=== PATIENT | female | born 1955 | race Caucasian/White ===

== ENCOUNTER 2016-09-01 14:13 | Emergency (ER) | payer MEDICARE, MEDICAID ==
[~2016-09-01] VITALS: Ht 160 cm; Wt 50.4 kg
[~2016-09-01 14:13] MED LIST: CEPH500C3 PO; HYDR10TA16 PO; TRAZ50TA4 PO; TRIBENZOR PO
[2016-09-01 14:22] VITALS: BP 158/79; PULSE 83; RESP 24; TEMP 99; O2SAT 95
[2016-09-01] MEDS ORDERED: methylPREDNISolone SOD SUCC 125 MG/2 ML VIAL IVP ONE (14:30)
[2016-09-01] MEDS ORDERED: SYMB80AE INH (14:34)
[2016-09-01] MEDS ORDERED: HYDR-3366 PO (14:34)
[2016-09-01] MEDS ORDERED: ALPR0.5T3 PO (14:34)
[2016-09-01] MEDS ORDERED: LISI40TA PO (14:34)
[2016-09-01] MEDS ORDERED: CLON0.1T PO (14:34)
[2016-09-01] MEDS ORDERED: SYMB160A INH (14:34)
[2016-09-01] MEDS ORDERED: METH750T PO (14:34)
[2016-09-01] MEDS ORDERED: VENTAER INH (14:34)
--- NOTE | 2016-09-01 14:36 | PD ---
HPI Chief Complaint: Cold / Flu Symptoms Time Seen by Provider: 14:30 Travel History International Travel<30 days: No Contact w/Intl Traveler<30days: No Traveled to known affect area: No History of Present Illness HPI 60-year-old female with history of smoking, COPD, presents to the ER today with several days' history of coughing, wheezing, shortness of breath which she has been trying to use her her nebulizer for without significant relief. She denies any fevers or any other issues. She notes that she did have a sick contact, a friend with upper respiratory symptoms and came over. Modifying Factors: None Associated Signs & Symptoms: Coughing, shortness of breath, wheezing Risk Factors: Smoking and COPD PFSH Past Medical History Anxiety: Yes COPD: Yes Diminished Hearing: Yes ("tinnitus left ear") Herniated Disk: Yes Hypertension: Yes Musculoskeletal: Yes ("L1,L2,L3,fractures and L5 herniated disc") Respiratory: Yes (CHRONIC BRONCHITIS) ?: Not : 0 Para: 0 Miscarriage: 0 : 0 Past Surgical History Hysterectomy: Yes Social History Alcohol Use: Yes ("every day one to two beers") Tobacco Use: Yes (08/21 PPD) Substance Use: No (denied) Allergies-Medications (Allergen,Severity, Reaction): Coded Allergies: Aspirin (Verified Adverse Reaction, Severe, "don't take aspirin i have tinnitus, 09/01/16) Reported Meds & Prescriptions Reported Meds & Active Scripts Active Proventil Hfa 6.7 GM Inh (Albuterol Sulfate) 90 Mcg/Act Aer 2 Puff INH Q4-6H PRN Prednisone 50 Mg Tab 50 Mg PO DAILY Reported Symbicort Inh (Budesonide/Formoterol Fumarate) 160-4.5 Mcg/Act Aero 1 Puff INH Q12HR Symbicort Inh (Budesonide/Formoterol Fumarate) 80-4.5 Mcg/Act Aero 1 Puff INH Q12HR [place] (Hydrocodone-Acetaminophen) 10-325 Mg Tab 1 Tab PO BID PRN Methocarbamol 750 Mg Tab 750 Mg PO BID Alprazolam 0.5 Mg Tab 0.5 Mg PO BID PRN Clonidine (Clonidine HCl) 0.1 Mg Tab 0.1 Mg PO BID Ventolin Hfa 18 GM Inh (Albuterol Sulfate) 90 Mcg/Act Aer 2 Puff INH Q4-6H PRN Lisinopril 40 Mg Tab 40 Mg PO DAILY Review of Systems Except as stated in HPI: all other systems reviewed are Neg Physical Exam Narrative GENERAL: Well-nourished, well-developed middle age white female patient in mild respiratory distress. SKIN: Warm and dry. HEAD: Normocephalic. EYES: No scleral icterus. No injection or drainage. NECK: Supple, trachea midline. CARDIOVASCULAR: Regular rate and rhythm without murmurs, gallops, or rubs. RESPIRATORY: Breath sounds equal with wheezing throughout bilaterally. Mild accessory muscle use. GASTROINTESTINAL: Abdomen soft, non-tender, nondistended. MUSCULOSKELETAL: No cyanosis, or edema. BACK: Nontender without obvious deformity. No CVA tenderness. Data Data Last Documented VS Vital Signs Date Time Temp Pulse Resp B/P Pulse Ox O2 Delivery O2 Flow Rate FiO2 09/01/16 15:23 76 18 147/58 95 Room Air 09/01/16 14:22 99.0 Orders Influenzae A/B Antigen (09/01/16 14:27) Chest, Single Ap (09/01/16 14:27) Complete Blood Count With Diff (09/01/16 14:30) Basic Metabolic Panel (Bmp) (09/01/16 14:30) Iv Access Insert/Monitor (09/01/16 14:30) Ecg Monitoring (09/01/16 14:30) Oximetry (09/01/16 14:30) Oxygen Administration (09/01/16 14:30) Sodium Chloride 0.9% Flush (Ns Flush) (09/01/16 14:30) Methylprednisolone So Succ Inj (Solumedr (09/01/16 14:30) Albuterol-Ipratropium Neb (Duoneb Neb) (09/01/16 14:30) Sodium Chlorid 0.9% 500 Ml Inj (Ns 500 M (09/01/16 15:15) Albuterol Neb (Albuterol Neb) (09/01/16 15:30) Albuterol Neb (Albuterol Neb) (09/01/16 16:15) Labs Laboratory Tests Test 09/01/16 14:45 White Blood Count 4.7 TH/MM3 Red Blood Count 3.80 MIL/MM3 Hemoglobin 13.1 GM/DL Hematocrit 38.6 % Mean Corpuscular Volume 101.5 FL Mean Corpuscular Hemoglobin 34.5 PG Mean Corpuscular Hemoglobin 34.0 % Concent Red Cell Distribution Width 11.8 % Platelet Count 163 TH/MM3 Mean Platelet Volume 7.3 FL Neutrophils (%) (Auto) 60.1 % Lymphocytes (%) (Auto) 24.6 % Monocytes (%) (Auto) 14.4 % Eosinophils (%) (Auto) 0.2 % Basophils (%) (Auto) 0.7 % Neutrophils # (Auto) 2.8 TH/MM3 Lymphocytes # (Auto) 1.2 TH/MM3 Monocytes # (Auto) 0.7 TH/MM3 Eosinophils # (Auto) 0.0 TH/MM3 Basophils # (Auto) 0.0 TH/MM3 CBC Comment DIFF FINAL Differential Comment Sodium Level 127 MEQ/L Potassium Level 4.0 MEQ/L Chloride Level 91 MEQ/L Carbon Dioxide Level 27.8 MEQ/L Anion Gap 8 MEQ/L Blood Urea Nitrogen 4 MG/DL Creatinine 0.80 MG/DL Estimat Glomerular Filtration 74 ML/MIN Rate Random Glucose 98 MG/DL Calcium Level 8.8 MG/DL [facility] Medical Decision Making Medical Screen Exam Complete: Yes Emergency Medical Condition: Yes Medical Record Reviewed: Yes Interpretation(s) Laboratory Tests Test 09/01/16 14:45 Red Blood Count 3.80 MIL/MM3 (4.00-5.30) Mean Corpuscular Volume 101.5 FL (80.0-100.0) Mean Corpuscular Hemoglobin 34.5 PG (27.0-34.0) Monocytes (%) (Auto) 14.4 % (0.0-8.0) Sodium Level 127 MEQ/L (136-145) Chloride Level 91 MEQ/L (98-107) Blood Urea Nitrogen 4 MG/DL (7-18) Estimat Glomerular Filtration 74 ML/MIN (>89) Rate Last 24 hours Impressions Chest X-Ray 09/01/16 1427 Signed Impressions: Service Date/Time: Thursday, September 01, 2016 14:38 - CONCLUSION: Normal examination. Tequila Salinas MD Differential Diagnosis Coughing, shortness of breath, wheezingpneumonia versus COPD versus bronchitis Narrative Course Chest x-ray did not indicate any significant signs of acute pulmonary processes. She is influenza-negative. She was given Solu-Medrol and DuoNeb's in the ER. On reevaluation at 4:40 PM, she is feeling much improved after multiple nebulizers. At this point, she is able to walk around the ER and is feeling improved, however, her saturation does drop with ambulation and I have offered to admit her if she feels that she is not safe to go home. However, She states that she would like to go home, is feeling improved did not that she thinks she will do okay. My plan would be to release her with follow-up to primary care physician. Return for any worsening in symptoms as necessary. The plan has discussed with her and she states understanding. Diagnosis Primary Impression: COPD exacerbation Med/Other Pt SpecificInfo: Prescription(s) given Scripts Albuterol 6.7 GM Inh (Proventil Hfa 6.7 GM Inh)90 Mcg/Act Aer2 Puff INH Q4-6H PRN (SHORTNESS OF BREATH) #1 INHALER Ref 0 Prov:Deepti Cramer MD 09/01/16 Prednisone 50 Mg Tab50 Mg PO DAILY #5 TAB Ref 0 Prov:Deepti Cramer MD 09/01/16 Disposition: 01 DISCHARGE HOME Condition: Stable Deepti Cramer MD Sep 01, 2016 14:35
[2016-09-01] MEDS: RESP: ALBUTEROL 2.5 MG/IPRATROPIUM 0.5 MG NEB (SCH) INH (14:42)
--- NOTE | 2016-09-01 14:48 | RADHPO ---
EXAM DATE/TIME: 09/01/2016 14:38 [facility] COMPARISON: None. INDICATIONS : Short of breath MEDICAL HISTORY : Chronic obstructive pulmonary disease. SURGICAL HISTORY : None. ENCOUNTER: Initial ACUITY: 2 days PAIN SCORE: 7/10 LOCATION: Bilateral chest FINDINGS: A single view of the chest demonstrates the lungs to be symmetrically aerated without evidence of mas s, infiltrate or effusion. The cardiomediastinal contours are unremarkable. Osseous structures are intact. CONCLUSION: Normal examination. Tequila Salinas MD on September 01, 2016 at 14:46 Board Certified Radiologist. This report was verified electronically.
[2016-09-01 14:50] VITALS: RESP 25; O2SAT 95
[2016-09-01] MEDS: SODIUM CHLORIDE 0.9% FLUSH 5 ML FLUSH IVF PRN ×2 (14:54→15:21)
[2016-09-01 14:55] LABS: AUTOMATED NEUTROPHIL # 2.8 TH/MM3 (1.8-7.7); BASOPHIL % 0.7 % (0.0-2.0); EOSINOPHIL % 0.2 % (0.0-4.0); HEMATOCRIT 38.6 % (35.0-46.0); HEMO FLAGS DIFF FINAL; LYMPH % 24.6 % (9.0-44.0); LYMPHOCYTE # 1.2 TH/MM3 (1.0-4.8); MEAN CELL VOLUME 101.5 FL (80.0-100.0); MEAN CORPUSCULAR HEMOGLOBIN 34.5 PG (27.0-34.0); MONO % 14.4 % (0.0-8.0); NEUT % 60.1 % (16.0-70.0); PLATELET COUNT 163 TH/MM3 (150-450); RED CELL DISTRIBUTION WIDTH 11.8 % (11.6-17.2); WHITE BLOOD COUNT 4.7 TH/MM3 (4.0-11.0)
[2016-09-01 15:08] LABS: BICARBONATE 27.8 MEQ/L (21.0-32.0)
[2016-09-01] MEDS ORDERED: SODIUM CHLORID 0.9% 500 ML INJ 500 ML IV ONE (15:15)
[2016-09-01 15:23] VITALS: BP 147/58; PULSE 76; RESP 18; O2SAT 95
[2016-09-01] MEDS: RESP: ALBUTEROL 2.5 MG/3 ML NEB (SCH) INH ×2 (15:34→16:16)
[2016-09-01] MEDS ORDERED: PRED50 PO (16:49)
[2016-09-01] MEDS ORDERED: ALBU6.7H INH (16:49)
[2016-09-01 17:27] VITALS: BP 163/65
== END 2016-09-01 17:31 | disposition home or self-care (01) ==
LOC: PHED 14:13
DX: J44.1 Chronic obstructive pulmonary disease with (acute) exacerbation (principal); I10 Essential (primary) hypertension; F17.210 Nicotine dependence, cigarettes, uncomplicated
CPT/HCPCS: 71010; 80048; 85025; 87804; 94640; 94664; 96361; 96374; 99285; J2930; J7040; J7613

== ENCOUNTER 2016-09-02 15:35 | Inpatient (IN) | payer MEDICARE, MEDICAID ==
[~2016-09-02] VITALS: Ht 160 cm; Wt 55.2 kg
[2016-09-02] VITALS (16 sets, daily range): BP systolic 139–217; BP diastolic 73–126; PULSE 86–114; RESP 24–34; TEMP 98–98.2; O2SAT 95–100
[~2016-09-02 15:35] MED LIST changes: +ALBU6.7H INH; +ALPR0.5T3 PO; -CEPH500C3 PO; +CLON0.1T PO; +HYDR-3366 PO; -HYDR10TA16 PO; +LISI40TA PO; +METH750T PO; +PRED50 PO; +SYMB160A INH; +SYMB80AE INH; -TRAZ50TA4 PO; -TRIBENZOR PO; +VENTAER INH
--- NOTE | 2016-09-02 15:42 | PD ---
HPI Chief Complaint: Respiratory Distress Time Seen by Provider: 15:38 Travel History International Travel<30 days: No Contact w/Intl Traveler<30days: No Traveled to known affect area: No History of Present Illness HPI 60-year-old female with history of COPD brought in by ambulance from home for evaluation of shortness of breath. The patient was seen in the emergency department yesterday with complaints of shortness of breath and cough for several days. She improved after 2 nebs and Solu-Medrol. Her O2 saturations did drop with exertion and she was offered admission yesterday, however the patient preferred to be discharged home as she was feeling a lot better. She states that she took prednisone about 5 hours ago, and shortly afterward she became short of breath. Her dyspnea seemed to be worsening over the last few hours. EMS administered albuterol and the patient reports some improvement in symptoms, however she still feels short of breath. She denies chest pain. She has been having a cough productive of whitish sputum. No hemoptysis. No chest pain. No history of DVT or PE. No fevers. She has never been intubated or hospitalized for her COPD. PFSH Past Medical History Anxiety: Yes COPD: Yes Diminished Hearing: Yes ("tinnitus left ear") Herniated Disk: Yes Hypertension: Yes Musculoskeletal: Yes ("L1,L2,L3,fractures and L5 herniated disc") Respiratory: Yes (CHRONIC BRONCHITIS) : 0 Para: 0 Miscarriage: 0 : 0 Past Surgical History Hysterectomy: Yes Social History Alcohol Use: Yes (DAILY) Tobacco Use: Yes (1 PPD) Substance Use: No (denied) Allergies-Medications (Allergen,Severity, Reaction): Coded Allergies: Aspirin (Verified Adverse Reaction, Severe, "don't take aspirin i have tinnitus, 09/02/16) Reported Meds & Prescriptions Reported Meds & Active Scripts Active Proventil Hfa 6.7 GM Inh (Albuterol Sulfate) 90 Mcg/Act Aer 2 Puff INH Q4-6H PRN Prednisone 50 Mg Tab 50 Mg PO DAILY Reported Symbicort Inh (Budesonide/Formoterol Fumarate) 160-4.5 Mcg/Act Aero 1 Puff INH Q12HR [place] (Hydrocodone-Acetaminophen) 10-325 Mg Tab 1 Tab PO BID PRN Methocarbamol 750 Mg Tab 750 Mg PO BID Alprazolam 0.5 Mg Tab 0.5 Mg PO BID PRN Clonidine (Clonidine HCl) 0.1 Mg Tab 0.1 Mg PO BID Ventolin Hfa 18 GM Inh (Albuterol Sulfate) 90 Mcg/Act Aer 2 Puff INH Q4-6H PRN Lisinopril 40 Mg Tab 40 Mg PO DAILY Review of Systems Except as stated in HPI: all other systems reviewed are Neg Physical Exam Narrative GENERAL: Well-developed, thin, moderate respiratory distress, speaking a few words at a time, accessory muscle use. SKIN: Warm and dry. No rash. HEAD: Atraumatic. Normocephalic. EYES: Pupils equal and round. No scleral icterus. No injection or drainage. ENT: Mucous membranes pink and moist. NECK: Trachea midline. No JVD. CARDIOVASCULAR: Tachycardic, rate 110, regular. RESPIRATORY: Accessory muscle use. Bilateral inspiratory and expiratory wheezes with poor air movement bilaterally. No rales or rhonchi. Moderate respiratory distress. Speaking a few words at a time. GASTROINTESTINAL: Abdomen soft, non-tender, nondistended. MUSCULOSKELETAL: No obvious deformities. No clubbing. No cyanosis. No edema. NEUROLOGICAL: Awake and alert. No obvious cranial nerve deficits. Motor grossly within normal limits. Normal speech. PSYCHIATRIC: Appropriate mood and affect; insight and judgment normal. Data Data Last Documented VS Vital Signs Date Time Temp Pulse Resp B/P Pulse Ox O2 Delivery O2 Flow Rate FiO2 09/02/16 16:34 100 30 09/02/16 16:31 BiPAP 09/02/16 16:18 98.2 111 28 212/126 09/02/16 16:00 2.00 Orders Complete Blood Count With Diff (09/02/16 15:38) Comprehensive Metabolic Panel (09/02/16 15:38) B-Type Natriuretic Peptide (09/02/16 15:38) Act Partial Throm Time (Ptt) (09/02/16 15:38) Prothrombin Time / Inr (Pt) (09/02/16 15:38) Ckmb (Isoenzyme) Profile (09/02/16 15:38) Troponin I (09/02/16 15:38) Influenzae A/B Antigen (09/02/16 15:38) Iv Access Insert/Monitor (09/02/16 15:38) Electrocardiogram (09/02/16 15:38) Ecg Monitoring (09/02/16 15:38) Oximetry (09/02/16 15:38) Oxygen Administration (09/02/16 15:38) Chest, Single Ap (09/02/16 15:38) Sodium Chloride 0.9% Flush (Ns Flush) (09/02/16 15:45) Albuterol-Ipratropium Neb (Duoneb Neb) (09/02/16 15:45) Clonidine (Catapres) (09/02/16 16:00) Lisinopril (Prinivil) (09/02/16 16:00) Arterial Blood Gas (Abg) (09/02/16 15:40) CKMB (09/02/16 15:40) CKMB% (09/02/16 15:40) Methylprednisolone So Succ Inj (Solumedr (09/02/16 16:30) Resp Bipap / Cpap Non Invas Vt (09/02/16 ) Levofloxacin 750 Mg Premix Inj (Levaquin (09/02/16 16:30) Labs Laboratory Tests Test 09/02/16 15:40 White Blood Count 8.2 TH/MM3 Red Blood Count 3.71 MIL/MM3 Hemoglobin 12.8 GM/DL Hematocrit 37.8 % Mean Corpuscular Volume 101.9 FL Mean Corpuscular Hemoglobin 34.6 PG Mean Corpuscular Hemoglobin 33.9 % Concent Red Cell Distribution Width 12.1 % Platelet Count 189 TH/MM3 Mean Platelet Volume 7.6 FL Neutrophils (%) (Auto) 87.6 % Lymphocytes (%) (Auto) 7.2 % Monocytes (%) (Auto) 4.6 % Eosinophils (%) (Auto) 0.1 % Basophils (%) (Auto) 0.5 % Neutrophils # (Auto) 7.2 TH/MM3 Lymphocytes # (Auto) 0.6 TH/MM3 Monocytes # (Auto) 0.4 TH/MM3 Eosinophils # (Auto) 0.0 TH/MM3 Basophils # (Auto) 0.0 TH/MM3 CBC Comment DIFF FINAL Differential Comment Prothrombin Time 10.7 SEC Prothromb Time International 1.0 RATIO Ratio Activated Partial 27.1 SEC Thromboplast Time Blood Gas Puncture Site LT RADIAL Blood Gas Patient Temperature 98.6 Blood Gas HCO3 26 mmol/L Blood Gas Base Excess -0.6 mmol/L Blood Gas Oxygen Saturation 95 % Arterial Blood pH 7.26 Arterial Blood Partial 60 mmHG Pressure CO2 Arterial Blood Partial 119 mmHG Pressure O2 Arterial Blood Oxygen Content 17.9 Vol % Arterial Blood 1.8 % Carboxyhemoglobin Arterial Blood Methemoglobin 1.2 % Blood Gas Hemoglobin 13.3 G/DL Oxygen Delivery Device NASAL CANNULA Blood Gas Liter Flow 2 L/M Sodium Level 129 MEQ/L Potassium Level 4.5 MEQ/L Chloride Level 94 MEQ/L Carbon Dioxide Level 26.1 MEQ/L Anion Gap 9 MEQ/L Blood Urea Nitrogen 9 MG/DL Creatinine 0.76 MG/DL Estimat Glomerular Filtration 78 ML/MIN Rate Random Glucose 129 MG/DL Calcium Level 8.7 MG/DL Total Bilirubin 0.4 MG/DL Aspartate Amino Transf 92 U/L (AST/SGOT) Alanine Aminotransferase 85 U/L (ALT/SGPT) Alkaline Phosphatase 93 U/L Total Creatine Kinase 256 U/L Creatine Kinase MB 8.2 NG/ML Creatine Kinase MB % 3.2 % Troponin I 0.05 NG/ML B-Type Natriuretic Peptide 95 PG/ML Total Protein 8.8 GM/DL Albumin 3.7 GM/DL [facility] Medical Decision Making Medical Screen Exam Complete: Yes Emergency Medical Condition: Yes Medical Record Reviewed: Yes Differential Diagnosis COPD exacerbation, pneumonia, pneumothorax, PE, ACS, influenza Narrative Course Initial vital signs show heart rate 114, respiratory rate 30, blood pressure 206 /110, pulse ox 96% on 100% nonrebreather. CBC shows WBC 8.2, hemoglobin 12.8, hematocrit 37.8, platelets 189, neutrophils 87%. CMP is remarkable for sodium 129, chloride 94, AST 92, ALT 85, otherwise are remarkable. Troponin is 0.05. Total CK is 256, CK-MB is 8.2, CK-MB percent is 3.2%. BNP is 95. Influenza is negative. Chest x-ray shows no acute disease. The patient did have some improvement in her breathing subjectively after 3 DuoNeb treatments. She is still having accessory muscle use and is still wheezing, however wheezes sound improved. ABG on 2 L nasal cannula shows a pH of 7.25 PO2 of 120 with a PCO2 of 60. Because of continued increased work of breathing, the patient was started on BiPAP. She will be admitted for further treatment and evaluation of COPD exacerbation. She was given a dose of Levaquin and Solu-Medrol as well and the emergency department. Case discussed with [facility] hospitalist Dr. Guaman who would like me to discuss the case with the drying machine tender and feels more comfortable admitting to their service. Case discussed with drying machine tender Dr. Cottrell. The patient will be admitted to the main intensive care unit to his service. The patient was made aware of all findings and plan for admission. She is still requiring BiPAP. Critical Care Narrative Aggregate critical care time was 35 minutes. Time to perform other separately billable procedures was not included in the critical care time. My time did not include minutes spent treating any other patients simultaneously or on activities that did not directly contribute to the patient's treatment. The services I provided to this patient were to treat and/or prevent clinically significant deterioration that could result in: , permanent disability, worsening clinical condition, acute respiratory failure I provided critical care services requiring my management, as noted below: Chart data review, documentation time, medication orders and management, vital sign assessments/reviewing monitor data, ordering and reviewing lab tests, ordering and interpreting/reviewing x-rays and diagnostic studies, care of the patient and discussion of the patient with the admitting physicians. Diagnosis Primary Impression: COPD exacerbation Admitting Information Admitting Physician Requests: Admit Christopher John MD Sep 02, 2016 15:42
[2016-09-02 15:56] LABS: AUTOMATED NEUTROPHIL # 7.2 TH/MM3 (1.8-7.7); BASOPHIL % 0.5 % (0.0-2.0); EOSINOPHIL % 0.1 % (0.0-4.0); HEMATOCRIT 37.8 % (35.0-46.0); HEMO FLAGS DIFF FINAL; LYMPH % 7.2 % (9.0-44.0); LYMPHOCYTE # 0.6 TH/MM3 (1.0-4.8); MEAN CELL VOLUME 101.9 FL (80.0-100.0); MEAN CORPUSCULAR HEMOGLOBIN 34.6 PG (27.0-34.0); MEAN CORPUSCULAR HGB CONC 33.9 % (32.0-36.0); MONO % 4.6 % (0.0-8.0); NEUT % 87.6 % (16.0-70.0); PLATELET COUNT 189 TH/MM3 (150-450); RED BLOOD COUNT 3.71 MIL/MM3 (4.00-5.30); RED CELL DISTRIBUTION WIDTH 12.1 % (11.6-17.2); WHITE BLOOD COUNT 8.2 TH/MM3 (4.0-11.0)
[2016-09-02] MEDS ORDERED: LISINOPRIL 20 MG TAB PO ONE (16:00)
[2016-09-02] MEDS ORDERED: cloNIDine HCL 0.1 MG TAB PO ONE (16:00)
[2016-09-02] MEDS: RESP: ALBUTEROL 2.5 MG/IPRATROPIUM 0.5 MG NEB (SCH) INH ×3 (16:02→23:31)
[2016-09-02 16:03] LABS: CHLORIDE 94 MEQ/L (98-107); POTASSIUM 4.5 MEQ/L (3.5-5.1); SODIUM (NA) 129 MEQ/L (136-145)
[2016-09-02] MEDS: SODIUM CHLORIDE 0.9% FLUSH 5 ML FLUSH IVF PRN ×2 (16:06→16:31)
[2016-09-02 16:07] LABS: ANION GAP 9 MEQ/L (5-15); BICARBONATE 26.1 MEQ/L (21.0-32.0); BLOOD GAS BASE EXCESS -0.6 mmol/L (-2-2); BLOOD GAS CARBOXYHEMOGLOBIN 1.8 % (0-4); BLOOD GAS HCO3 26 mmol/L (22-26); BLOOD GAS METHEMOGLOBIN 1.2 % (0-2); BLOOD GAS O2 HGB SATURATION 95 % (90-100); BLOOD GAS OXYGEN CONTENT 17.9 Vol % (12.0-20.0); BLOOD GAS PCO2 60 mmHG (38-42); BLOOD GAS PO2 119 mmHG (61-120); BLOOD GAS TOTAL HGB 13.3 G/DL (12.0-16.0); BLOOD UREA NITROGEN 9 MG/DL (7-18); CRITICAL VALUE YES; OXYGEN DEVICE NASAL CANNULA; TEMP CORR TO 98.6
[2016-09-02 16:08] LABS: APTT (PATIENT) 27.1 SEC (24.3-30.1); DRAW SITE LT RADIAL; LITER FLOW 2 L/M; NUMBER OF ARTERIAL PUNCTURES 1; PROTHROMBIN TIME - PATIENT 10.7 SEC (9.8-11.6); STAT YES; ULNAR PULSE Y
[2016-09-02 16:10] LABS: ALT (GPT) 85 U/L (10-53); AST (GOT) 92 U/L (15-37); GLOMERULAR FILTRATION RATE 78 ML/MIN (>89)
[2016-09-02 16:11] LABS: TOTAL BILIRUBIN ADULT 0.4 MG/DL (0.2-1.0)
[2016-09-02 16:13] LABS: ALKALINE PHOSPHATASE 93 U/L (45-117); CREATINE KINASE 256 U/L (26-192)
--- NOTE | 2016-09-02 16:13 | RADHPO ---
EXAM DATE/TIME: 09/02/2016 15:41 [facility] COMPARISON: CHEST SINGLE AP, September 01, 2016, 14:38. INDICATIONS : Shortness of breath. MEDICAL HISTORY : Chronic obstructive pulmonary disease. SURGICAL HISTORY : None. ENCOUNTER: Initial ACUITY: 3 days PAIN SCORE: 0/10 LOCATION: Bilateral chest FINDINGS: A single view of the chest demonstrates the lungs to be symmetrically aerated without evidence of mas s, infiltrate or effusion. The cardiomediastinal contours are unremarkable. Osseous structures are intact. CONCLUSION: No acute disease. Mundo López MD FACR on September 02, 2016 at 16:10 Board Certified Radiologist. This report was verified electronically.
[2016-09-02 16:25] LABS: CKMB 8.2 NG/ML (0.5-3.6)
[2016-09-02] MEDS ORDERED: LEVOFLOXACIN 750 MG PREMIX INJ 150 ML IV ONE (16:30)
[2016-09-02] MEDS ORDERED: methylPREDNISolone SOD SUCC 125 MG/2 ML VIAL IV PUSH ONE (16:30)
[2016-09-02 17:38] LABS: BLOOD GAS BASE EXCESS 0.2 mmol/L (-2-2); BLOOD GAS CARBOXYHEMOGLOBIN 1.6 % (0-4); BLOOD GAS HCO3 25 mmol/L (22-26); BLOOD GAS METHEMOGLOBIN 1.2 % (0-2); BLOOD GAS O2 HGB SATURATION 95 % (90-100); BLOOD GAS OXYGEN CONTENT 17.2 Vol % (12.0-20.0); BLOOD GAS PCO2 47 mmHG (38-42); BLOOD GAS PO2 111 mmHG (61-120); BLOOD GAS TOTAL HGB 12.7 G/DL (12.0-16.0); CRITICAL VALUE NO; DRAW SITE RT RADIAL; FIO2 30 %; OXYGEN DEVICE BIPAP; TEMP CORR TO 98.6
[2016-09-02 17:39] LABS: NUMBER OF ARTERIAL PUNCTURES 1; STAT YES; ULNAR PULSE PRESENT; VENT SETTINGS 10 IP/5 EPAP
[2016-09-02] MEDS ORDERED: CHLORHEXIDINE GLUCONATE 2 % 1 PACK (2 CLOTHS)(extra cloths) TOP PRN (20:45)
[2016-09-02] MEDS ORDERED: ONDANSETRON HCL 4 MG/2 ML VIAL IV PRN (21:00)
[2016-09-02] MEDS ORDERED: CHLORHEXIDINE GLUCONATE 2 % 1 PACK (2 CLOTHS) TOP PRN (21:00)
[2016-09-02] MEDS ORDERED: PILL SPLITTER OTHER PRN (21:00)
[2016-09-02] MEDS ORDERED: MISCELLANEOUS NURSING INFORMATION XX SCH (21:00)
[2016-09-02] MEDS ORDERED: ALPRAZolam 0.5 MG TAB PO PRN (21:00)
--- NOTE | 2016-09-02 21:03 | HHI.HP ---
[facility] Critical Care Medicine Primary Care Physician Liang Perdue, DO Admission Diagnosis COPD Exacerbation Diagnosis: Chief Complaint: Can't breathe. Travel History International Travel<30 Days: No Contact w/Intl Traveler <30 Da: No Traveled to Known Affected Are: No History of Present Illness 60 y/o woman with 3 days crescendo COPD exacerbation. Oxygenates OK but work of breathing is excessive. No indication of precipitating infectious irritant but bronchitis is expected and will treat. Review of Systems ROS Severe SOB. Past Family Social History Allergies: Coded Allergies: Aspirin (Verified Adverse Reaction, Severe, "don't take aspirin i have tinnitus, 09/02/16) Past Medical History Past Medical History Anxiety: Yes COPD: Yes Diminished Hearing: Yes ("tinnitus left ear") Herniated Disk: Yes Hypertension: Yes Musculoskeletal: Yes ("L1,L2,L3,fractures and L5 herniated disc") Respiratory: Yes (CHRONIC BRONCHITIS) : 0 Para: 0 Miscarriage: 0 : 0 Past Surgical History Hysterectomy: Yes Social History Alcohol Use: Yes (DAILY) Tobacco Use: Yes (1 PPD) Substance Use: No (denied) Allergies-Medications Allergies-Medications (Allergen,Severity, Reaction): Coded Allergies: Aspirin (Verified Adverse Reaction, Severe, "don't take aspirin i have tinnitus, 09/02/16) Reported Meds & Prescriptions Reported Meds & Active Scripts Active Proventil Hfa 6.7 GM Inh (Albuterol Sulfate) 90 Mcg/Act Aer 2 Puff INH Q4-6H PRN Prednisone 50 Mg Tab 50 Mg PO DAILY Reported Symbicort Inh (Budesonide/Formoterol Fumarate) 160-4.5 Mcg/Act Aero 1 Puff INH Q12HR [place] (Hydrocodone-Acetaminophen) 10-325 Mg Tab 1 Tab PO BID PRN Methocarbamol 750 Mg Tab 750 Mg PO BID Alprazolam 0.5 Mg Tab 0.5 Mg PO BID PRN Clonidine (Clonidine HCl) 0.1 Mg Tab 0.1 Mg PO BID Ventolin Hfa 18 GM Inh (Albuterol Sulfate) 90 Mcg/Act Aer 2 Puff INH Q4-6H PRN Lisinopril 40 Mg Tab 40 Mg PO DAILY Physical Exam Vital Signs Vital Signs Date Time Temp Pulse Resp B/P Pulse Ox O2 Delivery O2 Flow Rate FiO2 09/02/16 18:53 98.0 106 32 139/84 100 1/14/17 18:43 99 30 09/02/16 17:53 99 24 152/78 BiPAP 09/02/16 17:45 98 24 BiPAP 09/02/16 17:14 103 28 170/103 98 BiPAP 30 09/02/16 17:08 100 30 09/02/16 17:07 98 BiPAP 30 09/02/16 16:34 100 30 09/02/16 16:32 30 09/02/16 16:31 98 BiPAP 30 09/02/16 16:18 98.2 111 28 212/126 100 Aerosol Mask 09/02/16 16:00 100 Nasal Cannula 2.00 09/02/16 15:56 113 28 217/101 98 Nasal Cannula 2 09/02/16 15:45 114 30 99 Nasal Cannula 3 09/02/16 15:43 99 Nasal Cannula 3 09/02/16 15:41 98.2 114 30 206/110 96 Physical Exam GEN: Hypertensive, anxious. Head: Normal. Neck: Supple, airway patent. Lungs: Poor cyrus air entry, prolonged expiratory phase with restrictive wheezes, tight. Labored. Heart: Tachycardia, RRR. No JVD. Abdomen: Soft, noindistended. Extremities: Tepid, well perfused. Neuro: Anxious, O X 3. M/S grossly intact. Laboratory Laboratory Tests Test 09/02/16 09/02/16 15:40 17:30 White Blood Count 8.2 Red Blood Count 3.71 Hemoglobin 12.8 Hematocrit 37.8 Mean Corpuscular Volume 101.9 Mean Corpuscular Hemoglobin 34.6 Mean Corpuscular Hemoglobin 33.9 Concent Red Cell Distribution Width 12.1 Platelet Count 189 Mean Platelet Volume 7.6 Neutrophils (%) (Auto) 87.6 Lymphocytes (%) (Auto) 7.2 Monocytes (%) (Auto) 4.6 Eosinophils (%) (Auto) 0.1 Basophils (%) (Auto) 0.5 Neutrophils # (Auto) 7.2 Lymphocytes # (Auto) 0.6 Monocytes # (Auto) 0.4 Eosinophils # (Auto) 0.0 Basophils # (Auto) 0.0 CBC Comment DIFF FINAL Differential Comment Prothrombin Time 10.7 Prothromb Time International 1.0 Ratio Activated Partial 27.1 Thromboplast Time Blood Gas Puncture Site LT RADIAL RT RADIAL Blood Gas Patient Temperature 98.6 98.6 Blood Gas HCO3 26 25 Blood Gas Base Excess -0.6 0.2 Blood Gas Oxygen Saturation 95 95 Arterial Blood pH 7.26 7.35 Arterial Blood Partial 60 47 Pressure CO2 Arterial Blood Partial 119 111 Pressure O2 Arterial Blood Oxygen Content 17.9 17.2 Arterial Blood 1.8 1.6 Carboxyhemoglobin Arterial Blood Methemoglobin 1.2 1.2 Blood Gas Hemoglobin 13.3 12.7 Oxygen Delivery Device NASAL CANNULA BIPAP Blood Gas Liter Flow 2 Sodium Level 129 Potassium Level 4.5 Chloride Level 94 Carbon Dioxide Level 26.1 Anion Gap 9 Blood Urea Nitrogen 9 Creatinine 0.76 Estimat Glomerular Filtration 78 Rate Random Glucose 129 Calcium Level 8.7 Total Bilirubin 0.4 Aspartate Amino Transf 92 (AST/SGOT) Alanine Aminotransferase 85 (ALT/SGPT) Alkaline Phosphatase 93 Total Creatine Kinase 256 Creatine Kinase MB 8.2 Creatine Kinase MB % 3.2 Troponin I 0.05 B-Type Natriuretic Peptide 95 Total Protein 8.8 Albumin 3.7 Blood Gas Ventilator Setting 10 IP/5 EPAP Blood Gas Inspired Oxygen 30 Date/Time Procedure Status Source Growth 09/02/16 15:45 Influenza Types A,B Antigen ([facility]) - Final Complete Nasal Washing NEGATIVE FOR FLU A AND B ANTIGEN.... Result Diagram: 09/02/16 1540 09/02/16 1540 Assessment and Plan Assessment and Plan Assessment: 1. COPD exacerbation. 2. Hypercapneic Respiratory Failure. 3. Hypertensive urgency. Plan: 1. BiPAP NIV. 2. Sats 87 - 93%. 3. Steroids q6h. 4. Levaquin. 5. Xanax prn. 6. Lovenox DVT px. 7. Protonix. 8. Lisinopril. 9. Hydralazine prn. Overall impression: Critically ill with COPD exacerbation and poor air movement. May require intubation. Hopefully can break bronchospasm with steroids , dilators. Critical care 37 mins Rodri Jim MD Sep 02, 2016 21:03
[2016-09-02] MEDS: ALPRAZolam 0.5 MG TAB PO PRN (21:45)
[2016-09-02] MEDS: cloNIDine HCL 0.1 MG TAB PO SCH (21:45)
[2016-09-02] MEDS: SODIUM CHLORIDE 0.9% FLUSH 5 ML FLUSH IV FLUSH SCH (21:46)
[2016-09-02] MEDS: LEVOFLOXACIN 750 MG PREMIX INJ 150 ML IV SCH (21:46)
[2016-09-02] MEDS: ENOXAPARIN SODIUM 40 MG/0.4 ML SYRINGE SQ SCH (21:47)
[2016-09-02] MEDS: methylPREDNISolone SOD SUCC 125 MG/2 ML VIAL IV SCH (22:07)
[2016-09-02] MEDS: hydrALAZINE HCL 20 MG/ML VIAL IV PUSH PRN (22:13)
[2016-09-02] MEDS: BUDESONIDE-FORMOTEROL 160/4.5 MCG INHALER INH SCH (22:46)
[2016-09-02] MEDS: METHOCARBAMOL 500 MG TAB PO SCH (22:46)
[2016-09-02] MEDS: ALBUTEROL SULFATE 90 MCG/ACT HFA 8 GM INHALER INH PRN (22:48)
[2016-09-03] VITALS (17 sets, daily range): BP systolic 111–210; BP diastolic 55–96; PULSE 80–109; RESP 21–29; TEMP 97.4–98.4; O2SAT 94–100
[2016-09-03] MEDS: methylPREDNISolone SOD SUCC 125 MG/2 ML VIAL IV SCH ×5 (00:09→23:43)
[2016-09-03 01:23] LABS: BLOOD, URINE NEG (NEG); COMMENT (UR) CATH-CULT NOT IND; CULTURE IF INDICATED CATH CULTURE NOT IND; GLUCOSE,URINE NEG (NEG); KETONE, URINE NEG (NEG); MUCUS URINE FEW /lpf (OCC); NITRITE,URINE NEG (NEG); SQUAMOUS EPITHELIAL CELL URINE 1 /hpf (0-5); URINE COLOR YELLOW (YELLW/STRAW)
[2016-09-03] MEDS: RESP: ALBUTEROL 2.5 MG/IPRATROPIUM 0.5 MG NEB (SCH) INH ×6 (04:00→23:46)
[2016-09-03] MEDS ORDERED: CHLORHEXIDINE GLUCONATE 2 % 1 PACK (2 CLOTHS)(taper/protocol) TOP SCH (04:00)
[2016-09-03] MEDS: hydrALAZINE HCL 20 MG/ML VIAL IV PUSH PRN (04:14)
[2016-09-03] MEDS: CHLORHEXIDINE GLUCONATE 2 % 1 PACK (2 CLOTHS) TOP SCH (04:16)
[2016-09-03 05:16] LABS: AUTOMATED NEUTROPHIL # 4.8 TH/MM3 (1.8-7.7); BASOPHIL % 0.1 % (0.0-2.0); HEMATOCRIT 39.7 % (35.0-46.0); HEMO FLAGS DIFF FINAL; LYMPH % 8.6 % (9.0-44.0); LYMPHOCYTE # 0.5 TH/MM3 (1.0-4.8); MEAN CORPUSCULAR HEMOGLOBIN 34.9 PG (27.0-34.0); MEAN CORPUSCULAR HGB CONC 34.2 % (32.0-36.0); NEUT % 85.3 % (16.0-70.0); PLATELET COUNT 189 TH/MM3 (150-450); RED BLOOD COUNT 3.89 MIL/MM3 (4.00-5.30); RED CELL DISTRIBUTION WIDTH 12.3 % (11.6-17.2); WHITE BLOOD COUNT 5.6 TH/MM3 (4.0-11.0)
[2016-09-03 05:39] LABS: BICARBONATE 25.8 MEQ/L (21.0-32.0); POTASSIUM 4.5 MEQ/L (3.5-5.1)
[2016-09-03] MEDS: ALPRAZolam 0.5 MG TAB PO PRN ×2 (06:01→14:44)
[2016-09-03] MEDS: cloNIDine HCL 0.1 MG TAB PO SCH ×2 (07:59→20:05)
[2016-09-03] MEDS: METHOCARBAMOL 500 MG TAB PO SCH ×2 (07:59→20:06)
[2016-09-03] MEDS: ACETAMINOPHEN/HYDROcodone 325 MG/10 MG TAB PO PRN ×2 (07:59→18:22)
[2016-09-03] MEDS: PANTOPRAZOLE SOD 40 MG DELAYED RELEASE TAB PO SCH (07:59)
[2016-09-03] MEDS: LISINOPRIL 20 MG TAB PO SCH (08:00)
[2016-09-03] MEDS: SODIUM CHLORIDE 0.9% FLUSH 5 ML FLUSH IV FLUSH SCH ×2 (08:00→20:05)
[2016-09-03] MEDS: BUDESONIDE-FORMOTEROL 160/4.5 MCG INHALER INH SCH ×2 (08:00→20:07)
[2016-09-03] MEDS ORDERED: BUDESONIDE-FORMOTEROL 80/4.5 MCG INHALER INH SCH (09:30)
[2016-09-03] MEDS: SODIUM CHLOR 0.9% 1000 ML INJ 1,000 ML IV SCH ×2 (09:30→23:43)
[2016-09-03] MEDS ORDERED: DEXTROSE 50% IN WATER 50 ML VIAL(D50) IV PUSH PRN (09:30)
[2016-09-03] MEDS: INSULIN NovoLIN REGULAR SUPPLEMENTAL SCALE SQ SCH ×3 (09:30→21:30)
[2016-09-03] MEDS ORDERED: GLUCAGON 1 MG/ML VIAL OTHER PRN (09:30)
--- NOTE | 2016-09-03 09:41 | HHI.CCPN ---
Subjective Remarks/Hospital Course 60 y/o woman with 3 days crescendo COPD exacerbation. Oxygenates OK but work of breathing is excessive. No indication of precipitating infectious irritant but bronchitis is expected and will treat. 09/03 Patient is on BIPAP 05/24 with 25% FIO2. Afebrile. Objective Vital Signs Date Time Temp Pulse Resp B/P Pulse Ox O2 Delivery O2 Flow Rate FiO2 09/03/16 08:45 22 09/03/16 07:56 99 BiPAP 25 09/03/16 06:00 89 09/03/16 04:00 97.4 193/93 09/02/16 16:00 2.00 Intake and Output 09/02/16 09/02/16 09/03/16 08:00 16:00 00:00 Intake Total 180 ml Output Total 300 ml Balance -120 ml Result Diagram: 09/03/16 0445 09/03/16 0445 Other Results Laboratory Tests Test 09/02/16 09/02/16 09/02/16 09/03/16 15:40 17:30 22:35 04:45 White Blood Count 8.2 TH/MM3 5.6 TH/MM3 Red Blood Count 3.71 MIL/MM3 3.89 MIL/MM3 Hemoglobin 12.8 GM/DL 13.6 GM/DL Hematocrit 37.8 % 39.7 % Mean Corpuscular Volume 101.9 FL 102.0 FL Mean Corpuscular Hemoglobin 34.6 PG 34.9 PG Mean Corpuscular Hemoglobin 33.9 % 34.2 % Concent Red Cell Distribution Width 12.1 % 12.3 % Platelet Count 189 TH/MM3 189 TH/MM3 Mean Platelet Volume 7.6 FL 7.5 FL Neutrophils (%) (Auto) 87.6 % 85.3 % Lymphocytes (%) (Auto) 7.2 % 8.6 % Monocytes (%) (Auto) 4.6 % 6.0 % Eosinophils (%) (Auto) 0.1 % 0.0 % Basophils (%) (Auto) 0.5 % 0.1 % Neutrophils # (Auto) 7.2 TH/MM3 4.8 TH/MM3 Lymphocytes # (Auto) 0.6 TH/MM3 0.5 TH/MM3 Monocytes # (Auto) 0.4 TH/MM3 0.3 TH/MM3 Eosinophils # (Auto) 0.0 TH/MM3 0.0 TH/MM3 Basophils # (Auto) 0.0 TH/MM3 0.0 TH/MM3 CBC Comment DIFF FINAL DIFF FINAL Differential Comment Prothrombin Time 10.7 SEC Prothromb Time International 1.0 RATIO Ratio Activated Partial 27.1 SEC Thromboplast Time Blood Gas Puncture Site LT RADIAL RT RADIAL Blood Gas Patient Temperature 98.6 98.6 Blood Gas HCO3 26 mmol/L 25 mmol/L Blood Gas Base Excess -0.6 mmol/L 0.2 mmol/L Blood Gas Oxygen Saturation 95 % 95 % Arterial Blood pH 7.26 7.35 Arterial Blood Partial 60 mmHG 47 mmHG Pressure CO2 Arterial Blood Partial 119 mmHG 111 mmHG Pressure O2 Arterial Blood Oxygen Content 17.9 Vol % 17.2 Vol % Arterial Blood 1.8 % 1.6 % Carboxyhemoglobin Arterial Blood Methemoglobin 1.2 % 1.2 % Blood Gas Hemoglobin 13.3 G/DL 12.7 G/DL Oxygen Delivery Device NASAL CANNULA BIPAP Blood Gas Liter Flow 2 L/M Sodium Level 129 MEQ/L 128 MEQ/L Potassium Level 4.5 MEQ/L 4.5 MEQ/L Chloride Level 94 MEQ/L 92 MEQ/L Carbon Dioxide Level 26.1 MEQ/L 25.8 MEQ/L Anion Gap 9 MEQ/L 10 MEQ/L Blood Urea Nitrogen 9 MG/DL 14 MG/DL Creatinine 0.76 MG/DL 0.70 MG/DL Estimat Glomerular Filtration 78 ML/MIN 86 ML/MIN Rate Random Glucose 129 MG/DL 126 MG/DL Calcium Level 8.7 MG/DL 8.9 MG/DL Total Bilirubin 0.4 MG/DL Aspartate Amino Transf 92 U/L (AST/SGOT) Alanine Aminotransferase 85 U/L (ALT/SGPT) Alkaline Phosphatase 93 U/L Total Creatine Kinase 256 U/L Creatine Kinase MB 8.2 NG/ML Creatine Kinase MB % 3.2 % Troponin I 0.05 NG/ML B-Type Natriuretic Peptide 95 PG/ML Total Protein 8.8 GM/DL Albumin 3.7 GM/DL Blood Gas Ventilator Setting 10 IP/5 EPAP Blood Gas Inspired Oxygen 30 % Urine Color YELLOW Urine Turbidity CLEAR Urine pH 6.0 Urine Specific [place] 1.016 Urine Protein 30 mg/dL Urine Glucose (UA) NEG mg/dL Urine Ketones NEG mg/dL Urine Occult Blood NEG Urine Nitrite NEG Urine Bilirubin NEG Urine Urobilinogen LESS THAN 2.0 MG/DL Urine Leukocyte Esterase NEG Urine RBC 2 /hpf Urine WBC 1 /hpf Urine Squamous Epithelial 1 /hpf Cells Urine Mucus FEW /lpf Microscopic Urinalysis Comment CATH-CULT NOT IND Test 09/03/16 05:25 Nasal Screen MRSA (PCR) NEGATIVE Objective Remarks GENERAL: Patient is 60yo on BIPAP 10/5 with 25% FIO2. SKIN: Warm and dry. HEAD: Normocephalic. EYES: No scleral icterus. No injection or drainage. NECK: Supple, trachea midline. No JVD or lymphadenopathy. CARDIOVASCULAR: Regular rate and rhythm without murmurs, gallops, or rubs. RESPIRATORY: Breath sounds equal bilaterally. Scattered wheezing noted. GASTROINTESTINAL: Abdomen soft, non-tender, nondistended. MUSCULOSKELETAL: No cyanosis, or edema. Neuro: Awake and alert A/P Assessment and Plan 1)Resp Insuff 2) COPD exacerbation. 3)Hypertension 4)Hyponatremia 5)Elevated LFT Plan: Neuro: Awake and alert Pulm: Continue with oxygen keep sat >92% Bronchodilators, solumederol 80mg Q6 NIPPV PRN for resp distress CV:Monitor HR and BP keep MAP>65mmHg On Lisinopril 40mg daily, Clonidine 0.1mg BID :Monitor renal function, I/O's, electrolytes replacement per protocol Place on NS@75ml/hr GI: Monitor LFT's, check US liver ID: Continue with empiric abx ( Levaquin) for COPD exac. Monitor for signs of infections ( Fever, WBC) Heme: Monitor CBC Endo: SSI for glycemic control GI prophylaxis- on Protonix DVT prophylaxis - on Lovenox 40mg daily Will sign off and transfer care to [facility] Level 3 Brandon Brown MD Sep 03, 2016 09:41
[2016-09-03] MEDS ORDERED: INFLUENZA VIRUS VACCINE (QUADRIVALENT) 0.5 ML SYR IM ONE (10:00)
[2016-09-03 10:06] LABS: INDIRECT BILIRUBIN 0.2 MG/DL (0.0-0.8); TOTAL BILIRUBIN ADULT 0.4 MG/DL (0.2-1.0)
[2016-09-03] MEDS: MORPHINE SULFATE 4 MG/ML INJ IV PRN ×4 (12:33→22:33)
--- NOTE | 2016-09-03 15:52 | EKG ---
Date Performed: 09/02/2016 Time Performed: 16:43:34 PTAGE: 60 years EKG: Sinus tachycardia Short VA interval Possible right atrial abnormality Possible anteroseptal infarct - age undetermined Inferior T wave changes are nonspecific Clinical correlation is recommend ed Abnormal ECG NO PREVIOUS TRACING DOCTOR: Marcelo Alexandre Interpretating Date/Time 09/03/2016 15:50:33
--- NOTE | 2016-09-03 19:12 | RADRPT ---
EXAM DATE/TIME: 09/03/2016 16:11 [facility] COMPARISON: No previous studies available for comparison. INDICATIONS : Increased lab values. MEDICAL HISTORY : Hypertension. Chronic obstructive pulmonary disease. Herniated disc. SURGICAL HISTORY : Hysterectomy. Back surgery. ENCOUNTER: Initial ACUITY: 1 day PAIN SCORE: 0/10 LOCATION: Abdomen. MEASUREMENTS: LIVER: 15.6 cm length COMMON DUCT: 5 mm RIGHT KIDNEY: 10.7 x 6.0 x 5.1 cm SPLEEN: 7.9 cm length FINDINGS: LIVER: Normal echotexture without focal lesion or ductal dilatation. COMMON DUCT: No intraluminal mass or stone visualized. GALLBLADDER: Gallbladder probably containing sludge or small stones. PANCREAS: Poorly visualized. RIGHT KIDNEY: No hydronephrosis, stone or mass. SPLEEN: No focal lesion. CONCLUSION: There is no hepatic biliary duct dilatation. Probable small gallstones or sludge. Normal common rosemarie t. Mundo López MD FACR on September 03, 2016 at 19:10 Board Certified Radiologist. This report was verified electronically.
[2016-09-03] MEDS: LEVOFLOXACIN 750 MG PREMIX INJ 150 ML IV SCH (20:04)
[2016-09-03] MEDS: ENOXAPARIN SODIUM 40 MG/0.4 ML SYRINGE SQ SCH (20:06)
[2016-09-04] VITALS (15 sets, daily range): BP systolic 110–181; BP diastolic 57–79; PULSE 72–108; RESP 17–38; TEMP 97.4–99.5; O2SAT 91–100
[2016-09-04] MEDS: hydrALAZINE HCL 20 MG/ML VIAL IV PUSH PRN (00:20)
[2016-09-04] MEDS: ALPRAZolam 0.5 MG TAB PO PRN ×2 (00:20→08:11)
[2016-09-04] MEDS ORDERED: ALPRAZolam 1 MG TAB PO ONE (01:30)
[2016-09-04] MEDS: INSULIN NovoLIN REGULAR SUPPLEMENTAL SCALE SQ SCH ×4 (03:30→21:30)
[2016-09-04] MEDS: RESP: ALBUTEROL 2.5 MG/IPRATROPIUM 0.5 MG NEB (SCH) INH ×6 (03:47→23:11)
[2016-09-04] MEDS: CHLORHEXIDINE GLUCONATE 2 % 1 PACK (2 CLOTHS) TOP SCH (03:58)
[2016-09-04] MEDS: methylPREDNISolone SOD SUCC 125 MG/2 ML VIAL IV SCH (05:54)
[2016-09-04 07:39] LABS: AUTOMATED NEUTROPHIL # 6.8 TH/MM3 (1.8-7.7); HEMATOCRIT 34.4 % (35.0-46.0); HEMO FLAGS DIFF FINAL; LYMPH % 4.7 % (9.0-44.0); LYMPHOCYTE # 0.4 TH/MM3 (1.0-4.8); MEAN CELL VOLUME 103.8 FL (80.0-100.0); MEAN CORPUSCULAR HEMOGLOBIN 34.8 PG (27.0-34.0); MEAN CORPUSCULAR HGB CONC 33.6 % (32.0-36.0); MONO % 8.3 % (0.0-8.0); PLATELET COUNT 176 TH/MM3 (150-450); RED BLOOD COUNT 3.31 MIL/MM3 (4.00-5.30); RED CELL DISTRIBUTION WIDTH 12.5 % (11.6-17.2); WHITE BLOOD COUNT 7.8 TH/MM3 (4.0-11.0)
[2016-09-04 07:59] LABS: ALKALINE PHOSPHATASE 63 U/L (45-117); ALT (GPT) 65 U/L (10-53); ANION GAP 7 MEQ/L (5-15); AST (GOT) 79 U/L (15-37); BICARBONATE 27.9 MEQ/L (21.0-32.0); BLOOD UREA NITROGEN 23 MG/DL (7-18); CHLORIDE 98 MEQ/L (98-107); GLOMERULAR FILTRATION RATE 85 ML/MIN (>89); POTASSIUM 4.3 MEQ/L (3.5-5.1); SODIUM (NA) 133 MEQ/L (136-145); TOTAL BILIRUBIN ADULT 0.3 MG/DL (0.2-1.0)
[2016-09-04] MEDS: BUDESONIDE-FORMOTEROL 160/4.5 MCG INHALER INH SCH ×2 (08:10→20:44)
[2016-09-04] MEDS: PANTOPRAZOLE SOD 40 MG DELAYED RELEASE TAB PO SCH (08:10)
[2016-09-04] MEDS: SODIUM CHLORIDE 0.9% FLUSH 5 ML FLUSH IV FLUSH SCH ×2 (08:10→20:44)
[2016-09-04] MEDS: cloNIDine HCL 0.1 MG TAB PO SCH ×2 (08:10→20:38)
[2016-09-04] MEDS: METHOCARBAMOL 500 MG TAB PO SCH ×2 (08:11→20:44)
[2016-09-04] MEDS: LISINOPRIL 20 MG TAB PO SCH (08:11)
--- NOTE | 2016-09-04 10:30 | HHI.PR ---
Subjective Remarks Patient seen in follow-up for acute respiratory failure secondary to COPD exacerbation. She is currently stable on 3 L nasal cannula. She reports that her shortness of breath is improved. No other complaints. Objective Vitals Vital Signs Date Time Temp Pulse Resp B/P Pulse Ox O2 Delivery O2 Flow Rate FiO2 09/04/16 08:00 98 Nasal Cannula 3.00 09/04/16 08:00 78 09/04/16 08:00 98.3 78 17 116/57 98 09/04/16 06:00 84 09/04/16 04:00 99 Nasal Cannula 3.00 09/04/16 04:00 97.4 84 21 110/59 99 09/04/16 04:00 84 09/04/16 02:00 91 09/04/16 00:00 91 Nasal Cannula 3.00 09/04/16 00:00 108 09/04/16 00:00 98.0 108 26 181/79 100 09/03/16 22:00 80 09/03/16 20:17 94 Nasal Cannula 4.00 09/03/16 20:12 22 09/03/16 20:00 100 Nasal Cannula 3.00 09/03/16 20:00 98.4 86 26 175/83 100 09/03/16 20:00 86 09/03/16 19:22 22 09/03/16 18:00 89 09/03/16 16:00 97.8 90 21 127/60 98 09/03/16 16:00 94 09/03/16 14:00 89 09/03/16 12:00 98.0 95 22 111/68 99 09/03/16 12:00 94 09/03/16 11:25 100 Nasal Cannula 4.00 I/O 09/03/16 09/03/16 09/03/16 09/04/16 09/04/16 09/04/16 07:00 15:00 23:00 07:00 15:00 23:00 Intake Total 5 ml 452 ml 587 ml 620 ml Output Total 150 ml 500 ml 500 ml 350 ml Balance -145 ml -48 ml 87 ml 270 ml Intake Oral 0 ml 50 ml 50 ml 50 ml IV Total 5 ml 402 ml 537 ml 570 ml Output Urine Total 150 ml 500 ml 500 ml 350 ml # Bowel Movements 0 0 0 0 Result Diagram: 09/04/1662809/04/16624 Imaging Last Impressions Liver Ultrasound 09/03/16 0000 Signed Impressions: Service Date/Time: Saturday, September 03, 2016 16:11 - CONCLUSION: There is no hepatic biliary duct dilatation. Probable small gallstones or sludge. Normal common duct. Mundo López MD FACR Chest X-Ray 09/02/16 1538 Signed Impressions: Service Date/Time: Friday, September 02, 2016 15:41 - CONCLUSION: No acute disease. Mundo López MD FACR Objective Remarks GENERAL: Patient appears older than stated age CARDIOVASCULAR: Normal rate and regular rhythm without murmurs, gallops, or rubs. RESPIRATORY: Poor air movement. There is diffuse expiratory wheezing bilaterally. GASTROINTESTINAL: Abdomen soft, non-tender, non-distended. Normal active bowel sounds MUSCULOSKELETAL: Extremities without cyanosis, or edema. NEURO: Alert & Oriented x4 to person, place, time, situation. Moves all ext x4 PSYCH: Appropriate mood and affect. A/P Assessment and Plan 60-year-old female with: Acute respiratory failure secondary to COPD exacerbation: Status post BiPAP. Improving. - Continue Solu-Medrol. Decrease dose to 40 mg every 6 hours. Continue scheduled breathing treatments. Use BiPAP as needed. - Continue empiric Levaquin for COPD exacerbation. Hypertension: Continue lisinopril and clonidine. Hyponatremia: Likely secondary to dehydration and alcohol use. Improved with IV fluid. Continue IV hydration until she is taking enough by mouth. Elevated LFT: Improving. Likely secondary to alcohol abuse. Alcohol abuse: Patient was counseled to quit. - [facility] protocol GI prophylaxis: PPI. Stool softener PRN constipation. DVT PPx: Lovenox Discharge Planning Okay to transfer to floor. Preston Lees MD Sep 04, 2016 10:30
[2016-09-04] MEDS: methylPREDNISolone SOD SUCC 40 MG/1 ML VIAL IV SCH ×3 (11:48→23:34)
[2016-09-04] MEDS: SODIUM CHLOR 0.9% 1000 ML INJ 1,000 ML IV SCH (11:48)
[2016-09-04] MEDS ORDERED: FLUMAZENIL 0.5 MG/5 ML VIAL IV PUSH PRN (15:15)
[2016-09-04] MEDS ORDERED: LORazepam 1 MG TAB PO PRN (15:15)
[2016-09-04] MEDS ORDERED: LORazepam 2 MG/ML VIAL IV PUSH PRN (15:15)
[2016-09-04] MEDS ORDERED: LORazepam 2 MG TAB PO PRN (15:15)
[2016-09-04] MEDS: LORazepam 2 MG/ML VIAL IV PUSH PRN (15:25)
[2016-09-04] MEDS ORDERED: PROPOFOL 1000 MG/100 ML INJ 100 ML ONE (17:25)
[2016-09-04] MEDS ORDERED: ETOMIDATE 40 MG/20 ML VIAL ONE (17:25)
--- NOTE | 2016-09-04 17:28 | RADRPT ---
EXAM DATE/TIME: 09/04/2016 16:56 [facility] COMPARISON: CHEST SINGLE AP, September 02, 2016, 15:41. INDICATIONS : Short of breath, decreased saturation MEDICAL HISTORY : Chronic obstructive pulmonary disease. SURGICAL HISTORY : None. ENCOUNTER: Subsequent ACUITY: 4 - 6 days PAIN SCORE: Non-responsive. LOCATION: Bilateral chest FINDINGS: A single view of the chest demonstrates the lungs to be hyperinflated but clear of acute infiltrate.. The cardiomediastinal contours are unremarkable. Osseous structures are intact with a mild dextros coliosis of the dorsal spine. CONCLUSION: Stable hyperinflation characteristic of COPD. No confluent infiltrate. Anival Cheema MD on September 04, 2016 at 17:23 Board Certified Radiologist. This report was verified electronically.
--- NOTE | 2016-09-04 17:50 | HHI.CCPN ---
Subjective Remarks/Hospital Course 60 y/o woman with 3 days crescendo COPD exacerbation. Oxygenates OK but work of breathing is excessive. No indication of precipitating infectious irritant but bronchitis is expected and will treat. 09/03 Patient is on BIPAP 05/24 with 25% FIO2. Afebrile. 09/04 called by nurse as patient had ABG which showed acute hypercapenic resp acidosis and unresponsive she was subsequently intubated by me and placed on mechanical ventilation. Her ABG prior to intubation PH 7.19, CO2 69, PAO2 54. She was given Ativan 2mg IV @1525 Objective Vital Signs Date Time Temp Pulse Resp B/P Pulse Ox O2 Delivery O2 Flow Rate FiO2 09/04/16 14:00 89 09/04/16 12:00 98.1 24 166/74 100 09/04/16 12:00 Nasal Cannula 3.00 09/03/16 07:56 25 Intake and Output 09/03/16 09/03/16 09/04/16 08:00 16:00 00:00 Intake Total 5 ml 452 ml 587 ml Output Total 150 ml 500 ml 500 ml Balance -145 ml -48 ml 87 ml Result Diagram: 09/04/16 0629 09/04/16 0625 Other Results Laboratory Tests Test 09/04/16 09/04/16 09/04/16 06:25 06:29 13:15 Sodium Level 133 MEQ/L Potassium Level 4.3 MEQ/L Chloride Level 98 MEQ/L Carbon Dioxide Level 27.9 MEQ/L Anion Gap 7 MEQ/L Blood Urea Nitrogen 23 MG/DL Creatinine 0.71 MG/DL Estimat Glomerular Filtration 85 ML/MIN Rate Random Glucose 108 MG/DL Calcium Level 8.2 MG/DL Total Bilirubin 0.3 MG/DL Aspartate Amino Transf 79 U/L (AST/SGOT) Alanine Aminotransferase 65 U/L (ALT/SGPT) Alkaline Phosphatase 63 U/L Total Protein 6.6 GM/DL Albumin 3.0 GM/DL White Blood Count 7.8 TH/MM3 Red Blood Count 3.31 MIL/MM3 Hemoglobin 11.5 GM/DL Hematocrit 34.4 % Mean Corpuscular Volume 103.8 FL Mean Corpuscular Hemoglobin 34.8 PG Mean Corpuscular Hemoglobin 33.6 % Concent Red Cell Distribution Width 12.5 % Platelet Count 176 TH/MM3 Mean Platelet Volume 7.7 FL Neutrophils (%) (Auto) 87.0 % Lymphocytes (%) (Auto) 4.7 % Monocytes (%) (Auto) 8.3 % Eosinophils (%) (Auto) 0.0 % Basophils (%) (Auto) 0.0 % Neutrophils # (Auto) 6.8 TH/MM3 Lymphocytes # (Auto) 0.4 TH/MM3 Monocytes # (Auto) 0.6 TH/MM3 Eosinophils # (Auto) 0.0 TH/MM3 Basophils # (Auto) 0.0 TH/MM3 CBC Comment DIFF FINAL Differential Comment D-Dimer Quantitative (PE/DVT) 0.38 MG/L FEU Imaging Last Impressions Liver Ultrasound 09/03/16 0000 Signed Impressions: Service Date/Time: Saturday, September 03, 2016 16:11 - CONCLUSION: There is no hepatic biliary duct dilatation. Probable small gallstones or sludge. Normal common duct. Mundo López MD FACR Chest X-Ray 09/02/16 1538 Signed Impressions: Service Date/Time: Friday, September 02, 2016 15:41 - CONCLUSION: No acute disease. Mundo López MD FACR Objective Remarks GENERAL: Patient is 60yo intubated for acute resp acidosis SKIN: Warm and dry. HEAD: Normocephalic. EYES: No scleral icterus. No injection or drainage. NECK: Supple, trachea midline. No JVD or lymphadenopathy. Orally intubated CARDIOVASCULAR: Tachycardic , no murmurs, gallops, or rubs. RESPIRATORY: Breath sounds equal bilaterally. Coarse BS GASTROINTESTINAL: Abdomen soft, non-tender, nondistended. MUSCULOSKELETAL: No cyanosis, or edema. Neuro:intubated, sedated A/P Assessment and Plan 1)Acute hypoxemic and hypercapneic resp failure requiring intubation 2) COPD exacerbation. 3)Hypertension 4)Hyponatremia 5)Elevated LFT 6)ETOH abuse Plan: Neuro: Place on Diprivan infusion for sedation and monitor neuro status Place on Thiamine/folic acid/MVI Pulm: Continue with vent support keep sat >92% Bronchodilators, solumederol 40mg Q6 Check CXR/ABG post intubation CV:Monitor HR and BP keep MAP>65mmHg On Lisinopril 40mg daily, Clonidine 0.1mg BID :Monitor renal function, I/O's, electrolytes replacement per protocol Change IVF D5NS@75ml/hr GI: Monitor LFT's, US liver:There is no hepatic biliary duct dilatation. Probable small gallstones or sludge. Normal common duct. Start TF tomorrow if remains intubated. Continue with IVF ID: Continue with empiric abx ( Levaquin) for COPD exac. Monitor for signs of infections ( Fever, WBC) Heme: Monitor CBC Endo: SSI for glycemic control GI prophylaxis- on Protonix DVT prophylaxis - on Lovenox 40mg daily CCT 30 mins excluding procedures Brandon Brown MD Sep 04, 2016 17:50
[2016-09-04 18:17] LABS: BLOOD GAS BASE EXCESS -1.6 mmol/L (-2-2); BLOOD GAS CARBOXYHEMOGLOBIN 0.9 % (0-4); BLOOD GAS HCO3 26 mmol/L (22-26); BLOOD GAS METHEMOGLOBIN 1.2 % (0-2); BLOOD GAS O2 HGB SATURATION 78 % (90-100); BLOOD GAS OXYGEN CONTENT 13.7 Vol % (12.0-20.0); BLOOD GAS PCO2 70 mmHg (38-42); BLOOD GAS PO2 55 mmHg (61-120); BLOOD GAS TOTAL HGB 12.4 G/DL (12.0-16.0); CRITICAL VALUE YES; DRAW SITE RT RADIAL; LITER FLOW 4 L/M; NUMBER OF ARTERIAL PUNCTURES 1; OXYGEN DEVICE NASAL CANNULA; STAT YES; TEMP CORR TO 98.6; ULNAR PULSE PRESENT
--- NOTE | 2016-09-04 18:17 | RADRPT ---
EXAM DATE/TIME: 09/04/2016 17:53 [facility] COMPARISON: CHEST SINGLE AP, September 04, 2016, 16:56. INDICATIONS : Post intubation. MEDICAL HISTORY : None. SURGICAL HISTORY : None. ENCOUNTER: Initial ACUITY: 1 day PAIN SCORE: Non-responsive. LOCATION: Bilateral chest FINDINGS: Patient is now intubated. The endotracheal tube tip is about 3 cm above the janneth. There is a nasoga stric tube courses into the stomach. No seen. No pleural effusion or pneumothorax. Heart size stable and normal. CONCLUSION: Lungs remain clear. Endotracheal tube tip about 3 cm above the janneth. Jesus Steiner MD on September 04, 2016 at 18:14 Board Certified Radiologist. This report was verified electronically.
[2016-09-04] MEDS: DEXT 5%-NACL 0.9% 1000 ML INJ 1,000 ML IV SCH (18:25)
[2016-09-04] MEDS: FOLIC ACID 1 MG TAB PO SCH (18:34)
[2016-09-04] MEDS: MULTIVITAMIN TAB PO SCH (18:34)
[2016-09-04] MEDS: THIAMINE HCL 100 MG TAB PO SCH (18:34)
[2016-09-04 18:45] LABS: BLOOD GAS BASE EXCESS -2.6 mmol/L (-2-2); BLOOD GAS HCO3 24 mmol/L (22-26); BLOOD GAS METHEMOGLOBIN 1.2 % (0-2); BLOOD GAS O2 HGB SATURATION 97 % (90-100); BLOOD GAS OXYGEN CONTENT 15.7 Vol % (12.0-20.0); BLOOD GAS PCO2 56 mmHg (38-42); BLOOD GAS PO2 165 mmHg (61-120); BLOOD GAS TOTAL HGB 11.3 G/DL (12.0-16.0); CRITICAL VALUE YES; OXYGEN DEVICE VENTILATOR; TEMP CORR TO 98.6
[2016-09-04 18:46] LABS: DRAW SITE RT BRACHIAL; FIO2 40 %; NUMBER OF ARTERIAL PUNCTURES 1; STAT NO; ULNAR PULSE PRESENT
[2016-09-04 18:47] LABS: VENT SETTINGS A/C 400/14/5PEEP
[2016-09-04] MEDS: LEVOFLOXACIN 750 MG PREMIX INJ 150 ML IV SCH (20:42)
[2016-09-04] MEDS: ENOXAPARIN SODIUM 40 MG/0.4 ML SYRINGE SQ SCH (20:43)
[2016-09-04] MEDS: CHLORHEXIDINE 0.12% (ORAL KIT) 15 ML CUP MT SCH (20:44)
[2016-09-04 21:42] LABS: BLOOD GAS BASE EXCESS -3.3 mmol/L (-2-2); BLOOD GAS CARBOXYHEMOGLOBIN 1.3 % (0-4); BLOOD GAS HCO3 22 mmol/L (22-26); BLOOD GAS METHEMOGLOBIN 1.2 % (0-2); BLOOD GAS O2 HGB SATURATION 96 % (90-100); BLOOD GAS OXYGEN CONTENT 14.4 Vol % (12.0-20.0); BLOOD GAS PCO2 48 mmHg (38-42); BLOOD GAS PO2 110 mmHg (61-120); BLOOD GAS TOTAL HGB 10.6 G/DL (12.0-16.0); TEMP CORR TO 98.6
[2016-09-04 21:43] LABS: CRITICAL VALUE YES; DRAW SITE LT RADIAL; FIO2 35 %; NUMBER OF ARTERIAL PUNCTURES 1; OXYGEN DEVICE VENTILATOR; STAT NO; ULNAR PULSE PRESENT; VENT SETTINGS VAC16/500/PEEP5
[2016-09-04] MEDS: PROPOFOL 1000 MG/100 ML INJ 100 ML IV SCH (21:43)
[2016-09-04] MEDS: fentaNYL 2,500 MCG/NS 250 ML IV SCH (22:23)
[2016-09-04] MEDS: SODIUM CHLORIDE 0.9% FLUSH 5 ML FLUSH IV FLUSH PRN (23:34)
[2016-09-05] VITALS (17 sets, daily range): BP systolic 92–100; BP diastolic 46–55; PULSE 66–74; RESP 16–22; TEMP 97–99; O2SAT 97–100
[2016-09-05] MEDS: RESP: ALBUTEROL 2.5 MG/IPRATROPIUM 0.5 MG NEB (SCH) INH ×6 (03:19→23:29)
[2016-09-05] MEDS: INSULIN NovoLIN REGULAR SUPPLEMENTAL SCALE SQ SCH ×4 (03:30→20:44)
[2016-09-05] MEDS: CHLORHEXIDINE GLUCONATE 2 % 1 PACK (2 CLOTHS) TOP SCH (04:00)
[2016-09-05] MEDS: SODIUM CHLORIDE 0.9% FLUSH 5 ML FLUSH IV FLUSH PRN ×2 (05:47→23:31)
[2016-09-05] MEDS: methylPREDNISolone SOD SUCC 40 MG/1 ML VIAL IV SCH ×4 (05:47→23:31)
[2016-09-05] MEDS: DEXT 5%-NACL 0.9% 1000 ML INJ 1,000 ML IV SCH ×2 (05:49→20:44)
[2016-09-05 06:11] LABS: AUTOMATED NEUTROPHIL # 6.5 TH/MM3 (1.8-7.7); HEMO FLAGS DIFF FINAL; LYMPH % 6.9 % (9.0-44.0); LYMPHOCYTE # 0.6 TH/MM3 (1.0-4.8); MEAN CELL VOLUME 104.5 FL (80.0-100.0); MEAN CORPUSCULAR HEMOGLOBIN 35.1 PG (27.0-34.0); MEAN CORPUSCULAR HGB CONC 33.6 % (32.0-36.0); MONO % 14.5 % (0.0-8.0); NEUT % 78.6 % (16.0-70.0); PLATELET COUNT 178 TH/MM3 (150-450); RED BLOOD COUNT 3.16 MIL/MM3 (4.00-5.30); RED CELL DISTRIBUTION WIDTH 12.7 % (11.6-17.2); WHITE BLOOD COUNT 8.2 TH/MM3 (4.0-11.0)
[2016-09-05 06:35] LABS: ALT (GPT) 68 U/L (10-53); ANION GAP 7 MEQ/L (5-15); AST (GOT) 76 U/L (15-37); BICARBONATE 26.1 MEQ/L (21.0-32.0); BLOOD UREA NITROGEN 29 MG/DL (7-18); CHLORIDE 100 MEQ/L (98-107); GLOMERULAR FILTRATION RATE 61 ML/MIN (>89); MAGNESIUM 2.3 MG/DL (1.5-2.5); POTASSIUM 4.2 MEQ/L (3.5-5.1); SODIUM (NA) 133 MEQ/L (136-145)
[2016-09-05 06:42] LABS: ALKALINE PHOSPHATASE 54 U/L (45-117); TOTAL BILIRUBIN ADULT 0.2 MG/DL (0.2-1.0)
[2016-09-05] MEDS: CHLORHEXIDINE 0.12% (ORAL KIT) 15 ML CUP MT SCH ×2 (08:12→20:28)
[2016-09-05] MEDS: LORazepam 2 MG/ML VIAL IV PUSH PRN ×2 (08:13→16:20)
[2016-09-05] MEDS: PANTOPRAZOLE SOD 40 MG DELAYED RELEASE TAB PO SCH (08:13)
[2016-09-05] MEDS: THIAMINE HCL 100 MG TAB PO SCH (08:13)
[2016-09-05] MEDS: METHOCARBAMOL 500 MG TAB PO SCH ×2 (08:13→20:29)
[2016-09-05] MEDS: SODIUM CHLORIDE 0.9% FLUSH 5 ML FLUSH IV FLUSH SCH ×2 (08:14→20:28)
[2016-09-05] MEDS: FOLIC ACID 1 MG TAB PO SCH (08:14)
[2016-09-05] MEDS: BUDESONIDE-FORMOTEROL 160/4.5 MCG INHALER INH SCH ×2 (08:14→20:28)
[2016-09-05] MEDS: MULTIVITAMIN TAB PO SCH (08:14)
[2016-09-05] MEDS: LISINOPRIL 20 MG TAB PO SCH (08:16)
[2016-09-05] MEDS: cloNIDine HCL 0.1 MG TAB PO SCH ×2 (08:17→20:28)
[2016-09-05] MEDS: fentaNYL 2,500 MCG/NS 250 ML IV SCH ×2 (08:35→21:33)
[2016-09-05] MEDS: PROPOFOL 1000 MG/100 ML INJ 100 ML IV SCH (08:35)
[2016-09-05] MEDS: LEVOFLOXACIN 750 MG PREMIX INJ 150 ML IV SCH (20:28)
[2016-09-05] MEDS: ENOXAPARIN SODIUM 40 MG/0.4 ML SYRINGE SQ SCH (20:29)
[2016-09-06] VITALS (19 sets, daily range): BP systolic 93–109; BP diastolic 50–55; PULSE 71–78; RESP 16–22; TEMP 98–98.9; O2SAT 95–99
[2016-09-06] MEDS: INSULIN NovoLIN REGULAR SUPPLEMENTAL SCALE SQ SCH ×4 (03:02→21:30)
[2016-09-06] MEDS: RESP: ALBUTEROL 2.5 MG/IPRATROPIUM 0.5 MG NEB (SCH) INH ×6 (03:15→23:51)
[2016-09-06] MEDS: CHLORHEXIDINE GLUCONATE 2 % 1 PACK (2 CLOTHS) TOP SCH (04:00)
[2016-09-06] MEDS: methylPREDNISolone SOD SUCC 40 MG/1 ML VIAL IV SCH ×4 (05:23→23:19)
[2016-09-06] MEDS: SODIUM CHLORIDE 0.9% FLUSH 5 ML FLUSH IV FLUSH PRN ×2 (05:23→06:53)
[2016-09-06] MEDS: LORazepam 2 MG/ML VIAL IV PUSH PRN ×2 (06:53→12:58)
[2016-09-06 07:44] LABS: BASOPHIL % 0.1 % (0.0-2.0); HEMATOCRIT 32.8 % (35.0-46.0); HEMO FLAGS DIFF FINAL; LYMPH % 6.7 % (9.0-44.0); LYMPHOCYTE # 0.5 TH/MM3 (1.0-4.8); MEAN CELL VOLUME 105.8 FL (80.0-100.0); MEAN CORPUSCULAR HEMOGLOBIN 35.4 PG (27.0-34.0); MEAN CORPUSCULAR HGB CONC 33.4 % (32.0-36.0); MONO % 12.1 % (0.0-8.0); NEUT % 81.1 % (16.0-70.0); PLATELET COUNT 177 TH/MM3 (150-450); RED CELL DISTRIBUTION WIDTH 12.4 % (11.6-17.2); WHITE BLOOD COUNT 7.4 TH/MM3 (4.0-11.0)
[2016-09-06] MEDS: CHLORHEXIDINE 0.12% (ORAL KIT) 15 ML CUP MT SCH ×2 (08:00→19:27)
[2016-09-06] MEDS: cloNIDine HCL 0.1 MG TAB PO SCH ×2 (08:05→20:37)
[2016-09-06] MEDS: METHOCARBAMOL 500 MG TAB PO SCH ×2 (08:06→20:38)
[2016-09-06] MEDS: FOLIC ACID 1 MG TAB PO SCH (08:06)
[2016-09-06] MEDS: LISINOPRIL 20 MG TAB PO SCH (08:07)
[2016-09-06] MEDS: THIAMINE HCL 100 MG TAB PO SCH (08:07)
[2016-09-06] MEDS: fentaNYL 2,500 MCG/NS 250 ML IV SCH ×2 (08:07→19:27)
[2016-09-06 08:08] LABS: BICARBONATE 24.1 MEQ/L (21.0-32.0); POTASSIUM 4.3 MEQ/L (3.5-5.1)
[2016-09-06] MEDS: MULTIVITAMIN TAB PO SCH (09:00)
[2016-09-06] MEDS: PANTOPRAZOLE SOD 40 MG DELAYED RELEASE TAB PO SCH (09:00)
[2016-09-06] MEDS: SODIUM CHLORIDE 0.9% FLUSH 5 ML FLUSH IV FLUSH SCH ×2 (09:00→19:28)
[2016-09-06] MEDS: BUDESONIDE-FORMOTEROL 160/4.5 MCG INHALER INH SCH ×2 (09:00→19:28)
[2016-09-06] MEDS: DEXT 5%-NACL 0.9% 1000 ML INJ 1,000 ML IV SCH ×2 (09:17→23:20)
[2016-09-06] MEDS: PROPOFOL 1000 MG/100 ML INJ 100 ML IV SCH ×2 (09:18→10:47)
--- NOTE | 2016-09-06 11:32 | HHI.CCPN ---
Subjective Remarks/Hospital Course 60 y/o woman with 3 days crescendo COPD exacerbation. Oxygenates OK but work of breathing is excessive. No indication of precipitating infectious irritant but bronchitis is expected and will treat. 09/03 Patient is on BIPAP 05/24 with 25% FIO2. Afebrile. 09/04 called by nurse as patient had ABG which showed acute hypercapenic resp acidosis and unresponsive she was subsequently intubated by me and placed on mechanical ventilation. Her ABG prior to intubation PH 7.19, CO2 69, PAO2 54. She was given Ativan 2mg IV @1525 09/05: Late entry for encounter on 09/05. Patient remained sedated orally intubated on mechanical ventilation, failed C Pap trial. Objective HR 100s, BP 120s/70s O2sat 95% on mech vent FiO2 40% Result Diagram: 09/06/16 0655 09/06/16 0655 Imaging Last Impressions Liver Ultrasound 09/03/16 0000 Signed Impressions: Service Date/Time: Saturday, September 03, 2016 16:11 - CONCLUSION: There is no hepatic biliary duct dilatation. Probable small gallstones or sludge. Normal common duct. Mundo López MD FACR Chest X-Ray 09/02/16 1538 Signed Impressions: Service Date/Time: Friday, September 02, 2016 15:41 - CONCLUSION: No acute disease. Mundo López MD FACR Objective Remarks GENERAL: Patient is 60yo intubated for acute resp acidosis SKIN: Warm and dry. HEAD: Normocephalic. EYES: No scleral icterus. No injection or drainage. NECK: Supple, trachea midline. No JVD or lymphadenopathy. Orally intubated CARDIOVASCULAR: Tachycardic , no murmurs, gallops, or rubs. RESPIRATORY: Breath sounds equal bilaterally. Coarse BS GASTROINTESTINAL: Abdomen soft, non-tender, nondistended. MUSCULOSKELETAL: No cyanosis, or edema. Neuro:intubated, sedated A/P Assessment and Plan 1)Acute hypoxemic and hypercapneic resp failure requiring intubation 2) COPD exacerbation. 3)Hypertension 4)Hyponatremia 5)Elevated LFT 6)ETOH abuse Plan: Neuro: Place on Diprivan infusion for sedation and monitor neuro status Place on Thiamine/folic acid/MVI Pulm: Continue with vent support keep sat >92% Bronchodilators, solumederol 40mg Q6 CV:Monitor HR and BP keep MAP>65mmHg On Lisinopril 40mg daily, Clonidine 0.1mg BID :Monitor renal function, I/O's, electrolytes replacement per protocol IVF D5NS@75ml/hr GI: Monitor LFT's, US liver:There is no hepatic biliary duct dilatation. Probable small gallstones or sludge. Normal common duct. Start TF . Continue with IVF ID: Continue with empiric abx ( Levaquin) for COPD exac. Monitor for signs of infections ( Fever, WBC) Heme: Monitor CBC Endo: SSI for glycemic control GI prophylaxis- on Protonix DVT prophylaxis - on Lovenox 40mg daily CCT 30 mins excluding procedures Cheo Tijerina MD Sep 06, 2016 11:31
--- NOTE | 2016-09-06 11:34 | HHI.CCPN ---
Subjective Remarks/Hospital Course 60 y/o woman with 3 days crescendo COPD exacerbation. Oxygenates OK but work of breathing is excessive. No indication of precipitating infectious irritant but bronchitis is expected and will treat. 09/03 Patient is on BIPAP 05/24 with 25% FIO2. Afebrile. 09/04 called by nurse as patient had ABG which showed acute hypercapenic resp acidosis and unresponsive she was subsequently intubated by me and placed on mechanical ventilation. Her ABG prior to intubation PH 7.19, CO2 69, PAO2 54. She was given Ativan 2mg IV @1525 09/05: Patient remained sedated orally intubated on mechanical ventilation, failed C Pap trial. 09/06: Remains sedated, arousable, orally intubated on mechanical ventilation. Gets agitated on lightening sedation. Objective Vital Signs Date Time Temp Pulse Resp B/P Pulse Ox O2 Delivery O2 Flow Rate FiO2 09/06/16 08:35 97 32 09/06/16 08:00 77 09/06/16 08:00 Mechanical Ventilator 09/06/16 08:00 98.7 16 104/51 09/04/16 16:00 3.00 Intake and Output 09/05/16 09/05/16 09/06/16 08:00 16:00 00:00 Intake Total 655 ml 934 ml 1026 ml Output Total 250 ml 300 ml 150 ml Balance 405 ml 634 ml 876 ml Result Diagram: 09/06/16 0655 09/06/16 0655 Imaging Last Impressions Liver Ultrasound 09/03/16 0000 Signed Impressions: Service Date/Time: Saturday, September 03, 2016 16:11 - CONCLUSION: There is no hepatic biliary duct dilatation. Probable small gallstones or sludge. Normal common duct. Mundo López MD FACR Chest X-Ray 09/02/16 1538 Signed Impressions: Service Date/Time: Friday, September 02, 2016 15:41 - CONCLUSION: No acute disease. Mundo López MD FACR Objective Remarks GENERAL: Patient is 60yo intubated for acute resp acidosis SKIN: Warm and dry. HEAD: Normocephalic. EYES: No scleral icterus. No injection or drainage. NECK: Supple, trachea midline. No JVD or lymphadenopathy. Orally intubated CARDIOVASCULAR: Tachycardic , no murmurs, gallops, or rubs. RESPIRATORY: Orally intubated on mechanical ventilation, Breath sounds equal bilaterally. Coarse BS GASTROINTESTINAL: Abdomen soft, non-tender, nondistended. Bowel sounds sluggish MUSCULOSKELETAL: No cyanosis, or edema. Neuro: intubated, sedated, arousable on lightening sedation gets very agitated. Moves all 4 extremities A/P Assessment and Plan 1)Acute hypoxemic and hypercapneic resp failure requiring intubation 2) COPD exacerbation. 3)Hypertension 4)Hyponatremia 5)Elevated LFT 6)ETOH abuse Plan: Neuro: Place on Diprivan infusion for sedation and monitor neuro status. Daily sedation vacation Place on Thiamine/folic acid/MVI. Add Librium 20 mg by mouth every 8 hourly. Continue Ativan per alcohol withdrawal protocol. Pulm: Continue with vent support keep sat >92%. Daily C Pap trials to decide extubation Bronchodilators, solumedrol 40mg Q6 CV:Monitor HR and BP keep MAP>65mmHg On Lisinopril 40mg daily, Clonidine 0.1mg BID :Monitor renal function, I/O's, electrolytes replacement per protocol IVF D5NS@75ml/hr GI: Monitor LFT's, US liver:There is no hepatic biliary duct dilatation. Probable small gallstones or sludge. Normal common duct. Start TF . Continue with IVF ID: Continue with empiric abx ( Levaquin) for COPD exac. Monitor for signs of infections ( Fever, WBC) Heme: Monitor CBC Endo: SSI for glycemic control GI prophylaxis- on Protonix DVT prophylaxis - on Lovenox 40mg daily CCT 30 mins excluding procedures Cheo Tijerina MD Sep 06, 2016 11:33
[2016-09-06] MEDS: LEVOFLOXACIN 750 MG PREMIX INJ 150 ML IV SCH (20:34)
[2016-09-06] MEDS: ENOXAPARIN SODIUM 40 MG/0.4 ML SYRINGE SQ SCH (20:37)
[2016-09-07] VITALS (20 sets, daily range): BP systolic 92–209; BP diastolic 50–60; PULSE 72–92; RESP 16–25; TEMP 98.4–99.8; O2SAT 95–100
[2016-09-07] MEDS: INSULIN NovoLIN REGULAR SUPPLEMENTAL SCALE SQ SCH ×3 (03:23→18:25)
[2016-09-07] MEDS: CHLORHEXIDINE GLUCONATE 2 % 1 PACK (2 CLOTHS) TOP SCH (03:23)
[2016-09-07] MEDS: methylPREDNISolone SOD SUCC 40 MG/1 ML VIAL IV SCH ×3 (05:08→17:47)
[2016-09-07 05:33] LABS: AUTOMATED NEUTROPHIL # 6.2 TH/MM3 (1.8-7.7); HEMO FLAGS DIFF FINAL; LYMPH % 5.8 % (9.0-44.0); LYMPHOCYTE # 0.4 TH/MM3 (1.0-4.8); MEAN CELL VOLUME 106.1 FL (80.0-100.0); MEAN CORPUSCULAR HEMOGLOBIN 35.2 PG (27.0-34.0); MEAN CORPUSCULAR HGB CONC 33.2 % (32.0-36.0); MONO % 13.8 % (0.0-8.0); NEUT % 80.4 % (16.0-70.0); PLATELET COUNT 188 TH/MM3 (150-450); RED BLOOD COUNT 2.92 MIL/MM3 (4.00-5.30); RED CELL DISTRIBUTION WIDTH 12.6 % (11.6-17.2); WHITE BLOOD COUNT 7.7 TH/MM3 (4.0-11.0)
[2016-09-07 05:59] LABS: ALKALINE PHOSPHATASE 49 U/L (45-117); ALT (GPT) 62 U/L (10-53); ANION GAP 7 MEQ/L (5-15); AST (GOT) 71 U/L (15-37); BICARBONATE 22.5 MEQ/L (21.0-32.0); BLOOD UREA NITROGEN 59 MG/DL (7-18); CHLORIDE 108 MEQ/L (98-107); GLOMERULAR FILTRATION RATE 37 ML/MIN (>89); POTASSIUM 4.7 MEQ/L (3.5-5.1); SODIUM (NA) 137 MEQ/L (136-145); TOTAL BILIRUBIN ADULT 0.2 MG/DL (0.2-1.0)
[2016-09-07] MEDS: MULTIVITAMIN TAB PO SCH (08:17)
[2016-09-07] MEDS: cloNIDine HCL 0.1 MG TAB PO SCH ×2 (08:17→20:44)
[2016-09-07] MEDS: LORazepam 2 MG/ML VIAL IV PUSH PRN ×2 (08:17→09:37)
[2016-09-07] MEDS: FOLIC ACID 1 MG TAB PO SCH (08:17)
[2016-09-07] MEDS: THIAMINE HCL 100 MG TAB PO SCH (08:17)
[2016-09-07] MEDS: LISINOPRIL 20 MG TAB PO SCH (08:18)
[2016-09-07] MEDS: BUDESONIDE-FORMOTEROL 160/4.5 MCG INHALER INH SCH ×2 (08:18→20:48)
[2016-09-07] MEDS: PANTOPRAZOLE SOD 40 MG DELAYED RELEASE TAB PO SCH (08:18)
[2016-09-07] MEDS: METHOCARBAMOL 500 MG TAB PO SCH ×2 (08:18→20:45)
[2016-09-07] MEDS: SODIUM CHLORIDE 0.9% FLUSH 5 ML FLUSH IV FLUSH SCH ×2 (08:18→20:44)
[2016-09-07] MEDS: RESP: ALBUTEROL 2.5 MG/IPRATROPIUM 0.5 MG NEB (SCH) INH (08:54)
[2016-09-07] MEDS: SODIUM CHLORIDE 0.9% FLUSH 5 ML FLUSH IV FLUSH PRN (09:38)
[2016-09-07] MEDS: DEXT 5%-NACL 0.9% 1000 ML INJ 1,000 ML IV SCH (11:21)
[2016-09-07] MEDS: CHLORHEXIDINE 0.12% (ORAL KIT) 15 ML CUP MT SCH ×2 (11:28→20:43)
[2016-09-07] MEDS: PROPOFOL 1000 MG/100 ML INJ 100 ML IV SCH (14:25)
--- NOTE | 2016-09-07 16:54 | HHI.CCPN ---
Subjective Remarks/Hospital Course 60 y/o woman with 3 days crescendo COPD exacerbation. Oxygenates OK but work of breathing is excessive. No indication of precipitating infectious irritant but bronchitis is expected and will treat. 09/03 Patient is on BIPAP 05/24 with 25% FIO2. Afebrile. 09/04 called by nurse as patient had ABG which showed acute hypercapenic resp acidosis and unresponsive she was subsequently intubated by me and placed on mechanical ventilation. Her ABG prior to intubation PH 7.19, CO2 69, PAO2 54. She was given Ativan 2mg IV @1525 09/05: Patient remained sedated orally intubated on mechanical ventilation, failed C Pap trial. 09/06: Remains sedated, arousable, orally intubated on mechanical ventilation. Gets agitated on lightening sedation. 09/07: Sedated, arouses easily on lightening sedation and gets agitated. Orally intubated on mechanical ventilation. Tolerated C Pap trials however extremely agitated on lightening sedation due to alcohol withdrawal. We'll increase Librium dose and start Ativan per ETOH withdrawal protocol and attempt extubation tomorrow. Objective Vital Signs Date Time Temp Pulse Resp B/P Pulse Ox O2 Delivery O2 Flow Rate FiO2 09/07/16 16:00 Mechanical Ventilator 09/07/16 16:00 35 09/07/16 16:00 78 09/07/16 12:00 99.2 25 126/60 96 09/04/16 16:00 3.00 Intake and Output 09/06/16 09/06/16 09/07/16 08:00 16:00 00:00 Intake Total 893 ml 1234 ml 1528 ml Output Total 100 ml 250 ml 300 ml Balance 793 ml 984 ml 1228 ml Result Diagram: 09/07/16 0500 09/07/16 0500 Imaging Last Impressions Liver Ultrasound 09/03/16 0000 Signed Impressions: Service Date/Time: Saturday, September 03, 2016 16:11 - CONCLUSION: There is no hepatic biliary duct dilatation. Probable small gallstones or sludge. Normal common duct. Mundo López MD FACR Chest X-Ray 09/02/16 1538 Signed Impressions: Service Date/Time: Friday, September 02, 2016 15:41 - CONCLUSION: No acute disease. Mundo López MD FACR Objective Remarks GENERAL: Patient is 60yo intubated for acute resp acidosis SKIN: Warm and dry. HEAD: Normocephalic. EYES: No scleral icterus. No injection or drainage. NECK: Supple, trachea midline. No JVD or lymphadenopathy. Orally intubated CARDIOVASCULAR: Tachycardic , no murmurs, gallops, or rubs. RESPIRATORY: Orally intubated on mechanical ventilation, Breath sounds equal bilaterally. Coarse BS GASTROINTESTINAL: Abdomen soft, non-tender, nondistended. Bowel sounds sluggish MUSCULOSKELETAL: No cyanosis, or edema. Neuro: intubated, sedated, arousable on lightening sedation gets very agitated. Moves all 4 extremities A/P Assessment and Plan 1)Acute hypoxemic and hypercapneic resp failure requiring intubation 2) COPD exacerbation. 3)Hypertension 4)Hyponatremia 5)Elevated LFT 6)ETOH abuse Plan: Neuro: Place on Diprivan infusion for sedation and monitor neuro status. Daily sedation vacation Place on Thiamine/folic acid/MVI. Increase Librium to 40 mg by mouth every 8 hourly. Continue Ativan per alcohol withdrawal protocol. Pulm: Continue with vent support keep sat >92%. Daily C Pap trials to decide extubation Bronchodilators, solumedrol 40mg Q6 CV:Monitor HR and BP keep MAP>65mmHg On Lisinopril 40mg daily, Clonidine 0.1mg BID :Monitor renal function, I/O's, electrolytes replacement per protocol IVF D5NS@75ml/hr GI: Monitor LFT's, US liver:There is no hepatic biliary duct dilatation. Probable small gallstones or sludge. Normal common duct. Start TF . Continue with IVF ID: Continue with empiric abx ( Levaquin) for COPD exac. Monitor for signs of infections ( Fever, WBC) Heme: Monitor CBC Endo: SSI for glycemic control GI prophylaxis- on Protonix DVT prophylaxis - on Lovenox 40mg daily CCT 30 mins excluding procedures Cheo Tijerina MD Sep 07, 2016 16:54
[2016-09-07] MEDS: fentaNYL 2,500 MCG/NS 250 ML IV SCH (17:47)
[2016-09-07] MEDS: ENOXAPARIN SODIUM 40 MG/0.4 ML SYRINGE SQ SCH (20:46)
[2016-09-08] VITALS (19 sets, daily range): BP systolic 96–203; BP diastolic 55–97; PULSE 78–106; RESP 18–25; TEMP 98.5–100.9; O2SAT 94–100
[2016-09-08] MEDS: INSULIN NovoLIN REGULAR SUPPLEMENTAL SCALE SQ SCH ×4 (01:10→17:58)
[2016-09-08] MEDS: methylPREDNISolone SOD SUCC 40 MG/1 ML VIAL IV SCH ×4 (01:10→17:56)
[2016-09-08] MEDS: ACETAMINOPHEN 325 MG TAB PO PRN ×2 (01:13→12:30)
[2016-09-08] MEDS: DEXT 5%-NACL 0.9% 1000 ML INJ 1,000 ML IV SCH (02:21)
[2016-09-08] MEDS: CHLORHEXIDINE GLUCONATE 2 % 1 PACK (2 CLOTHS) TOP SCH (04:00)
[2016-09-08 05:59] LABS: AUTOMATED NEUTROPHIL # 5.8 TH/MM3 (1.8-7.7); BASOPHIL % 0.1 % (0.0-2.0); HEMATOCRIT 30.1 % (35.0-46.0); HEMO FLAGS DIFF FINAL; LYMPH % 5.6 % (9.0-44.0); LYMPHOCYTE # 0.4 TH/MM3 (1.0-4.8); MEAN CELL VOLUME 105.9 FL (80.0-100.0); MEAN CORPUSCULAR HEMOGLOBIN 35.1 PG (27.0-34.0); MEAN CORPUSCULAR HGB CONC 33.2 % (32.0-36.0); MONO % 13.8 % (0.0-8.0); NEUT % 80.5 % (16.0-70.0); PLATELET COUNT 189 TH/MM3 (150-450); RED BLOOD COUNT 2.84 MIL/MM3 (4.00-5.30); RED CELL DISTRIBUTION WIDTH 12.8 % (11.6-17.2); WHITE BLOOD COUNT 7.2 TH/MM3 (4.0-11.0)
[2016-09-08 06:29] LABS: ALKALINE PHOSPHATASE 59 U/L (45-117); ALT (GPT) 86 U/L (10-53); ANION GAP 4 MEQ/L (5-15); AST (GOT) 83 U/L (15-37); BICARBONATE 26.5 MEQ/L (21.0-32.0); BLOOD UREA NITROGEN 36 MG/DL (7-18); CHLORIDE 114 MEQ/L (98-107); GLOMERULAR FILTRATION RATE 68 ML/MIN (>89); MAGNESIUM 2.1 MG/DL (1.5-2.5); POTASSIUM 4.6 MEQ/L (3.5-5.1); SODIUM (NA) 144 MEQ/L (136-145); TOTAL BILIRUBIN ADULT 0.2 MG/DL (0.2-1.0)
[2016-09-08] MEDS: PROPOFOL 1000 MG/100 ML INJ 100 ML IV SCH (06:51)
--- NOTE | 2016-09-08 06:59 | RADRPT ---
EXAM DATE/TIME: 09/08/2016 06:02 [facility] COMPARISON: CHEST SINGLE AP, September 04, 2016, 17:53. INDICATIONS : Follow up respiratory failure. MEDICAL HISTORY : None. SURGICAL HISTORY : None. ENCOUNTER: Subsequent ACUITY: 1 week PAIN SCORE: Non-responsive. LOCATION: chest FINDINGS: ET tube, and NG tube have not changed. The lungs are clear without infiltrate, nodule, or mass. Ther e is no appreciable pleural effusion for technique. Heart and mediastinum are unremarkable. CONCLUSION: No acute cardiopulmonary disease. Hemal Beyer MD on September 08, 2016 at 6:58 Board Certified Radiologist. This report was verified electronically.
--- NOTE | 2016-09-08 08:40 | HHI.CCPN ---
Subjective Remarks/Hospital Course 60 y/o woman with 3 days crescendo COPD exacerbation. Oxygenates OK but work of breathing is excessive. No indication of precipitating infectious irritant but bronchitis is expected and will treat. 09/03 Patient is on BIPAP 05/24 with 25% FIO2. Afebrile. 09/04 called by nurse as patient had ABG which showed acute hypercapenic resp acidosis and unresponsive she was subsequently intubated by me and placed on mechanical ventilation. Her ABG prior to intubation PH 7.19, CO2 69, PAO2 54. She was given Ativan 2mg IV @1525 09/05: Patient remained sedated orally intubated on mechanical ventilation, failed C Pap trial. 09/06: Remains sedated, arousable, orally intubated on mechanical ventilation. Gets agitated on lightening sedation. 09/07: Sedated, arouses easily on lightening sedation and gets agitated. Orally intubated on mechanical ventilation. Tolerated C Pap trials however extremely agitated on lightening sedation due to alcohol withdrawal. We'll increase Librium dose and start Ativan per ETOH withdrawal protocol and attempt extubation tomorrow. Subjective 09/08: Afebrile. No bowel movement since admission. Extremely agitated with sedation vacation due to EtOH. Tolerating tube feeding today. Withdrawals to pain. Objective Vital Signs Date Time Temp Pulse Resp B/P Pulse Ox O2 Delivery O2 Flow Rate FiO2 09/08/16 08:10 100 35 09/08/16 06:00 83 09/08/16 04:00 98.5 18 99/58 09/08/16 04:00 Mechanical Ventilator 09/04/16 16:00 3.00 Intake and Output 09/07/16 09/07/16 09/08/16 08:00 16:00 00:00 Intake Total 900 ml 1224 ml 730 ml Output Total 250 ml 750 ml 900 ml Balance 650 ml 474 ml -170 ml Result Diagram: 09/08/16 0515 09/08/16 0515 Imaging Last Impressions Chest X-Ray 09/08/16 0600 Signed Impressions: Service Date/Time: Thursday, September 08, 2016 06:02 - CONCLUSION: No acute cardiopulmonary disease. Hemal Beyer MD Liver Ultrasound 09/03/16 0000 Signed Impressions: Service Date/Time: Saturday, September 03, 2016 16:11 - CONCLUSION: There is no hepatic biliary duct dilatation. Probable small gallstones or sludge. Normal common duct. Mundo López MD FACR Objective Remarks GENERAL: 60yo female, looks older than stated age currently orotracheally intubated SKIN: Warm and dry. No rash HEAD: Normocephalic. EYES: No scleral icterus. No injection or drainage. NECK: Supple, trachea midline. No JVD or lymphadenopathy. Orally intubated CARDIOVASCULAR: RRR. S1, S2. No S4. Without murmur RESPIRATORY: Coarse breath sounds bilaterally. Symmetrical excursion. GASTROINTESTINAL: Abdomen soft, non-tender, nondistended. Hypoactive bowel sounds MUSCULOSKELETAL: No disc and peripheral edema. Neuro: intubated, sedated, arousable on lightening sedation gets very agitated. Moves all 4 extremities spontaneously and to noxious stimuli. Not following commands. Urinary Catheter: Yes Assessment to: Continue Lopez insert reason: Prolonged Immobilization Vascular Central Line Catheter: No Assessment to: Continue A/P Assessment and Plan Plan: Neuro/Psych: Acute toxic metabolic encephalopathy EtOH Chronic benzodiazepine use history of anxiety History of claustrophobia Left ear tinnitus Edentulous Place on Diprivan/fentanyl drips for sedation/analgesia while intubated Goal of RA SS -2 Daily sedation vacation utilizing Precedex drip in attempt to wean Continue Thiamine/folic acid/MV for EtOH use Yesterday Increase Librium to 40 mg by mouth every 8 hourly. Continue Ativan per alcohol withdrawal protocol. Holding muscle relaxer scheduled. On Shepherd/Xanax at home as needed for pain/anxiety. These have been held. Resume when clinically indicated Phenobarbital 60 every 8 hours for 3 dosages in attempt to wean off sedation for EtOH Pulm: Acute hypoxemic hypercapnic respiratory failure History of COPD Ongoing tobaccoism ACV 12/550/5/40 Ventilator bundle Symbicort 160/4.5 2 puffs twice a day Duo nebs every 4 hours and as needed Solu-Medrol 40 mg IV every 6 hours Continue with vent support keep sat >92%. Spontaneous breathing trials daily CV: Hypertension Monitor HR and BP keep MAP>65mmHg On Lisinopril 40mg daily, Clonidine 0.1mg BID FEN/: Monitor renal function, I/O's, electrolytes replacement per protocol IVF D5NS@75ml/hr will be discontinued today GI: Elevated liver function tests Constipation Monitor LFT's, US liver:There is no hepatic biliary duct dilatation. Probable small gallstones or sludge. Normal common duct. Continue Jevity 1.5 goal 45 cc an hour Colace/senna/male with twice a day. Lactulose every 6 hours. Glycerin suppository 1 now. 1 dose of Relistor today. Hepatitis panel pending ID: Continue with empiric abx ( Levaquin) for COPD exac. Monitor for signs of infections ( Fever, WBC) Check sputum sample today Heme: Macrocytic anemia Monitor CBC daily. Endo: Hyperglycemia of critical illness steroid-induced SSI for glycemic control. 5 units sliding scale past 24 hours MSK: Lumbar 1 through 3 history of fracture Lumbar 5 disc bulge Osteoporosis/osteoarthritis PT evaluate and treat GI prophylaxis- on Prevacid DVT prophylaxis - on Lovenox 40mg daily Critical Care: The total critical care time was 35 minutes. Time to perform other separately billable procedures was not included in the critical care time. López Guzman MD Sep 08, 2016 08:40
[2016-09-08] MEDS ORDERED: GLYCERIN ADULT 2 GM SUPP RECTAL ONE (09:00)
[2016-09-08] MEDS: LISINOPRIL 20 MG TAB PO SCH (09:00)
[2016-09-08] MEDS ORDERED: METHYLNALTREXONE BROMIDE 12 MG/0.6 ML VIAL SQ ONE (09:00)
[2016-09-08] MEDS ORDERED: GLYCERIN ADULT 2 GM SUPP RECTAL PRN (09:00)
[2016-09-08] MEDS: BUDESONIDE-FORMOTEROL 160/4.5 MCG INHALER INH SCH ×2 (09:00→20:45)
[2016-09-08] MEDS: RESP: ALBUTEROL 2.5 MG/IPRATROPIUM 0.5 MG NEB (SCH) NEB ×3 (10:05→20:10)
[2016-09-08] MEDS: CHLORHEXIDINE 0.12% (ORAL KIT) 15 ML CUP MT SCH ×2 (10:12→20:45)
[2016-09-08] MEDS: DEXMEDETOMIDINE INJ 50 ML IV SCH ×2 (10:12→21:03)
[2016-09-08] MEDS: DOCUSATE SODIUM 100 MG/10 ML UDC PO SCH ×2 (10:14→20:46)
[2016-09-08] MEDS: THIAMINE HCL 100 MG TAB PO SCH (10:14)
[2016-09-08] MEDS: LACTULOSE SYRUP 20 GM/30 ML CUP PO SCH ×4 (10:14→20:46)
[2016-09-08] MEDS: cloNIDine HCL 0.1 MG TAB PO SCH ×2 (10:15→20:46)
[2016-09-08] MEDS: SODIUM CHLORIDE 0.9% FLUSH 5 ML FLUSH IV FLUSH SCH ×2 (10:15→20:45)
[2016-09-08] MEDS: MULTIVITAMIN TAB PO SCH (10:15)
[2016-09-08] MEDS: LANSOPRAZOLE SOLUTAB 30 MG TAB NG SCH (10:15)
[2016-09-08] MEDS: FOLIC ACID 1 MG TAB PO SCH (10:15)
[2016-09-08] MEDS: POLYETHYLENE GLYCOL 17 GM PKG PO/NG SCH ×2 (10:16→20:46)
[2016-09-08] MEDS: SENNOSIDES SYRUP 8.8 MG/5 ML CUP PO/TUBE SCH ×2 (10:16→20:46)
[2016-09-08] MEDS: LORazepam 2 MG/ML VIAL IV PUSH PRN ×2 (12:52→21:16)
[2016-09-08 18:39] LABS: BACTERIA, URINE OCC /hpf; BLOOD, URINE MOD (NEG); GLUCOSE,URINE NEG (NEG); KETONE, URINE NEG (NEG); MUCUS URINE FEW /lpf (OCC); NITRITE,URINE NEG (NEG); PH, URINE 5.5 (5.0-8.5); SQUAMOUS EPITHELIAL CELL URINE <1 /hpf (0-5); URINE COLOR YELLOW (YELLW/STRAW)
[2016-09-08 18:43] LABS: COMMENT (UR) CATH-CULTURE IND; CULTURE IF INDICATED CATH CULTURE IND
[2016-09-08] MEDS: LEVOFLOXACIN 750 MG PREMIX INJ 150 ML IV SCH (20:45)
[2016-09-08] MEDS: ENOXAPARIN SODIUM 40 MG/0.4 ML SYRINGE SQ SCH (20:48)
--- NOTE | 2016-09-08 23:06 | RADRPT ---
EXAM DATE/TIME: 09/08/2016 22:26 [facility] COMPARISON: No previous studies available for comparison. INDICATIONS : Altered mental status. RADIATION DOSE: 42.59 CTDIvol (mGy) MEDICAL HISTORY : Non-responsive. SURGICAL HISTORY : Non-responsive. ENCOUNTER: Subsequent ACUITY: 1 week PAIN SCALE: Non-responsive LOCATION: cranial TECHNIQUE: Multiple contiguous axial images were obtained of the head. Using automated exposure control and adj ustment of the mA and/or kV according to patient size, radiation dose was kept as low as reasonably a chievable to obtain optimal diagnostic quality images. FINDINGS: CEREBRUM: The ventricles are normal for age. No evidence of midline shift, mass lesion, hemorrhage or acute in farction. No extra-axial fluid collections are seen. POSTERIOR FOSSA: The cerebellum and brainstem are intact. The 4th ventricle is midline. The cerebellopontine angle i s unremarkable. EXTRACRANIAL: The visualized portion of the orbits is intact. Fluid in the left maxillary and ethmoid air cells. SKULL: The calvaria is intact. No evidence of skull fracture. CONCLUSION: 1. No acute intracranial abnormalities. Air-fluid levels in the left maxillary sinus and ethmoid air cells characteristic of sinusitis. Berlin Carrillo MD on September 08, 2016 at 23:03 Board Certified Radiologist. This report was verified electronically.
[2016-09-09] VITALS (20 sets, daily range): BP systolic 113–153; BP diastolic 57–73; PULSE 63–89; RESP 14–26; TEMP 98.2–99.6; O2SAT 97–100
[2016-09-09] MEDS: methylPREDNISolone SOD SUCC 40 MG/1 ML VIAL IV SCH ×5 (00:33→23:23)
[2016-09-09] MEDS: INSULIN NovoLIN REGULAR SUPPLEMENTAL SCALE SQ SCH ×5 (00:33→23:23)
[2016-09-09] MEDS: DEXMEDETOMIDINE INJ 50 ML IV SCH ×4 (02:05→23:25)
[2016-09-09] MEDS: LORazepam 2 MG/ML VIAL IV PUSH PRN (02:05)
[2016-09-09] MEDS: RESP: ALBUTEROL 2.5 MG/IPRATROPIUM 0.5 MG NEB (SCH) NEB ×4 (02:59→20:05)
--- NOTE | 2016-09-09 03:54 | RADRPT ---
EXAM DATE/TIME: 09/09/2016 02:41 [facility] COMPARISON: CHEST SINGLE AP, September 08, 2016, 6:02. INDICATIONS : Shortness of breath, possible pulmonary disease. MEDICAL HISTORY : None. SURGICAL HISTORY : None. ENCOUNTER: Subsequent ACUITY: 1 week PAIN SCORE: Non-responsive. LOCATION: Bilateral chest FINDINGS: Endotracheal tube is now 1.3 cm above the janneth. Gastric tube traverses the [id number]. The dawit gs are symmetrically aerated and clear. The heart is normal in size. CONCLUSION: 1. Lungs are clear. 2. ET tube tip 1.3 cm above the janneth and needs to be withdrawn 1 cm. Lazarus Mo MD on September 09, 2016 at 3:52 Board Certified Radiologist. This report was verified electronically.
[2016-09-09] MEDS: CHLORHEXIDINE GLUCONATE 2 % 1 PACK (2 CLOTHS) TOP SCH (04:00)
[2016-09-09 06:23] LABS: APTT (PATIENT) 24.9 SEC (24.3-30.1); INTERNATIONAL NORMALIZED RATIO 1.1 RATIO; PROTHROMBIN TIME - PATIENT 11.9 SEC (9.8-11.6)
[2016-09-09 06:44] LABS: ANION GAP 6 MEQ/L (5-15); AST (GOT) 101 U/L (15-37); BICARBONATE 27.3 MEQ/L (21.0-32.0); BLOOD UREA NITROGEN 29 MG/DL (7-18); CHLORIDE 114 MEQ/L (98-107); GLOMERULAR FILTRATION RATE 72 ML/MIN (>89); POTASSIUM 4.3 MEQ/L (3.5-5.1); SODIUM (NA) 147 MEQ/L (136-145)
[2016-09-09 06:48] LABS: ALKALINE PHOSPHATASE 66 U/L (45-117); ALT (GPT) 126 U/L (10-53); CREATINE KINASE 501 U/L (26-192); TOTAL BILIRUBIN ADULT 0.3 MG/DL (0.2-1.0)
[2016-09-09 07:08] LABS: AUTOMATED NEUTROPHIL # 7.4 TH/MM3 (1.8-7.7); BASOPHIL % 0.1 % (0.0-2.0); HEMATOCRIT 30.5 % (35.0-46.0); HEMO FLAGS DIFF FINAL; LYMPHOCYTE # 0.5 TH/MM3 (1.0-4.8); MEAN CORPUSCULAR HEMOGLOBIN 35.7 PG (27.0-34.0); MONO % 14.5 % (0.0-8.0); NEUT % 80.4 % (16.0-70.0); PLATELET COUNT 216 TH/MM3 (150-450); RED CELL DISTRIBUTION WIDTH 12.9 % (11.6-17.2); WHITE BLOOD COUNT 9.2 TH/MM3 (4.0-11.0)
[2016-09-09 07:19] LABS: CKMB 2.7 NG/ML (0.5-3.6)
[2016-09-09] MEDS: THIAMINE HCL 100 MG TAB PO SCH (08:30)
[2016-09-09] MEDS: SENNOSIDES SYRUP 8.8 MG/5 ML CUP PO/TUBE SCH (08:31)
[2016-09-09] MEDS: LISINOPRIL 20 MG TAB PO SCH (08:31)
[2016-09-09] MEDS: MULTIVITAMIN TAB PO SCH (08:31)
[2016-09-09] MEDS: cloNIDine HCL 0.1 MG TAB PO SCH ×2 (08:31→20:55)
[2016-09-09] MEDS: LANSOPRAZOLE SOLUTAB 30 MG TAB NG SCH (08:31)
[2016-09-09] MEDS: POLYETHYLENE GLYCOL 17 GM PKG PO/NG SCH (08:31)
[2016-09-09] MEDS: FOLIC ACID 1 MG TAB PO SCH (08:31)
[2016-09-09] MEDS: LACTULOSE SYRUP 20 GM/30 ML CUP PO SCH (08:32)
[2016-09-09] MEDS: CHLORHEXIDINE 0.12% (ORAL KIT) 15 ML CUP MT SCH ×2 (08:33→20:57)
[2016-09-09] MEDS: DOCUSATE SODIUM 100 MG/10 ML UDC PO SCH (08:37)
[2016-09-09] MEDS: POTASSIUM PHOSPHATE/SODIUM PHOSPHATE 250 MG TAB PO/TUBE SCH ×3 (08:37→20:55)
[2016-09-09] MEDS: SODIUM CHLORIDE 0.9% FLUSH 5 ML FLUSH IV FLUSH SCH ×2 (08:37→20:55)
[2016-09-09 09:49] LABS: C. DIFF EPI 027 PRESUMPTIVE NEGATIVE (NEGATIVE); C. DIFF TOXIN PCR NEGATIVE (NEGATIVE)
--- NOTE | 2016-09-09 12:30 | HHI.CCPN ---
Subjective Remarks/Hospital Course 60 y/o woman with 3 days crescendo COPD exacerbation. Oxygenates OK but work of breathing is excessive. No indication of precipitating infectious irritant but bronchitis is expected and will treat. 09/03 Patient is on BIPAP 05/24 with 25% FIO2. Afebrile. 09/04 called by nurse as patient had ABG which showed acute hypercapenic resp acidosis and unresponsive she was subsequently intubated by me and placed on mechanical ventilation. Her ABG prior to intubation PH 7.19, CO2 69, PAO2 54. She was given Ativan 2mg IV @1525 09/05: Patient remained sedated orally intubated on mechanical ventilation, failed C Pap trial. 09/06: Remains sedated, arousable, orally intubated on mechanical ventilation. Gets agitated on lightening sedation. 09/07: Sedated, arouses easily on lightening sedation and gets agitated. Orally intubated on mechanical ventilation. Tolerated C Pap trials however extremely agitated on lightening sedation due to alcohol withdrawal. We'll increase Librium dose and start Ativan per ETOH withdrawal protocol and attempt extubation tomorrow. 09/08: Afebrile. No bowel movement since admission. Extremely agitated with sedation vacation due to EtOH. Tolerating tube feeding today. Withdrawals to pain. Subjective 09/09: Tmax 100.7. Currently 98.2. 7 bowel movements yesterday. Currently on PSV trials. Tolerating tube feeding. Objective Vital Signs Date Time Temp Pulse Resp B/P Pulse Ox O2 Delivery O2 Flow Rate FiO2 09/09/16 10:00 63 09/09/16 08:10 100 35 09/09/16 08:00 98.2 14 113/57 09/09/16 08:00 Mechanical Ventilator Intake and Output 09/08/16 09/08/16 09/09/16 08:00 16:00 00:00 Intake Total 1042 ml 1390 ml 832 ml Output Total 1050 ml 1300 ml 1000 ml Balance -8 ml 90 ml -168 ml Result Diagram: 09/09/16 0547 09/09/16 0547 Other Results Microbiology Date/Time Procedure Status Source Growth 09/09/16 05:57 Gram Stain Received Sputum Endotracheal Pending 09/09/16 05:57 Sputum Culture Received Sputum Endotracheal Pending 09/08/16 21:10 Aerobic Blood Culture - Preliminary Resulted Blood Peripheral NO GROWTH IN 1 DAY 09/08/16 21:10 Anaerobic Blood Culture - Preliminary Resulted Blood Peripheral NO GROWTH IN 1 DAY 09/08/16 17:30 Urine Culture Received Urine Clean Catch Pending Imaging Last Impressions Chest X-Ray 09/09/16 0600 Signed Impressions: Service Date/Time: Friday, September 09, 2016 02:41 - CONCLUSION: 1. Lungs are clear. 2. ET tube tip 1.3 cm above the janneth and needs to be withdrawn 1 cm. Lazarus Mo MD Head CT 09/08/16 0000 Signed Impressions: Service Date/Time: Thursday, September 08, 2016 22:26 - CONCLUSION: 1. No acute intracranial abnormalities. Air-fluid levels in the left maxillary sinus and ethmoid air cells characteristic of sinusitis. Berlin Carrillo MD Liver Ultrasound 09/03/16 0000 Signed Impressions: Service Date/Time: Saturday, September 03, 2016 16:11 - CONCLUSION: There is no hepatic biliary duct dilatation. Probable small gallstones or sludge. Normal common duct. Mundo López MD FACR Objective Remarks GENERAL: 60yo female, looks older than stated age currently orotracheally intubated SKIN: Warm and dry. No rash HEAD: Normocephalic. EYES: No scleral icterus. No injection or drainage. NECK: Supple, trachea midline. No JVD or lymphadenopathy. Orally intubated CARDIOVASCULAR: RRR. S1, S2. No S4. Without murmur RESPIRATORY: Coarse breath sounds bilaterally. Symmetrical excursion. GASTROINTESTINAL: Abdomen soft, non-tender, nondistended. Hypoactive bowel sounds MUSCULOSKELETAL: No disc and peripheral edema. Neuro: intubated, sedated, arousable on lightening sedation gets very agitated. Moves all 4 extremities spontaneously and to noxious stimuli. Not following commands. A/P Assessment and Plan Plan: Neuro/Psych: Acute toxic metabolic encephalopathy EtOH Chronic benzodiazepine use history of anxiety History of claustrophobia Left ear tinnitus Edentulous Place on Diprivan/fentanyl drips for sedation/analgesia while intubated Goal of RASS -2 Daily sedation vacation utilizing Precedex drip in attempt to wean Continue Thiamine/folic acid/MV for EtOH use Yesterday Increase Librium to 40 mg by mouth every 8 hourly. Continue Ativan per alcohol withdrawal protocol. Holding muscle relaxer scheduled. On Picacho/Xanax at home as needed for pain/anxiety. These have been held. Resume when clinically indicated Phenobarbital 60 every 8 hours for 3 dosages in attempt to wean off sedation for EtOH has been completed Pulm: Acute hypoxemic hypercapnic respiratory failure History of COPD Ongoing tobaccoism ACV /540 Ventilator bundle Symbicort 160/4.5 2 puffs twice a day Duo nebs every 4 hours and as needed Solu-Medrol 40 mg IV every 8 hours Continue with vent support keep sat >92%. Spontaneous breathing trials daily CV: Hypertension Monitor HR and BP keep MAP>65mmHg On Lisinopril 40mg daily, Clonidine 0.1mg BID FEN/: Hypophosphatemia Hyponatremia Monitor renal function, I/O's, electrolytes replacement per protocol 3 doses of Neutra-Phos. Recheck in a.m. GI: Elevated liver function tests Constipation Elevated ammonia Monitor LFT's, US liver:There is no hepatic biliary duct dilatation. Probable small gallstones or sludge. Normal common duct. Continue Jevity 1.5 goal 45 cc an hour Switch bowel regimen to lactulose 30 cc daily Added Xifaxan 550 twice a day for elevated ammonia. Hepatitis panel pending ID: Continue with empiric abx ( Levaquin) for COPD exac. Monitor for signs of infections ( Fever, WBC) Significant findings 09/08 - blood cultures 2 - pending 09/08 - urine - pending 09/09 - sputum - pending Heme: Macrocytic anemia Monitor CBC daily. Endo: Hyperglycemia of critical illness steroid-induced SSI for glycemic control. 5 units sliding scale past 24 hours MSK: Lumbar 1 through 3 history of fracture Lumbar 5 disc bulge Osteoporosis/osteoarthritis PT evaluate and treat GI prophylaxis- on Prevacid DVT prophylaxis - on Lovenox 40mg daily Critical Care: The total critical care time was 35 minutes. Time to perform other separately billable procedures was not included in the critical care time. López Guzman MD Sep 09, 2016 12:30
[2016-09-09] MEDS: LEVOFLOXACIN 750 MG PREMIX INJ 150 ML IV SCH (20:54)
[2016-09-09] MEDS: RIFAXIMIN 550 MG TAB PO SCH (20:55)
[2016-09-09] MEDS: BUDESONIDE-FORMOTEROL 160/4.5 MCG INHALER INH SCH (20:56)
[2016-09-09] MEDS: ENOXAPARIN SODIUM 40 MG/0.4 ML SYRINGE SQ SCH (20:56)
--- NOTE | 2016-09-09 23:22 | MG ---
cc: JACQUELYN PLASENCIA MD Lab No: [id number] Date: 09/09/16 Age: 60 Sex: F Race: DATE OF 1955 HISTORY A 60-year-old with history of agitation, alcohol withdrawal. Generalized delta activity 1-3 Hz, 20 to 50 microvolts, mild spindle type of activity. Mild driving with photic stimulation. Posterior rhythm did increment up to 5-6 Hz. No dysrhythmia noted. INTERPRETATION Mild to moderate encephalopathy and probable sleep state, good EEG reactivity. Clinical correlation. Jacquelyn Plasencia MD MG/EO /9:20 PM /11:11 PM
[2016-09-10] VITALS (18 sets, daily range): BP systolic 98–153; BP diastolic 58–76; PULSE 67–93; RESP 16–26; TEMP 98.1–101.6; O2SAT 96–100
[2016-09-10] MEDS: ACETAMINOPHEN 325 MG TAB PO PRN ×2 (00:24→15:08)
[2016-09-10] MEDS: LORazepam 2 MG/ML VIAL IV PUSH PRN (02:44)
[2016-09-10] MEDS: RESP: ALBUTEROL 2.5 MG/IPRATROPIUM 0.5 MG NEB (SCH) NEB ×4 (03:31→19:56)
[2016-09-10 03:58] LABS: AUTOMATED NEUTROPHIL # 7.7 TH/MM3 (1.8-7.7); BASOPHIL % 0.1 % (0.0-2.0); HEMATOCRIT 28.9 % (35.0-46.0); HEMO FLAGS DIFF FINAL; LYMPH % 7.4 % (9.0-44.0); LYMPHOCYTE # 0.7 TH/MM3 (1.0-4.8); MEAN CELL VOLUME 104.1 FL (80.0-100.0); MEAN CORPUSCULAR HEMOGLOBIN 35.3 PG (27.0-34.0); MEAN CORPUSCULAR HGB CONC 33.9 % (32.0-36.0); MONO % 12.4 % (0.0-8.0); NEUT % 80.1 % (16.0-70.0); PLATELET COUNT 191 TH/MM3 (150-450); RED BLOOD COUNT 2.78 MIL/MM3 (4.00-5.30); RED CELL DISTRIBUTION WIDTH 12.5 % (11.6-17.2); WHITE BLOOD COUNT 9.6 TH/MM3 (4.0-11.0)
[2016-09-10 04:23] LABS: ANION GAP 4 MEQ/L (5-15); AST (GOT) 85 U/L (15-37); BICARBONATE 32.3 MEQ/L (21.0-32.0); BLOOD UREA NITROGEN 26 MG/DL (7-18); CHLORIDE 112 MEQ/L (98-107); GLOMERULAR FILTRATION RATE 82 ML/MIN (>89); MAGNESIUM 1.9 MG/DL (1.5-2.5); POTASSIUM 4.4 MEQ/L (3.5-5.1); SODIUM (NA) 148 MEQ/L (136-145)
[2016-09-10 04:29] LABS: ALKALINE PHOSPHATASE 58 U/L (45-117); ALT (GPT) 121 U/L (10-53); TOTAL BILIRUBIN ADULT 0.3 MG/DL (0.2-1.0)
--- NOTE | 2016-09-10 04:46 | RADRPT ---
EXAM DATE/TIME: 09/10/2016 03:59 [facility] COMPARISON: CHEST SINGLE AP, September 09, 2016, 2:41. INDICATIONS : Shortness of breath, possible pulmonary disease. MEDICAL HISTORY : None. SURGICAL HISTORY : None. ENCOUNTER: Subsequent ACUITY: 1 week PAIN SCORE: Non-responsive. LOCATION: Bilateral chest FINDINGS: Endotracheal tube tip well above the janneth. Gastric tube traverses the [id number]. The lungs ar e symmetrically aerated and clear. No infiltrate seen. No evidence pneumothorax. The heart is norm al size. CONCLUSION: The lungs are clear. Lazarus Mo MD on September 10, 2016 at 4:44 Board Certified Radiologist. This report was verified electronically.
[2016-09-10] MEDS: POTASSIUM PHOSPHATE/SODIUM PHOSPHATE 250 MG TAB PO/TUBE SCH (05:41)
[2016-09-10] MEDS: methylPREDNISolone SOD SUCC 40 MG/1 ML VIAL IV SCH ×3 (05:41→17:11)
[2016-09-10] MEDS: CHLORHEXIDINE GLUCONATE 2 % 1 PACK (2 CLOTHS) TOP SCH (05:41)
[2016-09-10] MEDS: INSULIN NovoLIN REGULAR SUPPLEMENTAL SCALE SQ SCH ×3 (05:42→17:11)
[2016-09-10] MEDS: THIAMINE HCL 100 MG TAB PO SCH (08:10)
[2016-09-10] MEDS: RIFAXIMIN 550 MG TAB PO SCH ×2 (08:10→21:00)
[2016-09-10] MEDS: SODIUM CHLORIDE 0.9% FLUSH 5 ML FLUSH IV FLUSH SCH ×2 (08:10→21:00)
[2016-09-10] MEDS: LANSOPRAZOLE SOLUTAB 30 MG TAB NG SCH (08:10)
[2016-09-10] MEDS: CHLORHEXIDINE 0.12% (ORAL KIT) 15 ML CUP MT SCH ×2 (08:10→20:59)
[2016-09-10] MEDS: FOLIC ACID 1 MG TAB PO SCH (08:10)
[2016-09-10] MEDS: cloNIDine HCL 0.1 MG TAB PO SCH (08:11)
[2016-09-10] MEDS: MULTIVITAMIN TAB PO SCH (08:11)
[2016-09-10] MEDS: LACTULOSE SYRUP 20 GM/30 ML CUP PO SCH (08:11)
[2016-09-10] MEDS: LISINOPRIL 20 MG TAB PO SCH (08:11)
[2016-09-10] MEDS: DEXMEDETOMIDINE INJ 50 ML IV SCH (10:56)
[2016-09-10] MEDS ORDERED: Vancomycin Consult Pharmacy 1 EA OTHER SCH (17:30)
--- NOTE | 2016-09-10 17:36 | HHI.CCPN ---
Subjective Remarks/Hospital Course 60 y/o woman with 3 days crescendo COPD exacerbation. Oxygenates OK but work of breathing is excessive. No indication of precipitating infectious irritant but bronchitis is expected and will treat. 09/03 Patient is on BIPAP 05/24 with 25% FIO2. Afebrile. 09/04 called by nurse as patient had ABG which showed acute hypercapenic resp acidosis and unresponsive she was subsequently intubated by me and placed on mechanical ventilation. Her ABG prior to intubation PH 7.19, CO2 69, PAO2 54. She was given Ativan 2mg IV @1525 09/05: Patient remained sedated orally intubated on mechanical ventilation, failed C Pap trial. 09/06: Remains sedated, arousable, orally intubated on mechanical ventilation. Gets agitated on lightening sedation. 09/07: Sedated, arouses easily on lightening sedation and gets agitated. Orally intubated on mechanical ventilation. Tolerated C Pap trials however extremely agitated on lightening sedation due to alcohol withdrawal. We'll increase Librium dose and start Ativan per ETOH withdrawal protocol and attempt extubation tomorrow. 09/08: Afebrile. No bowel movement since admission. Extremely agitated with sedation vacation due to EtOH. Tolerating tube feeding today. Withdrawals to pain. Subjective 09/09: Tmax 100.7. Currently 98.2. 7 bowel movements yesterday. Currently on PSV trials. Tolerating tube feeding. 09/10: febrile to 101 today. bowel movements slowing down. delirium still a significant problem. Objective Vital Signs Date Time Temp Pulse Resp B/P Pulse Ox O2 Delivery O2 Flow Rate FiO2 09/10/16 16:00 96 Mechanical Ventilator 35 09/10/16 16:00 99.8 83 16 135/67 Intake and Output 09/09/16 09/09/16 09/10/16 08:00 16:00 00:00 Intake Total 552 ml 550 ml 969 ml Output Total 750 ml 750 ml 700 ml Balance -198 ml -200 ml 269 ml Result Diagram: 09/10/16 0344 09/10/16 0344 Other Results Microbiology Date/Time Procedure Status Source Growth 09/08/16 17:30 Urine Culture - Final Complete Urine Clean Catch Escherichia Coli Imaging Last Impressions Chest X-Ray 09/09/16 0600 Signed Impressions: Service Date/Time: Friday, September 09, 2016 02:41 - CONCLUSION: 1. Lungs are clear. 2. ET tube tip 1.3 cm above the janneth and needs to be withdrawn 1 cm. Lazarus Mo MD Head CT 09/08/16 0000 Signed Impressions: Service Date/Time: Thursday, September 08, 2016 22:26 - CONCLUSION: 1. No acute intracranial abnormalities. Air-fluid levels in the left maxillary sinus and ethmoid air cells characteristic of sinusitis. Berlin Carrillo MD Liver Ultrasound 09/03/16 0000 Signed Impressions: Service Date/Time: Saturday, September 03, 2016 16:11 - CONCLUSION: There is no hepatic biliary duct dilatation. Probable small gallstones or sludge. Normal common duct. Mundo López MD FACR Objective Remarks GENERAL: 60yo female, looks older than stated age currently orotracheally intubated SKIN: Warm and dry. No rash HEAD: Normocephalic. EYES: No scleral icterus. No injection or drainage. NECK: Supple, trachea midline. No JVD or lymphadenopathy. Orally intubated CARDIOVASCULAR: RRR. S1, S2. No S4. Without murmur RESPIRATORY: Coarse breath sounds bilaterally. Symmetrical excursion. GASTROINTESTINAL: Abdomen soft, non-tender, nondistended. Hypoactive bowel sounds MUSCULOSKELETAL: No disc and peripheral edema. Neuro: intubated, sedated, arousable on lightening sedation gets very agitated. Moves all 4 extremities spontaneously and to noxious stimuli. Not following commands. A/P Assessment and Plan Plan: Neuro/Psych: Acute toxic metabolic encephalopathy EtOH Chronic benzodiazepine use history of anxiety History of claustrophobia Left ear tinnitus Edentulous precedex for goal RASS 0. Daily sedation vacation utilizing Precedex drip in attempt to wean Continue Thiamine/folic acid/MV for EtOH use Wean librium to 20 q8h today. Start seroquel 100mg po q8h. haldol 5mg iv q4h prn for agitation Holding muscle relaxer scheduled. On [place]/Xanax at home as needed for pain/anxiety. These have been held. Resume when clinically indicated Phenobarbital 60 every 8 hours for 3 dosages in attempt to wean off sedation for EtOH has been completed Pulm: Acute hypoxemic hypercapnic respiratory failure History of COPD Ongoing tobaccoism ACV /40 Ventilator bundle Symbicort 160/4.5 2 puffs twice a day Duo nebs every 4 hours and as needed Solu-Medrol 40 mg IV every 8 hours Continue with vent support keep sat >92%. Spontaneous breathing trials daily CV: Hypertension Monitor HR and BP keep MAP>65mmHg On Lisinopril 40mg daily, Clonidine 0.1mg BID FEN/: Hypophosphatemia Hyponatremia Monitor renal function, I/O's, electrolytes replacement per protocol 3 doses of Neutra-Phos. Recheck in a.m. GI: Elevated liver function tests Constipation Elevated ammonia Monitor LFT's, US liver:There is no hepatic biliary duct dilatation. Probable small gallstones or sludge. Normal common duct. Continue Jevity 1.5 goal 45 cc an hour hold bowel regimen d/c rectal tube. Added Xifaxan 550 twice a day for elevated ammonia. Hepatitis panel pending ID: Continue with empiric abx ( Levaquin) for COPD exac. Monitor for signs of infections --repeat blood cultures -- broaden to Zosyn and Vancomycin. Significant findings 09/08 - blood cultures 2 - pending 09/08 - urine - e. coli fluoroquinolone resistant. 09/09 - sputum - pending Heme: Macrocytic anemia Monitor CBC daily. Endo: Hyperglycemia of critical illness steroid-induced SSI for glycemic control. MSK: Lumbar 1 through 3 history of fracture Lumbar 5 disc bulge Osteoporosis/osteoarthritis PT evaluate and treat GI prophylaxis- on Prevacid DVT prophylaxis - on Lovenox 40mg daily Critical Care: The total critical care time was 37 minutes. Time to perform other separately billable procedures was not included in the critical care time. Ramirez Cottrell MD Sep 10, 2016 17:36
[2016-09-10] MEDS: PIPERACIL-TAZO 3.375 GM PREMIX 50 ML IV SCH (18:17)
[2016-09-10] MEDS: QUEtiapine FUMARATE 100 MG TAB PO SCH ×2 (18:17→21:00)
[2016-09-10] MEDS ORDERED: VANCOMYCIN INJ 1,250 MG in SODIUM CHLOR 0.9% 250 ML INJ 250 ML IV ONE (18:30)
[2016-09-10] MEDS: BUDESONIDE-FORMOTEROL 160/4.5 MCG INHALER INH SCH (19:57)
[2016-09-10] MEDS: cloNIDine HCL 0.2 MG TAB PO SCH (21:00)
[2016-09-10] MEDS: ENOXAPARIN SODIUM 40 MG/0.4 ML SYRINGE SQ SCH (21:01)
[2016-09-11] VITALS (16 sets, daily range): BP systolic 118–181; BP diastolic 63–86; PULSE 78–109; RESP 20–30; TEMP 98.2–98.8; O2SAT 97–100
[2016-09-11] MEDS: INSULIN NovoLIN REGULAR SUPPLEMENTAL SCALE SQ SCH ×4 (00:37→23:37)
[2016-09-11] MEDS: methylPREDNISolone SOD SUCC 40 MG/1 ML VIAL IV SCH ×5 (00:37→23:36)
[2016-09-11] MEDS: PIPERACIL-TAZO 3.375 GM PREMIX 50 ML IV SCH ×5 (00:37→23:37)
[2016-09-11] MEDS: CHLORHEXIDINE GLUCONATE 2 % 1 PACK (2 CLOTHS) TOP SCH (02:40)
[2016-09-11] MEDS: DEXMEDETOMIDINE INJ 50 ML IV SCH (02:51)
[2016-09-11] MEDS: RESP: ALBUTEROL 2.5 MG/IPRATROPIUM 0.5 MG NEB (SCH) NEB ×4 (03:11→21:39)
[2016-09-11] MEDS: QUEtiapine FUMARATE 100 MG TAB PO SCH ×3 (05:10→21:52)
[2016-09-11] MEDS: cloNIDine HCL 0.2 MG TAB PO SCH ×3 (05:10→21:51)
[2016-09-11] MEDS: CHLORHEXIDINE 0.12% (ORAL KIT) 15 ML CUP MT SCH ×2 (08:00→20:00)
[2016-09-11] MEDS: THIAMINE HCL 100 MG TAB PO SCH (09:00)
[2016-09-11] MEDS: LANSOPRAZOLE SOLUTAB 30 MG TAB NG SCH (09:00)
[2016-09-11] MEDS: RIFAXIMIN 550 MG TAB PO SCH ×2 (09:00→20:07)
[2016-09-11] MEDS: SODIUM CHLORIDE 0.9% FLUSH 5 ML FLUSH IV FLUSH SCH ×2 (09:00→20:07)
[2016-09-11 09:49] LABS: HEMATOCRIT 28.1 % (35.0-46.0); MEAN CELL VOLUME 103.4 FL (80.0-100.0); MEAN CORPUSCULAR HEMOGLOBIN 35.2 PG (27.0-34.0); PLATELET COUNT 183 TH/MM3 (150-450); RED BLOOD COUNT 2.72 MIL/MM3 (4.00-5.30); RED CELL DISTRIBUTION WIDTH 12.8 % (11.6-17.2); REVIEW FLAG FINAL; WHITE BLOOD COUNT 11.2 TH/MM3 (4.0-11.0)
[2016-09-11 10:17] LABS: BICARBONATE 35.2 MEQ/L (21.0-32.0); POTASSIUM 4.6 MEQ/L (3.5-5.1)
[2016-09-11] MEDS: LISINOPRIL 20 MG TAB PO SCH (12:14)
[2016-09-11] MEDS: LACTULOSE SYRUP 20 GM/30 ML CUP PO SCH (12:14)
[2016-09-11] MEDS: MULTIVITAMIN TAB PO SCH (12:14)
[2016-09-11] MEDS: FOLIC ACID 1 MG TAB PO SCH (12:15)
[2016-09-11] MEDS ORDERED: FUROSEMIDE 40 MG/4 ML VIAL IV PUSH ONE (14:15)
[2016-09-11 14:30] LABS: BLOOD GAS CARBOXYHEMOGLOBIN 1.5 % (0-4); BLOOD GAS HCO3 34 mmol/L (22-26); BLOOD GAS METHEMOGLOBIN 0.9 % (0-2); BLOOD GAS O2 HGB SATURATION 95 % (90-100); BLOOD GAS PCO2 49 mmHg (38-42); BLOOD GAS PO2 90 mmHg (61-120); BLOOD GAS TOTAL HGB 10.4 G/DL (12.0-16.0); CRITICAL VALUE NO; FIO2 35 %; OXYGEN DEVICE VENTILATOR; TEMP CORR TO 98.6; VENT SETTINGS PEEP5/PS8
[2016-09-11 14:31] LABS: DRAW SITE RT RADIAL; NUMBER OF ARTERIAL PUNCTURES 1; STAT NO; ULNAR PULSE PRESENT
[2016-09-11] MEDS: VANCOMYCIN 1,000 MG/NS 250 ML IV SCH ×2 (18:00)
[2016-09-11] MEDS: hydrALAZINE HCL 20 MG/ML VIAL IV PUSH PRN (20:05)
[2016-09-11] MEDS: BUDESONIDE-FORMOTEROL 160/4.5 MCG INHALER INH SCH (20:07)
[2016-09-11] MEDS: ENOXAPARIN SODIUM 40 MG/0.4 ML SYRINGE SQ SCH (21:51)
--- NOTE | 2016-09-11 22:20 | HHI.CCPN ---
Subjective Remarks/Hospital Course 60 y/o woman with 3 days crescendo COPD exacerbation. Oxygenates OK but work of breathing is excessive. No indication of precipitating infectious irritant but bronchitis is expected and will treat. 09/03 Patient is on BIPAP 05/24 with 25% FIO2. Afebrile. 09/04 called by nurse as patient had ABG which showed acute hypercapenic resp acidosis and unresponsive she was subsequently intubated by me and placed on mechanical ventilation. Her ABG prior to intubation PH 7.19, CO2 69, PAO2 54. She was given Ativan 2mg IV @1525 09/05: Patient remained sedated orally intubated on mechanical ventilation, failed C Pap trial. 09/06: Remains sedated, arousable, orally intubated on mechanical ventilation. Gets agitated on lightening sedation. 09/07: Sedated, arouses easily on lightening sedation and gets agitated. Orally intubated on mechanical ventilation. Tolerated C Pap trials however extremely agitated on lightening sedation due to alcohol withdrawal. We'll increase Librium dose and start Ativan per ETOH withdrawal protocol and attempt extubation tomorrow. 09/08: Afebrile. No bowel movement since admission. Extremely agitated with sedation vacation due to EtOH. Tolerating tube feeding today. Withdrawals to pain. Subjective 09/09: Tmax 100.7. Currently 98.2. 7 bowel movements yesterday. Currently on PSV trials. Tolerating tube feeding. 09/10: febrile to 101 today. bowel movements slowing down. delirium still a significant problem. 09/11: delirium persists, although slightly more awake today and less agitated. Objective Vital Signs Date Time Temp Pulse Resp B/P Pulse Ox O2 Delivery O2 Flow Rate FiO2 09/11/16 21:41 99 Nasal Cannula 3.00 09/11/16 20:00 100 09/11/16 20:00 98.8 30 181/86 09/11/16 12:00 35 Intake and Output 09/10/16 09/10/16 09/11/16 08:00 16:00 00:00 Intake Total 752 ml 565 ml 632 ml Output Total 450 ml 650 ml 600 ml Balance 302 ml -85 ml 32 ml Result Diagram: 09/11/1692709/11/16927 Other Results Microbiology Date/Time Procedure Status Source Growth 09/09/16 05:57 Gram Stain - Final Complete Sputum Endotracheal 09/09/16 05:57 Sputum Culture - Final Complete Sputum Endotracheal HEAVY GROWTH NORMAL RESPIRATORY EDDIE Laboratory Tests Test 09/11/16 14:15 Blood Gas Puncture Site RT RADIAL Blood Gas Patient Temperature 98.6 Blood Gas HCO3 34 mmol/L (22-26) Blood Gas Base Excess 10.0 mmol/L (-2-2) Blood Gas Oxygen Saturation 95 % (90-100) Arterial Blood pH 7.46 (7.380-7.420) Arterial Blood Partial 49 mmHg (38-42) Pressure CO2 Arterial Blood Partial 90 mmHg Pressure O2 (61-120) Arterial Blood Oxygen Content 14.0 Vol % (12.0-20.0) Arterial Blood 1.5 % (0-4) Carboxyhemoglobin Arterial Blood Methemoglobin 0.9 % (0-2) Blood Gas Hemoglobin 10.4 G/DL (12.0-16.0) Oxygen Delivery Device VENTILATOR Blood Gas Ventilator Setting PEEP5/PS8 Blood Gas Inspired Oxygen 35 % Imaging Last Impressions Chest X-Ray 09/09/16 0600 Signed Impressions: Service Date/Time: Friday, September 09, 2016 02:41 - CONCLUSION: 1. Lungs are clear. 2. ET tube tip 1.3 cm above the janneth and needs to be withdrawn 1 cm. Lazarus Mo MD Head CT 09/08/16 0000 Signed Impressions: Service Date/Time: Thursday, September 08, 2016 22:26 - CONCLUSION: 1. No acute intracranial abnormalities. Air-fluid levels in the left maxillary sinus and ethmoid air cells characteristic of sinusitis. Berlin Carrillo MD Liver Ultrasound 09/03/16 0000 Signed Impressions: Service Date/Time: Saturday, September 03, 2016 16:11 - CONCLUSION: There is no hepatic biliary duct dilatation. Probable small gallstones or sludge. Normal common duct. Mundo López MD FACR Objective Remarks GENERAL: 60yo female, looks older than stated age currently orotracheally intubated SKIN: Warm and dry. No rash HEAD: Normocephalic. EYES: No scleral icterus. No injection or drainage. NECK: Supple, trachea midline. No JVD or lymphadenopathy. Orally intubated CARDIOVASCULAR: RRR. S1, S2. No S4. Without murmur RESPIRATORY: Coarse breath sounds bilaterally. Symmetrical excursion. GASTROINTESTINAL: Abdomen soft, non-tender, nondistended. Hypoactive bowel sounds MUSCULOSKELETAL: No disc and peripheral edema. Neuro: intubated, sedated, arousable on lightening sedation gets very agitated. Moves all 4 extremities spontaneously and to noxious stimuli. Not following commands. A/P Assessment and Plan Plan: Neuro/Psych: Acute toxic metabolic encephalopathy EtOH Chronic benzodiazepine use history of anxiety History of claustrophobia Left ear tinnitus Edentulous precedex for goal RASS 0. Daily sedation vacation utilizing Precedex drip in attempt to wean Continue Thiamine/folic acid/MV for EtOH use d/c librium today. will d/c seroquel as I am not sure if it is helping. haldol 5mg iv q4h prn for agitation On [place]/Xanax at home as needed for pain/anxiety. These have been held. Resume when clinically indicated Phenobarbital 60 every 8 hours for 3 dosages in attempt to wean off sedation for EtOH has been completed Pulm: Acute hypoxemic hypercapnic respiratory failure History of COPD Ongoing tobaccoism ACV / Ventilator bundle Symbicort 160/4.5 2 puffs twice a day Duo nebs every 4 hours and as needed Solu-Medrol 40 mg IV every 8 hours Continue with vent support keep sat >92%. Spontaneous breathing trials daily . she may be close to extubation today if her mental status improves. CV: Hypertension Monitor HR and BP keep MAP>65mmHg On Lisinopril 40mg daily, Clonidine 0.1mg BID FEN/: Hypophosphatemia Hyponatremia Monitor renal function, I/O's, electrolytes replacement per protocol 3 doses of Neutra-Phos. Recheck in a.m. GI: Elevated liver function tests Constipation Elevated ammonia Monitor LFT's, US liver:There is no hepatic biliary duct dilatation. Probable small gallstones or sludge. Normal common duct. Continue Jevity 1.5 goal 45 cc an hour hold bowel regimen d/c rectal tube. Added Xifaxan 550 twice a day for elevated ammonia. ID: Continue with empiric abx ( Levaquin) for COPD exac. Monitor for signs of infections --repeat blood cultures NGTD. -- continue Zosyn and Vancomycin. Significant findings 09/08 - blood cultures 2 - NGTD 09/08 - urine - e. coli fluoroquinolone resistant. 09/09 - sputum - NGTD Heme: Macrocytic anemia Monitor CBC daily. Endo: Hyperglycemia of critical illness steroid-induced SSI for glycemic control. MSK: Lumbar 1 through 3 history of fracture Lumbar 5 disc bulge Osteoporosis/osteoarthritis PT evaluate and treat GI prophylaxis- on Prevacid DVT prophylaxis - on Lovenox 40mg daily Critical Care: The total critical care time was 32 minutes. Time to perform other separately billable procedures was not included in the critical care time. Ramirez Cottrell MD Sep 11, 2016 22:20
[2016-09-11 23:25] LABS: BLOOD GAS BASE EXCESS 11.6 mmol/L (-2-2); BLOOD GAS CARBOXYHEMOGLOBIN 1.6 % (0-4); BLOOD GAS HCO3 36 mmol/L (22-26); BLOOD GAS O2 HGB SATURATION 88 % (90-100); BLOOD GAS OXYGEN CONTENT 17.7 Vol % (12.0-20.0); BLOOD GAS PCO2 54 mmHg (38-42); BLOOD GAS PO2 63 mmHg (61-120); BLOOD GAS TOTAL HGB 14.3 G/DL (12.0-16.0); CRITICAL VALUE YES; LITER FLOW 3 L/M; OXYGEN DEVICE NASAL CANNULA; TEMP CORR TO 98.6
[2016-09-11 23:26] LABS: DRAW SITE RT BRACHIAL; NUMBER OF ARTERIAL PUNCTURES 2; STAT YES
[2016-09-12] VITALS (16 sets, daily range): BP systolic 137–195; BP diastolic 67–92; PULSE 85–107; RESP 32–33; TEMP 98.1–99; O2SAT 94–100
[2016-09-12] MEDS: RESP: ALBUTEROL 2.5 MG/IPRATROPIUM 0.5 MG NEB (SCH) NEB ×4 (03:46→22:47)
[2016-09-12] MEDS: CHLORHEXIDINE GLUCONATE 2 % 1 PACK (2 CLOTHS) TOP SCH (04:00)
[2016-09-12] MEDS: methylPREDNISolone SOD SUCC 40 MG/1 ML VIAL IV SCH ×3 (05:18→17:44)
[2016-09-12] MEDS: cloNIDine HCL 0.2 MG TAB PO SCH ×3 (05:19→21:56)
[2016-09-12] MEDS: PIPERACIL-TAZO 3.375 GM PREMIX 50 ML IV SCH ×3 (05:19→18:00)
[2016-09-12] MEDS: INSULIN NovoLIN REGULAR SUPPLEMENTAL SCALE SQ SCH ×3 (05:19→18:00)
[2016-09-12 06:02] LABS: HEMATOCRIT 33.7 % (35.0-46.0); MEAN CELL VOLUME 104.3 FL (80.0-100.0); MEAN CORPUSCULAR HEMOGLOBIN 34.4 PG (27.0-34.0); PLATELET COUNT 226 TH/MM3 (150-450); RED BLOOD COUNT 3.23 MIL/MM3 (4.00-5.30); RED CELL DISTRIBUTION WIDTH 12.6 % (11.6-17.2); REVIEW FLAG FINAL; WHITE BLOOD COUNT 16.1 TH/MM3 (4.0-11.0)
[2016-09-12 06:20] LABS: BICARBONATE 36.6 MEQ/L (21.0-32.0); POTASSIUM 4.2 MEQ/L (3.5-5.1)
[2016-09-12] MEDS: hydrALAZINE HCL 20 MG/ML VIAL IV PUSH PRN ×3 (06:35→17:44)
[2016-09-12] MEDS: FOLIC ACID 1 MG TAB PO SCH (09:00)
[2016-09-12] MEDS: SODIUM CHLORIDE 0.9% FLUSH 5 ML FLUSH IV FLUSH SCH ×2 (09:00→21:56)
[2016-09-12] MEDS: LANSOPRAZOLE SOLUTAB 30 MG TAB NG SCH (09:00)
[2016-09-12] MEDS: LISINOPRIL 20 MG TAB PO SCH (09:00)
[2016-09-12] MEDS: MULTIVITAMIN TAB PO SCH (09:00)
[2016-09-12] MEDS: LACTULOSE SYRUP 20 GM/30 ML CUP PO SCH (09:00)
[2016-09-12] MEDS: THIAMINE HCL 100 MG TAB PO SCH (09:00)
[2016-09-12] MEDS: RIFAXIMIN 550 MG TAB PO SCH ×2 (09:00→21:56)
[2016-09-12 09:28] LABS: BLOOD GAS BASE EXCESS 12.1 mmol/L (-2-2); BLOOD GAS CARBOXYHEMOGLOBIN 1.6 % (0-4); BLOOD GAS HCO3 37 mmol/L (22-26); BLOOD GAS METHEMOGLOBIN 1.2 % (0-2); BLOOD GAS O2 HGB SATURATION 93 % (90-100); BLOOD GAS OXYGEN CONTENT 14.5 Vol % (12.0-20.0); BLOOD GAS PCO2 55 mmHg (38-42); BLOOD GAS PO2 84 mmHg (61-120); TEMP CORR TO 98.6
[2016-09-12 09:29] LABS: CRITICAL VALUE YES; DRAW SITE RT RADIAL; LITER FLOW 3 L/M; NUMBER OF ARTERIAL PUNCTURES 1; OXYGEN DEVICE NASAL CANNULA; STAT NO; ULNAR PULSE PRESENT
[2016-09-12] MEDS ORDERED: PHARMACY ORDERED LAB XX ONE (11:45)
[2016-09-12] MEDS: VANCOMYCIN 1,000 MG/NS 250 ML IV SCH ×2 (12:03)
--- NOTE | 2016-09-12 12:57 | RADRPT ---
EXAM DATE/TIME: 09/12/2016 11:05 [facility] COMPARISON: No previous studies available for comparison. INDICATIONS : Dobhoff placement. MEDICAL HISTORY : Unobtainable. SURGICAL HISTORY : Unobtainable. ENCOUNTER: Subsequent ACUITY: 1 day PAIN SCORE: Non-responsive. LOCATION: Abdomen, upper quadrant. FINDINGS: Supine frontal view of the abdomen demonstrates a feeding tube present with distal tip likely at the pyloric region of the stomach versus the first portion of the duodenum. No other acute finding is vis ualized. CONCLUSION: Feeding tube distal tip likely in either the pyloric region the stomach or first portion of the duode num. Jesus Perez MD on September 12, 2016 at 12:54 Board Certified Radiologist. This report was verified electronically.
--- NOTE | 2016-09-12 14:27 | HHI.CCPN ---
Subjective Remarks/Hospital Course 60 y/o woman with 3 days crescendo COPD exacerbation. Oxygenates OK but work of breathing is excessive. No indication of precipitating infectious irritant but bronchitis is expected and will treat. 09/03 Patient is on BIPAP 05/24 with 25% FIO2. Afebrile. 09/04 called by nurse as patient had ABG which showed acute hypercapenic resp acidosis and unresponsive she was subsequently intubated by me and placed on mechanical ventilation. Her ABG prior to intubation PH 7.19, CO2 69, PAO2 54. She was given Ativan 2mg IV @1525 09/05: Patient remained sedated orally intubated on mechanical ventilation, failed C Pap trial. 09/06: Remains sedated, arousable, orally intubated on mechanical ventilation. Gets agitated on lightening sedation. 09/07: Sedated, arouses easily on lightening sedation and gets agitated. Orally intubated on mechanical ventilation. Tolerated C Pap trials however extremely agitated on lightening sedation due to alcohol withdrawal. We'll increase Librium dose and start Ativan per ETOH withdrawal protocol and attempt extubation tomorrow. 09/08: Afebrile. No bowel movement since admission. Extremely agitated with sedation vacation due to EtOH. Tolerating tube feeding today. Withdrawals to pain. Subjective 09/09: Tmax 100.7. Currently 98.2. 7 bowel movements yesterday. Currently on PSV trials. Tolerating tube feeding. 09/10: febrile to 101 today. bowel movements slowing down. delirium still a significant problem. 09/11: delirium persists, although slightly more awake today and less agitated. 09/12: extubated yesterday. failed swallow eval. DHT placed. still altered and delirious. Objective Vital Signs Date Time Temp Pulse Resp B/P Pulse Ox O2 Delivery O2 Flow Rate FiO2 09/12/16 12:19 98.6 104 33 195/92 100 09/12/16 12:00 Nasal Cannula 3.00 09/11/16 12:00 35 Intake and Output 09/11/16 09/11/16 09/12/16 08:00 16:00 00:00 Intake Total 993 ml 350 ml 128 ml Output Total 550 ml 1300 ml 1450 ml Balance 443 ml -950 ml -1322 ml Result Diagram: 09/12/16 0511 09/12/16 0511 Other Results Laboratory Tests Test 09/11/16 09/12/16 23:09 09:15 Blood Gas Puncture Site RT BRACHIAL RT RADIAL Blood Gas Patient Temperature 98.6 98.6 Blood Gas HCO3 36 mmol/L 37 mmol/L (22-26) (22-26) Blood Gas Base Excess 11.6 mmol/L 12.1 mmol/L (-2-2) (-2-2) Blood Gas Oxygen Saturation 88 % (90-100) 93 % (90-100) Arterial Blood pH 7.45 7.45 (7.380-7.420) (7.380-7.420) Arterial Blood Partial 54 mmHg (38-42) 55 mmHg (38-42) Pressure CO2 Arterial Blood Partial 63 mmHg 84 mmHg Pressure O2 (61-120) (61-120) Arterial Blood Oxygen Content 17.7 Vol % 14.5 Vol % (12.0-20.0) (12.0-20.0) Arterial Blood 1.6 % (0-4) 1.6 % (0-4) Carboxyhemoglobin Arterial Blood Methemoglobin 1.0 % (0-2) 1.2 % (0-2) Blood Gas Hemoglobin 14.3 G/DL 11.0 G/DL (12.0-16.0) (12.0-16.0) Oxygen Delivery Device NASAL CANNULA NASAL CANNULA Blood Gas Liter Flow 3 L/M 3 L/M Imaging Last Impressions Chest X-Ray 09/09/16 0600 Signed Impressions: Service Date/Time: Friday, September 09, 2016 02:41 - CONCLUSION: 1. Lungs are clear. 2. ET tube tip 1.3 cm above the janneth and needs to be withdrawn 1 cm. Lazarus Mo MD Head CT 09/08/16 0000 Signed Impressions: Service Date/Time: Thursday, September 08, 2016 22:26 - CONCLUSION: 1. No acute intracranial abnormalities. Air-fluid levels in the left maxillary sinus and ethmoid air cells characteristic of sinusitis. Berlin Carrillo MD Liver Ultrasound 09/03/16 0000 Signed Impressions: Service Date/Time: Saturday, September 03, 2016 16:11 - CONCLUSION: There is no hepatic biliary duct dilatation. Probable small gallstones or sludge. Normal common duct. Mundo López MD FACR Objective Remarks GENERAL: 60yo female, looks older than stated age, somnolent. arousable to deep sternal rub. protecting airway with weak gag/cough. SKIN: Warm and dry. No rash HEAD: Normocephalic. EYES: No scleral icterus. No injection or drainage. NECK: Supple, trachea midline. No JVD CARDIOVASCULAR: RRR. S1, S2. No S4. Without murmur RESPIRATORY: Coarse breath sounds bilaterally. Symmetrical excursion. GASTROINTESTINAL: Abdomen soft, non-tender, nondistended. Hypoactive bowel sounds MUSCULOSKELETAL: No disc and peripheral edema. Neuro: RASS -2. weakly follows commands. moves all extremities. A/P Assessment and Plan Plan: Neuro/Psych: Acute toxic metabolic encephalopathy EtOH Chronic benzodiazepine use history of anxiety History of claustrophobia Left ear tinnitus Edentulous Continue Thiamine/folic acid/MV for EtOH use haldol 5mg iv q4h prn for agitation On [place]/Xanax at home as needed for pain/anxiety. These have been held. Resume when clinically indicated Phenobarbital 60 every 8 hours for 3 dosages in attempt to wean off sedation for EtOH has been completed -- continue to hold sedating meds. Pulm: Acute hypoxemic hypercapnic respiratory failure History of COPD Ongoing tobaccoism Symbicort 160/4.5 2 puffs twice a day Duo nebs every 4 hours and as needed Solu-Medrol 40 mg IV every 8 hours -- OOB to chair with PT. -- wean o2 by NC for spo2 > 90% -- aggressive pulm toilet with EZ-PAP, acapella, I.S. CV: Hypertension Monitor HR and BP keep MAP>65mmHg On Lisinopril 40mg daily, Clonidine 0.1mg BID FEN/: Hypophosphatemia Hypernatremia Monitor renal function, I/O's, electrolytes replacement per protocol 3 doses of Neutra-Phos. Recheck in a.m. Start free water 300 q6h. GI: Elevated liver function tests Constipation Elevated ammonia Monitor LFT's, US liver:There is no hepatic biliary duct dilatation. Probable small gallstones or sludge. Normal common duct. Continue Jevity 1.5 goal 45 cc an hour hold bowel regimen Xifaxan 550 twice a day for elevated ammonia. ID: Continue with empiric abx ( Levaquin) for COPD exac. Monitor for signs of infections --repeat blood cultures NGTD. -- continue Zosyn and Vancomycin. Significant findings 09/08 - blood cultures 2 - NGTD 09/08 - urine - e. coli fluoroquinolone resistant. 09/09 - sputum - NGTD Heme: Macrocytic anemia Monitor CBC daily. Endo: Hyperglycemia of critical illness steroid-induced SSI for glycemic control. MSK: Lumbar 1 through 3 history of fracture Lumbar 5 disc bulge Osteoporosis/osteoarthritis PT evaluate and treat GI prophylaxis- on Prevacid DVT prophylaxis - on Lovenox 40mg daily Ramirez Cottrell MD Sep 12, 2016 14:27
[2016-09-12] MEDS: FREE WATER G-TUBE SCH (15:59)
[2016-09-12] MEDS: BUDESONIDE-FORMOTEROL 160/4.5 MCG INHALER INH SCH (21:00)
[2016-09-12] MEDS: ENOXAPARIN SODIUM 40 MG/0.4 ML SYRINGE SQ SCH (21:56)
[2016-09-13] VITALS (14 sets, daily range): BP systolic 82–175; BP diastolic 51–79; PULSE 65–96; RESP 24–34; TEMP 98–98.7; O2SAT 97–100
[2016-09-13] MEDS: methylPREDNISolone SOD SUCC 40 MG/1 ML VIAL IV SCH ×3 (01:23→23:32)
[2016-09-13] MEDS: PIPERACIL-TAZO 3.375 GM PREMIX 50 ML IV SCH ×5 (01:23→23:33)
[2016-09-13] MEDS: CHLORHEXIDINE GLUCONATE 2 % 1 PACK (2 CLOTHS) TOP SCH (01:24)
[2016-09-13] MEDS: hydrALAZINE HCL 20 MG/ML VIAL IV PUSH PRN (04:00)
[2016-09-13] MEDS: RESP: ALBUTEROL 2.5 MG/IPRATROPIUM 0.5 MG NEB (SCH) NEB ×4 (04:17→19:48)
[2016-09-13] MEDS ORDERED: PHARMACY ORDERED LAB XX ONE (05:45)
[2016-09-13] MEDS: FREE WATER G-TUBE SCH ×5 (06:00→20:00)
[2016-09-13] MEDS: VANCOMYCIN 1,000 MG/NS 250 ML IV SCH ×2 (06:16)
[2016-09-13] MEDS: cloNIDine HCL 0.2 MG TAB PO SCH (06:16)
[2016-09-13 06:33] LABS: HEMATOCRIT 32.8 % (35.0-46.0); MEAN CELL VOLUME 104.7 FL (80.0-100.0); MEAN CORPUSCULAR HEMOGLOBIN 36.4 PG (27.0-34.0); MEAN CORPUSCULAR HGB CONC 34.8 % (32.0-36.0); PLATELET COUNT 203 TH/MM3 (150-450); RED BLOOD COUNT 3.13 MIL/MM3 (4.00-5.30); RED CELL DISTRIBUTION WIDTH 12.6 % (11.6-17.2); REVIEW FLAG FINAL; WHITE BLOOD COUNT 9.5 TH/MM3 (4.0-11.0)
[2016-09-13] MEDS: INSULIN NovoLIN REGULAR SUPPLEMENTAL SCALE SQ SCH ×5 (06:36→23:34)
[2016-09-13 06:56] LABS: BICARBONATE 38.3 MEQ/L (21.0-32.0); VANCOMYCIN TROUGH 7.2 MCG/ML (5.0-10.0)
[2016-09-13] MEDS ORDERED: FUROSEMIDE 40 MG/4 ML VIAL IV PUSH ONE (08:30)
--- NOTE | 2016-09-13 08:33 | HHI.CCPN ---
Subjective Remarks/Hospital Course 60 y/o woman with 3 days crescendo COPD exacerbation. Oxygenates OK but work of breathing is excessive. No indication of precipitating infectious irritant but bronchitis is expected and will treat. 09/03 Patient is on BIPAP 05/24 with 25% FIO2. Afebrile. 09/04 called by nurse as patient had ABG which showed acute hypercapenic resp acidosis and unresponsive she was subsequently intubated by me and placed on mechanical ventilation. Her ABG prior to intubation PH 7.19, CO2 69, PAO2 54. She was given Ativan 2mg IV @1525 09/05: Patient remained sedated orally intubated on mechanical ventilation, failed C Pap trial. 09/06: Remains sedated, arousable, orally intubated on mechanical ventilation. Gets agitated on lightening sedation. 09/07: Sedated, arouses easily on lightening sedation and gets agitated. Orally intubated on mechanical ventilation. Tolerated C Pap trials however extremely agitated on lightening sedation due to alcohol withdrawal. We'll increase Librium dose and start Ativan per ETOH withdrawal protocol and attempt extubation tomorrow. 09/08: Afebrile. No bowel movement since admission. Extremely agitated with sedation vacation due to EtOH. Tolerating tube feeding today. Withdrawals to pain. Subjective 09/09: Tmax 100.7. Currently 98.2. 7 bowel movements yesterday. Currently on PSV trials. Tolerating tube feeding. 09/10: febrile to 101 today. bowel movements slowing down. delirium still a significant problem. 09/11: delirium persists, although slightly more awake today and less agitated. 09/12: extubated yesterday. failed swallow eval. DHT placed. still altered and delirious. 09/13: remains extubated. still altered and moderately encephalopathic, but protecting airway. follows commands. very somnolent. Objective Vital Signs Date Time Temp Pulse Resp B/P Pulse Ox O2 Delivery O2 Flow Rate FiO2 09/13/16 07:48 98 Nasal Cannula 3.00 09/13/16 06:00 87 09/13/16 04:00 98.7 31 161/78 09/11/16 12:00 35 Intake and Output 09/12/16 09/12/16 09/13/16 08:00 16:00 00:00 Intake Total 83 ml 350 ml 57 ml Output Total 650 ml 625 ml Balance -567 ml -275 ml 57 ml Result Diagram: 09/13/16 0607 09/13/16 0607 Other Results Laboratory Tests Test 09/12/16 09:15 Blood Gas Puncture Site RT RADIAL Blood Gas Patient Temperature 98.6 Blood Gas HCO3 37 mmol/L (22-26) Blood Gas Base Excess 12.1 mmol/L (-2-2) Blood Gas Oxygen Saturation 93 % (90-100) Arterial Blood pH 7.45 (7.380-7.420) Arterial Blood Partial 55 mmHg (38-42) Pressure CO2 Arterial Blood Partial 84 mmHg Pressure O2 (61-120) Arterial Blood Oxygen Content 14.5 Vol % (12.0-20.0) Arterial Blood 1.6 % (0-4) Carboxyhemoglobin Arterial Blood Methemoglobin 1.2 % (0-2) Blood Gas Hemoglobin 11.0 G/DL (12.0-16.0) Oxygen Delivery Device NASAL CANNULA Blood Gas Liter Flow 3 L/M Imaging Last Impressions Chest X-Ray 09/09/16 0600 Signed Impressions: Service Date/Time: Friday, September 09, 2016 02:41 - CONCLUSION: 1. Lungs are clear. 2. ET tube tip 1.3 cm above the janneth and needs to be withdrawn 1 cm. Lazarus Mo MD Head CT 09/08/16 0000 Signed Impressions: Service Date/Time: Thursday, September 08, 2016 22:26 - CONCLUSION: 1. No acute intracranial abnormalities. Air-fluid levels in the left maxillary sinus and ethmoid air cells characteristic of sinusitis. Berlin Carrillo MD Liver Ultrasound 09/03/16 0000 Signed Impressions: Service Date/Time: Saturday, September 03, 2016 16:11 - CONCLUSION: There is no hepatic biliary duct dilatation. Probable small gallstones or sludge. Normal common duct. Mundo López MD FACR Objective Remarks GENERAL: 60yo female, looks older than stated age, somnolent. arousable. protecting airway with weak gag/cough. SKIN: Warm and dry. No rash HEAD: Normocephalic. EYES: No scleral icterus. No injection or drainage. NECK: Supple, trachea midline. No JVD CARDIOVASCULAR: RRR. S1, S2. No S4. Without murmur RESPIRATORY: Coarse breath sounds bilaterally. Symmetrical excursion. GASTROINTESTINAL: Abdomen soft, non-tender, nondistended. Hypoactive bowel sounds MUSCULOSKELETAL: No disc and peripheral edema. Neuro: RASS -2. weakly follows commands. moves all extremities. A/P Assessment and Plan Plan: Neuro/Psych: Acute toxic metabolic encephalopathy EtOH Chronic benzodiazepine use history of anxiety History of claustrophobia Left ear tinnitus Edentulous Hypoactive delirium Continue Thiamine/folic acid/MV for EtOH use haldol 5mg iv q4h prn for agitation On Perdido/Xanax at home as needed for pain/anxiety. These have been held. Resume when clinically indicated Phenobarbital 60 every 8 hours for 3 dosages in attempt to wean off sedation for EtOH has been completed -- continue to hold sedating meds. -- recheck Ammonia. -- start provigil. -- lights on, sitting up. good day/night re-orientation and sleep hygeine. Pulm: Acute hypoxemic hypercapnic respiratory failure History of COPD Ongoing tobaccoism Symbicort 160/4.5 2 puffs twice a day Duo nebs every 4 hours and as needed Solu-Medrol 40 mg IV every 8 hours- wean to 40 iv q12h today. -- OOB to chair with PT. -- wean o2 by NC for spo2 > 90% -- aggressive pulm toilet with EZ-PAP, acapella, I.S. CV: Hypertension Monitor HR and BP keep MAP>65mmHg On Lisinopril 40mg daily, increase to Clonidine 0.3mg q8h FEN/: Hypophosphatemia Hypernatremia Monitor renal function, I/O's, electrolytes replacement per protocol 3 doses of Neutra-Phos. Recheck in a.m. increase free water 300 q4h. start low dose 1/2NS at 75cc/hr. GI: Elevated liver function tests Constipation Elevated ammonia Monitor LFT's, US liver:There is no hepatic biliary duct dilatation. Probable small gallstones or sludge. Normal common duct. Continue Jevity 1.5 goal 45 cc an hour hold bowel regimen Xifaxan 550 twice a day for elevated ammonia. Lactulose daily. ID: COPD exacerbation Possible Community Acquired vs. Aspiration pneumonia E. Coli UTI --repeat blood cultures NGTD. -- continue Zosyn and Vancomycin. Significant findings 09/08 - blood cultures 2 - NGTD 09/08 - urine - e. coli fluoroquinolone resistant. 09/09 - sputum - NGTD Heme: Macrocytic anemia Monitor CBC daily. does not meet transfusion criteria at this time. Endo: Hyperglycemia of critical illness steroid-induced SSI for glycemic control. MSK: Lumbar 1 through 3 history of fracture Lumbar 5 disc bulge Osteoporosis/osteoarthritis PT evaluate and treat GI prophylaxis- on Prevacid DVT prophylaxis - on Lovenox 40mg daily Dispo: likely can transition out of ICU soon. will consult hospitalists. Ramirez Cottrell MD Sep 13, 2016 08:33
[2016-09-13] MEDS: MODAFINIL 200 MG TAB PO SCH (09:00)
[2016-09-13] MEDS: BUDESONIDE-FORMOTEROL 160/4.5 MCG INHALER INH SCH ×2 (09:50→21:00)
[2016-09-13] MEDS: SODIUM CHLORIDE 0.9% FLUSH 5 ML FLUSH IV FLUSH SCH ×2 (09:52→23:33)
[2016-09-13] MEDS: THIAMINE HCL 100 MG TAB PO SCH (09:52)
[2016-09-13] MEDS: SODIUM CHLOR 0.45% 1000 ML INJ 1,000 ML IV SCH (09:52)
[2016-09-13] MEDS: FOLIC ACID 1 MG TAB PO SCH (09:53)
[2016-09-13] MEDS: MULTIVITAMIN TAB PO SCH (09:53)
[2016-09-13] MEDS: LISINOPRIL 20 MG TAB PO SCH (09:53)
[2016-09-13] MEDS: LANSOPRAZOLE SOLUTAB 30 MG TAB NG SCH (09:53)
[2016-09-13] MEDS: RIFAXIMIN 550 MG TAB PO SCH ×2 (09:53→23:33)
[2016-09-13] MEDS: LACTULOSE SYRUP 20 GM/30 ML CUP PO SCH (09:53)
[2016-09-13] MEDS: cloNIDine HCL 0.3 MG TAB PO SCH ×2 (14:53→23:33)
[2016-09-13] MEDS: VANCOMYCIN INJ 750 MG in SODIUM CHLOR 0.9% 250 ML INJ 250 ML IV SCH (17:21)
[2016-09-13 17:35] LABS: BICARBONATE 38.9 MEQ/L (21.0-32.0); MAGNESIUM 2.5 MG/DL (1.5-2.5); POTASSIUM 3.4 MEQ/L (3.5-5.1)
[2016-09-13] MEDS ORDERED: VANCOMYCIN 1,000 MG/NS 250 ML IV SCH ×2 (18:00)
[2016-09-13] MEDS: ENOXAPARIN SODIUM 40 MG/0.4 ML SYRINGE SQ SCH (23:33)
[2016-09-14] VITALS (14 sets, daily range): BP systolic 84–138; BP diastolic 53–81; PULSE 60–87; RESP 16–25; TEMP 97.6–99; O2SAT 96–100
[2016-09-14] MEDS: RESP: ALBUTEROL 2.5 MG/IPRATROPIUM 0.5 MG NEB (SCH) NEB ×4 (01:06→20:20)
[2016-09-14] MEDS: CHLORHEXIDINE GLUCONATE 2 % 1 PACK (2 CLOTHS) TOP SCH (01:48)
[2016-09-14] MEDS: SODIUM CHLOR 0.45% 1000 ML INJ 1,000 ML IV SCH ×2 (01:48→12:03)
[2016-09-14] MEDS: FREE WATER G-TUBE SCH ×6 (04:00→19:38)
[2016-09-14] MEDS: PIPERACIL-TAZO 3.375 GM PREMIX 50 ML IV SCH ×2 (04:08→11:57)
[2016-09-14] MEDS: VANCOMYCIN INJ 750 MG in SODIUM CHLOR 0.9% 250 ML INJ 250 ML IV SCH (05:09)
[2016-09-14] MEDS: INSULIN NovoLIN REGULAR SUPPLEMENTAL SCALE SQ SCH ×3 (05:16→18:00)
[2016-09-14] MEDS: cloNIDine HCL 0.3 MG TAB PO SCH ×3 (06:00→22:00)
[2016-09-14 06:09] LABS: HEMATOCRIT 29.3 % (35.0-46.0); MEAN CELL VOLUME 107.3 FL (80.0-100.0); MEAN CORPUSCULAR HEMOGLOBIN 34.9 PG (27.0-34.0); MEAN CORPUSCULAR HGB CONC 32.6 % (32.0-36.0); PLATELET COUNT 176 TH/MM3 (150-450); RED BLOOD COUNT 2.73 MIL/MM3 (4.00-5.30); RED CELL DISTRIBUTION WIDTH 12.7 % (11.6-17.2); REVIEW FLAG FINAL; WHITE BLOOD COUNT 8.2 TH/MM3 (4.0-11.0)
[2016-09-14 06:29] LABS: BICARBONATE 31.3 MEQ/L (21.0-32.0); POTASSIUM 3.4 MEQ/L (3.5-5.1)
[2016-09-14] MEDS: SODIUM CHLORIDE 0.9% FLUSH 5 ML FLUSH IV FLUSH SCH ×2 (09:00→19:38)
[2016-09-14] MEDS: LACTULOSE SYRUP 20 GM/30 ML CUP PO SCH (09:00)
[2016-09-14] MEDS: THIAMINE HCL 100 MG TAB PO SCH (09:46)
[2016-09-14] MEDS: RIFAXIMIN 550 MG TAB PO SCH ×2 (09:46→19:55)
[2016-09-14] MEDS: MODAFINIL 200 MG TAB PO SCH (09:46)
[2016-09-14] MEDS: MULTIVITAMIN TAB PO SCH (09:46)
[2016-09-14] MEDS: LANSOPRAZOLE SOLUTAB 30 MG TAB NG SCH (09:46)
[2016-09-14] MEDS: FOLIC ACID 1 MG TAB PO SCH (09:48)
[2016-09-14] MEDS: LISINOPRIL 20 MG TAB PO SCH (09:48)
[2016-09-14] MEDS: BUDESONIDE-FORMOTEROL 160/4.5 MCG INHALER INH SCH ×2 (09:49→19:56)
[2016-09-14] MEDS: methylPREDNISolone SOD SUCC 40 MG/1 ML VIAL IV SCH ×2 (09:49→19:54)
[2016-09-14] MEDS: POTASSIUM CL 40 MEQ/30 ML LIQ UDC NG SCH (14:40)
--- NOTE | 2016-09-14 14:59 | HHI.PR ---
Objective Objective Results - Vital Signs Date Time Temp Pulse Resp B/P Pulse Ox O2 Delivery O2 Flow Rate FiO2 09/14/16 14:00 68 09/14/16 12:00 74 09/14/16 12:00 97.9 74 20 132/81 99 09/14/16 12:00 100 Nasal Cannula 4.00 09/14/16 10:00 80 09/14/16 09:16 100 Nasal Cannula 2.00 09/14/16 08:00 71 09/14/16 08:00 100 Nasal Cannula 4.00 09/14/16 08:00 98.2 71 20 127/69 100 09/14/16 06:00 70 09/14/16 04:00 97.6 60 20 84/53 100 09/14/16 04:00 100 Nasal Cannula 4.00 09/14/16 04:00 60 09/14/16 02:00 62 09/14/16 00:00 98.5 72 25 138/65 100 09/14/16 00:00 100 Nasal Cannula 4.00 09/14/16 00:00 72 09/13/16 22:00 76 09/13/16 20:00 100 Nasal Cannula 4.00 09/13/16 20:00 89 09/13/16 20:00 98.0 89 30 175/79 99 09/13/16 19:51 100 Nasal Cannula 2.00 09/13/16 18:00 92 09/13/16 16:00 100 Nasal Cannula 4.00 09/13/16 16:00 98.4 65 24 99/54 100 09/13/16 16:00 65 I/O 09/13/16 09/13/16 09/13/16 09/14/16 09/14/16 09/14/16 06:59 14:59 22:59 06:59 14:59 22:59 Intake Total 786 ml 1162 ml 1487 ml 710 ml 683 ml Output Total 100 ml 800 ml Balance 686 ml 362 ml 1487 ml 710 ml 683 ml Intake Oral 100 ml IV Total 186 ml 337 ml 888 ml 284 ml 583 ml Tube Feeding 525 ml 299 ml 126 ml Other 600 ml 300 ml 300 ml 300 ml Output Urine Total 800 ml Stool Total 100 ml # Voids 1 1 3 # Bowel Movements 4 2 2 3 Result Diagram: 09/14/1651309/14/16513 Other Results Laboratory Tests Test 09/13/16 09/14/16 16:31 05:14 Sodium Level 151 146 Potassium Level 3.4 3.4 Chloride Level 107 108 Carbon Dioxide Level 38.9 31.3 Anion Gap 5 7 Blood Urea Nitrogen 29 25 Creatinine 0.79 0.80 Estimat Glomerular Filtration 75 74 Rate Random Glucose 151 182 Calcium Level 9.2 8.6 Magnesium Level 2.5 Ammonia 22 White Blood Count 8.2 Red Blood Count 2.73 Hemoglobin 9.5 Hematocrit 29.3 Mean Corpuscular Volume 107.3 Mean Corpuscular Hemoglobin 34.9 Mean Corpuscular Hemoglobin 32.6 Concent Red Cell Distribution Width 12.7 Platelet Count 176 Mean Platelet Volume 8.7 Date/Time Procedure Status Source Growth 09/10/16 18:50 Aerobic Blood Culture - Preliminary Resulted Blood Peripheral NO GROWTH IN 4 DAYS 09/10/16 18:50 Anaerobic Blood Culture - Preliminary Resulted Blood Peripheral NO GROWTH IN 4 DAYS Physical Exam Physical Exam PT is seen & Examined d/w PT d/w Morena see Orders see consult will f/u Ortega Terry MD Sep 14, 2016 14:59
[2016-09-14] MEDS: cefTRIAXone INJ 1,000 MG in SODIUM CHLORIDE 0.9% INJ 100 ML IV SCH (15:33)
[2016-09-14] MEDS: ENOXAPARIN SODIUM 40 MG/0.4 ML SYRINGE SQ SCH (19:54)
[2016-09-15] VITALS (14 sets, daily range): BP systolic 99–152; BP diastolic 70–80; PULSE 64–97; RESP 18–30; TEMP 98.4–99.1; O2SAT 92–99
[2016-09-15] MEDS: SODIUM CHLOR 0.45% 1000 ML INJ 1,000 ML IV SCH ×2 (00:38→14:20)
[2016-09-15] MEDS: INSULIN NovoLIN REGULAR SUPPLEMENTAL SCALE SQ SCH ×4 (00:38→18:00)
[2016-09-15] MEDS: CHLORHEXIDINE GLUCONATE 2 % 1 PACK (2 CLOTHS) TOP SCH (00:39)
[2016-09-15] MEDS: RESP: ALBUTEROL 2.5 MG/IPRATROPIUM 0.5 MG NEB (SCH) NEB ×4 (03:52→20:25)
[2016-09-15] MEDS: FREE WATER G-TUBE SCH ×6 (04:00→20:00)
[2016-09-15] MEDS ORDERED: PHARMACY ORDERED LAB XX ONE (05:45)
[2016-09-15] MEDS: cloNIDine HCL 0.3 MG TAB PO SCH ×3 (06:08→21:00)
[2016-09-15 07:10] LABS: HEMATOCRIT 29.7 % (35.0-46.0); MEAN CORPUSCULAR HEMOGLOBIN 35.7 PG (27.0-34.0); MEAN CORPUSCULAR HGB CONC 34.1 % (32.0-36.0); PLATELET COUNT 187 TH/MM3 (150-450); RED BLOOD COUNT 2.83 MIL/MM3 (4.00-5.30); RED CELL DISTRIBUTION WIDTH 12.4 % (11.6-17.2); REVIEW FLAG FINAL; WHITE BLOOD COUNT 9.3 TH/MM3 (4.0-11.0)
[2016-09-15 07:33] LABS: BICARBONATE 29.7 MEQ/L (21.0-32.0); POTASSIUM 3.1 MEQ/L (3.5-5.1)
[2016-09-15] MEDS: THIAMINE HCL 100 MG TAB PO SCH (07:53)
[2016-09-15] MEDS: methylPREDNISolone SOD SUCC 40 MG/1 ML VIAL IV SCH ×2 (07:53→20:59)
[2016-09-15] MEDS: FOLIC ACID 1 MG TAB PO SCH (07:53)
[2016-09-15] MEDS: LACTULOSE SYRUP 20 GM/30 ML CUP PO SCH (07:53)
[2016-09-15] MEDS: POTASSIUM CL 40 MEQ/30 ML LIQ UDC NG SCH (07:53)
[2016-09-15] MEDS: RIFAXIMIN 550 MG TAB PO SCH ×2 (07:54→20:59)
[2016-09-15] MEDS: MODAFINIL 200 MG TAB PO SCH (07:54)
[2016-09-15] MEDS: MORPHINE SULFATE 4 MG/ML INJ IV PRN ×2 (07:54→21:01)
[2016-09-15] MEDS: LANSOPRAZOLE SOLUTAB 30 MG TAB NG SCH (07:55)
[2016-09-15] MEDS: MULTIVITAMIN TAB PO SCH (07:55)
[2016-09-15] MEDS: LISINOPRIL 20 MG TAB PO SCH (07:55)
[2016-09-15] MEDS: SODIUM CHLORIDE 0.9% FLUSH 5 ML FLUSH IV FLUSH SCH ×2 (09:00→20:59)
--- NOTE | 2016-09-15 09:03 | MB ---
cc: CHARLIE TERRY DATE OF CONSULTATION 09/14/16 CHIEF COMPLAINT Shortness of breath INTERNATIONAL TRAVEL None in the last 30 days. HISTORY OF PRESENT ILLNESS This is a 52 year old white female with a significant history of chronic obstructive pulmonary disease who was brought into the emergency room via ambulance from her home with shortness of breath. The patient had been seen in the emergency room the day before with the same symptoms of shortness of breath and cough for several days. She did improve with nebulizer treatments and Solu-Medrol. Her O2 sat was labile during this emergency room visit, but patient refused admission to the hospital and was discharged home. According to the record, the patient took by mouth prednisone but continued with symptoms of shortness of breath and dyspnea for several hours. Emergency Medical Service did administer albuterol but patient continues with shortness of breath. She does have productive cough with thick while sputum. On admission, she denied any chest pain, had a thick white sputum, no hemoptysis, no fevers. She had never been intubated for her respiratory distress. The patient did continue to decline, was intubated and placed in the Intensive Care Unit for monitoring. This admission date was 09/02/16. The patient was noted to have chronic obstructive pulmonary disease exacerbation, hypercapnic respiratory failure as well as hypertensive urgency. She was noted to be critically ill with poor air movement, steroids, BiPAP, antibiotics, medical management for her blood pressure, peptic ulcer disease and deep venous thrombosis prophylaxis, but patient continued to decline. The patient is now extubated. She was positive for a urinary tract infection several days ago. She has been on IV antibiotics, vancomycin and piperacillin. She still has a feeding tube in. She is working with speech therapy for swallow and weakness currently is being trialed on thickened liquids. She has been extubated on 09/11/16 and is now on O2 per nasal cannula. ST has been working with her swallow issues. She did fail a swallow evaluation. The patient has continued to be encephalopathic, altered mental status with some delirium. She has a significant history of ETOH abuse and chronic benzodiazepine use. Medical management consultation has been ordered. We will follow her multi-medical comorbidities. PAST MEDICAL HISTORY 1. Anxiety 2. Chronic obstructive pulmonary disease 3. Herniated disk 4. Degenerative disk disease 5. Hypertension 6. Lumbar fractures and L5 herniated disk 7. Chronic bronchitis 8. ETOH abuse 9. Tobacco abuse Most of this information is being obtained from the record due to patient's altered mental status and unable to speak clearly. PAST SURGICAL HISTORY Hysterectomy ALLERGIES ASPIRIN MEDICATIONS Reported, 1. Symbicort 2. [place] 3. Methocarbamol 4. Xanax 5. Clonidine 6. Ventolin 7. Lisinopril SOCIAL HISTORY Positive for alcohol, tobacco abuse - approximately one pack a day. Alcohol is daily. Denies any illicit drugs. Patient is . Currently lives with her mother. REVIEW OF SYSTEMS A 12 point review was done. Some of this review is limited due to the patient's encephalopathy. She is attempting to answer some simple questions with yes or no. Positive findings are: Weakness, generalized fatigue, shortness of breath even at rest, low air volumes, whispering voice, some confusion to situation. PHYSICAL EXAMINATION GENERAL: This is a thin well-developed white female who looks older than her stated age resting in the bed in the Intensive Care Unit setting. SKIN: Raj, warm and dry. No rash or petechiae. HEENT: Normocephalic, atraumatic. Pupils equal, round, reactive to light and accommodation at 2. No scleral icterus. No drainage. Mucous membranes were pale pink and moist. NECK: Supple. CARDIOVASCULAR: S1, S2, some tachycardia noted. No murmurs, rubs or gallops appreciated. RESPIRATORY: Expiratory wheezes heard anteriorly and posteriorly in her anterior lobes and mid lobes. No rales or rhonchi. She has decreased breath sounds throughout her lower and mid lobes. She does use her accessory muscles to breathe. GASTROINTESTINAL: Abdomen is flat, soft and nontender, nondistended. Feeding tube in place. MUSCULOSKELETAL: She can move her extremities. Nail beds, fingers and lower extremities are dusky. No edema. NEUROLOGIC: She awakes to verbal response. She is attempting to have some conversation, but she has a whisper to her voice and is hard to understand. PSYCHIATRIC: Inappropriate affect. Not following current situation to its fullest. LABORATORY DATA On 09/14/16 - white count 8.2, RBC 2.73, hemoglobin 9.5, hematocrit 29.3, platelet count 176. Chemistry on 09/14/16 - sodium 146, potassium 3.4, chloride 108, carbon dioxide 31.3, BUN 25, creatinine 0.80. GFR 74. Random glucose 182. Calcium 8.6. ASSESSMENT 1. Chronic obstructive pulmonary disease exacerbation with hypoxic respiratory failure. 2. Acute toxic metabolic encephalopathy 3. ETOH abuse. 4. Tobacco abuse 5. Hypoglycemia 6. Delirium 7. Hypernatremia 8. Acute kidney injury with dehydration 9. Unknown for diabetes at this time. No documentation to support. 10. Urinary tract infection 11. Dysphagia. PLAN Review medications which will include her IV antibiotics for reconciliation. Vital signs will be every 2-4 hours. Speech therapy will continue working with the patient in an eval swallow. Our goal is to get patient back on solid food when it is safe for her swallow and when she is alert enough. Continue blood pressure as well as heart monitoring and O2 sat. The patient is currently afebrile, but we will continue to monitor temperature. PT eval and treat. IV Rocephin q 24 ordered today. Dietary consultation for their expert opinion on patient's tube feedings. She also will be on a soft trial of diet with thickeners per ST. Soft wrist restraints as needed for her safety. Patient still has multiple tubes and has periods of lethargy and encephalopathy. We will monitor for all of her medical management include deep venous thrombosis and PUD prophylaxis. We will follow. Dictated by KATERYNA Live MD LIZETTE Gandhi/ /2:55 PM /9:00 AM PT is seen & Examined d/w PT d/w Morena see Orders see consult will f/u Ortega Terry MD Sep 14, 2016 14:59 MTDD
--- NOTE | 2016-09-15 13:53 | HHI.PR ---
Subjective Remarks Mild exertional dyspnea at rest Calm this p.m. Shakes head no to headache Shakes head no to chest pain More responsive this p.m. Objective Objective Results - Vital Signs Date Time Temp Pulse Resp B/P Pulse Ox O2 Delivery O2 Flow Rate FiO2 09/15/16 12:00 81 09/15/16 12:00 98.6 77 18 110/76 99 09/15/16 12:00 99 Nasal Cannula 4.00 09/15/16 10:00 81 09/15/16 08:38 97 Nasal Cannula 2.00 09/15/16 08:00 98.9 77 18 152/75 99 09/15/16 08:00 81 09/15/16 08:00 99 Nasal Cannula 4.00 09/15/16 06:00 81 09/15/16 04:00 99.1 82 18 99/80 99 09/15/16 04:00 90 09/15/16 04:00 99 Nasal Cannula 4.00 09/15/16 02:00 93 09/15/16 00:00 82 09/15/16 00:00 98.9 82 18 99/80 99 09/15/16 00:00 99 Nasal Cannula 4.00 09/14/16 22:00 87 09/14/16 20:20 96 Nasal Cannula 1.00 09/14/16 20:00 99.0 81 18 93/67 97 09/14/16 20:00 97 Nasal Cannula 4.00 09/14/16 20:00 81 09/14/16 18:00 79 09/14/16 16:00 79 09/14/16 16:00 100 Nasal Cannula 4.00 09/14/16 16:00 98.2 79 16 95/54 98 09/14/16 14:00 68 I/O 09/14/16 09/14/16 09/14/16 09/15/16 09/15/16 09/15/16 07:00 15:00 23:00 07:00 15:00 23:00 Intake Total 710 ml 683 ml 1452 ml 1332 ml Balance 710 ml 683 ml 1452 ml 1332 ml Intake Oral 100 ml IV Total 284 ml 583 ml 624 ml 290 ml Tube Feeding 126 ml 528 ml 442 ml Other 300 ml 300 ml 600 ml # Voids 1 3 2 1 # Bowel Movements 2 3 2 1 Result Diagram: 09/15/1662109/15/1622 Other Results Last Impressions Abdomen X-Ray 09/12/16 0000 Signed Impressions: Service Date/Time: Monday, September 12, 2016 11:05 - CONCLUSION: Feeding tube distal tip likely in either the pyloric region the stomach or first portion of the duodenum. Jesus Perez MD Chest X-Ray 09/10/16 0600 Signed Impressions: Service Date/Time: Saturday, September 10, 2016 03:59 - CONCLUSION: The lungs are clear. Lazarus Mo MD Head CT 09/08/16 0000 Signed Impressions: Service Date/Time: Thursday, September 08, 2016 22:26 - CONCLUSION: 1. No acute intracranial abnormalities. Air-fluid levels in the left maxillary sinus and ethmoid air cells characteristic of sinusitis. Berlin Carrillo MD Liver Ultrasound 09/03/16 0000 Signed Impressions: Service Date/Time: Saturday, September 03, 2016 16:11 - CONCLUSION: There is no hepatic biliary duct dilatation. Probable small gallstones or sludge. Normal common duct. Mundo López MD FACR Medications and IVs Active Medications Ceftriaxone Sodium/Sodium Chloride (Rocephin Inj/NS Inj) 100 ml @ 200 mls/hr Q24H IV Last administered on 09/14/16t 15:33; Admin Dose 200 MLS/HR; Start 09/14 at 15:00 Miscellaneous Information SPECIFIC LAB TO BE DRAWN:[facility] DATE TO BE DR... ONCE ONCE XX; Start 09/15/16 at 05:45; Stop 09/15/16 at 05:46; Status Cancel Physical Exam Physical Exam PHYSICAL EXAMINATION GENERAL: This is a well-developed, well-nourished female who appears to be in no acute distress. She is alert and awake, []. HEAD: Normocephalic without any lesion or mass noted. Facial features appear symmetric. PHYSICAL EXAMINATION GENERAL: This is a thin well-developed white female who looks older than her stated age resting in the bed in the Intensive Care Unit setting. Eyes open, responding to verbal stimuli SKIN: Raj, warm and dry. No rash or petechiae. HEENT: Normocephalic, atraumatic. Pupils equal, round, reactive to light and accommodation at 2. No scleral icterus. No drainage. Mucous membranes were pale pink and moist. NECK: Supple. CARDIOVASCULAR: S1, S2, some tachycardia noted. No murmurs, rubs or gallops appreciated. RESPIRATORY: Expiratory wheezes heard anteriorly and posteriorly in her anterior lobes and mid lobes. No rales or rhonchi. Decreased breath sounds in bases She does use her accessory muscles to breathe. GASTROINTESTINAL: Abdomen is flat, soft and nontender, nondistended. Feeding tube in place. MUSCULOSKELETAL: She can move her extremities. Nail beds, fingers and lower extremities are dusky. No edema. Soft wrist restraints on NEUROLOGIC: She responds to verbal response today. She is attempting to have some conversation, but she has a whisper to her voice and is hard to understand. She is attempting to speak and move more air today. PSYCHIATRIC: Appropriate affect this p.m. Objective Remarks Whispers I will try and eat. A/P Assessment and Plan ASSESSMENT 1. Chronic obstructive pulmonary disease exacerbation with hypoxic respiratory failure. 2. Acute toxic metabolic encephalopathy 3. ETOH abuse. 4. Tobacco abuse 5. Hypoglycemia 6. Delirium 7. Hypernatremia 8. Acute kidney injury with dehydration 9. Unknown for diabetes at this time. No documentation to support. 10. Urinary tract infection 11. Dysphagia. PLAN Review medications and vital signs every 4 and is warranted IV antibiotics Vital signs will be every 2-4 hours. Afebrile 24 hours Speech therapy will continue working with the patient in an eval swallow. Currently patient is being fed thickened liquids and food. Goal is to make sure patient is swallowing safely then DC NG tube and restraints. PT eval and treat. Dietary consultation for their expert opinion, patient receiving tube feeds. Soft wrist restraints as needed for her safety. Patient still has multiple tubes and has periods of lethargy and encephalopathy. Nurse states this a.m. patient was uncooperative, drowsy, refused to eat. This p.m. patient is alert and more receptive to verbal and tactile stimuli PUD and DVT prophylaxis. Once encephalopathy has improved, and restraints are off, transfer to regular room. Morena Mckeon Sep 15, 2016 13:53
[2016-09-15] MEDS: cefTRIAXone INJ 1,000 MG in SODIUM CHLORIDE 0.9% INJ 100 ML IV SCH (15:00)
[2016-09-15] MEDS: BUDESONIDE-FORMOTEROL 160/4.5 MCG INHALER INH SCH ×2 (20:59→21:00)
[2016-09-15] MEDS: ENOXAPARIN SODIUM 40 MG/0.4 ML SYRINGE SQ SCH (21:00)
[2016-09-16] VITALS (15 sets, daily range): BP systolic 80–173; BP diastolic 50–91; PULSE 58–96; RESP 15–31; TEMP 96.7–98.6; O2SAT 92–100
[2016-09-16] MEDS: FREE WATER G-TUBE SCH ×6 (04:00→20:00)
[2016-09-16] MEDS: CHLORHEXIDINE GLUCONATE 2 % 1 PACK (2 CLOTHS) TOP SCH (04:00)
--- NOTE | 2016-09-16 04:24 | RADRPT ---
EXAM DATE/TIME: 09/16/2016 03:16 [place] COMPARISON: ABDOMEN KUB ONLY, September 12, 2016, 11:05. INDICATIONS : Dobhoff tube placement. MEDICAL HISTORY : None. SURGICAL HISTORY : None. ENCOUNTER: Subsequent ACUITY: 1 week PAIN SCORE: Non-responsive. LOCATION: Bilateral Abdomen FINDINGS: Dobbhoff catheter is present in the distal tip overlies the gastric body. Nonobstructive bowel gas pa ttern. No free air beneath the diaphragm. CONCLUSION: Feeding tube as described above with distal tip in the proximal stomach. Td Jones MD on September 16, 2016 at 4:22 Board Certified Radiologist. This report was verified electronically.
[2016-09-16] MEDS: cloNIDine HCL 0.3 MG TAB PO SCH ×3 (05:46→23:29)
[2016-09-16] MEDS: SODIUM CHLOR 0.45% 1000 ML INJ 1,000 ML IV SCH ×2 (05:47→18:28)
[2016-09-16] MEDS: INSULIN NovoLIN REGULAR SUPPLEMENTAL SCALE SQ SCH ×4 (05:47→18:00)
[2016-09-16 06:58] LABS: HEMATOCRIT 24.4 % (35.0-46.0); MEAN CELL VOLUME 105.4 FL (80.0-100.0); MEAN CORPUSCULAR HEMOGLOBIN 35.4 PG (27.0-34.0); MEAN CORPUSCULAR HGB CONC 33.6 % (32.0-36.0); PLATELET COUNT 140 TH/MM3 (150-450); RED BLOOD COUNT 2.31 MIL/MM3 (4.00-5.30); RED CELL DISTRIBUTION WIDTH 12.2 % (11.6-17.2); REVIEW FLAG FINAL; WHITE BLOOD COUNT 7.7 TH/MM3 (4.0-11.0)
[2016-09-16 07:20] LABS: BICARBONATE 27.5 MEQ/L (21.0-32.0); POTASSIUM 3.7 MEQ/L (3.5-5.1)
[2016-09-16] MEDS: LACTULOSE SYRUP 20 GM/30 ML CUP PO SCH (09:00)
[2016-09-16] MEDS: MULTIVITAMIN TAB PO SCH (09:20)
[2016-09-16] MEDS: LANSOPRAZOLE SOLUTAB 30 MG TAB NG SCH (09:21)
[2016-09-16] MEDS: THIAMINE HCL 100 MG TAB PO SCH (09:21)
[2016-09-16] MEDS: LISINOPRIL 20 MG TAB PO SCH (09:21)
[2016-09-16] MEDS: FOLIC ACID 1 MG TAB PO SCH (09:21)
[2016-09-16] MEDS: MODAFINIL 200 MG TAB PO SCH (09:21)
[2016-09-16] MEDS: RIFAXIMIN 550 MG TAB PO SCH ×2 (09:21→21:07)
[2016-09-16] MEDS: POTASSIUM CL 40 MEQ/30 ML LIQ UDC NG SCH (09:22)
[2016-09-16] MEDS: methylPREDNISolone SOD SUCC 40 MG/1 ML VIAL IV SCH (09:22)
[2016-09-16] MEDS: SODIUM CHLORIDE 0.9% FLUSH 5 ML FLUSH IV FLUSH SCH ×2 (09:22→21:07)
[2016-09-16] MEDS: MORPHINE SULFATE 4 MG/ML INJ IV PRN ×2 (09:23→21:08)
[2016-09-16] MEDS: ALBUTEROL SULFATE 90 MCG/ACT HFA 8 GM INHALER INH PRN (09:25)
--- NOTE | 2016-09-16 11:31 | HHI.PR ---
Subjective Remarks disoriented overnight, pulled dobhoff out unable to place NGT taking PO meds crushed awake, difficult to understand, no focal deficits noted no fever unable to obtain ROS Objective Objective Results - Vital Signs Date Time Temp Pulse Resp B/P Pulse Ox O2 Delivery O2 Flow Rate FiO2 09/16/16 08:21 100 Nasal Cannula 3.00 09/16/16 06:00 63 09/16/16 04:00 Nasal Cannula 3.00 09/16/16 04:00 62 09/16/16 04:00 98.4 62 15 96/52 98 09/16/16 02:00 58 09/16/16 00:00 96.7 58 16 80/50 99 09/16/16 00:00 58 09/16/16 00:00 Nasal Cannula 3.00 09/15/16 22:00 64 09/15/16 20:27 93 Nasal Cannula 2.00 09/15/16 20:00 92 Nasal Cannula 2.00 09/15/16 20:00 98.4 94 30 146/73 92 09/15/16 20:00 94 09/15/16 18:00 97 09/15/16 16:00 98.8 84 18 105/70 99 09/15/16 16:00 92 09/15/16 16:00 99 Nasal Cannula 4.00 09/15/16 14:00 92 09/15/16 12:00 81 09/15/16 12:00 98.6 77 18 110/76 99 09/15/16 12:00 99 Nasal Cannula 4.00 I/O 09/15/16 09/15/16 09/15/16 09/16/16 09/16/16 09/16/16 07:00 15:00 23:00 07:00 15:00 23:00 Intake Total 1332 ml 1275 ml 772 ml 1032 ml Balance 1332 ml 1275 ml 772 ml 1032 ml Intake Oral 120 ml 0 ml IV Total 290 ml 550 ml 392 ml 1032 ml Tube Feeding 442 ml 425 ml 260 ml Tube Irrigant 300 ml Other 600 ml # Voids 1 3 1 1 # Bowel Movements 1 2 1 1 Result Diagram: 09/16/16 0620 09/16/16 0620 Other Results Laboratory Tests Test 09/16/16 06:20 White Blood Count 7.7 Red Blood Count 2.31 Hemoglobin 8.2 Hematocrit 24.4 Mean Corpuscular Volume 105.4 Mean Corpuscular Hemoglobin 35.4 Mean Corpuscular Hemoglobin 33.6 Concent Red Cell Distribution Width 12.2 Platelet Count 140 Mean Platelet Volume 8.8 Sodium Level 143 Potassium Level 3.7 Chloride Level 109 Carbon Dioxide Level 27.5 Anion Gap 7 Blood Urea Nitrogen 18 Creatinine 0.54 Estimat Glomerular Filtration 116 Rate Random Glucose 92 Calcium Level 8.2 ROS General: Other (unable to do ROS) Physical Exam Physical Exam GENERAL: This is a thin well-developed, encephalopathic, voice soft, difficult to understand. Malnourished. Appears older than her stated age SKIN: Warm and dry. No rash or petechiae. HEENT: Normocephalic, atraumatic. Pupils equal, round, reactive to light and accommodation at 2. No scleral icterus. No drainage. Mucous membranes were pale pink and moist. NECK: Supple. CARDIOVASCULAR: S1, S2, No murmurs, rubs or gallops appreciated. RESPIRATORY: Expiratory wheezes heard anteriorly and posteriorly in her anterior lobes and mid lobes. faint ronchi. GASTROINTESTINAL: Abdomen is flat, soft and nontender, nondistended. MUSCULOSKELETAL: No joint abnormalities, pedal pulses 2+, no pedal edema NEUROLOGIC: Awake, difficult to understand, voice soft, following simple commands. Moves all extremities. Urinary Catheter: Yes Assessment to: Continue Lopez insert reason: Obstruction/Retention Vascular Central Line Catheter: No A/P Diagnosis: (1) COPD exacerbation (2) Metabolic encephalopathy (3) Tobacco abuse (4) ETOH abuse (5) UTI (urinary tract infection) (6) Dysphagia (7) Respiratory failure Plan: resolved Assessment and Plan continue with oxygen, wean down IV steroids Duonebs continue abx follow cultures encephalopathic, will check ammonia Restraints to protect equipment. ST following, continued pureed diet, staff to feed aspiration precautions PT eval and treat. continue with Rifaximin and Lactulose, will check LFTs in am BP noted marginal, dec. Lisinopril to 20 mg PO daily HH stable, follow closely Dec. IVF to 50/hr Labs in am Keep in ICU for now, remains encephalopathic Labs in am D/W RN D/W Dr. Alvarado This patient was seen by myself and Dr. Alvarado, this note is written on his behalf. Problem Qualifiers (1) UTI (urinary tract infection): Qualified Code: N39.0 - Urinary tract infection without hematuria, site unspecified (2) Dysphagia: Qualified Code: R13.10 - Dysphagia, unspecified type (3) Respiratory failure: Licha Vyas Sep 16, 2016 11:30 room. Problem Qualifiers (1) UTI (urinary tract infection): Qualified Code: N39.0 - Urinary tract infection without hematuria, site unspecified (2) Dysphagia: Qualified Code: R13.10 - Dysphagia, unspecified type Licha Vyas Sep 16, 2016 11:30
[2016-09-16] MEDS: cefTRIAXone INJ 1,000 MG in SODIUM CHLORIDE 0.9% INJ 100 ML IV SCH (13:56)
[2016-09-16] MEDS: BUDESONIDE-FORMOTEROL 160/4.5 MCG INHALER INH SCH ×2 (14:19→21:07)
[2016-09-16] MEDS: HALOPERIDOL LACTATE 5 MG/ML AMP IV PUSH PRN ×2 (18:46→23:30)
[2016-09-16] MEDS: hydrALAZINE HCL 20 MG/ML VIAL IV PUSH PRN (18:46)
[2016-09-16] MEDS: ENOXAPARIN SODIUM 40 MG/0.4 ML SYRINGE SQ SCH (21:07)
[2016-09-17] VITALS (14 sets, daily range): BP systolic 125–167; BP diastolic 62–78; PULSE 62–96; RESP 17–24; TEMP 98.1–99; O2SAT 95–100
[2016-09-17] MEDS: FREE WATER G-TUBE SCH ×5 (04:00→20:00)
[2016-09-17] MEDS: CHLORHEXIDINE GLUCONATE 2 % 1 PACK (2 CLOTHS) TOP SCH (04:00)
[2016-09-17] MEDS: cloNIDine HCL 0.3 MG TAB PO SCH ×3 (05:12→21:47)
[2016-09-17] MEDS: INSULIN NovoLIN REGULAR SUPPLEMENTAL SCALE SQ SCH ×3 (05:12→18:00)
[2016-09-17] MEDS: MORPHINE SULFATE 4 MG/ML INJ IV PRN (05:13)
[2016-09-17 07:10] LABS: MEAN CELL VOLUME 103.6 FL (80.0-100.0); MEAN CORPUSCULAR HEMOGLOBIN 35.1 PG (27.0-34.0); MEAN CORPUSCULAR HGB CONC 33.9 % (32.0-36.0); PLATELET COUNT 150 TH/MM3 (150-450); RED BLOOD COUNT 2.22 MIL/MM3 (4.00-5.30); RED CELL DISTRIBUTION WIDTH 12.3 % (11.6-17.2); REVIEW FLAG FINAL; WHITE BLOOD COUNT 8.5 TH/MM3 (4.0-11.0)
[2016-09-17 07:28] LABS: BICARBONATE 27.5 MEQ/L (21.0-32.0); POTASSIUM 3.5 MEQ/L (3.5-5.1)
[2016-09-17 07:31] LABS: INDIRECT BILIRUBIN 0.3 MG/DL (0.0-0.8); TOTAL BILIRUBIN ADULT 0.4 MG/DL (0.2-1.0)
[2016-09-17] MEDS ORDERED: methylPREDNISolone SOD SUCC 40 MG/1 ML VIAL IV SCH (09:00)
[2016-09-17] MEDS: RIFAXIMIN 550 MG TAB PO SCH ×2 (09:25→21:47)
[2016-09-17] MEDS: FOLIC ACID 1 MG TAB PO SCH (09:25)
[2016-09-17] MEDS: ALBUTEROL SULFATE 90 MCG/ACT HFA 8 GM INHALER INH PRN (09:25)
[2016-09-17] MEDS: POTASSIUM CL 40 MEQ/30 ML LIQ UDC NG SCH (09:25)
[2016-09-17] MEDS: LANSOPRAZOLE SOLUTAB 30 MG TAB NG SCH (09:25)
[2016-09-17] MEDS: THIAMINE HCL 100 MG TAB PO SCH (09:25)
[2016-09-17] MEDS: MULTIVITAMIN TAB PO SCH (09:25)
[2016-09-17] MEDS: MODAFINIL 200 MG TAB PO SCH (09:25)
[2016-09-17] MEDS: LISINOPRIL 20 MG TAB PO SCH (09:25)
[2016-09-17] MEDS: LACTULOSE SYRUP 20 GM/30 ML CUP PO SCH (09:25)
[2016-09-17] MEDS: BUDESONIDE-FORMOTEROL 160/4.5 MCG INHALER INH SCH ×2 (09:26→21:47)
[2016-09-17] MEDS: SODIUM CHLORIDE 0.9% FLUSH 5 ML FLUSH IV FLUSH SCH ×2 (09:27→21:47)
--- NOTE | 2016-09-17 09:54 | HHI.PR ---
Subjective Remarks orientation improving, more awake voice very soft, oriented to place and self tolerating pureed diet well has to be fed no resp. distress having loose stools no fever. Objective Objective Results - Vital Signs Date Time Temp Pulse Resp B/P Pulse Ox O2 Delivery O2 Flow Rate FiO2 09/17/16 08:38 99 Nasal Cannula 09/17/16 06:00 62 09/17/16 04:00 87 09/17/16 04:00 Nasal Cannula 4.00 09/17/16 04:00 98.7 87 22 146/62 100 09/17/16 02:00 64 09/17/16 00:00 Nasal Cannula 4.00 09/17/16 00:00 96 09/17/16 00:00 98.2 96 23 125/71 98 09/16/16 22:00 96 09/16/16 21:12 95 Nasal Cannula 3.00 09/16/16 20:00 Nasal Cannula 4.00 09/16/16 20:00 92 09/16/16 20:00 97.9 92 29 161/73 92 09/16/16 18:00 93 09/16/16 18:00 98.2 93 31 173/91 100 09/16/16 18:00 Nasal Cannula 3.00 09/16/16 16:00 83 09/16/16 14:00 94 09/16/16 12:00 98.4 91 27 157/79 97 09/16/16 12:00 Nasal Cannula 3.00 09/16/16 12:00 91 09/16/16 10:00 78 I/O 09/16/16 09/16/16 09/16/16 09/17/16 09/17/16 09/17/16 07:00 15:00 23:00 07:00 15:00 23:00 Intake Total 1032 ml 1294 ml 516 ml 398 ml Output Total 350 ml Balance 1032 ml 944 ml 516 ml 398 ml Intake Oral 0 ml 200 ml 120 ml 120 ml IV Total 1032 ml 1094 ml 396 ml 278 ml Output Urine Total 350 ml # Voids 1 1 1 1 # Bowel Movements 1 1 2 1 Result Diagram: 09/17/16 0643 09/17/16 0643 Other Results Laboratory Tests Test 09/17/16 06:43 White Blood Count 8.5 Red Blood Count 2.22 Hemoglobin 7.8 Hematocrit 23.0 Mean Corpuscular Volume 103.6 Mean Corpuscular Hemoglobin 35.1 Mean Corpuscular Hemoglobin 33.9 Concent Red Cell Distribution Width 12.3 Platelet Count 150 Mean Platelet Volume 9.0 Sodium Level 144 Potassium Level 3.5 Chloride Level 110 Carbon Dioxide Level 27.5 Anion Gap 7 Blood Urea Nitrogen 17 Creatinine 0.54 Estimat Glomerular Filtration 116 Rate Random Glucose 92 Calcium Level 8.3 Total Bilirubin 0.4 Direct Bilirubin 0.1 Indirect Bilirubin 0.3 Aspartate Amino Transf 128 (AST/SGOT) Alanine Aminotransferase 273 (ALT/SGPT) Alkaline Phosphatase 70 Ammonia 41 Total Protein 5.5 Albumin 2.3 ROS General: Other (ROS difficult to obtain ) Physical Exam Physical Exam GENERAL: This is a thin well-developed, encephalopathic, voice soft, difficult to understand. Malnourished. Appears older than her stated age SKIN: Warm and dry. No rash or petechiae. HEENT: Normocephalic, atraumatic. Pupils equal, round, reactive to light and accommodation at 2. No scleral icterus. No drainage. Mucous membranes were pale pink and moist. NECK: Supple. CARDIOVASCULAR: S1, S2, No murmurs, rubs or gallops appreciated. RESPIRATORY: Expiratory wheezes heard anteriorly and posteriorly in her anterior lobes and mid lobes. faint ronchi. GASTROINTESTINAL: Abdomen is flat, soft and nontender, nondistended. MUSCULOSKELETAL: No joint abnormalities, pedal pulses 2+, no pedal edema NEUROLOGIC: Awake,voice soft, oriented to self and place, more awake, and cooperative. No focal deficits. Urinary Catheter: No Vascular Central Line Catheter: No A/P Diagnosis: (1) COPD exacerbation (2) Metabolic encephalopathy (3) Tobacco abuse (4) ETOH abuse (5) UTI (urinary tract infection) (6) Dysphagia (7) Respiratory failure Plan: resolved Assessment and Plan continue with oxygen, wean down to PO steroids Duonebs continue abx follow cultures encephalopathic, ammonia 44, d/w RN not to hold Lactulose LFTs elevated, continue to monitor Restraints to protect equipment. ST following, continue pureed diet, staff to feed aspiration precautions PT eval and treat. continue with Rifaximin and Lactulose, will check LFTs in am BP better, continue with Lisinopril to 20 mg PO daily HH trending down, 7.8/23 Iron studies, stool OB Continue IVF to 50/hr Encephalopathy improving Keep in ICU, still confused. Labs in am D/W RN D/W Dr. Alvarado This patient was seen by myself and Dr. Alvarado, this note is written on his behalf. Problem Qualifiers (1) UTI (urinary tract infection): Qualified Code: N39.0 - Urinary tract infection without hematuria, site unspecified (2) Dysphagia: Qualified Code: R13.10 - Dysphagia, unspecified type (3) Respiratory failure: Licha Vyas Sep 17, 2016 09:54
[2016-09-17] MEDS: SODIUM CHLOR 0.45% 1000 ML INJ 1,000 ML IV SCH (14:51)
[2016-09-17] MEDS: cefTRIAXone INJ 1,000 MG in SODIUM CHLORIDE 0.9% INJ 100 ML IV SCH (14:51)
[2016-09-17] MEDS: CHLORHEXIDINE 0.12% (ORAL KIT) 15 ML CUP OROPHARYNG SCH (20:00)
[2016-09-17] MEDS: ENOXAPARIN SODIUM 40 MG/0.4 ML SYRINGE SQ SCH (21:47)
[2016-09-18] VITALS (12 sets, daily range): BP systolic 110–176; BP diastolic 56–81; PULSE 65–94; RESP 19–27; TEMP 96.8–99.9; O2SAT 93–100
[2016-09-18] MEDS: CHLORHEXIDINE GLUCONATE 2 % 1 PACK (2 CLOTHS) TOP SCH (04:00)
[2016-09-18] MEDS: FREE WATER G-TUBE SCH ×6 (04:00→19:36)
[2016-09-18] MEDS: cloNIDine HCL 0.3 MG TAB PO SCH ×3 (05:15→21:30)
[2016-09-18] MEDS: INSULIN NovoLIN REGULAR SUPPLEMENTAL SCALE SQ SCH ×4 (05:19→17:19)
[2016-09-18 06:39] LABS: HEMATOCRIT 25.9 % (35.0-46.0); MEAN CELL VOLUME 104.1 FL (80.0-100.0); MEAN CORPUSCULAR HEMOGLOBIN 35.7 PG (27.0-34.0); MEAN CORPUSCULAR HGB CONC 34.3 % (32.0-36.0); PLATELET COUNT 179 TH/MM3 (150-450); RED BLOOD COUNT 2.49 MIL/MM3 (4.00-5.30); RED CELL DISTRIBUTION WIDTH 12.4 % (11.6-17.2); REVIEW FLAG FINAL; WHITE BLOOD COUNT 11.8 TH/MM3 (4.0-11.0)
[2016-09-18 06:45] LABS: RETIC % 0.9 % (0.4-3.0); REVIEW FLAG FINAL
[2016-09-18 07:36] LABS: ANION GAP 7 MEQ/L (5-15); BICARBONATE 28.5 MEQ/L (21.0-32.0); BLOOD UREA NITROGEN 18 MG/DL (7-18); CHLORIDE 107 MEQ/L (98-107); FERRITIN 1314 NG/ML (8-252); GLOMERULAR FILTRATION RATE 87 ML/MIN (>89); POTASSIUM 3.5 MEQ/L (3.5-5.1); SODIUM (NA) 142 MEQ/L (136-145); TRANSFERRIN IRON PROFILE 158 MG/DL (200-360)
[2016-09-18] MEDS: CHLORHEXIDINE 0.12% (ORAL KIT) 15 ML CUP OROPHARYNG SCH ×2 (08:00→20:00)
[2016-09-18] MEDS: THIAMINE HCL 100 MG TAB PO SCH (09:00)
[2016-09-18] MEDS: BUDESONIDE-FORMOTEROL 160/4.5 MCG INHALER INH SCH ×2 (09:00→21:00)
[2016-09-18] MEDS: SODIUM CHLORIDE 0.9% FLUSH 5 ML FLUSH IV FLUSH SCH ×2 (09:00→21:00)
[2016-09-18] MEDS: POTASSIUM CL 40 MEQ/30 ML LIQ UDC NG SCH (09:17)
[2016-09-18] MEDS: MULTIVITAMIN TAB PO SCH (09:17)
[2016-09-18] MEDS: predniSONE 20 MG TAB PO SCH (09:17)
[2016-09-18] MEDS: LANSOPRAZOLE SOLUTAB 30 MG TAB NG SCH (09:17)
[2016-09-18] MEDS: LISINOPRIL 20 MG TAB PO SCH (09:17)
[2016-09-18] MEDS: LACTULOSE SYRUP 20 GM/30 ML CUP PO SCH (09:17)
[2016-09-18] MEDS: MODAFINIL 200 MG TAB PO SCH (09:18)
[2016-09-18] MEDS: RIFAXIMIN 550 MG TAB PO SCH ×2 (09:18→21:19)
[2016-09-18] MEDS: FOLIC ACID 1 MG TAB PO SCH (09:18)
--- NOTE | 2016-09-18 09:32 | HHI.PR ---
Subjective Remarks more awake, oriented to place, self and year voice soft no restraints cooperative, not agitated, not removing lines continues with loose stools no feve c/o low back pain no cough Objective Objective Results - Vital Signs Date Time Temp Pulse Resp B/P Pulse Ox O2 Delivery O2 Flow Rate FiO2 09/18/16 09:07 96 Nasal Cannula 3.00 09/18/16 08:00 80 09/18/16 08:00 98.0 80 27 157/74 93 09/18/16 08:00 Nasal Cannula 2.00 09/18/16 06:00 75 09/18/16 04:00 98.0 80 27 157/74 93 09/18/16 04:00 80 09/18/16 04:00 Nasal Cannula 2.00 09/18/16 02:00 77 09/18/16 00:00 Nasal Cannula 2.00 09/18/16 00:00 99.9 65 19 110/56 100 09/18/16 00:00 65 09/17/16 22:00 86 09/17/16 20:33 95 Nasal Cannula 3.00 09/17/16 20:00 80 09/17/16 20:00 Nasal Cannula 2.00 09/17/16 20:00 99.0 80 24 164/78 96 09/17/16 18:00 83 09/17/16 16:00 100 Nasal Cannula 2.00 09/17/16 16:00 98.6 67 18 126/67 100 09/17/16 16:00 67 09/17/16 14:00 83 09/17/16 12:00 100 Nasal Cannula 2.00 09/17/16 12:00 98.7 68 18 167/76 100 09/17/16 12:00 68 09/17/16 10:00 74 I/O 09/17/16 09/17/16 09/17/16 09/18/16 09/18/16 09/18/16 07:00 15:00 23:00 07:00 15:00 23:00 Intake Total 398 ml 972 ml 480 ml 740 ml Balance 398 ml 972 ml 480 ml 740 ml Intake Oral 120 ml 480 ml 480 ml 240 ml IV Total 278 ml 492 ml 500 ml # Voids 1 3 2 1 # Bowel Movements 1 2 1 1 Result Diagram: 09/18/16 0610 09/18/16 0610 Other Results Laboratory Tests Test 09/18/16 09/18/16 06:10 06:16 White Blood Count 11.8 Red Blood Count 2.49 Hemoglobin 8.9 Hematocrit 25.9 Mean Corpuscular Volume 104.1 Mean Corpuscular Hemoglobin 35.7 Mean Corpuscular Hemoglobin 34.3 Concent Red Cell Distribution Width 12.4 Platelet Count 179 Mean Platelet Volume 9.2 Sodium Level 142 Potassium Level 3.5 Chloride Level 107 Carbon Dioxide Level 28.5 Anion Gap 7 Blood Urea Nitrogen 18 Creatinine 0.69 Estimat Glomerular Filtration 87 Rate Random Glucose 104 Calcium Level 8.3 Iron Level 19 Total Iron Binding Capacity 221 Percent Iron Saturation 8.6 Ferritin 1314 Vitamin B12 Level 752 Reticulocyte Count 0.9 Absolute Reticulocyte Count 22.7 Date/Time Procedure Status Source Growth 09/17/16 14:40 Stool Occult Blood ([facility]) - Final Complete Stool Stool HEMOCCULT POSITIVE ROS General: Other (12 point ROS difficult to obtain ) Physical Exam Physical Exam GENERAL: This is a thin well-developed, less encephalopathic, voice soft, difficult to understand. Malnourished. Appears older than her stated age SKIN: Warm and dry. No rash or petechiae. HEENT: Normocephalic, atraumatic. Pupils equal, round, reactive to light and accommodation at 2. No scleral icterus. No drainage. Mucous membranes were pale pink and moist. NECK: Supple. CARDIOVASCULAR: S1, S2, No murmurs, rubs or gallops appreciated. RESPIRATORY: Expiratory wheezes heard anteriorly and posteriorly in her anterior lobes and mid lobes. faint ronchi. GASTROINTESTINAL: Abdomen is flat, soft and nontender, nondistended. MUSCULOSKELETAL: No joint abnormalities, pedal pulses 2+, no pedal edema NEUROLOGIC: Awake,voice soft, oriented to self and place, more awake, and cooperative. No focal deficits. Urinary Catheter: No Vascular Central Line Catheter: No A/P Diagnosis: (1) COPD exacerbation (2) Metabolic encephalopathy (3) Tobacco abuse (4) ETOH abuse (5) UTI (urinary tract infection) (6) Dysphagia (7) Respiratory failure Plan: resolved Assessment and Plan continue with oxygen, wean down to PO steroids Duonebs continue abx follow cultures encephalopathic, ammonia 44, continue Lactulose -improving slowly LFTs elevated, continue to monitor Restraints to protect equipment. ST following, continue pureed diet, staff to feed aspiration precautions PT eval and treat. continue with Rifaximin and Lactulose, will check LFTs in am BP better, continue with Lisinopril to 20 mg PO daily HH trending down, 7.8 Low iron stores Hemoccult + Continue IVF to 50/hr Encephalopathy improving off restraints, cooperative tx out of ICU to tele close to nurse's station CM consult SNF placement D/W RN D/W Dr. Alvarado This patient was seen by myself and Dr. Alvarado, this note is written on his behalf. Problem Qualifiers (1) UTI (urinary tract infection): Qualified Code: N39.0 - Urinary tract infection without hematuria, site unspecified (2) Dysphagia: Qualified Code: R13.10 - Dysphagia, unspecified type (3) Respiratory failure: Licha Vyas Sep 18, 2016 09:32
--- NOTE | 2016-09-18 16:16 | PD.CONS ---
HPI History of Present Illness This is a 60 year old female patient with a hx of COPD, who came to the ER for evaluation of a 3 day hx of worsening difficulty breathing and was subsequently admitted for respiratory failure and encephalopathy and required intubation and mechanical intubation. She was extubated on 09/11. Speech therapy has been following her and has recommended a puree diet with honey consistency liquids. She remains in the ICU, being treated for COPD exacerbation, metabolic encephalopathy, UTI, dysphagia, and anemia. She has anemia and her H/H has been trending down. On admission this was 12.8/37.8 and it is currently 8.9/25.9. Stool was hemoccult positive on 09/17/16. GI was consulted for further evaluation. The patient is extremely lethargic and unable to provide any history and therefore the history has been obtained from the EMR and patient. The nurse and patient deny any obvious GI bleeding. The patient denies any nausea, vomiting, or abdominal pain, although she does seem to have mild distention and tenderness on exam. When asked if she has ever had PUD, GI bleeding, or endoscopic procedures, although she is a very poor historian. She is currently short of breath and her respirations are shallow, slightly tachypneic, with wheezing. She is able to state that she does not think she is up to any procedures at this time. (Leatha Gomez) PFSH Past Medical History Chronic bronchitis, COPD Anxiety L5 Herniated disk HTN L1, L2, L3 fractures Past Surgical History Hysterectomy (Leatha Gomez) Coded Allergies: Aspirin (Verified Adverse Reaction, Severe, "don't take aspirin i have tinnitus, 09/02/16) Medications Allergies Coded Allergies Type Severity Reaction Last Updated Verified Aspirin Adverse Reaction Severe "don't take aspirin i have tinnitus 09/02/16 Yes Active Scripts Medications Dose Route/Sig Days Date Category Proventil Hfa 6.7 GM Inh (Albuterol Sulfate) 90 Mcg/Act Aer 2 Puff INH Q4-6H PRN 09/01/16 Rx Prednisone 50 Mg Tab 50 Mg PO DAILY 09/01/16 Rx Symbicort Inh (Budesonide/Formoterol Fumarate) 160-4.5 Mcg/Act Aero 1 Puff INH Q12HR 09/01/16 Reported Miles (Hydrocodone-Acetaminophen) 10-325 Mg Tab 1 Tab PO BID PRN 09/01/16 Reported Methocarbamol 750 Mg Tab 750 Mg PO BID 09/01/16 Reported Alprazolam 0.5 Mg Tab 0.5 Mg PO BID PRN 09/01/16 Reported Clonidine (Clonidine HCl) 0.1 Mg Tab 0.1 Mg PO BID 09/01/16 Reported Ventolin Hfa 18 GM Inh (Albuterol Sulfate) 90 Mcg/Act Aer 2 Puff INH Q4-6H PRN 09/01/16 Reported Lisinopril 40 Mg Tab 40 Mg PO DAILY 09/01/16 Reported Family History Unable to obtain Social History According to EMR, smokes 1 PPD, daily etoh use. (Leatha Gomez) Review of Systems Constitutional: COMPLAINS OF: Fatigue Respiratory: COMPLAINS OF: Cough, Wheezing, Shortness of breath Gastrointestinal: DENIES: Abdominal pain, Black stools, Bloody stools, Constipation, Diarrhea, Nausea, Vomiting (Poor historian, lethargic, does not answer many questions) (Leatha Gomez) GI Exam Vitals I&O Vital Signs Date Time Temp Pulse Resp B/P Pulse Ox O2 Delivery O2 Flow Rate FiO2 09/18/16 12:00 83 09/18/16 10:00 80 09/18/16 09:07 96 Nasal Cannula 3.00 09/18/16 08:00 80 09/18/16 08:00 98.0 80 27 157/74 93 09/18/16 08:00 Nasal Cannula 2.00 09/18/16 06:00 75 09/18/16 04:00 98.0 80 27 157/74 93 09/18/16 04:00 80 09/18/16 04:00 Nasal Cannula 2.00 09/18/16 02:00 77 09/18/16 00:00 Nasal Cannula 2.00 09/18/16 00:00 99.9 65 19 110/56 100 09/18/16 00:00 65 09/17/16 22:00 86 09/17/16 20:33 95 Nasal Cannula 3.00 09/17/16 20:00 80 09/17/16 20:00 Nasal Cannula 2.00 09/17/16 20:00 99.0 80 24 164/78 96 09/17/16 18:00 83 1/29/17 16:00 100 Nasal Cannula 2.00 09/17/16 16:00 98.6 67 18 126/67 100 09/17/16 16:00 67 I/O 09/17/16 09/17/16 09/17/16 09/18/16 09/18/16 09/18/16 07:00 15:00 23:00 07:00 15:00 23:00 Intake Total 398 ml 972 ml 480 ml 740 ml Balance 398 ml 972 ml 480 ml 740 ml Intake Oral 120 ml 480 ml 480 ml 240 ml IV Total 278 ml 492 ml 500 ml # Voids 1 3 2 1 # Bowel Movements 1 2 1 1 Imaging Last Impressions Abdomen X-Ray 09/16/16 0000 Signed Impressions: Service Date/Time: Friday, September 16, 2016 03:16 - CONCLUSION: Feeding tube as described above with distal tip in the proximal stomach. Td Jones MD Chest X-Ray 09/10/16 0600 Signed Impressions: Service Date/Time: Saturday, September 10, 2016 03:59 - CONCLUSION: The lungs are clear. Lazarus Mo MD Head CT 09/08/16 0000 Signed Impressions: Service Date/Time: Thursday, September 08, 2016 22:26 - CONCLUSION: 1. No acute intracranial abnormalities. Air-fluid levels in the left maxillary sinus and ethmoid air cells characteristic of sinusitis. Berlin Carrillo MD Liver Ultrasound 09/03/16 0000 Signed Impressions: Service Date/Time: Saturday, September 03, 2016 16:11 - CONCLUSION: There is no hepatic biliary duct dilatation. Probable small gallstones or sludge. Normal common duct. Mundo López MD FACR Laboratory Test 09/18/16 09/18/16 06:10 06:16 White Blood Count 11.8 TH/MM3 Red Blood Count 2.49 MIL/MM3 Hemoglobin 8.9 GM/DL Hematocrit 25.9 % Mean Corpuscular Volume 104.1 FL Mean Corpuscular Hemoglobin 35.7 PG Mean Corpuscular Hemoglobin 34.3 % Concent Red Cell Distribution Width 12.4 % Platelet Count 179 TH/MM3 Mean Platelet Volume 9.2 FL Sodium Level 142 MEQ/L Potassium Level 3.5 MEQ/L Chloride Level 107 MEQ/L Carbon Dioxide Level 28.5 MEQ/L Anion Gap 7 MEQ/L Blood Urea Nitrogen 18 MG/DL Creatinine 0.69 MG/DL Estimat Glomerular Filtration 87 ML/MIN Rate Random Glucose 104 MG/DL Calcium Level 8.3 MG/DL Iron Level 19 MCG/DL Total Iron Binding Capacity 221 MCG/DL Percent Iron Saturation 8.6 % Ferritin 1314 NG/ML Vitamin B12 Level 752 PG/ML Reticulocyte Count 0.9 % Absolute Reticulocyte Count 22.7 MIL/L Date/Time Procedure Status Source Growth 09/17/16 14:40 Stool Occult Blood ([facility]) - Final Complete Stool Stool HEMOCCULT POSITIVE Physical Examination HEENT: Normocephalic; atraumatic; no jaundice. CHEST: Resp shallow, even, tachypneic, wheezing CARDIAC: RRR, hypertensive ABDOMEN: Soft, mildly distended, mild diffuse tenderness; no hepatosplenomegaly ; bowel sounds are present in all four quadrants. EXTREMITIES: No clubbing, cyanosis, or edema. WATER/WASTEWATER ENGINEER: Lethargic, oriented to self (Leatha Gomez) Assessment and Plan Plan ASSESSMENT: - Anemia, Hemoccult (+) Stool. No obvious GI bleeding. Difficult to obtain hx so unclear if she has ever had any GI issues. Denies ever having egd/colon. Pt currently with shallow breathing, mildly labored, tachypneic, wheezing- not stable for endoscopic evaluation at this time. HH stable with no active bleeding. Will wait a few days and reconsider once respiratory status improves. - Elevated LFTs. Liver Ultrasound (09/03/16)----> There is no hepatic biliary duct dilatation. Probable small gallstones or sludge. Normal common duct. HCV Ab (+). T. BIli 0.4, AST 128, ALT 273,Alk Phosph 70. Will also check autoimmune markers, hcv viral load/genotype, Needs complete ETOH cessation. - Dypshagia, ST recommends puree with honey thickened, nurse states taking this - Encephalopathy. Improved but still lethargic - Respiratory Failure/COPD exacerbation, s/p extubation. per primary PLAN: - TJ, puree, honey thickened - PPI - Monitor HH - Transfuse as necessary - HCV genotype and viral load - LEODAN, ASMA, AMA - EGD/Colonoscopy once respiratory status improves - Supportive care - Further recommendations to follow based on results of above (Leatha Gomez) Physician Comments Patient seen and examined Agree with above Continue with current supportive care Monitor labs (Varun Menezes MD) Leatha Gomez Sep 18, 2016 16:16 Varun Menezes MD Sep 18, 2016 23:01
[2016-09-18] MEDS: cefTRIAXone INJ 1,000 MG in SODIUM CHLORIDE 0.9% INJ 100 ML IV SCH (17:18)
[2016-09-18] MEDS: SODIUM CHLOR 0.45% 1000 ML INJ 1,000 ML IV SCH (21:19)
[2016-09-18] MEDS: ENOXAPARIN SODIUM 40 MG/0.4 ML SYRINGE SQ SCH (21:19)
[2016-09-19] VITALS (9 sets, daily range): BP systolic 98–145; BP diastolic 55–77; PULSE 59–81; RESP 16–20; TEMP 97.5–99.2; O2SAT 93–97
[2016-09-19] MEDS: CHLORHEXIDINE GLUCONATE 2 % 1 PACK (2 CLOTHS) TOP SCH ×2 (04:00→22:50)
[2016-09-19] MEDS: FREE WATER G-TUBE SCH ×7 (04:00→23:05)
[2016-09-19] MEDS: cloNIDine HCL 0.3 MG TAB PO SCH ×3 (05:28→22:00)
[2016-09-19] MEDS: INSULIN NovoLIN REGULAR SUPPLEMENTAL SCALE SQ SCH ×5 (05:30→23:04)
[2016-09-19 07:28] LABS: HEMATOCRIT 22.9 % (35.0-46.0); MEAN CELL VOLUME 104.1 FL (80.0-100.0); MEAN CORPUSCULAR HGB CONC 33.6 % (32.0-36.0); PLATELET COUNT 165 TH/MM3 (150-450); RED CELL DISTRIBUTION WIDTH 12.4 % (11.6-17.2); REVIEW FLAG FINAL; WHITE BLOOD COUNT 11.9 TH/MM3 (4.0-11.0)
[2016-09-19] MEDS: CHLORHEXIDINE 0.12% (ORAL KIT) 15 ML CUP OROPHARYNG SCH ×2 (08:00→20:00)
[2016-09-19 08:08] LABS: BICARBONATE 24.6 MEQ/L (21.0-32.0); POTASSIUM 3.9 MEQ/L (3.5-5.1)
[2016-09-19] MEDS: SODIUM CHLORIDE 0.9% FLUSH 5 ML FLUSH IV FLUSH SCH ×2 (09:00→22:47)
--- NOTE | 2016-09-19 09:42 | HHI.GIFU ---
Subjective Remarks Patient resting in bed. She is still short of breath on exertion with shallow respirations and mild tachypnea. No active GI bleeding. (Leatha Gomez) Objective Vitals I&O Vital Signs Date Time Temp Pulse Resp B/P Pulse Ox O2 Delivery O2 Flow Rate FiO2 09/19/16 08:31 98.4 68 16 103/58 97 09/19/16 05:30 99.2 80 18 118/66 94 09/19/16 00:30 98.0 80 17 133/69 94 09/18/16 20:00 Nasal Cannula 2.00 09/18/16 19:12 145/80 09/18/16 19:00 94 09/18/16 18:50 96.8 94 19 176/81 94 09/18/16 16:00 Nasal Cannula 2.00 09/18/16 16:00 83 09/18/16 16:00 98.0 81 27 161/71 93 09/18/16 12:00 83 09/18/16 10:00 80 I/O 09/18/16 09/18/16 09/18/16 09/19/16 09/19/16 09/19/16 07:00 15:00 23:00 07:00 15:00 23:00 Intake Total 740 ml 780 ml 0 ml 200 ml Balance 740 ml 780 ml 0 ml 200 ml Intake Oral 240 ml 380 ml 0 ml 200 ml IV Total 500 ml 400 ml # Voids 1 3 0 2 # Bowel Movements 1 1 1 1 Laboratory Laboratory Tests Test 09/19/16 07:00 White Blood Count 11.9 Red Blood Count 2.20 Hemoglobin 7.7 Hematocrit 22.9 Mean Corpuscular Volume 104.1 Mean Corpuscular Hemoglobin 35.0 Mean Corpuscular Hemoglobin 33.6 Concent Red Cell Distribution Width 12.4 Platelet Count 165 Mean Platelet Volume 8.9 Sodium Level 143 Potassium Level 3.9 Chloride Level 109 Carbon Dioxide Level 24.6 Anion Gap 9 Blood Urea Nitrogen 30 Creatinine 1.05 Estimat Glomerular Filtration 54 Rate Random Glucose 92 Calcium Level 8.2 Date/Time Procedure Status Source Growth 09/17/16 14:40 Stool Occult Blood ([facility]) - Final Complete Stool Stool HEMOCCULT POSITIVE Imaging Last Impressions Abdomen X-Ray 09/16/16 0000 Signed Impressions: Service Date/Time: Friday, September 16, 2016 03:16 - CONCLUSION: Feeding tube as described above with distal tip in the proximal stomach. Td Jones MD Chest X-Ray 09/10/16 0600 Signed Impressions: Service Date/Time: Saturday, September 10, 2016 03:59 - CONCLUSION: The lungs are clear. Lazarus Mo MD Head CT 09/08/16 0000 Signed Impressions: Service Date/Time: Thursday, September 08, 2016 22:26 - CONCLUSION: 1. No acute intracranial abnormalities. Air-fluid levels in the left maxillary sinus and ethmoid air cells characteristic of sinusitis. Berlin Carrillo MD Liver Ultrasound 09/03/16 0000 Signed Impressions: Service Date/Time: Saturday, September 03, 2016 16:11 - CONCLUSION: There is no hepatic biliary duct dilatation. Probable small gallstones or sludge. Normal common duct. Mundo López MD FACR Physical Exam HEENT: Normocephalic; atraumatic; no jaundice. CHEST: Respirations shallow/even, mild tachypnea, crackles, bases diminished CARDIAC: RRR. ABDOMEN: Soft, nondistended, nontender; no hepatosplenomegaly; bowel sounds are present in all four quadrants. SKIN w/d. 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 (Leatha Gomez) Assessment and Plan Plan ASSESSMENT: - Anemia, Hemoccult (+) Stool. No obvious GI bleeding. Difficult to obtain hx so unclear if she has ever had any GI issues. Denies ever having egd/colon. HH stable with no active bleeding. Still with compromised respiratory status- shortness of breath at rest, cracks, mild tachypnea. Will wait a few days and reconsider once respiratory status improves. - Elevated LFTs. Liver Ultrasound (09/03/16)----> There is no hepatic biliary duct dilatation. Probable small gallstones or sludge. Normal common duct. HCV Ab (+). T. BIli 0.4, AST 128, ALT 273,Alk Phosph 70. LEODAN/ ASMA/AMA pending, hcv viral load/genotype pending, Needs complete ETOH cessation. - Dypshagia, ST recommends puree with honey thickened, nurse states taking this - Encephalopathy. Ammonia 41. Increase lactulose to TID, Cont. Xifaxan - Respiratory Failure/COPD exacerbation, s/p extubation. per primary PLAN: - TJ, puree, honey thickened - PPI - Increase lactulose to TID dosing - Cont. XIfaxan - Monitor HH - Transfuse as necessary - HCV genotype and viral load - LEODAN, ASMA, AMA - EGD/Colonoscopy once respiratory status optimized - Supportive care - Further recommendations to follow based on results of above - Pt seen and examined by Dr. Menezes and myself and this note is written on his behalf (Leatha Gomez) Physician Comments Patient seen and examined Agree with above Continue with current supportive care Monitor labs (Varun Menezes MD) Leatha Gomez Sep 19, 2016 09:42 Varun Menezes MD Sep 19, 2016 23:09
[2016-09-19] MEDS: POTASSIUM CL 40 MEQ/30 ML LIQ UDC NG SCH (09:56)
[2016-09-19] MEDS: LISINOPRIL 20 MG TAB PO SCH (09:56)
[2016-09-19] MEDS: LANSOPRAZOLE SOLUTAB 30 MG TAB NG SCH (09:56)
[2016-09-19] MEDS: predniSONE 20 MG TAB PO SCH (09:57)
[2016-09-19] MEDS: FOLIC ACID 1 MG TAB PO SCH (09:57)
[2016-09-19] MEDS: MODAFINIL 200 MG TAB PO SCH (09:57)
[2016-09-19] MEDS: RIFAXIMIN 550 MG TAB PO SCH ×2 (09:57→22:46)
[2016-09-19] MEDS: THIAMINE HCL 100 MG TAB PO SCH (09:57)
[2016-09-19] MEDS: MULTIVITAMIN TAB PO SCH (09:57)
[2016-09-19] MEDS: BUDESONIDE-FORMOTEROL 160/4.5 MCG INHALER INH SCH ×2 (10:09→22:47)
[2016-09-19] MEDS: LACTULOSE SYRUP 20 GM/30 ML CUP PO SCH ×2 (13:00→18:00)
[2016-09-19] MEDS: cefTRIAXone INJ 1,000 MG in SODIUM CHLORIDE 0.9% INJ 100 ML IV SCH (15:10)
[2016-09-19] MEDS ORDERED: ACETAMINOPHEN 325 MG TAB PO PRN (17:30)
[2016-09-19] MEDS ORDERED: diphenhydrAMINE HCL 25 MG CAP PO PRN (17:30)
[2016-09-19] MEDS ORDERED: SODIUM CHLOR 0.9% 250 ML INJ 250 ML IV ONE (17:30)
--- NOTE | 2016-09-19 18:20 | HHI.PR ---
Subjective Remarks Mild exertional dyspnea at rest, waxes and wanes Calm this p.m. awakens with verbal stimuli Appetite fair, encouraged small portions Shakes her head to answer questions and seems to understand. No headache Afebrile Objective Objective Results - Vital Signs Date Time Temp Pulse Resp B/P Pulse Ox O2 Delivery O2 Flow Rate FiO2 09/19/16 17:11 98.0 65 18 98/55 95 09/19/16 16:08 Nasal Cannula 2.00 09/19/16 15:27 98.0 65 18 98/55 95 09/19/16 12:45 Nasal Cannula 2.00 09/19/16 12:10 97.5 59 16 145/60 94 09/19/16 08:31 98.4 68 16 103/58 97 09/19/16 08:30 93 Nasal Cannula 2.00 09/19/16 08:00 Nasal Cannula 2.00 09/19/16 05:30 99.2 80 18 118/66 94 09/19/16 00:30 98.0 80 17 133/69 94 09/18/16 20:00 Nasal Cannula 2.00 09/18/16 19:12 145/80 09/18/16 19:00 94 09/18/16 18:50 96.8 94 19 176/81 94 I/O 09/18/16 09/18/16 09/18/16 09/19/16 09/19/16 09/19/16 07:00 15:00 23:00 07:00 15:00 23:00 Intake Total 740 ml 780 ml 0 ml 200 ml 480 ml Balance 740 ml 780 ml 0 ml 200 ml 480 ml Intake Oral 240 ml 380 ml 0 ml 200 ml 480 ml IV Total 500 ml 400 ml # Voids 1 3 0 2 1 # Bowel Movements 1 1 1 1 1 1 Result Diagram: 09/19/16 0700 09/19/16 0700 Medications and IVs Active Medications Acetaminophen (Tylenol) 650 mg Q4H PRN PO; Start 09/19/16 at 17:30; Stop at 21:31 Diphenhydramine HCl (Benadryl) 25 mg Q4H PRN PO; Start 09/19/16 at 17:30; Stop 09/19/16 at 21:31 Lactulose 30 ml 30 ml TID PO; Start 09/19/16 at 13:00 Sodium Chloride (NS 250 ml Inj) 250 ml @ 15 mls/hr ONCE ONCE IV; Start at 17:30; Stop 09/20/16 at 10:09 ROS General: Fatigue, Weakness, Other (10 point ROS done. Positives noted all other systems negative) HEENT: Other (scratchy voice, it's starting to make more sound with her talking ) Pulmonary: SOB (mild at rest and exertional) Physical Exam Physical Exam Physical Exam GENERAL: This is a thin well-developed, voice soft, was becoming more audible. Malnourished. Appears older than her stated age SKIN: Warm and dry. No rash or petechiae. HEENT: Normocephalic, atraumatic. Pupils 2MM equal, round, reactive to light and accommodation at 2. No scleral icterus. No drainage. Mucous membranes were pale pink and moist. NECK: Supple. CARDIOVASCULAR: S1, S2, No murmurs, rubs or gallops appreciated. No edema RESPIRATORY: Expiratory wheezes heard anteriorly and posteriorly in her anterior lobes and mid lobes. faint ronchi. That clears with cough GASTROINTESTINAL: Abdomen is flat, soft and nontender, nondistended. MUSCULOSKELETAL: No joint abnormalities, pedal pulses 2+, no pedal edema NEUROLOGIC: Awake,voice soft, oriented to self and place, more awake, and cooperative. No focal deficits. Urinary Catheter: No Vascular Central Line Catheter: No Objective Remarks I understand and need to quit smoking A/P Assessment and Plan ASSESSMENT 1. Chronic obstructive pulmonary disease exacerbation with hypoxic respiratory failure. 2. Acute toxic metabolic encephalopathy, resolving 3. ETOH abuse., Educated 4. Tobacco abuse, educated 5. Hypoglycemia 6. Delirium 7. Hypernatremia 8. Acute kidney injury with dehydration 9. Unknown for diabetes at this time. No documentation to support. 10. Urinary tract infection 11. Dysphagia. PLAN Review medications and vital signs every 4 and is warranted IV antibiotics Vital signs will be every 2-4 hours. Afebrile 48 hours Speech therapy will continue working with the patient in an eval swallow. Currently patient is being fed thickened liquids and food. Goal is to make sure patient is swallowing safely then DC NG tube and restraints. PT eval and treat., Working on increase in mobility but still very weak Dietary consultation for their expert opinion, patient receiving tube feeds. Soft wrist restraints off for nail Patient is calm and not offering to pull add anything. PUD and DVT prophylaxis. Patient is now in a regular room, can on strengthening, monitoring labs. Appreciate GI consult. She is positive to Emiliano C reactive. Pending EGD and possible colonoscopy when stable. Hemoglobin 8.9 on 09-18, nail 7.7 on 09-19. Patient still has some mild dyspnea even at rest. Discussion with Dr. Alvarado we will give her 1 unit PRBC, and monitor. We will recheck CBC and BMP in the morning. Our plan is to strengthen patient more blood volume, or any other further GI testing. Discharge Planning Initiated. Also supple SNF, vs rehab Discussed With: Nurse, Family (patient), Other (Dr. Alvarado. Patient seen on his behalf) Morena Mckeon Sep 19, 2016 18:20
[2016-09-19] MEDS: SODIUM CHLOR 0.45% 1000 ML INJ 1,000 ML IV SCH (18:29)
[2016-09-19] MEDS: ENOXAPARIN SODIUM 40 MG/0.4 ML SYRINGE SQ SCH (22:46)
[2016-09-20] VITALS (9 sets, daily range): BP systolic 109–152; BP diastolic 57–68; PULSE 69–88; RESP 18–28; TEMP 97.4–100.7; O2SAT 93–98
[2016-09-20] MEDS: FREE WATER G-TUBE SCH ×5 (04:00→20:00)
[2016-09-20] MEDS: cloNIDine HCL 0.3 MG TAB PO SCH ×3 (04:04→23:33)
[2016-09-20] MEDS: MORPHINE SULFATE 4 MG/ML INJ IV PRN ×3 (04:26→23:01)
[2016-09-20] MEDS: INSULIN NovoLIN REGULAR SUPPLEMENTAL SCALE SQ SCH ×4 (04:28→23:33)
[2016-09-20] MEDS: CHLORHEXIDINE 0.12% (ORAL KIT) 15 ML CUP OROPHARYNG SCH ×2 (08:00→20:00)
[2016-09-20 08:43] LABS: AUTOMATED NEUTROPHIL # 10.1 TH/MM3 (1.8-7.7); BASOPHIL % 0.3 % (0.0-2.0); EOSINOPHIL # 0.1 TH/MM3 (0-0.4); EOSINOPHIL % 0.6 % (0.0-4.0); HEMATOCRIT 25.1 % (35.0-46.0); HEMO FLAGS DIFF FINAL; LYMPH % 9.8 % (9.0-44.0); LYMPHOCYTE # 1.2 TH/MM3 (1.0-4.8); MEAN CELL VOLUME 104.7 FL (80.0-100.0); MEAN CORPUSCULAR HEMOGLOBIN 35.3 PG (27.0-34.0); MEAN CORPUSCULAR HGB CONC 33.7 % (32.0-36.0); MONO % 6.5 % (0.0-8.0); NEUT % 82.8 % (16.0-70.0); PLATELET COUNT 212 TH/MM3 (150-450); RED CELL DISTRIBUTION WIDTH 12.6 % (11.6-17.2); WHITE BLOOD COUNT 12.1 TH/MM3 (4.0-11.0)
[2016-09-20 08:58] LABS: ALKALINE PHOSPHATASE 87 U/L (45-117); ALT (GPT) 223 U/L (10-53); ANION GAP 8 MEQ/L (5-15); AST (GOT) 87 U/L (15-37); BICARBONATE 24.9 MEQ/L (21.0-32.0); BLOOD UREA NITROGEN 33 MG/DL (7-18); CHLORIDE 108 MEQ/L (98-107); GLOMERULAR FILTRATION RATE 44 ML/MIN (>89); POTASSIUM 4.4 MEQ/L (3.5-5.1); SODIUM (NA) 141 MEQ/L (136-145); TOTAL BILIRUBIN ADULT 0.3 MG/DL (0.2-1.0)
[2016-09-20] MEDS: SODIUM CHLORIDE 0.9% FLUSH 5 ML FLUSH IV FLUSH SCH ×2 (09:00→21:00)
[2016-09-20] MEDS: RIFAXIMIN 550 MG TAB PO SCH ×2 (09:58→23:00)
[2016-09-20] MEDS: LISINOPRIL 20 MG TAB PO SCH (09:58)
[2016-09-20] MEDS: LANSOPRAZOLE SOLUTAB 30 MG TAB NG SCH (09:58)
[2016-09-20] MEDS: POTASSIUM CL 40 MEQ/30 ML LIQ UDC NG SCH (09:58)
[2016-09-20] MEDS: MODAFINIL 200 MG TAB PO SCH (09:58)
[2016-09-20] MEDS: THIAMINE HCL 100 MG TAB PO SCH (09:59)
[2016-09-20] MEDS: LACTULOSE SYRUP 20 GM/30 ML CUP PO SCH ×3 (09:59→18:00)
[2016-09-20] MEDS: MULTIVITAMIN TAB PO SCH (09:59)
[2016-09-20] MEDS: predniSONE 20 MG TAB PO SCH (09:59)
[2016-09-20] MEDS: BUDESONIDE-FORMOTEROL 160/4.5 MCG INHALER INH SCH ×2 (09:59→23:35)
[2016-09-20] MEDS: FOLIC ACID 1 MG TAB PO SCH (09:59)
[2016-09-20] MEDS: SODIUM CHLOR 0.45% 1000 ML INJ 1,000 ML IV SCH ×3 (10:00→23:34)
--- NOTE | 2016-09-20 12:45 | HHI.PR ---
Subjective Remarks No dyspnea at rest, up in chair Appropriate mood and affect Appetite fair, encouraged small portions Shakes her head to answer questions and seems to understand. No headache Afebrile Objective Objective Results - Vital Signs Date Time Temp Pulse Resp B/P Pulse Ox O2 Delivery O2 Flow Rate FiO2 09/20/16 08:00 99.4 76 18 152/68 97 09/20/16 07:31 Nasal Cannula 2.00 09/20/16 05:13 97.4 81 20 109/57 98 09/20/16 05:13 18 09/20/16 00:30 99.1 09/20/16 00:21 98.7 72 20 110/60 96 09/19/16 20:19 98.4 79 20 112/77 95 09/19/16 17:11 98.0 65 18 98/55 95 09/19/16 16:08 Nasal Cannula 2.00 09/19/16 15:27 98.0 65 18 98/55 95 09/19/16 12:45 Nasal Cannula 2.00 I/O 09/19/16 09/19/16 09/19/16 09/20/16 09/20/16 09/20/16 07:00 15:00 23:00 07:00 15:00 23:00 Intake Total 200 ml 480 ml Balance 200 ml 480 ml Intake Oral 200 ml 480 ml # Voids 2 1 0 1 # Bowel Movements 1 1 1 Result Diagram: 09/20/16 0730 09/20/16 0730 Other Results l Laboratory Tests Test 09/17/16 09/18/16 09/18/16 09/19/16 06:43 06:10 06:16 07:00 Direct Bilirubin 0.1 MG/DL Indirect Bilirubin 0.3 MG/DL Ammonia 41 MCMOL/L Iron Level 19 MCG/DL Total Iron Binding Capacity 221 MCG/DL Percent Iron Saturation 8.6 % Ferritin 1314 NG/ML Vitamin B12 Level 752 PG/ML Reticulocyte Count 0.9 % Absolute Reticulocyte Count 22.7 MIL/L Anti-Nuclear Antibody Screen NEG Test 09/19/16 09/19/16 09/20/16 19:23 21:14 07:30 Antibody Screen NEGATIVE Crossmatch Leukocyte-Reduced Red Blood Cells Blood Bank Comment Blood Type A POSITIVE White Blood Count 12.1 TH/MM3 Red Blood Count 2.40 MIL/MM3 Hemoglobin 8.5 GM/DL Hematocrit 25.1 % Mean Corpuscular Volume 104.7 FL Mean Corpuscular Hemoglobin 35.3 PG Mean Corpuscular Hemoglobin 33.7 % Concent Red Cell Distribution Width 12.6 % Platelet Count 212 TH/MM3 Mean Platelet Volume 9.3 FL Neutrophils (%) (Auto) 82.8 % Lymphocytes (%) (Auto) 9.8 % Monocytes (%) (Auto) 6.5 % Eosinophils (%) (Auto) 0.6 % Basophils (%) (Auto) 0.3 % Neutrophils # (Auto) 10.1 TH/MM3 Lymphocytes # (Auto) 1.2 TH/MM3 Monocytes # (Auto) 0.8 TH/MM3 Eosinophils # (Auto) 0.1 TH/MM3 Basophils # (Auto) 0.0 TH/MM3 CBC Comment DIFF FINAL Differential Comment Sodium Level 141 MEQ/L Potassium Level 4.4 MEQ/L Chloride Level 108 MEQ/L Carbon Dioxide Level 24.9 MEQ/L Anion Gap 8 MEQ/L Blood Urea Nitrogen 33 MG/DL Creatinine 1.25 MG/DL Estimat Glomerular Filtration 44 ML/MIN Rate Random Glucose 105 MG/DL Calcium Level 8.4 MG/DL Total Bilirubin 0.3 MG/DL Aspartate Amino Transf 87 U/L (AST/SGOT) Alanine Aminotransferase 223 U/L (ALT/SGPT) Alkaline Phosphatase 87 U/L Total Protein 6.2 GM/DL Albumin 2.4 GM/DL Medications and IVs Active Medications Acetaminophen (Tylenol) 650 mg Q4H PRN PO Last administered on 09/19/16 22:45 ; Admin Dose 650 MG; Start 09/19/16 at 17:30; Stop 09/19/16 at 21:31; Status DC Diphenhydramine HCl (Benadryl) 25 mg Q4H PRN PO Last administered on 09/19/16 22:46; Admin Dose 25 MG; Start 09/19/16 at 17:30; Stop 09/19/16 at 21:31; Status DC Lactulose 30 ml 30 ml TID PO Last administered on 09/20/16 09:59; Admin Dose 30 ML; Start 09/19/16 at 13:00 Sodium Chloride (NS 250 ml Inj) 250 ml @ 15 mls/hr ONCE ONCE IV; Start at 17:30; Stop 09/20/16 at 10:09; Status DC ROS General: Fatigue, Other (10 point ROS done. Positives include fatigue and some mild exertional dyspnea. All other systems negative or unremarkable) Pulmonary: SOB (exertional, tires easily) Skin: Other (dry) Physical Exam Physical Exam Physical Exam Physical Exam GENERAL: This is a thin well-developed, voice soft, was becoming more audible. Malnourished. Appears older than her stated age. Sitting up in chair today, alert SKIN: Warm and dry. No rash or petechiae., Slow recoil HEENT: Normocephalic, atraumatic. Pupils 2MM equal, round, reactive to light and accommodation at 2. No scleral icterus. No drainage. Mucous membranes were pale pink and moist. NECK: Supple. CARDIOVASCULAR: S1, S2, No murmurs, rubs or gallops appreciated. No edema RESPIRATORY: Expiratory wheezes heard anteriorly and posteriorly in her anterior lobes and mid lobes. faint ronchi. No cough GASTROINTESTINAL: Abdomen is flat, soft and nontender, nondistended. MUSCULOSKELETAL: No joint abnormalities, pedal pulses 2+, no pedal edema NEUROLOGIC: Awake,voice soft, oriented to self and place, more awake, and cooperative. No focal deficits. Urinary Catheter: No Vascular Central Line Catheter: Objective Remarks I want to get stronger A/P Assessment and Plan ASSESSMENT 1. Chronic obstructive pulmonary disease exacerbation with hypoxic respiratory failure. 2. Acute toxic metabolic encephalopathy, resolving 3. ETOH abuse., Educated 4. Tobacco abuse, educated 5. Hypoglycemia 6. Delirium 7. Hypernatremia 8. Acute kidney injury with dehydration 9. Unknown for diabetes at this time. No documentation to support. 10. Urinary tract infection 11. Dysphagia. PLAN Review medications and vital signs every 4 and is warranted IV antibiotics continue, leukocytosis trending the same. Will 0.1 today Vital signs will be every 4 hours. Afebrile 48 hours Speech therapy will continue working with the patient in an eval swallow. Currently patient is being fed thickened liquids and food. Goal is to make sure patient is swallowing safely then DC NG tube and restraints. PT eval and treat., Working on increase in mobility but still very weak PUD and DVT prophylaxis. Patient is now in a regular room, can on strengthening, monitoring labs. Appreciate GI consult. She is positive to Emiliano C reactive. Pending EGD and possible colonoscopy when stable. We will check with GI for their plan. Discussing with case management discharge planning. Bed available at [facility] when patient is stable. Would like for GI to complete workup if warranted. Renal insufficiency noted since 09/18/16. Patient refusing to take lactulose, she has no IV fluids, I concern is her by mouth intake and is it supporting her. We'll discuss with Dr. Alvarado. Increased her PO fluid intake to 400CC with meals, and 240 cc between meals. Hemoglobin 8.9 on 09-18, nail 7.7 on 09-19. Patient still has some mild dyspnea even at rest. 1 unit PRBC, on 09-19. Hemoglobin now 8.5. Less dyspnea noted today and workup effort for breathing Discussed with Dr. Alvarado, acute kidney injury reoccurring, added half normal saline at 100 cc an hour. No discharge today. Discharge Planning Initiated. Also supple SNF, vs rehab Discussed With: Nurse, Family (patient), Other (Dr. Alvarado. Patient seen on his behalf) Morena Mckeon Sep 20, 2016 12:45
[2016-09-20] MEDS: cefTRIAXone INJ 1,000 MG in SODIUM CHLORIDE 0.9% INJ 100 ML IV SCH (15:52)
[2016-09-20 21:02] LABS: BICARBONATE 24.4 MEQ/L (21.0-32.0); POTASSIUM 5.2 MEQ/L (3.5-5.1)
[2016-09-20] MEDS: ENOXAPARIN SODIUM 40 MG/0.4 ML SYRINGE SQ SCH (23:00)
[2016-09-20] MEDS: CHLORHEXIDINE GLUCONATE 2 % 1 PACK (2 CLOTHS) TOP SCH (23:02)
[2016-09-21] VITALS: BP 129/60; PULSE 73; RESP 16; TEMP 99; O2SAT 94
[2016-09-21] MEDS: FREE WATER G-TUBE SCH ×4 (03:39→23:05)
[2016-09-21 04:00] VITALS: BP 118/59; PULSE 68; RESP 18; TEMP 98.9; O2SAT 99
[2016-09-21] MEDS: INSULIN NovoLIN REGULAR SUPPLEMENTAL SCALE SQ SCH ×3 (06:00→18:00)
[2016-09-21] MEDS: cloNIDine HCL 0.3 MG TAB PO SCH ×3 (06:00→23:04)
[2016-09-21 08:00] VITALS: BP 104/61; PULSE 72; RESP 23; TEMP 98.7; O2SAT 97
--- NOTE | 2016-09-21 08:32 | HHI.GIFU ---
Subjective Remarks Lethargic, but is oriented to self and place. Has generalized weakness. Denies n/v/pain. D/W patient further evaluation with egd/colonoscopy- she is refusing at this time. (Leatha Gomez) Objective Vitals I&O Vital Signs Date Time Temp Pulse Resp B/P Pulse Ox O2 Delivery O2 Flow Rate FiO2 09/21/16 08:00 98.7 72 23 104/61 97 09/21/16 04:00 98.9 68 18 118/59 99 09/21/16 00:00 99.0 73 16 129/60 94 09/20/16 23:06 7 09/20/16 20:00 100.7 88 28 143/67 93 09/20/16 18:16 Nasal Cannula 2.00 09/20/16 16:01 Nasal Cannula 2.00 09/20/16 16:00 99.8 81 18 131/60 94 09/20/16 14:36 Nasal Cannula 2.00 09/20/16 14:24 69 09/20/16 14:11 96 Nasal Cannula 2.00 09/20/16 12:00 Nasal Cannula 2.00 09/20/16 12:00 99.5 79 18 149/68 95 I/O 09/20/16 09/20/16 09/20/16 09/21/16 09/21/16 09/21/16 07:00 15:00 23:00 07:00 15:00 23:00 Intake Total 360 ml Balance 360 ml Intake Oral 360 ml # Voids 1 3 1 # Bowel Movements 0 1 Laboratory Laboratory Tests Test 09/20/16 19:45 Sodium Level 139 Potassium Level 5.2 Chloride Level 109 Carbon Dioxide Level 24.4 Anion Gap 6 Blood Urea Nitrogen 40 Creatinine 1.59 Estimat Glomerular Filtration 33 Rate Random Glucose 95 Calcium Level 8.5 Date/Time Procedure Status Source Growth 09/17/16 14:40 Stool Occult Blood ([facility]) - Final Complete Stool Stool HEMOCCULT POSITIVE Imaging Last Impressions Abdomen X-Ray 09/16/16 0000 Signed Impressions: Service Date/Time: Friday, September 16, 2016 03:16 - CONCLUSION: Feeding tube as described above with distal tip in the proximal stomach. Td Jones MD Chest X-Ray 09/10/16 0600 Signed Impressions: Service Date/Time: Saturday, September 10, 2016 03:59 - CONCLUSION: The lungs are clear. Lazarus Mo MD Head CT 09/08/16 0000 Signed Impressions: Service Date/Time: Thursday, September 08, 2016 22:26 - CONCLUSION: 1. No acute intracranial abnormalities. Air-fluid levels in the left maxillary sinus and ethmoid air cells characteristic of sinusitis. Berlin Carrillo MD Liver Ultrasound 09/03/16 0000 Signed Impressions: Service Date/Time: Saturday, September 03, 2016 16:11 - CONCLUSION: There is no hepatic biliary duct dilatation. Probable small gallstones or sludge. Normal common duct. Mundo López MD FACR Physical Exam HEENT: Normocephalic; atraumatic; no jaundice. CHEST: Respirations shallow/even, bases diminished CARDIAC: RRR. ABDOMEN: Soft, nondistended, nontender; no hepatosplenomegaly; bowel sounds are present in all four quadrants. SKIN w/d. 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 No obvious GI bleeding. Difficult to obtain hx so unclear if she has ever had any GI issues. Denies ever having egd/colon. HH stable with no active bleeding. Her respiratory status is much improved, but she is now refusing GI workup with egd/colonoscopy. 8.5.1. - Elevated LFTs. Liver Ultrasound (09/03/16)----> There is no hepatic biliary duct dilatation. Probable small gallstones or sludge. Normal common duct. HCV Ab (+). LFTs improving. LEODAN negative, ASMA negative, AMA pending, hcv viral load/genotype pending, Needs complete ETOH cessation. - Dypshagia, ST recommends ,mechanical soft diet with nectar consistency thickened liquids - Encephalopathy. Ammonia 41. IMPROVING. Cont. Xifaxan, Lactulose - Respiratory Failure/COPD exacerbation, s/p extubation. Improving. Per primary PLAN: - TJ, Mechanical soft, nectar thickened - PPI - Cont. Lactulose - Cont. XIfaxan - Monitor HH - Transfuse as necessary - Await HCV genotype and viral load - Await AMA - Supportive care - Pt's respiratory status has improved, but she is now refusing egd/colonoscopy - Further recommendations to follow based on results of above - Pt seen and examined by Dr. Menezes and myself and this note is written on his behalf (Leatha Gomez) Physician Comments Patient seen and examined Agree with above Continue with current supportive care Monitor labs (Varun Menezes MD) Leatha Gomez Sep 21, 2016 08:32 Varun Menezes MD Sep 21, 2016 21:20
[2016-09-21] MEDS: BUDESONIDE-FORMOTEROL 160/4.5 MCG INHALER INH SCH ×2 (09:00→23:01)
[2016-09-21] MEDS: POTASSIUM CL 40 MEQ/30 ML LIQ UDC NG SCH (09:36)
[2016-09-21] MEDS: LACTULOSE SYRUP 20 GM/30 ML CUP PO SCH ×3 (09:39→16:58)
[2016-09-21] MEDS: MULTIVITAMIN TAB PO SCH (09:40)
[2016-09-21] MEDS: THIAMINE HCL 100 MG TAB PO SCH (09:40)
[2016-09-21] MEDS: LANSOPRAZOLE SOLUTAB 30 MG TAB NG SCH (09:41)
[2016-09-21] MEDS: ACETAMINOPHEN 325 MG TAB PO PRN ×2 (09:41→23:00)
[2016-09-21] MEDS: MODAFINIL 200 MG TAB PO SCH (09:41)
[2016-09-21] MEDS: FOLIC ACID 1 MG TAB PO SCH (09:41)
[2016-09-21] MEDS: predniSONE 20 MG TAB PO SCH (09:41)
[2016-09-21] MEDS: RIFAXIMIN 550 MG TAB PO SCH ×2 (09:41→23:01)
[2016-09-21 09:50] LABS: HCV RNA PCR IU/ML 437000 IU/mL (()); HCV RNA PCR LOGIU/ML 5.64 (())
[2016-09-21 12:00] VITALS: BP 108/62; PULSE 73; RESP 24; TEMP 99.5; O2SAT 97
--- NOTE | 2016-09-21 12:12 | HHI.PR ---
Subjective Remarks awake, oriented x 2 voice soft difficult to understand no active GI bleeding no fever difficult to obtain ROS Objective Objective Results - Vital Signs Date Time Temp Pulse Resp B/P Pulse Ox O2 Delivery O2 Flow Rate FiO2 09/21/16 08:00 98.7 72 23 104/61 97 09/21/16 04:00 98.9 68 18 118/59 99 09/21/16 00:00 99.0 73 16 129/60 94 09/20/16 23:06 7 09/20/16 20:00 100.7 88 28 143/67 93 09/20/16 18:16 Nasal Cannula 2.00 09/20/16 16:01 Nasal Cannula 2.00 09/20/16 16:00 99.8 81 18 131/60 94 09/20/16 14:36 Nasal Cannula 2.00 09/20/16 14:24 69 09/20/16 14:11 96 Nasal Cannula 2.00 I/O 09/20/16 09/20/16 09/20/16 09/21/16 09/21/16 09/21/16 07:00 15:00 23:00 07:00 15:00 23:00 Intake Total 360 ml Balance 360 ml Intake Oral 360 ml # Voids 1 3 1 # Bowel Movements 0 1 Result Diagram: 09/20/16 0730 09/20/161944 Other Results Laboratory Tests Test 09/20/16 19:45 Sodium Level 139 Potassium Level 5.2 Chloride Level 109 Carbon Dioxide Level 24.4 Anion Gap 6 Blood Urea Nitrogen 40 Creatinine 1.59 Estimat Glomerular Filtration 33 Rate Random Glucose 95 Calcium Level 8.5 Date/Time Procedure Status Source Growth 09/17/16 14:40 Stool Occult Blood ([facility]) - Final Complete Stool Stool HEMOCCULT POSITIVE ROS General: Other (unable to obtain ROS) Physical Exam Physical Exam GENERAL: This is a thin well-developed, less encephalopathic, voice soft, difficult to understand. Malnourished. Appears older than her stated age SKIN: Warm and dry. No rash or petechiae. HEENT: Normocephalic, atraumatic. Pupils equal, round, reactive to light and accommodation at 2. No scleral icterus. No drainage. Mucous membranes were pale pink and moist. NECK: Supple. CARDIOVASCULAR: S1, S2, No murmurs, rubs or gallops appreciated. RESPIRATORY: Diminished, exp. wheeze GASTROINTESTINAL: Abdomen is flat, soft and nontender, nondistended. MUSCULOSKELETAL: No joint abnormalities, pedal pulses 2+, no pedal edema NEUROLOGIC: Awake,voice soft, oriented to self and place, more awake, and cooperative. No focal deficits. Urinary Catheter: No Vascular Central Line Catheter: No A/P Diagnosis: (1) COPD exacerbation (2) Metabolic encephalopathy (3) Tobacco abuse (4) ETOH abuse (5) UTI (urinary tract infection) (6) Dysphagia (7) Respiratory failure Plan: resolved Assessment and Plan continue with oxygen, Dec. Prednisone to 10 mg po daily Duonebs Stop abx cultures negative, no fever wbc stable encephalopathy improved continue Lactulose and Rifaximin Acute renal injury, started on IVF yesterday, dc held stat BMP today will hold Lisinopril renal US today Anemia, heme + stools appreciate GI input, pt. declining EGD/colonoscopy continue with PPI low iron stores S/P 1 unit PRBC 09/19, HH stable continue with PT/ST/OT CM dc planning, going to SNF has a bed available DC on hold due to renal dysfunction Labs in am D/W RN D/W Dr. Alvarado D/W pt This patient was seen by myself and Dr. Alvarado, this note is written on his behalf. Discussed With: Nurse, Family (patient), Other (Dr. Alvarado. Patient seen on his behalf) Problem Qualifiers (1) UTI (urinary tract infection): Qualified Code: N39.0 - Urinary tract infection without hematuria, site unspecified (2) Dysphagia: Qualified Code: R13.10 - Dysphagia, unspecified type (3) Respiratory failure: Licha Vyas Sep 21, 2016 12:12
[2016-09-21 12:55] LABS: POTASSIUM 5.6 MEQ/L (3.5-5.1)
--- NOTE | 2016-09-21 15:34 | RADRPT ---
EXAM DATE/TIME: 09/21/2016 14:52 [facility] COMPARISON: No previous studies available for comparison. INDICATIONS : Increased Bun and Creatine. MEDICAL HISTORY : Herniated disc. Hypertension. COPD. SURGICAL HISTORY : Hysterectomy. Back surgery. ENCOUNTER: Subsequent ACUITY: 1 day PAIN SCORE: 8/10 LOCATION: Bilateral flank MEASUREMENTS: RIGHT KIDNEY: 11.3 x 6.1 x 6.7 cm LEFT KIDNEY: 9.5 x 5.7 x 5.7 cm FINDINGS: RIGHT KIDNEY: Mild right hydronephrosis. No evidence of mass.. LEFT KIDNEY: Mildly prominent left renal pelvis. Much of the left kidney is obscured due to overlying bowel gas. BLADDER: Markedly distended. Multiple shadowing gallstones in the gallbladder. Gallbladder is incompletely distended. CONCLUSION: 1. Markedly distended urinary bladder. 2. Mild right hydronephrosis. Mild nonspecific prominence of the left renal pelvis without cielo hydr onephrosis on the left. 3. Cholelithiasis and incompletely distended gallbladder. Calderon Marinelli MD on September 21, 2016 at 15:30 Board Certified Radiologist. This report was verified electronically.
[2016-09-21 16:00] VITALS: BP 128/68; PULSE 76; RESP 20; TEMP 99.1; O2SAT 98
[2016-09-21 17:51] LABS: HEPATITIS C RNA GENOTYPE 2b (())
[2016-09-21 18:08] LABS: BACTERIA, URINE RARE /hpf; BLOOD, URINE LARGE (NEG); COMMENT (UR) CATH-CULTURE IND; CULTURE IF INDICATED CATH CULTURE IND; GLUCOSE,URINE NEG (NEG); HYALINE CAST, URINE 11 /lpf (RARE); KETONE, URINE NEG (NEG); MUCUS URINE FEW /lpf (OCC); NITRITE,URINE NEG (NEG); PH, URINE 6.5 (5.0-8.5); URINE COLOR LIGHT-RED (YELLW/STRAW)
[2016-09-21 20:00] VITALS: BP 134/71; PULSE 88; RESP 22; TEMP 99.9; O2SAT 97
[2016-09-21] MEDS: CHLORHEXIDINE 0.12% (ORAL KIT) 15 ML CUP OROPHARYNG SCH (20:00)
[2016-09-21] MEDS: SODIUM CHLORIDE 0.9% FLUSH 5 ML FLUSH IV FLUSH SCH (21:00)
[2016-09-21] MEDS: ENOXAPARIN SODIUM 30 MG/0.3 ML SYRINGE SQ SCH (22:59)
[2016-09-21] MEDS: SODIUM CHLOR 0.45% 1000 ML INJ 1,000 ML IV SCH (23:02)
[2016-09-22] VITALS (10 sets, daily range): BP systolic 94–147; BP diastolic 54–75; PULSE 68–84; RESP 19–22; TEMP 96.5–99.6; O2SAT 95–99
[2016-09-22] MEDS: FREE WATER G-TUBE SCH ×2 (04:00→20:00)
[2016-09-22] MEDS: CHLORHEXIDINE GLUCONATE 2 % 1 PACK (2 CLOTHS) TOP SCH (04:00)
[2016-09-22] MEDS: SODIUM CHLOR 0.45% 1000 ML INJ 1,000 ML IV SCH ×2 (05:00→18:46)
[2016-09-22] MEDS: cloNIDine HCL 0.3 MG TAB PO SCH ×3 (06:00→22:24)
[2016-09-22] MEDS: INSULIN NovoLIN REGULAR SUPPLEMENTAL SCALE SQ SCH ×4 (06:00→18:00)
[2016-09-22 07:20] LABS: HEMATOCRIT 21.9 % (35.0-46.0); MEAN CELL VOLUME 104.5 FL (80.0-100.0); MEAN CORPUSCULAR HEMOGLOBIN 35.3 PG (27.0-34.0); MEAN CORPUSCULAR HGB CONC 33.8 % (32.0-36.0); PLATELET COUNT 185 TH/MM3 (150-450); RED CELL DISTRIBUTION WIDTH 12.6 % (11.6-17.2); REVIEW FLAG FINAL; WHITE BLOOD COUNT 11.3 TH/MM3 (4.0-11.0)
[2016-09-22 07:40] LABS: BICARBONATE 22.1 MEQ/L (21.0-32.0); POTASSIUM 4.5 MEQ/L (3.5-5.1)
[2016-09-22] MEDS: CHLORHEXIDINE 0.12% (ORAL KIT) 15 ML CUP OROPHARYNG SCH ×2 (08:00→22:25)
[2016-09-22] MEDS ORDERED: predniSONE 10 MG TAB PO SCH (09:00)
[2016-09-22] MEDS: BUDESONIDE-FORMOTEROL 160/4.5 MCG INHALER INH SCH ×2 (09:00→22:27)
[2016-09-22] MEDS: SODIUM CHLORIDE 0.9% FLUSH 5 ML FLUSH IV FLUSH SCH ×2 (09:00→21:00)
[2016-09-22] MEDS: LACTULOSE SYRUP 20 GM/30 ML CUP PO SCH ×3 (09:03→17:15)
[2016-09-22] MEDS: POTASSIUM CL 40 MEQ/30 ML LIQ UDC NG SCH (09:03)
[2016-09-22] MEDS: LANSOPRAZOLE SOLUTAB 30 MG TAB NG SCH (09:04)
[2016-09-22] MEDS: FOLIC ACID 1 MG TAB PO SCH (09:04)
[2016-09-22] MEDS: MULTIVITAMIN TAB PO SCH (09:04)
[2016-09-22] MEDS: RIFAXIMIN 550 MG TAB PO SCH ×2 (09:04→22:24)
[2016-09-22] MEDS: MODAFINIL 200 MG TAB PO SCH (09:05)
[2016-09-22] MEDS: THIAMINE HCL 100 MG TAB PO SCH (09:05)
--- NOTE | 2016-09-22 11:15 | HHI.PR ---
Subjective Remarks awake, oriented x 2 voice improving more awake no active GI bleeding required placement of lama, inc. urine in bladder d/w GI procedure, now agreeable Objective Objective Results - Vital Signs Date Time Temp Pulse Resp B/P Pulse Ox O2 Delivery O2 Flow Rate FiO2 09/22/16 08:00 98.6 72 20 142/73 98 09/22/16 06:47 99.0 76 22 112/68 96 09/22/16 02:00 84 09/22/16 00:00 99 Nasal Cannula 2.00 09/22/16 00:00 99.6 73 20 95/54 99 09/22/16 00:00 19 09/21/16 20:00 99.9 88 22 134/71 97 09/21/16 16:00 99.1 76 20 128/68 98 09/21/16 12:00 99.5 73 24 108/62 97 I/O 09/21/16 09/21/16 09/21/16 09/22/16 09/22/16 09/22/16 07:00 15:00 23:00 07:00 15:00 23:00 Intake Total 0 ml Output Total 1300 ml 650 ml Balance -1300 ml -650 ml Intake Oral 0 ml Output Urine Total 1300 ml 650 ml # Voids 1 # Bowel Movements 0 3 2 Result Diagram: 09/22/16 0635 09/22/16 0635 Other Results Laboratory Tests Test 09/21/16 09/21/16 09/22/16 12:29 17:25 06:35 Sodium Level 137 140 Potassium Level 5.6 4.5 Chloride Level 107 110 Carbon Dioxide Level 23.0 22.1 Anion Gap 7 8 Blood Urea Nitrogen 44 27 Creatinine 2.11 1.01 Estimat Glomerular Filtration 24 56 Rate Random Glucose 130 78 Calcium Level 8.0 8.1 Urine Color LIGHT-RED Urine Turbidity HAZY Urine pH 6.5 Urine Specific [place] 1.015 Urine Protein 30 Urine Glucose (UA) NEG Urine Ketones NEG Urine Occult Blood LARGE Urine Nitrite NEG Urine Bilirubin NEG Urine Urobilinogen LESS THAN 2.0 Urine Leukocyte Esterase MOD Urine RBC Urine WBC 98 Urine Bacteria RARE Urine Hyaline Casts 11 Urine Mucus FEW Microscopic Urinalysis Comment CATH-CULTURE IND White Blood Count 11.3 Red Blood Count 2.10 Hemoglobin 7.4 Hematocrit 21.9 Mean Corpuscular Volume 104.5 Mean Corpuscular Hemoglobin 35.3 Mean Corpuscular Hemoglobin 33.8 Concent Red Cell Distribution Width 12.6 Platelet Count 185 Mean Platelet Volume 9.3 Date/Time Procedure Status Source Growth 09/21/16 17:25 Urine Culture Received Urine Catheterized Urine Pending 09/17/16 14:40 Stool Occult Blood ([facility]) - Final Complete Stool Stool HEMOCCULT POSITIVE ROS General: Weakness, Other (poor historian ) GI: Abdominal Pain Physical Exam Physical Exam GENERAL: This is a thin well-developed, less encephalopathic, voice soft, difficult to understand. Malnourished. Appears older than her stated age SKIN: Warm and dry. No rash or petechiae. HEENT: Normocephalic, atraumatic. Pupils equal, round, reactive to light and accommodation at 2. No scleral icterus. No drainage. Mucous membranes were pale pink and moist. NECK: Supple. CARDIOVASCULAR: S1, S2, No murmurs, rubs or gallops appreciated. RESPIRATORY: Diminished, exp. wheeze GASTROINTESTINAL: Abdomen is flat, soft and nontender, nondistended. -lama with blood tinged urine. Labia with swelling MUSCULOSKELETAL: No joint abnormalities, pedal pulses 2+, no pedal edema NEUROLOGIC: Awake,voice soft, oriented to self and place, more awake, and cooperative. No focal deficits. Urinary Catheter: Yes Lama insert reason: Obstruction/Retention Vascular Central Line Catheter: No A/P Diagnosis: (1) COPD exacerbation (2) Metabolic encephalopathy (3) Tobacco abuse (4) ETOH abuse (5) UTI (urinary tract infection) (6) Dysphagia (7) Respiratory failure Plan: resolved Assessment and Plan continue with oxygen DC prednisone Duonebs encephalopathy improved continue Lactulose and Rifaximin Acute renal injury,secondary to urinary retention Renal US yesterday distended bladder lama inserted, almost 2 liters drained renal function markedly improved dec IVF continue to hold Lisinopril UA + UTI, follow cultures, start Rocephin noted with blood tinged urine, vulvar swelling, ? trauma. Will have RN flush lama, monitor hematuria follow HH Anemia, heme + stools appreciate GI input, pt. now agreeing for EGD/colonoscopy will scheduled for Sunday continue with PPI low iron stores S/P 1 unit PRBC 09/19 HH low 7.4/21.9 repeat in am, may need PRBC continue with PT/ST/OT CM dc planning, going to SNF has a bed available DC on hold due to renal dysfunction and anemia, needs GI work up Hopefully dc Sunday D/W RN D/W Dr. Alvarado D/W pt This patient was seen by myself and Dr. Alvarado, this note is written on his behalf. Discussed With: Nurse, Family (patient), Other (Dr. Alvarado. Patient seen on his behalf) Problem Qualifiers (1) UTI (urinary tract infection): Qualified Code: N39.0 - Urinary tract infection without hematuria, site unspecified (2) Dysphagia: Qualified Code: R13.10 - Dysphagia, unspecified type (3) Respiratory failure: Licha Vyas Sep 22, 2016 11:15
[2016-09-22] MEDS: cefTRIAXone INJ 1,000 MG in SODIUM CHLORIDE 0.9% INJ 100 ML IV SCH (11:33)
--- NOTE | 2016-09-22 13:36 | HHI.GIFU ---
Subjective Remarks Resting in bed. No active bleeding. Does have some mild epigastric discomfort. She is now agreeable for an EGD and colonoscopy. (Leatha Gomez) Objective Vitals I&O Vital Signs Date Time Temp Pulse Resp B/P Pulse Ox O2 Delivery O2 Flow Rate FiO2 09/22/16 12:00 99.3 76 20 147/75 95 09/22/16 10:07 95 Nasal Cannula 1.00 09/22/16 08:00 98.6 72 20 142/73 98 09/22/16 06:47 99.0 76 22 112/68 96 09/22/16 02:00 84 09/22/16 00:00 99 Nasal Cannula 2.00 09/22/16 00:00 99.6 73 20 95/54 99 09/22/16 00:00 19 09/21/16 20:00 99.9 88 22 134/71 97 09/21/16 16:00 99.1 76 20 128/68 98 I/O 09/21/16 09/21/16 09/21/16 09/22/16 09/22/16 09/22/16 07:00 15:00 23:00 07:00 15:00 23:00 Intake Total 0 ml Output Total 1300 ml 650 ml Balance -1300 ml -650 ml Intake Oral 0 ml Output Urine Total 1300 ml 650 ml # Voids 1 # Bowel Movements 0 3 2 Laboratory Laboratory Tests Test 09/21/16 09/22/16 17:25 06:35 Urine Color LIGHT-RED Urine Turbidity HAZY Urine pH 6.5 Urine Specific [place] 1.015 Urine Protein 30 Urine Glucose (UA) NEG Urine Ketones NEG Urine Occult Blood LARGE Urine Nitrite NEG Urine Bilirubin NEG Urine Urobilinogen LESS THAN 2.0 Urine Leukocyte Esterase MOD Urine RBC Urine WBC 98 Urine Bacteria RARE Urine Hyaline Casts 11 Urine Mucus FEW Microscopic Urinalysis Comment CATH-CULTURE IND White Blood Count 11.3 Red Blood Count 2.10 Hemoglobin 7.4 Hematocrit 21.9 Mean Corpuscular Volume 104.5 Mean Corpuscular Hemoglobin 35.3 Mean Corpuscular Hemoglobin 33.8 Concent Red Cell Distribution Width 12.6 Platelet Count 185 Mean Platelet Volume 9.3 Sodium Level 140 Potassium Level 4.5 Chloride Level 110 Carbon Dioxide Level 22.1 Anion Gap 8 Blood Urea Nitrogen 27 Creatinine 1.01 Estimat Glomerular Filtration 56 Rate Random Glucose 78 Calcium Level 8.1 Date/Time Procedure Status Source Growth 09/21/16 17:25 Urine Culture - Preliminary Resulted Urine Catheterized Urine IMMATURE GROWTH - REINCUBATE 09/17/16 14:40 Stool Occult Blood ([facility]) - Final Complete Stool Stool HEMOCCULT POSITIVE Imaging Last Impressions Renal Ultrasound 09/21/16 0000 Signed Impressions: Service Date/Time: September 14:52 - CONCLUSION: 1. Markedly distended urinary bladder. 2. Mild right hydronephrosis. Mild nonspecific prominence of the left renal pelvis without cielo hydronephrosis on the left. 3. Cholelithiasis and incompletely distended gallbladder. Calderon Marinelli MD Abdomen X-Ray 09/16/16 0000 Signed Impressions: Service Date/Time: Friday, September 16, 2016 03:16 - CONCLUSION: Feeding tube as described above with distal tip in the proximal stomach. Td Jones MD Chest X-Ray 09/10/16 0600 Signed Impressions: Service Date/Time: Saturday, September 10, 2016 03:59 - CONCLUSION: The lungs are clear. Lazarus Mo MD Head CT 09/08/16 0000 Signed Impressions: Service Date/Time: Thursday, September 08, 2016 22:26 - CONCLUSION: 1. No acute intracranial abnormalities. Air-fluid levels in the left maxillary sinus and ethmoid air cells characteristic of sinusitis. Berlin Carrillo MD Liver Ultrasound 09/03/16 0000 Signed Impressions: Service Date/Time: Saturday, September 03, 2016 16:11 - CONCLUSION: There is no hepatic biliary duct dilatation. Probable small gallstones or sludge. Normal common duct. Mundo López MD FACR Physical Exam HEENT: Normocephalic; atraumatic; no jaundice. CHEST: Respirations shallow/even, bases diminished CARDIAC: RRR. ABDOMEN: Soft, nondistended, nontender; no hepatosplenomegaly; bowel sounds are present in all four quadrants. Brown liquid stool SKIN w/d. 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 No obvious GI bleeding. Difficult to obtain hx so unclear if she has ever had any GI issues. Denies ever having egd/colon. HH 7.4/21.9 with no active bleeding/brown stool She is now agreeable for egd/colonoscopy, will schedule for Sunday. - Elevated LFTs. Liver Ultrasound (09/03/16)----> There is no hepatic biliary duct dilatation. Probable small gallstones or sludge. Normal common duct. HCV Ab (+). LFTs improving. LEODAN negative, ASMA negative, AMA pending, hcv viral load 2b, 437,000. Needs complete ETOH cessation. - Chronic hepatitis C, Genotype 2b, Viral load 437,000. Complete ETOH cessation , outpt fu - Dypshagia, ST recommends ,mechanical soft diet with nectar consistency thickened liquids - Encephalopathy. Ammonia 41. IMPROVING. Cont. Xifaxan, Lactulose - Respiratory Failure/COPD exacerbation, s/p extubation. Improving. Per primary PLAN: - Plan for egd/colonoscopy Sunday, now agreeable - Obtain consents - TJ, Mechanical soft, nectar thickened - Clear liquids on Sunday - NPO after Sunday night - Golytely - Hold lovenox after Sunday night - PPI - Cont. Lactulose - Cont. XIfaxan - Monitor HH - Transfuse as necessary - Await AMA - Outpt FU for HCV - Complete ETOH cessation - Pt seen and examined by Dr. Menezes and myself and this note is written on his behalf (Leatha Gomez) Physician Comments Patient seen and examined Agree with above Continue with current supportive care Monitor labs Endoscopy on Sunday (Varun Menezes MD) Leatha Gomez Sep 22, 2016 13:36 Varun Menezes MD Sep 22, 2016 17:27
[2016-09-22] MEDS: ENOXAPARIN SODIUM 30 MG/0.3 ML SYRINGE SQ SCH (22:23)
[2016-09-22] MEDS: ACETAMINOPHEN 325 MG TAB PO PRN (22:24)
[2016-09-23] VITALS (8 sets, daily range): BP systolic 99–167; BP diastolic 54–78; PULSE 64–80; RESP 18–22; TEMP 95–99.2; O2SAT 97–98
[2016-09-23] MEDS: FREE WATER G-TUBE SCH ×6 (04:00→20:00)
[2016-09-23] MEDS: CHLORHEXIDINE GLUCONATE 2 % 1 PACK (2 CLOTHS) TOP SCH (04:00)
[2016-09-23] MEDS: cloNIDine HCL 0.3 MG TAB PO SCH ×3 (05:46→21:07)
[2016-09-23] MEDS: INSULIN NovoLIN REGULAR SUPPLEMENTAL SCALE SQ SCH ×4 (05:54→17:44)
[2016-09-23 08:43] LABS: HEMATOCRIT 21.5 % (35.0-46.0); MEAN CELL VOLUME 105.2 FL (80.0-100.0); MEAN CORPUSCULAR HGB CONC 33.3 % (32.0-36.0); PLATELET COUNT 211 TH/MM3 (150-450); RED BLOOD COUNT 2.05 MIL/MM3 (4.00-5.30); RED CELL DISTRIBUTION WIDTH 12.4 % (11.6-17.2); REVIEW FLAG FINAL; WHITE BLOOD COUNT 8.7 TH/MM3 (4.0-11.0)
[2016-09-23 09:13] LABS: BICARBONATE 26.6 MEQ/L (21.0-32.0); POTASSIUM 4.7 MEQ/L (3.5-5.1)
[2016-09-23] MEDS: MULTIVITAMIN TAB PO SCH (09:14)
[2016-09-23] MEDS: THIAMINE HCL 100 MG TAB PO SCH (09:14)
[2016-09-23] MEDS: POTASSIUM CL 40 MEQ/30 ML LIQ UDC NG SCH (09:14)
[2016-09-23] MEDS: RIFAXIMIN 550 MG TAB PO SCH ×2 (09:14→21:07)
[2016-09-23] MEDS: LACTULOSE SYRUP 20 GM/30 ML CUP PO SCH ×3 (09:14→17:44)
[2016-09-23] MEDS: FOLIC ACID 1 MG TAB PO SCH (09:14)
[2016-09-23] MEDS: MODAFINIL 200 MG TAB PO SCH (09:15)
[2016-09-23] MEDS: LANSOPRAZOLE SOLUTAB 30 MG TAB NG SCH (09:15)
[2016-09-23] MEDS: ACETAMINOPHEN 325 MG TAB PO PRN (09:16)
[2016-09-23] MEDS: CHLORHEXIDINE 0.12% (ORAL KIT) 15 ML CUP OROPHARYNG SCH ×2 (09:16→20:00)
[2016-09-23] MEDS: BUDESONIDE-FORMOTEROL 160/4.5 MCG INHALER INH SCH ×2 (09:17→21:08)
[2016-09-23] MEDS: SODIUM CHLORIDE 0.9% FLUSH 5 ML FLUSH IV FLUSH SCH ×2 (09:17→21:00)
--- NOTE | 2016-09-23 11:42 | HHI.GIFU ---
Subjective Remarks Patient is resting in bed, no active bleeding, no nausea, no vomiting or abd pain. (Nilson Alvarez VENDING MACHINE OPERATOR) Objective Vitals I&O Vital Signs Date Time Temp Pulse Resp B/P Pulse Ox O2 Delivery O2 Flow Rate FiO2 09/23/16 09:03 97.1 71 22 150/75 98 09/23/16 04:00 97.0 74 18 99/54 97 09/23/16 00:00 95.0 80 18 129/75 98 09/22/16 23:50 19 09/22/16 22:37 Nasal Cannula 2.00 09/22/16 20:00 97.5 81 20 130/68 95 09/22/16 19:20 74 09/22/16 16:00 96.5 68 19 94/55 97 09/22/16 12:00 99.3 76 20 147/75 95 I/O 09/22/16 09/22/16 09/22/16 09/23/16 09/23/16 09/23/16 07:00 15:00 23:00 07:00 15:00 23:00 Output Total 650 ml 825 ml 1000 ml Balance -650 ml -825 ml -1000 ml Output Urine Total 650 ml 825 ml 1000 ml # Bowel Movements 2 2 2 Laboratory Laboratory Tests Test 09/23/16 08:15 White Blood Count 8.7 Red Blood Count 2.05 Hemoglobin 7.2 Hematocrit 21.5 Mean Corpuscular Volume 105.2 Mean Corpuscular Hemoglobin 35.0 Mean Corpuscular Hemoglobin 33.3 Concent Red Cell Distribution Width 12.4 Platelet Count 211 Mean Platelet Volume 8.8 Sodium Level 144 Potassium Level 4.7 Chloride Level 112 Carbon Dioxide Level 26.6 Anion Gap 5 Blood Urea Nitrogen 14 Creatinine 0.60 Estimat Glomerular Filtration 103 Rate Random Glucose 90 Calcium Level 7.9 Date/Time Procedure Status Source Growth 09/21/16 17:25 Urine Culture - Final Complete Urine Catheterized Urine Siria Albicans Imaging Last Impressions Renal Ultrasound 09/21/16 0000 Signed Impressions: Service Date/Time: September 14:52 - CONCLUSION: 1. Markedly distended urinary bladder. 2. Mild right hydronephrosis. Mild nonspecific prominence of the left renal pelvis without cielo hydronephrosis on the left. 3. Cholelithiasis and incompletely distended gallbladder. Calderon Marinelli MD Abdomen X-Ray 09/16/16 0000 Signed Impressions: Service Date/Time: Friday, September 16, 2016 03:16 - CONCLUSION: Feeding tube as described above with distal tip in the proximal stomach. Td Jones MD Chest X-Ray 09/10/16 0600 Signed Impressions: Service Date/Time: Saturday, September 10, 2016 03:59 - CONCLUSION: The lungs are clear. Lazarus Mo MD Head CT 09/08/16 0000 Signed Impressions: Service Date/Time: Thursday, September 08, 2016 22:26 - CONCLUSION: 1. No acute intracranial abnormalities. Air-fluid levels in the left maxillary sinus and ethmoid air cells characteristic of sinusitis. Berlin Carrillo MD Liver Ultrasound 09/03/16 0000 Signed Impressions: Service Date/Time: Saturday, September 03, 2016 16:11 - CONCLUSION: There is no hepatic biliary duct dilatation. Probable small gallstones or sludge. Normal common duct. Mundo López MD FACR Physical Exam HEENT: Normocephalic; atraumatic; no jaundice. CHEST: Respirations shallow/even, bases diminished CARDIAC: RRR. ABDOMEN: Soft, nondistended, nontender; no hepatosplenomegaly; bowel sounds are present in all four quadrants. Brown liquid stool SKIN w/d. 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 No obvious GI bleeding. Denies ever having egd/colon. HH stable with no active bleeding/brown stool egd/ colonoscopy scheduled for Sunday. - Elevated LFTs. Liver Ultrasound (09/03/16)----> There is no hepatic biliary duct dilatation. Probable small gallstones or sludge. Normal common duct. HCV Ab (+). LFTs improving. LEODAN negative, ASMA negative, AMA pending, hcv viral load 2b, 437,000. Needs complete ETOH cessation. - Chronic hepatitis C, Genotype 2b, Viral load 437,000. Complete ETOH cessation , outpt fu - Dypshagia, ST recommends ,mechanical soft diet with nectar consistency thickened liquids - Encephalopathy. IMPROVING. Cont. Xifaxan, Lactulose - Respiratory Failure/COPD exacerbation, s/p extubation. Improving. Per primary PLAN: - EGD/colonoscopy Sunday - Obtain consents - TJ, Mechanical soft, nectar thickened - Clear liquids on Sunday - NPO after MN Sunday night - Golytely - Hold lovenox after MN Sunday night - PPI - Cont. Lactulose - Cont. XIfaxan - Monitor HH - Transfuse as necessary - Await AMA - Outpt FU for HCV - Complete ETOH cessation - Pt seen and examined by Dr. Menezes and myself and this note is written on his behalf (Nilson Alvarez) Physician Comments Patient seen and examined Agree with above Continue with current supportive care Monitor labs Plan for endoscopy on Sunday (Varun Menezes MD) Nilson Alvarez Sep 23, 2016 11:42 Varun Menezes MD Sep 23, 2016 16:34
[2016-09-23] MEDS: cefTRIAXone INJ 1,000 MG in SODIUM CHLORIDE 0.9% INJ 100 ML IV SCH (12:21)
--- NOTE | 2016-09-23 12:51 | HHI.PR ---
Subjective Remarks No dyspnea at rest, resting in bed Appropriate mood and affect, voice hoarse but returning Appetite fair, encouraged small portions Alert oriented No headache Afebrile Objective Objective Results - Vital Signs Date Time Temp Pulse Resp B/P Pulse Ox O2 Delivery O2 Flow Rate FiO2 09/23/16 09:31 Nasal Cannula 1.50 09/23/16 09:31 70 09/23/16 09:03 97.1 71 22 150/75 98 09/23/16 04:00 97.0 74 18 99/54 97 09/23/16 00:00 95.0 80 18 129/75 98 09/22/16 23:50 19 09/22/16 22:37 Nasal Cannula 2.00 09/22/16 20:00 97.5 81 20 130/68 95 09/22/16 19:20 74 09/22/16 16:00 96.5 68 19 94/55 97 I/O 09/22/16 09/22/16 09/22/16 09/23/16 09/23/16 09/23/16 07:00 15:00 23:00 07:00 15:00 23:00 Output Total 650 ml 825 ml 1000 ml Balance -650 ml -825 ml -1000 ml Output Urine Total 650 ml 825 ml 1000 ml # Bowel Movements 2 2 2 Result Diagram: 09/23/1615 09/23/16 0815 ROS General: Fatigue, Weakness, Other (10 point ROS done positives noted other systems negative) HEENT: Other (hoarseness improving) Pulmonary: Other (decreased breath sounds mild dyspnea) /MATRIX BATH ATTENDANT: Other (incomplete emptying of bladder, cholelithiasis) Physical Exam Physical Exam PHYSICAL EXAMINATION GENERAL: This is a well-developed, well-nourished female who appears to be in no acute distress. She is alert and awake, []. HEAD: Normocephalic without any lesion or mass noted. Facial features appear symmetric. OROPHARYNGEAL: Oropharynx without erythema or edema. NECK: Supple. No nuchal rigidity or lymphadenopathy. Trachea midline without deviation. CARDIAC: Regular rhythm, regular rate, S1 and S2 are heard. Murmur []; no gallops or rubs. LUNGS: Clear to auscultation bilaterally. [] wheeze, [] rhonchi or [] rale. No use of accessory muscles on inspiration or expiration. ABDOMEN: Soft, nontender, no organomegaly or masses. Bowel sounds are heard in all four quadrants. No rebound. No guarding. EXTREMITIES: [] edema. Pulses equal bilateral. [] cyanosis. NEUROLOGICAL: Patient mood and affect appropriate. No focal deficit SKIN:Warm and moist A/P Assessment and Plan ASSESSMENT 1. Chronic obstructive pulmonary disease exacerbation with hypoxic respiratory failure. 2. Acute toxic metabolic encephalopathy, resolved 3. ETOH abuse., Educated 4. Tobacco abuse, educated 5. Hypoglycemia resolved 6. Delirium resolved 7. Hypernatremia 8. Acute kidney injury with dehydration resolved today 9. Unknown for diabetes at this time. No documentation to support. 10. Urinary tract infection 11. Dysphagia. PLAN Review medications and vital signs every 4 and is warranted Vital signs will be every 4 hours. Bed alarm on for patient safety Speech therapy will continue working with the patient in an eval swallow. Currently patient is being fed thickened liquids and food. Tolerating fairly well. Drinking water and states no more alcohol in the future. PT eval and treat., Working on increase in mobility but still very weak. No restraints bed alarm on PUD and DVT prophylaxis. strengthening, monitoring labs. Appreciate GI consult. She is positive to Gu[place]upe C reactive. Land for EGD and colonoscopy Sunday a.m.. Prep On Sunday Discussing with case management discharge planning. Bed available at [facility] when patient is stable. Hemoglobin 8.9 on 09-18, trending down with hemoglobin 7.2 today. Patient still has some mild dyspnea even at rest, but otherwise asymptomatic. 1 unit PRBC, on 09-19. Less dyspnea noted today and workup effort for breathing Acute kidney injury resolved with normal trends today. Continue with discharge planning hopefully mid/later this week D/W Dr. Alvarado. Patient seen on his behalf Discharge Planning Initiated. Also supple SNF, vs rehab Discussed With: Nurse, Family (patient), Other (Dr. Alvarado. Patient seen on his behalf) Morena Mckeon Sep 23, 2016 12:51
[2016-09-23] MEDS: SODIUM CHLOR 0.45% 1000 ML INJ 1,000 ML IV SCH (15:12)
[2016-09-23] MEDS: ENOXAPARIN SODIUM 30 MG/0.3 ML SYRINGE SQ SCH (21:12)
[2016-09-23 23:58] LABS: MITOCHONDRIAL ABS LESS THAN 20.0 U (())
[2016-09-24] VITALS (9 sets, daily range): BP systolic 118–178; BP diastolic 63–81; PULSE 63–88; RESP 18–20; TEMP 97.2–99.4; O2SAT 96–98
[2016-09-24] MEDS: FREE WATER G-TUBE SCH ×6 (04:00→21:44)
[2016-09-24] MEDS: CHLORHEXIDINE GLUCONATE 2 % 1 PACK (2 CLOTHS) TOP SCH (04:00)
[2016-09-24] MEDS: cloNIDine HCL 0.3 MG TAB PO SCH ×3 (06:00→21:44)
[2016-09-24] MEDS: INSULIN NovoLIN REGULAR SUPPLEMENTAL SCALE SQ SCH ×4 (06:00→18:00)
[2016-09-24] MEDS: CHLORHEXIDINE 0.12% (ORAL KIT) 15 ML CUP OROPHARYNG SCH ×2 (08:00→20:00)
[2016-09-24] MEDS: MULTIVITAMIN TAB PO SCH (08:52)
[2016-09-24] MEDS: RIFAXIMIN 550 MG TAB PO SCH ×2 (08:52→21:42)
[2016-09-24] MEDS: LANSOPRAZOLE SOLUTAB 30 MG TAB NG SCH (08:53)
[2016-09-24] MEDS: POTASSIUM CL 40 MEQ/30 ML LIQ UDC NG SCH (08:53)
[2016-09-24] MEDS: LACTULOSE SYRUP 20 GM/30 ML CUP PO SCH ×3 (08:53→18:00)
[2016-09-24] MEDS: FOLIC ACID 1 MG TAB PO SCH (08:53)
[2016-09-24] MEDS: THIAMINE HCL 100 MG TAB PO SCH (08:53)
[2016-09-24] MEDS: MODAFINIL 200 MG TAB PO SCH (08:53)
[2016-09-24] MEDS: SODIUM CHLORIDE 0.9% FLUSH 5 ML FLUSH IV FLUSH SCH ×2 (09:01→21:42)
[2016-09-24] MEDS: BUDESONIDE-FORMOTEROL 160/4.5 MCG INHALER INH SCH ×2 (09:02→21:42)
[2016-09-24] MEDS: SODIUM CHLOR 0.45% 1000 ML INJ 1,000 ML IV SCH (11:14)
[2016-09-24] MEDS: cefTRIAXone INJ 1,000 MG in SODIUM CHLORIDE 0.9% INJ 100 ML IV SCH (12:07)
[2016-09-24] MEDS: HALOPERIDOL LACTATE 5 MG/ML AMP IV PUSH PRN (12:13)
--- NOTE | 2016-09-24 14:10 | HHI.PR ---
Subjective Remarks No dyspnea at rest, resting in bed Appropriate mood and affect, voice hoarse but returning Appetite fair, encouraged small portions Alert oriented No headache Afebrile Objective Objective Results - Vital Signs Date Time Temp Pulse Resp B/P Pulse Ox O2 Delivery O2 Flow Rate FiO2 09/24/16 12:03 99.3 72 20 159/77 97 09/24/16 08:08 99.2 63 20 157/75 98 09/24/16 07:42 Nasal Cannula 1.50 09/24/16 07:42 69 09/24/16 05:51 Nasal Cannula 1.50 09/24/16 04:04 98.2 74 20 158/66 97 09/24/16 00:27 97.2 69 18 132/63 97 09/23/16 21:16 Nasal Cannula 1.00 09/23/16 20:13 98.3 74 18 160/76 97 09/23/16 20:00 74 09/23/16 17:20 98.9 64 20 161/78 I/O 09/23/16 09/23/16 09/23/16 09/24/16 09/24/16 09/24/16 07:00 15:00 23:00 07:00 15:00 23:00 Intake Total 1312 ml 1095 ml Output Total 1000 ml 475 ml 350 ml Balance -1000 ml -475 ml 1312 ml 745 ml Intake Oral 240 ml 360 ml IV Total 1072 ml 735 ml Output Urine Total 1000 ml 475 ml 350 ml # Bowel Movements 2 3 1 1 Result Diagram: 09/23/16 0815 09/23/16 0815 ROS General: Weakness (improving), Other (10 point ROS done. Positives noted, otherwise negative.) Pulmonary: SOB (exertional) /CORN PICKER: Other (lama, Removed.) Physical Exam Physical Exam Physical Exam Physical Exam GENERAL: This is a thin well-developed, white female. Appears older than her stated age SKIN: Warm and dry. No rash or petechiae. HEENT: Normocephalic, atraumatic. Pupils equal, round, reactive to light and accommodation at 2. No scleral icterus. No drainage. Mucous membranes were pale pink and moist. NECK: Supple. CARDIOVASCULAR: S1, S2, No murmurs, rubs or gallops appreciated. RESPIRATORY: Diminished breath sounds at bases. otherwise clear. GASTROINTESTINAL: Abdomen is flat, soft and nontender, nondistended. MUSCULOSKELETAL: No joint abnormalities, pedal pulses 2+, no pedal edema NEUROLOGIC: Awake,voice soft, oriented to self and place, more awake, and cooperative. No focal deficits. Urinary Catheter: Yes, D/C today. Objective Remarks Im feeling stronger today. A/P Assessment and Plan ASSESSMENT 1. Chronic obstructive pulmonary disease exacerbation with hypoxic respiratory failure. 2. Acute toxic metabolic encephalopathy, resolved 3. ETOH abuse., Educated 4. Tobacco abuse, educated 5. Hypoglycemia resolved 6. Delirium resolved 7. Hypernatremia, resolved 8. Acute kidney injury with dehydration resolved today 9. Unknown for diabetes at this time. No documentation to support. 10. Urinary tract infection,yeast 11. Dysphagia, resolved. PLAN Review medications and vital signs every 4 and is warranted Vital signs will be every 4 hours. Bed alarm on for patient safety No swallow issues. Eating food and drinking liquids without issues. PT eval and treat., Working on increase in mobility but still very weak. No restraints bed alarm on. Up in chair daily PUD and DVT prophylaxis. Monitor any fever > 100. monitoring labs. Appreciate GI consult. She is positive to Emiliano C reactive. Land for EGD and colonoscopy Sunday a.m.. Prep On Sunday Discussing with case management discharge planning. Bed available at [facility] when patient is stable. Hemoglobin 8.9 on 09-18, trending down with hemoglobin 7.2 today. Recheck today. dyspnea resolving, exertional only noted today. Acute kidney injury resolved with normal trends today. Continue juan j hydration. Continue with discharge planning hopefully mid/later this week Lama catheter clamped X 2 hrs, then D/Cd . May reinsert if no voiding in 8 hrs. D/W Dr. Alvarado. Patient seen on his behalf Discharge Planning Initiated. Also supple SNF, vs rehab, vs home. Discussed With: Nurse, Family (patient), Other (Dr. Alvarado. Patient seen on his behalf) Morena Mckeon Sep 24, 2016 14:10
[2016-09-24] MEDS ORDERED: FLUCONAZOLE 200 MG TAB PO ONE (14:30)
[2016-09-24] MEDS ORDERED: PEG (High)/E-LYTE SOLN 4000 ML BTL PO ONE (16:00)
[2016-09-24 16:01] LABS: AUTOMATED NEUTROPHIL # 4.3 TH/MM3 (1.8-7.7); BASOPHIL % 0.3 % (0.0-2.0); EOSINOPHIL % 0.6 % (0.0-4.0); HEMATOCRIT 21.3 % (35.0-46.0); HEMO FLAGS DIFF FINAL; LYMPH % 18.8 % (9.0-44.0); LYMPHOCYTE # 1.1 TH/MM3 (1.0-4.8); MEAN CELL VOLUME 106.7 FL (80.0-100.0); MEAN CORPUSCULAR HGB CONC 32.8 % (32.0-36.0); MONO % 7.4 % (0.0-8.0); NEUT % 72.9 % (16.0-70.0); PLATELET COUNT 211 TH/MM3 (150-450); RED BLOOD COUNT 1.99 MIL/MM3 (4.00-5.30); RED CELL DISTRIBUTION WIDTH 12.6 % (11.6-17.2); WHITE BLOOD COUNT 5.9 TH/MM3 (4.0-11.0)
[2016-09-24 16:10] LABS: BICARBONATE 24.5 MEQ/L (21.0-32.0); POTASSIUM 4.3 MEQ/L (3.5-5.1)
[2016-09-24 16:12] LABS: INDIRECT BILIRUBIN 0.1 MG/DL (0.0-0.8); TOTAL BILIRUBIN ADULT 0.2 MG/DL (0.2-1.0)
--- NOTE | 2016-09-24 16:56 | HHI.GIFU ---
Subjective Remarks Comfortable in bed no new complaints denies pain Objective Vitals I&O Vital Signs Date Time Temp Pulse Resp B/P Pulse Ox O2 Delivery O2 Flow Rate FiO2 09/24/16 16:50 16 09/24/16 16:02 99.4 75 20 178/81 96 09/24/16 12:03 99.3 72 20 159/77 97 09/24/16 08:08 99.2 63 20 157/75 98 09/24/16 07:42 Nasal Cannula 1.50 09/24/16 07:42 69 09/24/16 05:51 Nasal Cannula 1.50 09/24/16 04:04 98.2 74 20 158/66 97 09/24/16 00:27 97.2 69 18 132/63 97 09/23/16 21:16 Nasal Cannula 1.00 09/23/16 20:13 98.3 74 18 160/76 97 09/23/16 20:00 74 09/23/16 17:20 98.9 64 20 161/78 I/O 09/23/16 09/23/16 09/23/16 09/24/16 09/24/16 09/24/16 07:00 15:00 23:00 07:00 15:00 23:00 Intake Total 1312 ml 1095 ml Output Total 1000 ml 475 ml 350 ml Balance -1000 ml -475 ml 1312 ml 745 ml Intake Oral 240 ml 360 ml IV Total 1072 ml 735 ml Output Urine Total 1000 ml 475 ml 350 ml # Bowel Movements 2 3 1 1 Laboratory Laboratory Tests Test 09/24/16 14:58 White Blood Count 5.9 Red Blood Count 1.99 Hemoglobin 7.0 Hematocrit 21.3 Mean Corpuscular Volume 106.7 Mean Corpuscular Hemoglobin 35.0 Mean Corpuscular Hemoglobin 32.8 Concent Red Cell Distribution Width 12.6 Platelet Count 211 Mean Platelet Volume 8.9 Neutrophils (%) (Auto) 72.9 Lymphocytes (%) (Auto) 18.8 Monocytes (%) (Auto) 7.4 Eosinophils (%) (Auto) 0.6 Basophils (%) (Auto) 0.3 Neutrophils # (Auto) 4.3 Lymphocytes # (Auto) 1.1 Monocytes # (Auto) 0.4 Eosinophils # (Auto) 0.0 Basophils # (Auto) 0.0 CBC Comment DIFF FINAL Differential Comment Sodium Level 141 Potassium Level 4.3 Chloride Level 110 Carbon Dioxide Level 24.5 Anion Gap 7 Blood Urea Nitrogen 8 Creatinine 0.69 Estimat Glomerular Filtration 87 Rate Random Glucose 185 Calcium Level 7.9 Total Bilirubin 0.2 Direct Bilirubin 0.1 Indirect Bilirubin 0.1 Aspartate Amino Transf 69 (AST/SGOT) Alanine Aminotransferase 120 (ALT/SGPT) Alkaline Phosphatase 96 Total Protein 5.0 Albumin 1.6 Date/Time Procedure Status Source Growth 09/21/16 17:25 Urine Culture - Final Complete Urine Catheterized Urine Siria Albicans Physical Exam HEENT: Normocephalic; atraumatic; no jaundice. CHEST: Respirations shallow/even, bases diminished CARDIAC: RRR. ABDOMEN: Soft, nondistended, nontender; no hepatosplenomegaly; bowel sounds are present in all four quadrants. Brown liquid stool SKIN w/d. 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 No obvious GI bleeding. Denies ever having egd/colon. HH stable with no active bleeding/brown stool egd/ colonoscopy scheduled for Sunday. - Elevated LFTs. Liver Ultrasound (09/03/16)----> There is no hepatic biliary duct dilatation. Probable small gallstones or sludge. Normal common duct. HCV Ab (+). LFTs improving. LEODAN negative, ASMA negative, AMA pending, hcv viral load 2b, 437,000. Needs complete ETOH cessation. - Chronic hepatitis C, Genotype 2b, Viral load 437,000. Complete ETOH cessation , outpt fu - Dypshagia, ST recommends ,mechanical soft diet with nectar consistency thickened liquids - Encephalopathy. IMPROVING. Cont. Xifaxan, Lactulose - Respiratory Failure/COPD exacerbation, s/p extubation. Improving. Per primary -Hepatitis C type IIB PLAN: - EGD/colonoscopy tomorrow - Obtain consents - Clear liquids on Sunday - NPO after Sunday - Golytely - Hold lovenox after Sunday - PPI - Cont. Lactulose - Cont. XIfaxan - Monitor HH - Transfuse as necessary - AMA negative - Outpt FU for HCV - Complete ETOH cessation Varun Menezes MD Sep 24, 2016 16:56
[2016-09-25] VITALS (13 sets, daily range): BP systolic 126–186; BP diastolic 68–84; PULSE 73–91; RESP 18–24; TEMP 97–98.8; O2SAT 92–98
[2016-09-25] MEDS: FREE WATER G-TUBE SCH ×6 (04:00→20:00)
[2016-09-25] MEDS: CHLORHEXIDINE GLUCONATE 2 % 1 PACK (2 CLOTHS) TOP SCH (04:00)
[2016-09-25] MEDS: INSULIN NovoLIN REGULAR SUPPLEMENTAL SCALE SQ SCH ×3 (05:41→17:53)
[2016-09-25] MEDS: cloNIDine HCL 0.3 MG TAB PO SCH ×3 (06:30→23:40)
[2016-09-25] MEDS: SODIUM CHLOR 0.45% 1000 ML INJ 1,000 ML IV SCH (06:46)
[2016-09-25] MEDS: CHLORHEXIDINE 0.12% (ORAL KIT) 15 ML CUP OROPHARYNG SCH ×2 (08:00→20:00)
[2016-09-25] MEDS: SODIUM CHLORIDE 0.9% FLUSH 5 ML FLUSH IV FLUSH SCH ×2 (08:51→21:00)
[2016-09-25] MEDS: BUDESONIDE-FORMOTEROL 160/4.5 MCG INHALER INH SCH ×2 (08:51→21:00)
[2016-09-25] MEDS: FOLIC ACID 1 MG TAB PO SCH (08:51)
[2016-09-25] MEDS: LACTULOSE SYRUP 20 GM/30 ML CUP PO SCH ×3 (08:51→17:22)
[2016-09-25] MEDS: POTASSIUM CL 40 MEQ/30 ML LIQ UDC NG SCH (08:51)
[2016-09-25] MEDS: LANSOPRAZOLE SOLUTAB 30 MG TAB NG SCH (08:51)
[2016-09-25] MEDS: THIAMINE HCL 100 MG TAB PO SCH (08:52)
[2016-09-25] MEDS: MODAFINIL 200 MG TAB PO SCH (08:52)
[2016-09-25] MEDS: RIFAXIMIN 550 MG TAB PO SCH ×2 (08:52→23:40)
[2016-09-25] MEDS: MULTIVITAMIN TAB PO SCH (08:52)
[2016-09-25] MEDS ORDERED: PROPOFOL 200 MG/20 ML AMP IV ONE (11:52)
[2016-09-25] MEDS ORDERED: DO NOT ADM ANY ANTICOAGULANT DRUGS XX PRN (14:30)
--- NOTE | 2016-09-25 15:00 | HHI.PR ---
Subjective Remarks Patient more awake, oriented times 23 Encephalopathy improved No chest pain Some back pain Just came back from EGD and colonoscopy, tolerated both procedures well No active bleeding Unable to void, post void residuals greater than 600, Lama reinserted this morning Lama catheter draining well Afebrile Feels ready to go to rehabilitation, discussed that possibly tomorrow she will be leaving Objective Objective Results - Vital Signs Date Time Temp Pulse Resp B/P Pulse Ox O2 Delivery O2 Flow Rate FiO2 09/25/16 13:11 98.0 91 24 126/78 93 09/25/16 12:38 Nasal Cannula 2 09/25/16 12:08 80 16 137/82 98 09/25/16 12:03 80 16 135/72 98 09/25/16 11:58 98.4 74 16 141/71 98 09/25/16 11:10 98.8 75 18 186/84 96 09/25/16 08:16 98 Nasal Cannula 1.00 09/25/16 08:07 98.7 75 18 149/69 95 09/25/16 05:24 98.3 90 18 164/78 92 09/25/16 00:43 97.7 73 18 140/68 96 09/24/16 21:45 88 09/24/16 21:35 Nasal Cannula 1.50 09/24/16 21:32 98 Nasal Cannula 1.00 09/24/16 19:56 98.3 69 18 118/66 96 09/24/16 16:50 16 09/24/16 16:02 99.4 75 20 178/81 96 I/O 09/24/16 09/24/16 09/24/16 09/25/16 09/25/16 09/25/16 07:00 15:00 23:00 07:00 15:00 23:00 Intake Total 1095 ml 1366 ml 200 ml Output Total 350 ml 600 ml 300 ml Balance 745 ml 766 ml -300 ml 200 ml Intake Oral 360 ml 720 ml IV Total 735 ml 646 ml 200 ml Output Urine Total 350 ml 600 ml 300 ml # Voids 1 # Bowel Movements 1 2 Result Diagram: 09/24/16 1458 09/24/16 1458 Other Results Date/Time Procedure Status Source Growth 09/21/16 17:25 Urine Culture - Final Complete Urine Catheterized Urine Siria Albicans ROS General: Weakness, Other (12 point review of systems completed, limited, poor historian) Physical Exam Physical Exam GENERAL: This is a thin well-developed. Malnourished. Appears more awake stated age SKIN: Warm and dry. No rash or petechiae. HEENT: Normocephalic, atraumatic. Pupils equal, round, reactive to light and accommodation at 2. No scleral icterus. No drainage. Mucous membranes were pale pink and moist. NECK: Supple. CARDIOVASCULAR: S1, S2, No murmurs, rubs or gallops appreciated. RESPIRATORY: Diminished, exp. wheeze GASTROINTESTINAL: Abdomen is flat, soft and nontender, nondistended. -lama with alyssa urine. Labia with swelling improved MUSCULOSKELETAL: No joint abnormalities, pedal pulses 2+, no pedal edema NEUROLOGIC: Awake, oriented 2, voice is stronger, following commands, no focal deficits. Encephalopathy improving. Urinary Catheter: Yes Assessment to: Continue Lama insert reason: Obstruction/Retention Vascular Central Line Catheter: No A/P Diagnosis: (1) COPD exacerbation (2) Metabolic encephalopathy (3) Tobacco abuse (4) ETOH abuse (5) UTI (urinary tract infection) (6) Dysphagia (7) Respiratory failure Plan: resolved (8) Urinary retention (9) Anemia Assessment and Plan continue with oxygen Duonebs encephalopathy improved continue Lactulose and Rifaximin LFTs trending down Acute renal injury,secondary to urinary retention Renal US distended bladder Lama was discontinued yesterday, however continues with urinary retention, require reinsertion today Continue with Lama catheter Renal function back to normal UA + UTI, positive for Siria DC Rocephin Continue Diflucan Anemia, heme + stools appreciate GI input A status post colonoscopy and upper endoscopy 2/ Findings of external and internal hemorrhoids, diverticulosis, one polyp was snared, esophagitis, portal gastropathy. Recommends no NSAIDs, PPI, no nuts, no popcorn. Follow-up in 7-10 days for biopsy. continue with PPI low iron stores-*by mouth replacement S/P 1 unit PRBC 09/19 Hemoglobin continue to trend down, we'll repeat H&H now, may need PRBC if Hgb < 8 continue with PT/ST/OT CM dc planning, going to SNF has a bed available Overall improving, may need blood transfusion Hopefully discharge tomorrow D/W RN D/W Dr. Guaman D/W pt This patient was seen by myself and Dr. Guaman, this note is written on his behalf. Discussed With: Nurse, Family (patient), Other (Dr. Alvarado. Patient seen on his behalf) Problem Qualifiers (1) UTI (urinary tract infection): Qualified Code: N39.0 - Urinary tract infection without hematuria, site unspecified (2) Dysphagia: Qualified Code: R13.10 - Dysphagia, unspecified type (3) Respiratory failure: (4) Anemia: Licha Vyas Sep 25, 2016 14:59
[2016-09-25 20:22] LABS: REVIEW FLAG FINAL
[2016-09-25 20:25] LABS: HEMATOCRIT 20.9 % (35.0-46.0)
[2016-09-25] MEDS: FERROUS SULFATE 325 MG (65 MG ELEMENTAL IRON) TAB PO SCH (23:40)
[2016-09-25] MEDS: ACETAMINOPHEN 325 MG TAB PO PRN (23:44)
[2016-09-25] MEDS: RESP: ALBUTEROL 2.5 MG/IPRATROPIUM 0.5 MG NEB (SCH) NEB (23:57)
[2016-09-26] VITALS (19 sets, daily range): BP systolic 130–155; BP diastolic 70–81; PULSE 62–136; RESP 17–20; TEMP 97.1–99.8; O2SAT 92–99
[2016-09-26] MEDS: CHLORHEXIDINE GLUCONATE 2 % 1 PACK (2 CLOTHS) TOP SCH (03:59)
[2016-09-26] MEDS: FREE WATER G-TUBE SCH ×6 (04:00→20:00)
[2016-09-26] MEDS: RESP: ALBUTEROL 2.5 MG/IPRATROPIUM 0.5 MG NEB (SCH) NEB ×6 (04:49→23:32)
[2016-09-26] MEDS: INSULIN NovoLIN REGULAR SUPPLEMENTAL SCALE SQ SCH ×4 (06:00→18:00)
[2016-09-26] MEDS: cloNIDine HCL 0.3 MG TAB PO SCH ×4 (06:09→22:41)
[2016-09-26] MEDS: CHLORHEXIDINE 0.12% (ORAL KIT) 15 ML CUP OROPHARYNG SCH (08:00)
[2016-09-26] MEDS: LACTULOSE SYRUP 20 GM/30 ML CUP PO SCH ×3 (09:00→18:00)
[2016-09-26] MEDS: SODIUM CHLORIDE 0.9% FLUSH 5 ML FLUSH IV FLUSH SCH (09:59)
[2016-09-26] MEDS: BUDESONIDE-FORMOTEROL 160/4.5 MCG INHALER INH SCH (09:59)
[2016-09-26] MEDS: MULTIVITAMIN TAB PO SCH (10:00)
[2016-09-26] MEDS: POTASSIUM CL 40 MEQ/30 ML LIQ UDC NG SCH (10:00)
[2016-09-26] MEDS: LANSOPRAZOLE SOLUTAB 30 MG TAB NG SCH (10:00)
[2016-09-26] MEDS: FOLIC ACID 1 MG TAB PO SCH (10:00)
[2016-09-26] MEDS: RIFAXIMIN 550 MG TAB PO SCH ×2 (10:00→22:41)
[2016-09-26] MEDS: MODAFINIL 200 MG TAB PO SCH (10:00)
[2016-09-26] MEDS: THIAMINE HCL 100 MG TAB PO SCH (10:01)
[2016-09-26] MEDS: FERROUS SULFATE 325 MG (65 MG ELEMENTAL IRON) TAB PO SCH ×2 (10:01→22:42)
--- NOTE | 2016-09-26 11:13 | HHI.GIFU ---
Subjective Remarks Patient is resting in bed, denies any signs of bleeding. She reports lower abd pain and was inquiring about pain medications, however, no complaints upon physical examination. (Nilson Alvarez) Objective Vitals I&O Vital Signs Date Time Temp Pulse Resp B/P Pulse Ox O2 Delivery O2 Flow Rate FiO2 09/26/16 08:08 92 Nasal Cannula 2.00 09/26/16 08:00 98.0 62 18 151/74 96 09/26/16 04:50 95 Nasal Cannula 1.00 09/26/16 04:00 97.3 77 18 155/79 93 09/26/16 03:40 97.2 71 19 141/71 99 09/26/16 03:10 97.1 72 20 139/75 98 09/26/16 03:00 97.2 75 20 145/72 98 09/26/16 02:40 97.2 136 20 136/70 98 09/26/16 02:10 97.1 69 20 140/73 98 09/26/16 01:40 98.1 68 20 143/75 98 09/26/16 01:25 97.1 70 20 142/73 09/26/16 00:55 97.5 73 20 135/81 09/26/16 00:18 98.3 84 17 148/72 93 09/26/16 00:00 96 Nasal Cannula 1.00 09/25/16 22:18 96 Nasal Cannula 1.00 09/25/16 20:24 98.7 80 18 161/72 96 09/25/16 18:00 78 09/25/16 17:10 158/78 09/25/16 16:24 98.2 89 20 185/77 97 09/25/16 13:11 98.0 91 24 126/78 93 09/25/16 12:38 Nasal Cannula 2 09/25/16 12:08 80 16 137/82 98 09/25/16 12:03 80 16 135/72 98 09/25/16 11:58 98.4 74 16 141/71 98 09/25/16 11:10 98.8 75 18 186/84 96 I/O 09/25/16 09/25/16 09/25/16 09/26/16 09/26/16 09/26/16 07:00 15:00 23:00 07:00 15:00 23:00 Intake Total 680 ml Output Total 300 ml 200 ml 150 ml Balance -300 ml 480 ml -150 ml Intake Oral 480 ml IV Total 200 ml Output Urine Total 300 ml 200 ml 150 ml # Voids 1 1 # Bowel Movements 1 Laboratory Laboratory Tests Test 09/25/16 09/25/16 19:27 22:38 Hemoglobin 7.0 Hematocrit 20.9 Blood Type A POSITIVE Antibody Screen NEGATIVE Crossmatch Leukocyte-Reduced Red Blood Cells Blood Bank Comment Date/Time Procedure Status Source Growth 09/21/16 17:25 Urine Culture - Final Complete Urine Catheterized Urine Siria Albicans Imaging Last Impressions Renal Ultrasound 09/21/16 0000 Signed Impressions: Service Date/Time: September 14:52 - CONCLUSION: 1. Markedly distended urinary bladder. 2. Mild right hydronephrosis. Mild nonspecific prominence of the left renal pelvis without cielo hydronephrosis on the left. 3. Cholelithiasis and incompletely distended gallbladder. Calderon Marinelli MD Abdomen X-Ray 09/16/16 0000 Signed Impressions: Service Date/Time: Friday, September 16, 2016 03:16 - CONCLUSION: Feeding tube as described above with distal tip in the proximal stomach. Td Jones MD Chest X-Ray 09/10/16 0600 Signed Impressions: Service Date/Time: Saturday, September 10, 2016 03:59 - CONCLUSION: The lungs are clear. Lazarus Mo MD Head CT 09/08/16 0000 Signed Impressions: Service Date/Time: Thursday, September 08, 2016 22:26 - CONCLUSION: 1. No acute intracranial abnormalities. Air-fluid levels in the left maxillary sinus and ethmoid air cells characteristic of sinusitis. Berlin Carrillo MD Liver Ultrasound 09/03/16 0000 Signed Impressions: Service Date/Time: Saturday, September 03, 2016 16:11 - CONCLUSION: There is no hepatic biliary duct dilatation. Probable small gallstones or sludge. Normal common duct. Mundo López MD FACR Physical Exam HEENT: Normocephalic; atraumatic; no jaundice. CHEST: Respirations shallow/even, bases diminished CARDIAC: RRR. ABDOMEN: Soft, nondistended, nontender; no hepatosplenomegaly; bowel sounds are present in all four quadrants. SKIN w/d. 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 No obvious GI bleeding. S/P EGD/colonoscopy on ( 09/25/16)----> gastritis, portal gastropathy, colon polyps diverticulosis, internal hemorrhoids, Bx pending - Elevated LFTs. Liver Ultrasound (09/03/16)----> There is no hepatic biliary duct dilatation. Probable small gallstones or sludge. Normal common duct. HCV Ab (+). LFTs improving. LEODAN negative, ASMA negative, AMA negative, hcv viral load 2b, 437,000. Needs complete ETOH cessation. - Chronic hepatitis C, Genotype 2b, Viral load 437,000. Complete ETOH cessation , outpt fu - Dypshagia, ST recommends ,mechanical soft diet with nectar consistency thickened liquids - Encephalopathy. IMPROVING. Cont. Xifaxan, Lactulose - Respiratory Failure/COPD exacerbation, s/p extubation. Improving. Per primary -Hepatitis C type IIB PLAN: - TJ - Await bx - S/P EGD/colonoscopy, no source of bleeding, will order SBFT - CE as an OP - CBC in am - PPI - Cont. Lactulose - Cont. XIfaxan - Monitor HH - Transfuse as necessary - Outpt FU for HCV - Complete ETOH cessation - Patient seen and examined by dr. Quintanilla and myself and this note is written on his behalf. (Nilson Alvarez) Physician Comments Seen and examined with [facility], no clear source of bleeding found. SBFT ordered. Fu as outpt. after etoh cessation for hepc treatment (Silvia Quintanilla MD) Nilson Alvarez Sep 26, 2016 11:13 Silvia Quintanilla MD Sep 26, 2016 17:20
[2016-09-26] MEDS ORDERED: MAGNESIUM CITRATE SOLN 300 ML BTL PO ONE ×2 (12:00→18:00)
[2016-09-26] MEDS ORDERED: LACT10SO PO (12:26)
[2016-09-26] MEDS ORDERED: VITA100T2 PO (12:26)
[2016-09-26] MEDS ORDERED: PREV30TA3 PO (12:26)
[2016-09-26] MEDS ORDERED: FOLI1TAB4 PO (12:26)
--- NOTE | 2016-09-26 12:27 | HHI.DCPOC ---
Discharge Care Plan Diagnosis: (1) Dysphagia (2) Tobacco abuse (3) UTI (urinary tract infection) (4) ETOH abuse (5) Metabolic encephalopathy (6) COPD exacerbation (7) Respiratory failure (8) Urinary retention (9) Anemia Your Health Problems Are: Chest Pain Shortness of Breath Goals to Promote Your Health * To prevent worsening of your condition and complications * To maintain your health at the optimal level Directions to Meet Your Goals Take your medications as prescribed Follow your dietary instruction Follow activity as directed Keep your appointments as scheduled Take your immunizations and boosters as scheduled If your symptoms worsen call your PCP, if no PCP go to Urgent Care Center or Emergency Room Smoking is Dangerous to Your Health. Avoid second hand smoke Call the 24-hour hour crisis hotline for domestic abuse at Licha VyasP Sep 26, 2016 12:27
[2016-09-26 12:31] LABS: HEMATOCRIT 24.5 % (35.0-46.0)
[2016-09-26 12:34] LABS: REVIEW FLAG FINAL
--- NOTE | 2016-09-26 15:50 | HHI.PR ---
Subjective Remarks Awake, oriented 2 Voice is improving Blood-tinged urine noted, more alyssa in color No nausea vomiting No rectal bleeding No fever Mentation improved, more awake Objective Objective Results - Vital Signs Date Time Temp Pulse Resp B/P Pulse Ox O2 Delivery O2 Flow Rate FiO2 09/26/16 12:00 99.1 68 18 138/74 98 09/26/16 08:45 Nasal Cannula 1.50 09/26/16 08:08 92 Nasal Cannula 2.00 09/26/16 08:00 69 09/26/16 08:00 98.0 62 18 151/74 96 09/26/16 04:50 95 Nasal Cannula 1.00 09/26/16 04:00 97.3 77 18 155/79 93 09/26/16 03:40 97.2 71 19 141/71 99 09/26/16 03:10 97.1 72 20 139/75 98 09/26/16 03:00 97.2 75 20 145/72 98 09/26/16 02:40 97.2 136 20 136/70 98 09/26/16 02:10 97.1 69 20 140/73 98 09/26/16 01:40 98.1 68 20 143/75 98 09/26/16 01:25 97.1 70 20 142/73 09/26/16 00:55 97.5 73 20 135/81 09/26/16 00:18 98.3 84 17 148/72 93 09/26/16 00:00 96 Nasal Cannula 1.00 09/25/16 22:18 96 Nasal Cannula 1.00 09/25/16 20:24 98.7 80 18 161/72 96 09/25/16 18:00 78 09/25/16 17:10 158/78 09/25/16 16:24 98.2 89 20 185/77 97 I/O 09/25/16 09/25/16 09/25/16 09/26/16 09/26/16 09/26/16 07:00 15:00 23:00 07:00 15:00 23:00 Intake Total 680 ml Output Total 300 ml 200 ml 150 ml Balance -300 ml 480 ml -150 ml Intake Oral 480 ml IV Total 200 ml Output Urine Total 300 ml 200 ml 150 ml # Voids 1 1 # Bowel Movements 1 Result Diagram: 09/26/16 1213 09/24/16 6738 Other Results Laboratory Tests Test 09/25/16 09/25/16 09/26/16 19:27 22:38 12:13 Hemoglobin 7.0 8.3 Hematocrit 20.9 24.5 Blood Type A POSITIVE Antibody Screen NEGATIVE Crossmatch Leukocyte-Reduced Red Blood Cells Blood Bank Comment Date/Time Procedure Status Source Growth 09/21/16 17:25 Urine Culture - Final Complete Urine Catheterized Urine Siria Albicans ROS General: Other (12 point review of systems, difficult to complete) Physical Exam Physical Exam GENERAL: This is a thin well-developed. Malnourished. Appears more awake stated age SKIN: Warm and dry. No rash or petechiae. HEENT: Normocephalic, atraumatic. Pupils equal, round, reactive to light and accommodation at 2. No scleral icterus. No drainage. Mucous membranes were pale pink and moist. NECK: Supple. CARDIOVASCULAR: S1, S2, No murmurs, rubs or gallops appreciated. RESPIRATORY: Diminished, exp. wheeze GASTROINTESTINAL: Abdomen is flat, soft and nontender, nondistended. -lama with alyssa urine. Labia with swelling improved MUSCULOSKELETAL: No joint abnormalities, pedal pulses 2+, no pedal edema NEUROLOGIC: Awake, oriented 2, voice is stronger, following commands, no focal deficits. Encephalopathy improving. Urinary Catheter: Yes Assessment to: Continue Lama insert reason: Obstruction/Retention Vascular Central Line Catheter: No A/P Diagnosis: (1) COPD exacerbation (2) Metabolic encephalopathy (3) Tobacco abuse (4) ETOH abuse (5) UTI (urinary tract infection) (6) Dysphagia (7) Respiratory failure Plan: resolved (8) Urinary retention (9) Anemia Assessment and Plan continue with oxygen Duonebs encephalopathy improved continue Lactulose and Rifaximin Acute renal injury,secondary to urinary retention Renal US ordered, bladder distended Continues with urinary retention, has require Lama re-insertion 2, will continue for now Renal function back to normal Noted with some blood-tinged urine, possibly secondary to trauma. Continue to monitor UA + UTI, positive for Siria Continue Diflucan Anemia, heme + stools appreciate GI input status post colonoscopy and upper endoscopy 09/25 Findings of external and internal hemorrhoids, diverticulosis, one polyp was snared, esophagitis, portal gastropathy. Recommends no NSAIDs, PPI, no nuts, no popcorn. Follow-up in 7-10 days for biopsy. continue with PPI low iron stores-PO iron started S/P 1 unit PRBC 09/19 HH low 09/25 03/08-S/P PRBC x 1 Stat HH ordered. No actual source of bleeding found though GI evaluation, SBFT ordered. continue with PT/ST/OT CM dc planning, going to SNF has a bed available Follow up on H&H results Follow-up on small bowel follow-through results Hopefully discharge tomorrow if okay with GI Labs in am D/W RN D/W Dr. Guaman D/W pt This patient was seen by myself and Dr. Guaman, this note is written on his behalf. Discussed With: Nurse, Family (patient), Other (Dr. Alvarado. Patient seen on his behalf) Problem Qualifiers (1) UTI (urinary tract infection): Qualified Code: N39.0 - Urinary tract infection without hematuria, site unspecified (2) Dysphagia: Qualified Code: R13.10 - Dysphagia, unspecified type (3) Respiratory failure: (4) Anemia: Licha Vyas Sep 26, 2016 15:50
[2016-09-26] MEDS: BISACODYL EC 5 MG TABEC PO SCH ×2 (18:00→22:42)
[2016-09-26] MEDS ORDERED: ACETAMINOPHEN/HYDROcodone 325 MG/5 MG TAB PO PRN (18:15)
[2016-09-26] MEDS: ACETAMINOPHEN/HYDROcodone 325 MG/5 MG TAB PO PRN ×2 (18:39→22:43)
[2016-09-27] VITALS (8 sets, daily range): BP systolic 144–185; BP diastolic 71–81; PULSE 72–86; RESP 16–22; TEMP 97–99.8; O2SAT 93–96
[2016-09-27] MEDS: SODIUM CHLORIDE 0.9% FLUSH 5 ML FLUSH IV FLUSH SCH ×3 (01:15→23:15)
[2016-09-27] MEDS: BUDESONIDE-FORMOTEROL 160/4.5 MCG INHALER INH SCH ×3 (01:17→23:15)
[2016-09-27] MEDS: FREE WATER G-TUBE SCH ×6 (04:00→20:00)
[2016-09-27] MEDS: CHLORHEXIDINE GLUCONATE 2 % 1 PACK (2 CLOTHS) TOP SCH (04:00)
[2016-09-27] MEDS: RESP: ALBUTEROL 2.5 MG/IPRATROPIUM 0.5 MG NEB (SCH) NEB ×5 (04:23→20:47)
[2016-09-27] MEDS: cloNIDine HCL 0.3 MG TAB PO SCH ×3 (05:59→23:14)
[2016-09-27] MEDS: INSULIN NovoLIN REGULAR SUPPLEMENTAL SCALE SQ SCH ×5 (06:00→23:21)
[2016-09-27] MEDS: CHLORHEXIDINE 0.12% (ORAL KIT) 15 ML CUP OROPHARYNG SCH ×2 (08:00→20:00)
[2016-09-27] MEDS: THIAMINE HCL 100 MG TAB PO SCH (09:00)
[2016-09-27] MEDS: MODAFINIL 200 MG TAB PO SCH (09:00)
[2016-09-27] MEDS: LANSOPRAZOLE SOLUTAB 30 MG TAB NG SCH (09:00)
[2016-09-27] MEDS: MULTIVITAMIN TAB PO SCH (09:00)
[2016-09-27] MEDS: POTASSIUM CL 40 MEQ/30 ML LIQ UDC NG SCH (09:00)
[2016-09-27] MEDS: LACTULOSE SYRUP 20 GM/30 ML CUP PO SCH ×3 (09:00→17:50)
[2016-09-27] MEDS: FERROUS SULFATE 325 MG (65 MG ELEMENTAL IRON) TAB PO SCH ×2 (09:00→23:15)
[2016-09-27] MEDS: RIFAXIMIN 550 MG TAB PO SCH ×2 (09:00→23:14)
[2016-09-27] MEDS: FOLIC ACID 1 MG TAB PO SCH (09:00)
--- NOTE | 2016-09-27 12:08 | RADRPT ---
EXAM DATE/TIME: 09/27/2016 09:01 [place] COMPARISON: No previous studies available for comparison. INDICATIONS : Anemia, lower abdominal pain. FLUORO TIME: 0.7 minutes IMAGE COUNT: 13 CONTRAST: Entero Vu 24% Barium Sulfate (24% w/v, 20% w/w) IMAGING TIME(S): 15 min, 30 min, 45 min, 1 hr, 1.5 hrs MEDICAL HISTORY : None. SURGICAL HISTORY : Hysterectomy. ENCOUNTER: Subsequent ACUITY: 3 weeks PAIN SCORE: 10/10 LOCATION: Bilateral lower quadrant abdomen FINDINGS: Preliminary film is unremarkable. The stomach is grossly unremarkable. Examination of the small bowel demonstrates normal mucosal pattern involving the jejunum and ileum. There is no evidence of mass or obstruction. No intraluminal filling defects are identified. Small bowel transit time is normal at 60 minutes. Fluoroscopy of the abdomen and terminal ileum demonstrat es no abnormality. CONCLUSION: Unremarkable small bowel examination. Mundo López MD FACR on September 27, 2016 at 12:06 Board Certified Radiologist. This report was verified electronically.
[2016-09-27 12:35] LABS: AUTOMATED NEUTROPHIL # 7.8 TH/MM3 (1.8-7.7); BASOPHIL % 0.2 % (0.0-2.0); EOSINOPHIL % 0.4 % (0.0-4.0); HEMATOCRIT 24.5 % (35.0-46.0); HEMO FLAGS DIFF FINAL; LYMPHOCYTE # 0.9 TH/MM3 (1.0-4.8); MEAN CELL VOLUME 96.7 FL (80.0-100.0); MEAN CORPUSCULAR HEMOGLOBIN 32.8 PG (27.0-34.0); MEAN CORPUSCULAR HGB CONC 33.9 % (32.0-36.0); NEUT % 83.4 % (16.0-70.0); PLATELET COUNT 281 TH/MM3 (150-450); RED BLOOD COUNT 2.53 MIL/MM3 (4.00-5.30); RED CELL DISTRIBUTION WIDTH 17.1 % (11.6-17.2); WHITE BLOOD COUNT 9.4 TH/MM3 (4.0-11.0)
--- NOTE | 2016-09-27 13:08 | HHI.PR ---
Subjective Subjective Remarks No chest pain Shortness of breath at rest No headache Generalized weakness but improving Voice course but becoming clearer Review of Systems Constitutional Constitutional: Weakness (generalized) Constitutional Remarks 10 point ROS done. Positives noted exertional dyspnea, generalized weakness, mild hoarseness any other positives noted. Other systems negative or unremarkable Throat Throat: Hoarse (improving) Pulmonary Respiratory: Shortness of Breath (exertional) GI/Abdomen GI/Abdominal Exam: Nausea (occasional) Musculoskeletal MS: Weakness Psychiatric Psychiatric: Normal Mood, Anxiety Vitals/Results Intake & Output 09/26/16 09/26/16 09/27/16 15:00 23:00 07:00 Intake Total 240 ml Output Total 400 ml 250 ml Balance -160 ml -250 ml Intake Oral 240 ml Output Urine Total 400 ml 250 ml # Bowel Movements 2 Vital Signs Vital Signs Date Time Temp Pulse Resp B/P Pulse Ox O2 Delivery O2 Flow Rate FiO2 09/27/16 08:25 94 Nasal Cannula 2.00 09/27/16 08:09 98.6 76 20 147/80 95 09/27/16 04:00 97.0 81 18 154/71 95 09/27/16 00:15 99.1 77 16 146/71 95 09/26/16 21:15 95 Nasal Cannula 2.00 09/26/16 20:00 98.8 75 18 135/71 97 09/26/16 18:00 82 09/26/16 16:02 99.8 71 18 130/72 97 CBC/BMP: 09/27/16 1202 09/24/16 1458 Lab Results Laboratory Tests Test 09/27/16 12:02 White Blood Count 9.4 TH/MM3 Red Blood Count 2.53 MIL/MM3 Hemoglobin 8.3 GM/DL Hematocrit 24.5 % Mean Corpuscular Volume 96.7 FL Mean Corpuscular Hemoglobin 32.8 PG Mean Corpuscular Hemoglobin 33.9 % Concent Red Cell Distribution Width 17.1 % Platelet Count 281 TH/MM3 Mean Platelet Volume 8.7 FL Neutrophils (%) (Auto) 83.4 % Lymphocytes (%) (Auto) 10.0 % Monocytes (%) (Auto) 6.0 % Eosinophils (%) (Auto) 0.4 % Basophils (%) (Auto) 0.2 % Neutrophils # (Auto) 7.8 TH/MM3 Lymphocytes # (Auto) 0.9 TH/MM3 Monocytes # (Auto) 0.6 TH/MM3 Eosinophils # (Auto) 0.0 TH/MM3 Basophils # (Auto) 0.0 TH/MM3 CBC Comment DIFF FINAL Differential Comment Imaging Remarks Last Impressions Small Bowel X-Ray 09/27/16 0000 Signed Impressions: Service Date/Time: Tuesday, September 27, 2016 09:01 - CONCLUSION: Unremarkable small bowel examination. Mundo López MD FACR Renal Ultrasound 09/21/16 0000 Signed Impressions: Service Date/Time: September 14:52 - CONCLUSION: 1. Markedly distended urinary bladder. 2. Mild right hydronephrosis. Mild nonspecific prominence of the left renal pelvis without cielo hydronephrosis on the left. 3. Cholelithiasis and incompletely distended gallbladder. Calderon Marinelli MD Abdomen X-Ray 09/16/16 0000 Signed Impressions: Service Date/Time: Friday, September 16, 2016 03:16 - CONCLUSION: Feeding tube as described above with distal tip in the proximal stomach. Td Jones MD Chest X-Ray 09/10/16 0600 Signed Impressions: Service Date/Time: Saturday, September 10, 2016 03:59 - CONCLUSION: The lungs are clear. Lazarus Mo MD Head CT 09/08/16 0000 Signed Impressions: Service Date/Time: Thursday, September 08, 2016 22:26 - CONCLUSION: 1. No acute intracranial abnormalities. Air-fluid levels in the left maxillary sinus and ethmoid air cells characteristic of sinusitis. Berlin Carrillo MD Liver Ultrasound 09/03/16 0000 Signed Impressions: Service Date/Time: Saturday, September 03, 2016 16:11 - CONCLUSION: There is no hepatic biliary duct dilatation. Probable small gallstones or sludge. Normal common duct. Mundo López MD FACR Current Medications Active Medications Acetaminophen/ Hydrocodone Bitart ([place] 5-325 Mg) 1 tab Q4H PRN PO Last administered on 09/26/16t 22:43; Admin Dose 1 TAB; Start 09/26/16 at 18:30 Acetaminophen/ Hydrocodone Bitart ([place] 5-325 Mg) 5 tab Q4H PRN PO; Start 09/26/16 at 18:15; Status Cancel Bisacodyl (Dulcolax Ec) 10 mg DAILY@18,21 PO Last administered on 09/26/16 22:42 ; Admin Dose 10 MG; Start 09/26/16 at 18:00; Stop 09/26/16 at 21:01; Status DC Magnesium Citrate (Citroma Liq) 300 ml ONCE ONCE PO Last administered on 18:00; Admin Dose 300 ML; Start 09/26/16 at 18:00; Stop 09/26/16 at 18:01; Status DC Physical Exam General General Appearance: No Acute Distress, Comfortable, Pale Eyes Eye Exam: Pupils Equal, Pupils Reactive Ears & Nose Ears & Nose Exam: Nasal Mucosa Boring Ears & Nose Remarks Pale pink Neck Neck Exam: Neck Supple, Trachea Midline Pulmonary Resp Exam: Breath Sounds Equal, Decreased Bases, Diminished Breath Sounds, Poor Inspiratory Effort Cardiology CV Exam: Regular CV Remarks Sinus rhythm heart rate 78 Gastrointestinal/Abdomen GI Exam: Soft, Non-Tender, Bowel Sounds Present Genitourinary Remarks Lopez catheter , dark clear Integumentary Skin Exam: Warm, Dry, Normal Turgor Skin Remarks Raj Extremeties Extremities Exam: No Edema Neurologic Neuro Exam: Alert, Awake, Oriented, Moving All Extremities Psychiatric Psych Exam: Appropriate Responses Tubes & Lines Tubes & Lines Lopez, to be clamped and DC'd today Assessment/Plan Assessment/Plan A/P Diagnosis: (1) COPD exacerbation, stabilizing (2) Metabolic encephalopathy, resolved (3) Tobacco abuse, history (4) ETOH abuse, history (5) UTI (urinary tract infection) (6) Dysphagia, improving (7) Respiratory failure, resolved Plan: resolved (8) Urinary retention, Lopez clamp and DC'd today for trial. (9) Anemia, stable Assessment and Plan continue with oxygen Duonebs encephalopathy resolved Acute renal injury,secondary to urinary retention Planning discharge tomorrow, will attend clamp in remove Lopez. UA + UTI, positive for Siria Continue Diflucan Anemia, heme + stools appreciate GI input status post colonoscopy and upper endoscopy 09/25, had small bowel series today 2 - , shows unremarkable exam Findings of external and internal hemorrhoids, diverticulosis, one polyp was snared, esophagitis, portal gastropathy. Recommends no NSAIDs, PPI, no nuts, no popcorn. Follow-up in 7-10 days for possible biopsy. continue with PPI low iron stores-PO iron started continue with PT/ST/OT CM dc planning, going to SNF has a bed available. Planning on tomorrow D/W RN D/W Dr. Guaman D/W pt This patient was seen by myself and Dr. Guaman, this note is written on his behalf. Morena Mckeon Sep 27, 2016 13:08
--- NOTE | 2016-09-27 13:11 | HHI.GIFU ---
Subjective Remarks Patient is sitting up in bed eating lunch, accompanied by visitors, doing much better today, denies nausea, vomiting, abd pain, melena or hematochezia (Nilson Alvarez) Objective Vitals I&O Vital Signs Date Time Temp Pulse Resp B/P Pulse Ox O2 Delivery O2 Flow Rate FiO2 09/27/16 08:25 94 Nasal Cannula 2.00 09/27/16 08:09 98.6 76 20 147/80 95 09/27/16 04:00 97.0 81 18 154/71 95 09/27/16 00:15 99.1 77 16 146/71 95 09/26/16 21:15 95 Nasal Cannula 2.00 09/26/16 20:00 98.8 75 18 135/71 97 09/26/16 18:00 82 09/26/16 16:02 99.8 71 18 130/72 97 I/O 09/26/16 09/26/16 09/26/16 09/27/16 09/27/16 09/27/16 07:00 15:00 23:00 07:00 15:00 23:00 Intake Total 240 ml Output Total 150 ml 400 ml 250 ml Balance -150 ml -160 ml -250 ml Intake Oral 240 ml Output Urine Total 150 ml 400 ml 250 ml # Voids 1 # Bowel Movements 1 2 Laboratory Laboratory Tests Test 09/27/16 12:02 White Blood Count 9.4 Red Blood Count 2.53 Hemoglobin 8.3 Hematocrit 24.5 Mean Corpuscular Volume 96.7 Mean Corpuscular Hemoglobin 32.8 Mean Corpuscular Hemoglobin 33.9 Concent Red Cell Distribution Width 17.1 Platelet Count 281 Mean Platelet Volume 8.7 Neutrophils (%) (Auto) 83.4 Lymphocytes (%) (Auto) 10.0 Monocytes (%) (Auto) 6.0 Eosinophils (%) (Auto) 0.4 Basophils (%) (Auto) 0.2 Neutrophils # (Auto) 7.8 Lymphocytes # (Auto) 0.9 Monocytes # (Auto) 0.6 Eosinophils # (Auto) 0.0 Basophils # (Auto) 0.0 CBC Comment DIFF FINAL Differential Comment Imaging Last Impressions Small Bowel X-Ray 09/27/16 0000 Signed Impressions: Service Date/Time: Tuesday, September 27, 2016 09:01 - CONCLUSION: Unremarkable small bowel examination. Mundo López MD FACR Renal Ultrasound 09/21/16 0000 Signed Impressions: Service Date/Time: September 14:52 - CONCLUSION: 1. Markedly distended urinary bladder. 2. Mild right hydronephrosis. Mild nonspecific prominence of the left renal pelvis without cielo hydronephrosis on the left. 3. Cholelithiasis and incompletely distended gallbladder. Calderon Marinelli MD Abdomen X-Ray 09/16/16 0000 Signed Impressions: Service Date/Time: Friday, September 16, 2016 03:16 - CONCLUSION: Feeding tube as described above with distal tip in the proximal stomach. Td Jones MD Chest X-Ray 09/10/16 0600 Signed Impressions: Service Date/Time: Saturday, September 10, 2016 03:59 - CONCLUSION: The lungs are clear. Lazarus Mo MD Head CT 09/08/16 0000 Signed Impressions: Service Date/Time: Thursday, September 08, 2016 22:26 - CONCLUSION: 1. No acute intracranial abnormalities. Air-fluid levels in the left maxillary sinus and ethmoid air cells characteristic of sinusitis. Berlin Carrillo MD Liver Ultrasound 09/03/16 0000 Signed Impressions: Service Date/Time: Saturday, September 03, 2016 16:11 - CONCLUSION: There is no hepatic biliary duct dilatation. Probable small gallstones or sludge. Normal common duct. Mundo López MD FACR Physical Exam HEENT: Normocephalic; atraumatic; no jaundice. CHEST: Respirations shallow/even, bases diminished CARDIAC: RRR. ABDOMEN: Soft, nondistended, nontender; no hepatosplenomegaly; bowel sounds are present in all four quadrants. SKIN w/d. DRILL RIG OPERATOR: Alert, and oriented (Amawi,Khawla LAPPING MACHINE SET UP OPERATOR) Assessment and Plan Plan ASSESSMENT: - Anemia, Hemoccult (+) Stool. No obvious GI bleeding. SBFT (09/27/16) unremarkable S/P EGD/colonoscopy on (09/25/16)----> gastritis, portal gastropathy, colon polyps diverticulosis, internal hemorrhoids, Bx showed tubulovillous adenoma with numerous hemosiderin laden macrophages within submucosa, suggestive of previous hemorrhage. - Elevated LFTs. Liver Ultrasound (09/03/16)----> There is no hepatic biliary duct dilatation. Probable small gallstones or sludge. Normal common duct. HCV Ab (+). LFTs improving. LEODAN negative, ASMA negative, AMA negative, hcv viral load 2b, 437,000. Needs complete ETOH cessation. - Chronic hepatitis C, Genotype 2b, Viral load 437,000. Complete ETOH cessation , outpt fu - Dypshagia, ST recommends ,mechanical soft diet with nectar consistency thickened liquids - Encephalopathy. IMPROVING. Cont. Xifaxan, Lactulose - Respiratory Failure/COPD exacerbation, s/p extubation. Improving. Per primary - Hepatitis C type IIB PLAN: - TJ - S/P EGD/colonoscopy, SBFT, no source of bleeding, will need CE as an OP - CE as an OP - PPI - Monitor labs - F/u with GI in 2 weeks - Outpt FU for HCV - Complete ETOH cessation - Gi will sign off - Patient seen and examined by dr. Quintanilla and myself and this note is written on his behalf. (Nilson Alvarez) Physician Comments Seen and examined with ms. Antonio AVENDAÑO, doing well with no bleeding. Tubulovillous adenoma on colonoscopy. Short term fu recommended to the pt. GI fu upon dc in 02 weeks. Thank you (Silvia Quintanilla MD) Nilson Alvarez Sep 27, 2016 13:11 Silvia Quintanilla MD Sep 27, 2016 13:51
[2016-09-27] MEDS: MORPHINE SULFATE 4 MG/ML INJ IV PRN (13:58)
[2016-09-27 14:01] LABS: BICARBONATE 26.7 MEQ/L (21.0-32.0); POTASSIUM 4.1 MEQ/L (3.5-5.1)
[2016-09-27] MEDS: ACETAMINOPHEN/HYDROcodone 325 MG/5 MG TAB PO PRN (23:14)
[2016-09-28] VITALS (12 sets, daily range): BP systolic 90–177; BP diastolic 52–82; PULSE 73–95; RESP 18–22; TEMP 98.8–101.9; O2SAT 92–95
[2016-09-28] MEDS: FREE WATER G-TUBE SCH ×6 (04:00→20:00)
[2016-09-28] MEDS: CHLORHEXIDINE GLUCONATE 2 % 1 PACK (2 CLOTHS) TOP SCH (04:00)
[2016-09-28] MEDS: RESP: ALBUTEROL 2.5 MG/IPRATROPIUM 0.5 MG NEB (SCH) NEB ×4 (04:52→15:08)
[2016-09-28] MEDS: cloNIDine HCL 0.3 MG TAB PO SCH ×3 (06:00→22:25)
[2016-09-28] MEDS: INSULIN NovoLIN REGULAR SUPPLEMENTAL SCALE SQ SCH ×3 (06:00→17:07)
[2016-09-28] MEDS: CHLORHEXIDINE 0.12% (ORAL KIT) 15 ML CUP OROPHARYNG SCH ×2 (08:00→20:00)
[2016-09-28] MEDS: LACTULOSE SYRUP 20 GM/30 ML CUP PO SCH ×3 (09:00→17:06)
[2016-09-28] MEDS: LANSOPRAZOLE SOLUTAB 30 MG TAB NG SCH (09:00)
[2016-09-28] MEDS: POTASSIUM CL 40 MEQ/30 ML LIQ UDC NG SCH (09:00)
[2016-09-28] MEDS: MODAFINIL 200 MG TAB PO SCH (09:00)
[2016-09-28] MEDS: SODIUM CHLORIDE 0.9% FLUSH 5 ML FLUSH IV FLUSH SCH ×2 (09:00→22:27)
[2016-09-28] MEDS: FERROUS SULFATE 325 MG (65 MG ELEMENTAL IRON) TAB PO SCH ×2 (09:37→22:25)
[2016-09-28] MEDS: FOLIC ACID 1 MG TAB PO SCH (09:39)
[2016-09-28] MEDS: THIAMINE HCL 100 MG TAB PO SCH (09:41)
[2016-09-28] MEDS: MULTIVITAMIN TAB PO SCH (09:41)
[2016-09-28] MEDS: BUDESONIDE-FORMOTEROL 160/4.5 MCG INHALER INH SCH ×2 (09:42→22:25)
[2016-09-28] MEDS: RIFAXIMIN 550 MG TAB PO SCH ×2 (09:43→22:25)
[2016-09-28] MEDS: ACETAMINOPHEN/HYDROcodone 325 MG/5 MG TAB PO PRN (09:46)
--- NOTE | 2016-09-28 13:00 | HHI.PR ---
Subjective Subjective Remarks No chest pain Shortness of breath at rest No headache Generalized weakness but improving Voice course but becoming clearer Fever today unknown origin (Morena Mckeon) Review of Systems Constitutional Constitutional: Fever, Chills, Weakness (generalized) Constitutional Remarks 10 point ROS done. Positives noted exertional dyspnea, generalized weakness, fever, mild hoarseness any other positives noted. Other systems negative or unremarkable (Morena Mckeon) Throat Throat: Hoarse (improving) (Morena Mckeon) Pulmonary Respiratory: Shortness of Breath (exertional) (Morena Mckeon) GI/Abdomen GI/Abdominal Exam: Nausea (occasional) (Morena Mckeon) Musculoskeletal MS: Weakness (Morena Mckeon) Psychiatric Psychiatric: Normal Mood, Anxiety (Morena Mckeon) Vitals/Results Intake & Output 09/27/16 09/27/16 09/28/16 15:00 23:00 07:00 # Bowel Movements 4 3 Vital Signs Vital Signs Date Time Temp Pulse Resp B/P Pulse Ox O2 Delivery O2 Flow Rate FiO2 09/28/16 12:01 99.1 73 18 90/52 92 09/28/16 11:30 90/52 09/28/16 08:00 100.2 82 18 101/57 93 09/28/16 07:30 93 Nasal Cannula 2.00 09/28/16 04:57 100.4 82 19 121/58 94 09/28/16 04:52 92 Nasal Cannula 2.00 09/28/16 04:52 92 Nasal Cannula 2.00 09/28/16 00:37 101.9 95 22 177/82 95 09/28/16 00:19 95 Nasal Cannula 2.00 09/27/16 23:30 Nasal Cannula 2.00 09/27/16 20:46 99.8 86 22 185/81 93 09/27/16 17:07 98.9 72 16 144/73 96 09/27/16 16:45 96 Nasal Cannula 2.00 09/27/16 14:03 18 09/27/16 14:00 Nasal Cannula 2.00 09/27/16 13:00 98.6 76 20 168/78 96 (Morena Mckeon) CBC/BMP: 09/27/16 1202 09/27/16 1202 Physical Exam General General Appearance: No Acute Distress, Comfortable, Pale (Morena Mckeon ) Eyes Eye Exam: Pupils Equal, Pupils Reactive (Morena Mckeon) Ears & Nose Ears & Nose Exam: Nasal Mucosa [place] Ears & Nose Remarks Pale pink (Morena Mckeon) Neck Neck Exam: Neck Supple, Trachea Midline (Morena Mckeon) Pulmonary Resp Exam: Breath Sounds Equal, Decreased Bases, Diminished Breath Sounds, Poor Inspiratory Effort (low respiratory effort.) (Morena Mckeon) Cardiology CV Exam: Regular CV Remarks Sinus rhythm heart rate 78 (Morena MckeonP) Gastrointestinal/Abdomen GI Exam: Soft, Non-Tender, Bowel Sounds Present (Morena Mckeon) Genitourinary Remarks Lopez catheter , dark alyssa clear second Lopez catheter patient has been unable to void, (Morena MckeonP) Musculoskeletal MS Exam: Joints Intact, Normal Tone MS Remarks Some muscular wasting (Morena Mckeon) Integumentary Skin Exam: Warm, Dry, Normal Turgor Skin Remarks Raj (Morena Mckeon) Extremeties Extremities Exam: No Edema (Morena Mckeon) Neurologic Neuro Exam: Alert, Awake, Oriented, Moving All Extremities (Morena Mckeon) Psychiatric Psych Exam: Appropriate Responses (Morena Mckeon) Tubes & Lines Tubes & Lines Lopez, to be clamped and DC'd today (Morena Mckeon) Assessment/Plan Assessment/Plan A/P Diagnosis: (1) COPD exacerbation, stabilizing (2) Metabolic encephalopathy, resolved (3) Tobacco abuse, history (4) ETOH abuse, history (5) UTI (urinary tract infection) (6) Dysphagia, improving (7) Respiratory failure, resolved 8. Febrile, unknown origin, new 2-9 Plan: resolved (8) Urinary retention, Lopez reinserted, and able to void (9) Anemia, stable Assessment and Plan continue with oxygen Duonebs encephalopathy resolved Acute renal injury,secondary to urinary retention UA + UTI, positive for Siria Continue Diflucan by mouth Lopez catheter draining alyssa colored urine. Lopez has been DC 2, but reinserted. We'll get urology consult for evaluation UA with possible culture and sensitivity, if positive Anemia, heme + stools appreciate GI input status post colonoscopy and upper endoscopy 09/25, had small bowel series today - , shows unremarkable exam Findings of external and internal hemorrhoids, diverticulosis, one polyp was snared, esophagitis, portal gastropathy. Recommends no NSAIDs, PPI, no nuts, no popcorn. Follow-up in 7-10 days for possible biopsy. continue with PPI low iron stores-PO iron started continue with PT/ST/OT New fever unknown origin, discharge on hold. Labs CBC, BMP, UA, chest x-ray done 2 eval any abnormals or source of infection D/W RN D/W Dr. Guaman D/W pt This patient was seen by myself and Dr. Guaman, this note is written on his behalf. (Morena Mckeon) Assessment/Plan Patient seen and examined as above [id number] time spent with the patient Labs reviewed Medications reviewed Notes reviewed Plan of care discussed with FIELD GAUGER Patient has fever. Will do some workup Discussed with RN. Patient had low blood pressure was sitting transfer to bed. Blood pressure is borderline low with a start IV fluid and monitor. Plan for labs for tomorrow. Discussed with patient. See orders (Helio Guaman MD) Morena Mckeon Sep 28, 2016 13:00 Helio Guaman MD Sep 28, 2016 15:50
--- NOTE | 2016-09-28 13:22 | RADRPT ---
EXAM DATE/TIME: 09/28/2016 13:00 [facility] COMPARISON: CHEST SINGLE AP, September 10, 2016, 3:59. INDICATIONS : Short of breath. MEDICAL HISTORY : Chronic obstructive pulmonary disease. Emphysema. smoker SURGICAL HISTORY : None. ENCOUNTER: Subsequent ACUITY: 3 weeks PAIN SCORE: 0/10 LOCATION: Bilateral chest FINDINGS: PA and lateral views of the chest were obtained and demonstrated a new moderate-sized right pleural e ffusion and no smaller left pleural effusion. The heart size remains within normal limits. There is p atchy opacity at the lung bases. Atherosclerotic calcifications are present in the aorta. The bony th orax remains intact. CONCLUSION: 1. New bilateral pleural effusions right greater than left. 2. Mild patchy opacity at the lung bases. Alex Wilde MD on September 28, 2016 at 13:19 Board Certified Radiologist. This report was verified electronically.
[2016-09-28] MEDS: FLUCONAZOLE 200 MG TAB PO SCH (13:43)
--- NOTE | 2016-09-28 14:09 | PD.CONS ---
[facility] Service Urology Consult Requested By Reason for Consult AUR Primary Care Physician Liang Perdue DO Diagnosis: History of Present Illness 60-year-old female admitted with a COPD the exacerbation with problems with voiding during the admission. She's had a Lopez catheter replaced 2-3 times during this admission. Prior to admission she admits to nocturia 4-5 times with incomplete bladder emptying and occasional urinary tract infections. She also notes occasional constipation. She has been somewhat bedbound during this admission and states that she hasn't been ambulating much over the course of the admission. However, she does admit to receiving physical therapy. She does take chronic narcotics due to herniated disc in her low back and have some numbness down the right side of her leg that she notes. Review of Systems Constitutional: COMPLAINS OF: Fatigue, DENIES: Weight gain Eyes: DENIES: Blurred vision Ears, nose, mouth, throat: DENIES: Hearing loss Respiratory: COMPLAINS OF: Wheezing, Shortness of breath Cardiovascular: COMPLAINS OF: Dyspnea on Exertion, DENIES: Chest pain Genitourinary: COMPLAINS OF: Urinary frequency, Nocturia Musculoskeletal: COMPLAINS OF: Joint pain, Back pain Integumentary: DENIES: Rash Hematologic/lymphatic: DENIES: Bruising Immunologic/allergic: DENIES: Eczema Neurologic: COMPLAINS OF: Abnormal gait Psychiatric: COMPLAINS OF: Anxiety Past Family Social History Past Medical History COPD Hypertension Herniated disc Anxiety Fractures of L1 and 2 and 3 Past Surgical History Total abdominal hysterectomy Allergies: Coded Allergies: Aspirin (Verified Adverse Reaction, Severe, "don't take aspirin i have tinnitus, 09/02/16) Physical Exam Vital Signs Vital Signs Date Time Temp Pulse Resp B/P Pulse Ox O2 Delivery O2 Flow Rate FiO2 09/28/16 12:01 99.1 73 18 90/52 92 09/28/16 11:30 90/52 09/28/16 08:00 100.2 82 18 101/57 93 09/28/16 07:30 93 Nasal Cannula 2.00 09/28/16 04:57 100.4 82 19 121/58 94 09/28/16 04:52 92 Nasal Cannula 2.00 09/28/16 04:52 92 Nasal Cannula 2.00 09/28/16 00:37 101.9 95 22 177/82 95 09/28/16 00:19 95 Nasal Cannula 2.00 09/27/16 23:30 Nasal Cannula 2.00 09/27/16 20:46 99.8 86 22 185/81 93 09/27/16 17:07 98.9 72 16 144/73 96 09/27/16 16:45 96 Nasal Cannula 2.00 09/27/16 14:03 18 Physical Exam GENERAL: This is a well-nourished, well-developed patient, in no apparent distress. SKIN: No rashes, ecchymoses or lesions. Cool and dry. HEAD: Atraumatic. Normocephalic. No temporal or scalp tenderness. EYES: Pupils equal round and reactive. Extraocular motions intact. No scleral icterus. No injection or drainage. ENT: Nose without bleeding, purulent drainage or septal hematoma. Throat without erythema, tonsillar hypertrophy or exudate. Uvula midline. Airway patent. NECK: Trachea midline. No JVD or lymphadenopathy. Supple, nontender, no meningeal signs. CARDIOVASCULAR: Regular rate and rhythm without murmurs, gallops, or rubs. RESPIRATORY: Diminished breath sounds bilaterally GASTROINTESTINAL: Abdomen soft, non-tender, nondistended. No hepato-splenomegaly , or palpable masses. No guarding. Bladder not distended. : Normal external genitalia. Lopez in place MUSCULOSKELETAL: Extremities without clubbing, cyanosis, or edema. No joint tenderness, effusion, or edema noted. No calf tenderness. Negative Homans sign bilaterally. NEUROLOGICAL: Awake and alert. Cranial nerves II through XII intact. Motor and sensory grossly within normal limits. Five out of 5 muscle strength in all muscle groups. Normal speech. Result Diagram: 09/27/16 1202 09/27/16 1202 Assessment and Plan Assessment and Plan 60-year-old female with recurrent episodes of urinary retention with history of chronic low back pain and herniated disc with findings of hydronephrosis of the right kidney and distended bladder on ultrasound exam to 09/21/16. Maintain Lopez catheter for now. Continue aggressive rehabilitation therapy. We will start bethanechol 25 mg by mouth 3 times a day. Attempt to wean narcotics as appropriate as this will worsen urinary retention Avoid constipation. Void trial in future. Guillermo Qiu DO Sep 28, 2016 14:09
[2016-09-28 14:23] LABS: BACTERIA, URINE FEW /hpf; BLOOD, URINE LARGE (NEG); GLUCOSE,URINE NEG (NEG); KETONE, URINE NEG (NEG); MUCUS URINE FEW /lpf (OCC); NITRITE,URINE NEG (NEG); PH, URINE 6.5 (5.0-8.5); TRANSITIONAL EPI CELLS, URINE <1 /hpf; URINE COLOR YELLOW (YELLW/STRAW)
[2016-09-28 14:25] LABS: COMMENT (UR) CATH-CULTURE IND; CULTURE IF INDICATED CATH CULTURE IND
[2016-09-28] MEDS: SODIUM CHLOR 0.9% 1000 ML INJ 1,000 ML IV SCH (17:05)
[2016-09-28] MEDS: BETHANECHOL CHL 25 MG TAB PO SCH ×2 (17:05→22:25)
[2016-09-28] MEDS: AZITHROMYCIN INJ 500 MG in SODIUM CHLOR 0.9% 250 ML INJ 250 ML IV SCH (17:05)
[2016-09-28] MEDS: PIPERACIL-TAZO 3.375 GM PREMIX 50 ML IV SCH (18:30)
--- NOTE | 2016-09-28 19:41 | MB ---
cc: [facility] DATE OF CONSULTATION 09/28/[address] Guaman REASON FOR CONSULTATION Pleural effusion and COPD. HISTORY OF PRESENT ILLNESS This is a 60-year-old female with longstanding history of COPD and continues to smoke two packs of cigarettes a day. The patient was admitted in the hospital with worsening of her shortness of breath on 09/02. Her condition worsened. She was initially tried on BiPap and then she required mechanical ventilation. She was in intensive care unit successfully extubated and transferred to the floor. She feels very weak and tired and has mild shortness of breath. She had a chest x-ray done today which showed bilateral pleural effusion, more on the right than on the left. Her CBC showed WBC count 9.4, hemoglobin 8.3, hematocrit 24.5, MCV 96, platelet count 281. Sodium 120, potassium 4.5, chloride 92, CO2 25, BUN 14, creatinine 0.70. PAST MEDICAL HISTORY 1. History of longstanding COPD, 2. Herniated disk with chronic pain 3. Anxiety disorder, 4. Alcohol use and tobacco use. MEDICATIONS Currently taking, 1. Zithromax 500 mg a day. 2. Bethanechol 25 mg q.8 h for urinary retention. 3. Epsom for pain. 4. Albuterol/Atrovent pleasant treatment. 5. Ferrous sulfate 325 mg twice a day. 6. Clonidine 0.3 mg q.8 h 7. Provigil 100 mg daily. 8. Rifaximin 550 mg twice a day. 9. Prevacid 30 mg a day 10. Folic acid 1 mg a day 11, Symbicort 160/4.5 2 puffs twice a day. ALLERGIES ASPIRIN SOCIAL HISTORY She is , lives alone. 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 she has no children. She smokes two pack a day and takes six beers every day. REVIEW OF SYSTEMS She has lost weight, feels weak. No headache or dizziness. No seizure, stroke or epilepsy. PHYSICAL EXAMINATION GENERAL: A thin built, frail elderly female mildly short of breath. VITAL SIGNS: Blood pressure 110/67, heart rate 70, respiratory rate 18, temperature 100.3 HEENT: Pupils are equal and reactive to light. Oral mucosa and nasal mucosa normal. NECK: Supple. JVP not raised. CHEST: She has dull percussion with decreased breath sounds at the right base, also decreased breath sounds at the left base. CARDIOVASCULAR: S1, S2 normal. ABDOMEN: Benign. EXTREMITIES: No edema. IMPRESSION 1. Bilateral pleural effusion, more on the right than on the left 2. Severe COPD. 3. Nicotine use 4. Alcohol use. 5. Status post respiratory failure and extubation. PLAN We will get the ultrasound-guided thoracentesis, send for protein, glucose, LDH, cell count, differential and cultures and cytology. Continue aerosol treatment. Advised her to quit smoking and once she is better, we will check her pulmonary function study. Further treatment will depend on the course in the hospital. Thank you, Dr. Guaman, for this consultation. MD RED Burgos/ /6:41 PM /7:28 PM
[2016-09-28 20:19] LABS: INTERNATIONAL NORMALIZED RATIO 1.2 RATIO; PROTHROMBIN TIME - PATIENT 13.6 SEC (9.8-11.6)
[2016-09-28 20:40] LABS: APTT (PATIENT) 31.5 SEC (24.3-30.1)
[2016-09-29] VITALS (16 sets, daily range): BP systolic 102–161; BP diastolic 63–79; PULSE 74–95; RESP 16–22; TEMP 98.1–101.3; O2SAT 92–98
[2016-09-29] MEDS: RESP: ALBUTEROL 2.5 MG/IPRATROPIUM 0.5 MG NEB (SCH) NEB ×6 (00:06→19:43)
[2016-09-29] MEDS: PIPERACIL-TAZO 3.375 GM PREMIX 50 ML IV SCH ×4 (00:13→17:42)
[2016-09-29] MEDS: SODIUM CHLOR 0.9% 1000 ML INJ 1,000 ML IV SCH ×2 (00:53→06:18)
[2016-09-29] MEDS: FREE WATER G-TUBE SCH ×6 (04:00→20:00)
[2016-09-29] MEDS: CHLORHEXIDINE GLUCONATE 2 % 1 PACK (2 CLOTHS) TOP SCH (04:00)
[2016-09-29] MEDS: INSULIN NovoLIN REGULAR SUPPLEMENTAL SCALE SQ SCH ×4 (06:00→17:48)
[2016-09-29] MEDS: cloNIDine HCL 0.3 MG TAB PO SCH ×3 (06:36→22:25)
[2016-09-29] MEDS: BETHANECHOL CHL 25 MG TAB PO SCH ×3 (06:36→22:25)
[2016-09-29] MEDS: CHLORHEXIDINE 0.12% (ORAL KIT) 15 ML CUP OROPHARYNG SCH ×2 (07:31→20:00)
[2016-09-29 08:23] LABS: HEMATOCRIT 25.6 % (35.0-46.0); MEAN CELL VOLUME 97.4 FL (80.0-100.0); MEAN CORPUSCULAR HEMOGLOBIN 32.7 PG (27.0-34.0); MEAN CORPUSCULAR HGB CONC 33.6 % (32.0-36.0); PLATELET COUNT 296 TH/MM3 (150-450); RED BLOOD COUNT 2.63 MIL/MM3 (4.00-5.30); RED CELL DISTRIBUTION WIDTH 16.6 % (11.6-17.2); REVIEW FLAG FINAL; WHITE BLOOD COUNT 15.5 TH/MM3 (4.0-11.0)
[2016-09-29 08:46] LABS: BICARBONATE 24.9 MEQ/L (21.0-32.0); POTASSIUM 3.5 MEQ/L (3.5-5.1)
[2016-09-29] MEDS: BUDESONIDE-FORMOTEROL 160/4.5 MCG INHALER INH SCH ×2 (09:00→22:25)
[2016-09-29] MEDS: SODIUM CHLORIDE 0.9% FLUSH 5 ML FLUSH IV FLUSH SCH ×2 (09:00→22:25)
[2016-09-29] MEDS: MULTIVITAMIN TAB PO SCH (09:00)
[2016-09-29] MEDS: LACTULOSE SYRUP 20 GM/30 ML CUP PO SCH ×3 (09:00→17:10)
[2016-09-29] MEDS: LANSOPRAZOLE SOLUTAB 30 MG TAB NG SCH (09:00)
[2016-09-29] MEDS: FERROUS SULFATE 325 MG (65 MG ELEMENTAL IRON) TAB PO SCH ×2 (09:00→22:25)
[2016-09-29] MEDS: POTASSIUM CL 40 MEQ/30 ML LIQ UDC NG SCH (09:00)
[2016-09-29] MEDS: FOLIC ACID 1 MG TAB PO SCH (09:00)
[2016-09-29] MEDS: MODAFINIL 200 MG TAB PO SCH (09:00)
[2016-09-29] MEDS: RIFAXIMIN 550 MG TAB PO SCH ×2 (09:00→22:29)
[2016-09-29] MEDS: THIAMINE HCL 100 MG TAB PO SCH (09:00)
[2016-09-29] MEDS: FLUCONAZOLE 200 MG TAB PO SCH (09:00)
--- NOTE | 2016-09-29 10:13 | RADRPT ---
EXAM DATE/TIME: 09/29/2016 09:25 [facility] COMPARISON: CHEST PA & LAT, September 28, 2016, 13:00. INDICATIONS : Status post thoracentesis. MEDICAL HISTORY : Hypertension. Diabetes mellitus type II. SURGICAL HISTORY : Hysterectomy. ENCOUNTER: Initial ACUITY: 1 month PAIN SCORE: 0/10 LOCATION: chest FINDINGS: There is bilateral lower lobe atelectasis versus pneumonia. Moderate size bilateral pleural effusions are identified.. Following thoracentesis no pneumothorax is identified. There is significant reducti on in the previously seen effusion. CONCLUSION: 1. No evidence of pneumothorax following thoracentesis. Miles Rojas MD on September 29, 2016 at 10:10 Board Certified Radiologist. This report was verified electronically.
[2016-09-29 10:33] LABS: TOTAL PROTEIN,PLEURAL FLUID 0.8 GM/DL
--- NOTE | 2016-09-29 13:35 | RADRPT ---
EXAM DATE/TIME: 09/29/2016 08:30 [facility] COMPARISON: No previous studies available for comparison. INDICATIONS : Right pleural effusion. MEDICAL HISTORY : Hypertension. Chronic obstructive pulmonary disease. Osteoporosis. Chronic bronchitis. Dyspnea. Noctu rakan. L1-L3 fractures. L5 herniated disc. Diabetes. Gait problems. Anixety. SURGICAL HISTORY : Hysterectomy. Back surgery. ENCOUNTER: Initial ACUITY: 1 week PAIN SCORE: 6/10 LOCATION: Right chest FLUID: Total volume of 750 cc of clear, yellow fluid was removed. Fluid was sent to lab for ordered studies. TECHNIQUE: 1. Ultrasound guidance for thoracentesis. 2. Thoracentesis. The risks, benefits, and alternatives to ultrasound guided thoracentesis were explained to the patien t in lay simple terms, including the risk of bleeding and infection. Written and verbal informed con sent was obtained. Appropriate area for thoracentesis was marked under ultrasound guidance with the patient in the uprig ht position. Overlying skin was prepped and draped in the usual sterile fashion and with local anest hetic, a dermatotomy was made with an 11 blade scalpel. A 6 Romansh thoracentesis catheter was placed in the pleural space and fluid was removed. Catheter was then removed and a sterile dressing applie d. There were no immediate complications. The patient tolerated the procedure well and the left the ultrasound suite in stable condition. Chest radiograph is to be obtained. CONCLUSION: Uncomplicated ultrasound guided thoracentesis. Fluid was sent for ordered studies. 750 cc were removed. Mundo López MD FACR on September 29, 2016 at 13:33 Board Certified Radiologist. This report was verified electronically.
--- NOTE | 2016-09-29 13:42 | HHI.PR ---
Subjective Subjective Remarks No chest pain Shortness of breath at rest, improving No headache Generalized weakness, tires easily Voice course but becoming clearer Fever waxes and wans (Morena Mckeon) Review of Systems Constitutional Constitutional: Fever, Chills, Weakness (generalized) Constitutional Remarks 10 point ROS done. Positives noted exertional dyspnea, generalized weakness, fever, mild hoarseness any other positives noted. Other systems negative or unremarkable (Morena Mckeon) Throat Throat: Hoarse (improving) Throat Remarks slow improvement (Morena Mckeon) Pulmonary Respiratory: Shortness of Breath (exertional) (Morena Mckeon) Chest/Breast Chest/Breast Remarks S/P thoracentesis 2-9 (Morena Mckeon) GI/Abdomen GI/Abdominal Exam: Nausea (occasional) (Morena Mckeon) Musculoskeletal MS: Weakness (Morena Mckeon) Psychiatric Psychiatric: Normal Mood, Anxiety (Morena Mckeon) Vitals/Results Intake & Output 09/28/16 09/28/16 09/29/16 15:00 23:00 07:00 Intake Total 240 ml 480 ml Output Total 300 ml 300 ml Balance -60 ml 180 ml Intake Oral 240 ml 480 ml Output Urine Total 300 ml 300 ml # Bowel Movements 1 1 Vital Signs Vital Signs Date Time Temp Pulse Resp B/P Pulse Ox O2 Delivery O2 Flow Rate FiO2 09/29/16 12:05 92 Nasal Cannula 3.00 09/29/16 11:15 133/78 09/29/16 10:26 100.1 78 19 137/77 98 09/29/16 10:00 76 18 135/67 95 09/29/16 09:35 95 Nasal Cannula 2.00 09/29/16 09:27 101.0 82 22 142/79 94 09/29/16 09:13 100.1 95 22 161/76 93 09/29/16 08:00 101.3 82 17 147/70 93 09/29/16 04:53 99.0 90 18 131/67 92 09/29/16 03:34 92 Nasal Cannula 2.00 09/29/16 00:55 98.7 80 18 124/64 92 09/29/16 00:08 93 Nasal Cannula 2.00 09/28/16 21:50 95 Nasal Cannula 2.00 09/28/16 21:05 88 09/28/16 20:49 98.8 78 18 105/57 94 09/28/16 16:00 100.3 78 18 110/67 93 (Morena Mckeon) CBC/BMP: 09/29/16 0656 09/29/16 0656 Lab Results Laboratory Tests Test 09/28/16 09/28/16 09/29/16 09/29/16 13:58 19:40 06:56 09:15 Urine Color YELLOW Urine Turbidity HAZY Urine pH 6.5 Urine Specific [place] 1.013 Urine Protein 100 mg/dL Urine Glucose (UA) NEG mg/dL Urine Ketones NEG mg/dL Urine Occult Blood LARGE Urine Nitrite NEG Urine Bilirubin NEG Urine Urobilinogen LESS THAN 2.0 MG/DL Urine Leukocyte Esterase LARGE Urine RBC 94 /hpf Urine WBC /hpf Urine WBC Clumps OCC Urine Transitional Epithelial <1 /hpf Cells Urine Bacteria FEW /hpf Urine Mucus FEW /lpf Microscopic Urinalysis Comment CATH-CULTURE IND Prothrombin Time 13.6 SEC Prothromb Time International 1.2 RATIO Ratio Activated Partial 31.5 SEC Thromboplast Time White Blood Count 15.5 TH/MM3 Red Blood Count 2.63 MIL/MM3 Hemoglobin 8.6 GM/DL Hematocrit 25.6 % Mean Corpuscular Volume 97.4 FL Mean Corpuscular Hemoglobin 32.7 PG Mean Corpuscular Hemoglobin 33.6 % Concent Red Cell Distribution Width 16.6 % Platelet Count 296 TH/MM3 Mean Platelet Volume 8.6 FL Sodium Level 134 MEQ/L Potassium Level 3.5 MEQ/L Chloride Level 99 MEQ/L Carbon Dioxide Level 24.9 MEQ/L Anion Gap 10 MEQ/L Blood Urea Nitrogen 5 MG/DL Creatinine 0.49 MG/DL Estimat Glomerular Filtration 130 ML/MIN Rate Random Glucose 92 MG/DL Calcium Level 7.9 MG/DL Pleural Fluid Total Protein 0.8 GM/DL Pleural Fluid LDH 55 U/L Pleural Fluid Glucose 105 MG/DL Microbiology Microbiology 09/28/16 Urine Culture, Received Pending 09/28/16 Aerobic Blood Culture - Preliminary, Resulted NO GROWTH IN 1 DAY 09/28/16 Anaerobic Blood Culture - Preliminary, Resulted NO GROWTH IN 1 DAY 09/28/16 Aerobic Blood Culture - Preliminary, Resulted NO GROWTH IN 1 DAY 09/28/16 Anaerobic Blood Culture - Preliminary, Resulted NO GROWTH IN 1 DAY 09/29/16 Gram Stain, Received Pending 09/29/16 Body Fluid Culture, Received Pending Imaging Remarks Last Impressions Chest X-Ray 09/29/16 0000 Signed Impressions: Service Date/Time: Thursday, September 29, 2016 09:25 - CONCLUSION: 1. No evidence of pneumothorax following thoracentesis. Miles Rojas MD Small Bowel X-Ray 09/27/16 0000 Signed Impressions: Service Date/Time: Tuesday, September 27, 2016 09:01 - CONCLUSION: Unremarkable small bowel examination. Mundo López MD FACR Renal Ultrasound 09/21/16 0000 Signed Impressions: Service Date/Time: September 14:52 - CONCLUSION: 1. Markedly distended urinary bladder. 2. Mild right hydronephrosis. Mild nonspecific prominence of the left renal pelvis without cielo hydronephrosis on the left. 3. Cholelithiasis and incompletely distended gallbladder. Calderon Marinelli MD Abdomen X-Ray 09/16/16 0000 Signed Impressions: Service Date/Time: Friday, September 16, 2016 03:16 - CONCLUSION: Feeding tube as described above with distal tip in the proximal stomach. Td Jones MD Head CT 09/08/16 0000 Signed Impressions: Service Date/Time: Thursday, September 08, 2016 22:26 - CONCLUSION: 1. No acute intracranial abnormalities. Air-fluid levels in the left maxillary sinus and ethmoid air cells characteristic of sinusitis. Berlin Carrillo MD Liver Ultrasound 09/03/16 0000 Signed Impressions: Service Date/Time: Saturday, September 03, 2016 16:11 - CONCLUSION: There is no hepatic biliary duct dilatation. Probable small gallstones or sludge. Normal common duct. Mundo López MD FACR Current Medications Active Medications Azithromycin/ Sodium Chloride (Zithromax Inj/ NS 250 ml Inj) 250 ml @ 250 mls/ hr Q24H IV Last administered on 09/28/16 17:05; Admin Dose 250 MLS/HR; Start 09/28/16 at 17:00 Bethanechol Chloride 25 mg 25 mg Q8HR PO Last administered on 09/29/16 06:36; Admin Dose 25 MG; Start 09/28/16 at 15:00 Piperacillin Sod/ Tazobactam Sod 50 ml @ 100 mls/hr Q6H IV Last administered on 09/29/16 11:36; Admin Dose 100 MLS/HR; Start 09/28/16 at 18:00 Sodium Chloride 1,000 ml @ 70 mls/hr [id number] IV Last administered on 09/28/16 17:05; Admin Dose 70 MLS/HR; Start 09/28/16 at 16:00 (Morena Mckeon) Physical Exam General General Appearance: No Acute Distress, Comfortable, Pale (Morena Mckeon ) Eyes Eye Exam: Pupils Equal, Pupils Reactive (Morena Mckeon) Ears & Nose Ears & Nose Exam: Nasal Mucosa [place] Ears & Nose Remarks Pale pink (Morena MckeonP) Neck Neck Exam: Neck Supple, Trachea Midline (Morena Mckeon) Pulmonary Resp Exam: Breath Sounds Equal, Decreased Bases, Diminished Breath Sounds, Poor Inspiratory Effort (low respiratory effort.) Resp Remarks still some crackles, but improved. (Morena Mckeon) Cardiology CV Exam: Regular CV Remarks Sinus rhythm heart rate 78 (Morena MckeonP) Gastrointestinal/Abdomen GI Exam: Soft, Non-Tender, Bowel Sounds Present (Morena Mckeon) Genitourinary Remarks Lopez catheter , dark orange clearing today second Lopez catheter patient has been unable to void, (Morena Mckeon) Musculoskeletal MS Exam: Joints Intact, Normal Tone MS Remarks Some muscular wasting (Morena Mckeon) Integumentary Skin Exam: Warm, Dry, Normal Turgor Skin Remarks Raj (Morena Mckeon) Extremeties Extremities Exam: No Edema (Morena MckeonP) Neurologic Neuro Exam: Alert, Awake, Oriented, Moving All Extremities (Morena MckeonP) Psychiatric Psych Exam: Appropriate Responses (Morena Mckeon) Tubes & Lines Tubes & Lines Lopez, to be clamped and DC'd today (Morena Mckeon) Assessment/Plan Assessment/Plan Patient seen and examined as above [id number] time spent with the patient Labs reviewed Medications reviewed Notes reviewed Plan of care discussed with [employer] Patient has fever. workup trending towards UTI/ pna Discussed with RN. See orders Diagnosis: (1) COPD exacerbation, stabilizing (2) Metabolic encephalopathy, resolved (3) Tobacco abuse, history (4) ETOH abuse, history (5) UTI (urinary tract infection) (6) Dysphagia, improving (7) Respiratory failure, resolved 8. Febrile, unknown origin, new 09-28 9. Pneumonia (8) Urinary retention, Lopez reinserted, and able to void (9) Anemia, stable Assessment and Plan continue with oxygen Duonebs Pulmonary consult -. Performed thoracentesis for pleural effusions. Patient tolerated well, and has less work of breathing. UA + UTI, positive for Siria Continue Diflucan by mouth Lopez catheter draining alyssa colored urine. Lopez has been DC 2, but reinserted. We'll get urology consult culture and sensitivity, pending retention. States to maintain Lopez catheter for now. Continue aggressive rehabilitation therapy. bethanechol 25 mg by mouth 3 times a day. Wean narcotics as appropriate as this will worsen urinary retention Avoid constipation. Anemia, heme + stools appreciate GI input status post colonoscopy and upper endoscopy 09/25, had small bowel series today , shows unremarkable exam Findings of external and internal hemorrhoids, diverticulosis, one polyp was snared, esophagitis, portal gastropathy. Recommends no NSAIDs, PPI, no nuts, no popcorn. Follow-up in 7-10 days for possible biopsy. continue with PPI low iron stores-PO iron started continue with PT/ST/OT, to increase PT to do more ambulation and mobility New fever probable for UTI, and or pna. Pt now on Azithromycin and Zosyn. Monitor labs, nutrition, and increase activity. Supportive care. D/W RN D/W Dr. Guaman D/W pt This patient was seen by myself and Dr. Guaman, this note is written on his behalf. Discussed Condition with: Medical Consult (Morena Mckeon) Assessment/Plan Pt seen and examined above note reviewed face to face time spent with pt labs reviewed meds reviewed notes reviwed plan of care dw brian dw pt (Helio Guaman MD) Morena Mckeon Sep 29, 2016 13:42 Helio Guaman MD Sep 29, 2016 19:17
[2016-09-29] MEDS: ACETAMINOPHEN 325 MG TAB PO PRN (13:50)
[2016-09-29] MEDS: AZITHROMYCIN INJ 500 MG in SODIUM CHLOR 0.9% 250 ML INJ 250 ML IV SCH (16:29)
--- NOTE | 2016-09-29 18:18 | HHI.PR ---
Subjective Remarks 60 YOWF with COPD, s/p RF and extubation Had Right TC Pl fluid transudate Breathing better Objective Vital Signs Vital Signs Date Time Temp Pulse Resp B/P Pulse Ox O2 Delivery O2 Flow Rate FiO2 09/29/16 16:00 98.1 77 17 117/68 97 09/29/16 15:20 92 Nasal Cannula 3.00 09/29/16 12:05 92 Nasal Cannula 3.00 09/29/16 12:00 101.0 92 20 102/63 96 09/29/16 11:15 133/78 09/29/16 10:26 100.1 78 19 137/77 98 09/29/16 10:00 76 18 135/67 95 09/29/16 09:35 95 Nasal Cannula 2.00 09/29/16 09:27 101.0 82 22 142/79 94 09/29/16 09:13 100.1 95 22 161/76 93 09/29/16 08:00 101.3 82 17 147/70 93 09/29/16 04:53 99.0 90 18 131/67 92 09/29/16 03:34 92 Nasal Cannula 2.00 09/29/16 00:55 98.7 80 18 124/64 92 09/29/16 00:08 93 Nasal Cannula 2.00 09/28/16 21:50 95 Nasal Cannula 2.00 09/28/16 21:05 88 09/28/16 20:49 98.8 78 18 105/57 94 I/O 09/28/16 09/28/16 09/28/16 09/29/16 09/29/16 09/29/16 07:00 15:00 23:00 07:00 15:00 23:00 Intake Total 240 ml 480 ml 600 ml Output Total 300 ml 300 ml 900 ml Balance -60 ml 180 ml -300 ml Intake Oral 240 ml 480 ml 600 ml Output Urine Total 300 ml 300 ml 900 ml # Bowel Movements 3 1 1 2 Result Diagram: 09/29/1656 09/29/1656 Objective Remarks GENERAL: Thin built frail female , mild sob SKIN: Warm and dry. HEAD: Normocephalic. EYES: No scleral icterus. No injection or drainage. NECK: Supple, trachea midline. No JVD or lymphadenopathy. CARDIOVASCULAR: Regular rate and rhythm without murmurs, gallops, or rubs. RESPIRATORY: Breath sounds equal bilaterally. No accessory muscle use. GASTROINTESTINAL: Abdomen soft, non-tender, nondistended. MUSCULOSKELETAL: No cyanosis, or edema. BACK: Nontender without obvious deformity. No CVA tenderness. A/P Assessment and Plan Pleural effusion, s/p TC Pl fluid transudate COPD Nicotine use ETOH use Weight loss PLAN: Aerosol nebs Supplement 02 Cont Abx Gabriel Castro Available prn over weekend Willie Escobedo MD Sep 29, 2016 18:18
[2016-09-30] VITALS (10 sets, daily range): BP systolic 87–187; BP diastolic 55–79; PULSE 67–84; RESP 16–18; TEMP 97.5–98.4; O2SAT 94–98
[2016-09-30] MEDS: PIPERACIL-TAZO 3.375 GM PREMIX 50 ML IV SCH ×5 (00:53→20:21)
[2016-09-30] MEDS: RESP: ALBUTEROL 2.5 MG/IPRATROPIUM 0.5 MG NEB (SCH) NEB (01:28)
[2016-09-30] MEDS: CHLORHEXIDINE GLUCONATE 2 % 1 PACK (2 CLOTHS) TOP SCH (04:00)
[2016-09-30] MEDS: FREE WATER G-TUBE SCH ×4 (04:00→12:00)
[2016-09-30] MEDS: cloNIDine HCL 0.3 MG TAB PO SCH ×3 (04:55→21:57)
[2016-09-30] MEDS: ACETAMINOPHEN/HYDROcodone 325 MG/5 MG TAB PO PRN ×5 (04:55→23:54)
[2016-09-30] MEDS: BETHANECHOL CHL 25 MG TAB PO SCH ×3 (06:00→21:57)
[2016-09-30] MEDS: INSULIN NovoLIN REGULAR SUPPLEMENTAL SCALE SQ SCH ×4 (06:00→12:15)
[2016-09-30] MEDS: CHLORHEXIDINE 0.12% (ORAL KIT) 15 ML CUP OROPHARYNG SCH ×2 (08:00→20:00)
[2016-09-30] MEDS: LACTULOSE SYRUP 20 GM/30 ML CUP PO SCH ×3 (09:00→20:20)
[2016-09-30] MEDS: MULTIVITAMIN TAB PO SCH (09:16)
[2016-09-30] MEDS: THIAMINE HCL 100 MG TAB PO SCH (09:16)
[2016-09-30] MEDS: FLUCONAZOLE 200 MG TAB PO SCH (09:16)
[2016-09-30] MEDS: FOLIC ACID 1 MG TAB PO SCH (09:16)
[2016-09-30] MEDS: RIFAXIMIN 550 MG TAB PO SCH ×2 (09:16→20:20)
[2016-09-30] MEDS: FERROUS SULFATE 325 MG (65 MG ELEMENTAL IRON) TAB PO SCH ×2 (09:16→20:20)
[2016-09-30] MEDS: POTASSIUM CL 40 MEQ/30 ML LIQ UDC NG SCH (09:16)
[2016-09-30] MEDS: LANSOPRAZOLE SOLUTAB 30 MG TAB NG SCH (09:16)
[2016-09-30] MEDS: SODIUM CHLORIDE 0.9% FLUSH 5 ML FLUSH IV FLUSH SCH ×2 (09:17→20:21)
[2016-09-30] MEDS: BUDESONIDE-FORMOTEROL 160/4.5 MCG INHALER INH SCH ×2 (09:18→20:21)
[2016-09-30] MEDS: MODAFINIL 200 MG TAB PO SCH (09:25)
[2016-09-30 10:05] LABS: BICARBONATE 27.2 MEQ/L (21.0-32.0); POTASSIUM 3.5 MEQ/L (3.5-5.1)
[2016-09-30] MEDS: SODIUM CHLOR 0.9% 1000 ML INJ 1,000 ML IV SCH (10:54)
--- NOTE | 2016-09-30 13:32 | HHI.PR ---
Subjective Remarks Awake, oriented 2-3 feeling down, tired of being in hospital has been using IS wants to get out of bed no cp no sob no fever urine in lama alyssa, no blood having loose stools Objective Objective Results - Vital Signs Date Time Temp Pulse Resp B/P Pulse Ox O2 Delivery O2 Flow Rate FiO2 09/30/16 12:00 97.7 84 17 187/79 94 09/30/16 08:00 97.7 67 16 152/68 98 09/30/16 05:04 98.4 76 18 155/76 96 09/30/16 01:28 95 Nasal Cannula 3.00 09/30/16 00:47 98.0 71 16 147/67 96 09/30/16 00:47 98.0 71 16 147/67 96 09/29/16 22:00 78 09/29/16 20:33 98.3 74 16 118/66 97 09/29/16 16:00 98.1 77 17 117/68 97 09/29/16 15:20 92 Nasal Cannula 3.00 I/O 09/29/16 09/29/16 09/29/16 09/30/16 09/30/16 09/30/16 07:00 15:00 23:00 07:00 15:00 23:00 Intake Total 1080 ml 240 ml Output Total 1250 ml 700 ml Balance -170 ml -460 ml Intake Oral 1080 ml 240 ml Output Urine Total 1250 ml 700 ml # Bowel Movements 3 Result Diagram: 09/29/16 0656 09/30/16 0828 Other Results Laboratory Tests Test 09/30/16 08:28 Sodium Level 134 Potassium Level 3.5 Chloride Level 100 Carbon Dioxide Level 27.2 Anion Gap 7 Blood Urea Nitrogen 5 Creatinine 0.45 Estimat Glomerular Filtration 143 Rate Random Glucose 92 Calcium Level 7.6 B-Type Natriuretic Peptide 209 Date/Time Procedure Status Source Growth 09/29/16 09:15 Gram Stain - Final Resulted Fluid Pleural Fluid 09/29/16 09:15 Body Fluid Culture Resulted Fluid Pleural Fluid Pending 09/28/16 19:45 Aerobic Blood Culture - Preliminary Resulted Blood Peripheral NO GROWTH IN 2 DAYS 09/28/16 19:45 Anaerobic Blood Culture - Preliminary Resulted Blood Peripheral NO GROWTH IN 2 DAYS 09/28/16 13:58 Urine Culture - Final Complete Urine Catheterized Urine Siria Albicans ROS General: Other (12 point ROS limited, poor historian, neg. except as noted above) Physical Exam Physical Exam GENERAL: This is a thin well-developed. Malnourished. Appears more awake stated age SKIN: Warm and dry. No rash or petechiae. HEENT: Normocephalic, atraumatic. Pupils equal, round, reactive to light and accommodation at 2. No scleral icterus. No drainage. Mucous membranes were pale pink and moist. NECK: Supple. CARDIOVASCULAR: S1, S2, No murmurs, rubs or gallops appreciated. RESPIRATORY: Diminished, exp. wheeze GASTROINTESTINAL: Abdomen is flat, soft and nontender, nondistended. -lama with alyssa urine. Labia with swelling improved MUSCULOSKELETAL: No joint abnormalities, pedal pulses 2+, no pedal edema NEUROLOGIC: Awake, oriented 2-3, more appropriate, no focal deficits. Urinary Catheter: Yes Lama insert reason: Obstruction/Retention Vascular Central Line Catheter: No A/P Diagnosis: (1) COPD exacerbation (2) Metabolic encephalopathy (3) Tobacco abuse (4) ETOH abuse (5) UTI (urinary tract infection) (6) Dysphagia (7) Respiratory failure Plan: resolved (8) Urinary retention (9) Anemia (10) Pleural effusion Assessment and Plan 09/28, fever, CXR bilat pleural effusion started on abx Zosyn and Zithromax Pulmonary consult, input appreciated S/P right thoracentesis, 750 cc drained follow cultures continue with oxygen Duonebs Improving, no fever Discontinue IVF encephalopathy improved continue Lactulose and Rifaximin Dec. Lactulose to BID Acute renal injury,secondary to urinary retention-resolved Renal US ordered, bladder distended Lama reinserted x 2 Continue with lama Urology consulted, Dr. Qiu evaluated, recommends to continue with lama, avoid constipation and limit narc continue Bethanechol UA + UTI, positive for Siria Continue Diflucan Anemia, heme + stools appreciate GI input status post colonoscopy and upper endoscopy 2/6 Findings of external and internal hemorrhoids, diverticulosis, one polyp was snared, esophagitis, portal gastropathy. Recommends no NSAIDs, PPI, no nuts, no popcorn. Bx tubulovillous adenoma continue with PPI low iron stores-Continue PO iron Required PRBC transfusion x 2, HH stable SBFT done, no acute findings No actual source of bleeding found though GI evaluation, recommends OP follow up with possible CE as OP Resume PT, needs OOB with assist Labs in am Replace K CM for dc planning hopefully discharge next 1-2 days, overall improving D/W RN D/W Dr. Guaman D/W pt This patient was seen by myself and Dr. Guaman, this note is written on his behalf. Discussed With: Nurse, Family (patient), Other (Dr. Alvarado. Patient seen on his behalf) Problem Qualifiers (1) UTI (urinary tract infection): Qualified Code: N39.0 - Urinary tract infection without hematuria, site unspecified (2) Dysphagia: Qualified Code: R13.10 - Dysphagia, unspecified type (3) Respiratory failure: (4) Anemia: Licha Vyas Sep 30, 2016 13:32
[2016-09-30] MEDS ORDERED: POTASSIUM CL 40 MEQ/30 ML LIQ UDC PO ONE (14:15)
[2016-09-30] MEDS: AZITHROMYCIN INJ 500 MG in SODIUM CHLOR 0.9% 250 ML INJ 250 ML IV SCH ×2 (15:40→15:41)
[2016-09-30] MEDS: LISINOPRIL 5 MG TAB PO SCH (15:41)
[2016-10-01] VITALS (9 sets, daily range): BP systolic 118–179; BP diastolic 66–84; PULSE 70–78; RESP 16–18; TEMP 96.9–97.2; O2SAT 95–98
[2016-10-01] MEDS: CHLORHEXIDINE GLUCONATE 2 % 1 PACK (2 CLOTHS) TOP SCH (01:10)
[2016-10-01] MEDS: ACETAMINOPHEN/HYDROcodone 325 MG/5 MG TAB PO PRN ×3 (04:22→21:57)
[2016-10-01] MEDS: PIPERACIL-TAZO 3.375 GM PREMIX 50 ML IV SCH ×3 (05:27→19:32)
[2016-10-01] MEDS: cloNIDine HCL 0.3 MG TAB PO SCH ×3 (05:28→21:46)
[2016-10-01] MEDS: BETHANECHOL CHL 25 MG TAB PO SCH ×3 (05:28→21:46)
[2016-10-01] MEDS: CHLORHEXIDINE 0.12% (ORAL KIT) 15 ML CUP OROPHARYNG SCH ×2 (08:00→20:00)
[2016-10-01 08:50] LABS: HEMATOCRIT 25.6 % (35.0-46.0); MEAN CELL VOLUME 99.5 FL (80.0-100.0); MEAN CORPUSCULAR HEMOGLOBIN 32.2 PG (27.0-34.0); MEAN CORPUSCULAR HGB CONC 32.4 % (32.0-36.0); PLATELET COUNT 324 TH/MM3 (150-450); RED BLOOD COUNT 2.58 MIL/MM3 (4.00-5.30); RED CELL DISTRIBUTION WIDTH 16.6 % (11.6-17.2); REVIEW FLAG FINAL; WHITE BLOOD COUNT 12.7 TH/MM3 (4.0-11.0)
[2016-10-01] MEDS: SODIUM CHLORIDE 0.9% FLUSH 5 ML FLUSH IV FLUSH SCH ×2 (09:00→21:44)
[2016-10-01] MEDS: LACTULOSE SYRUP 20 GM/30 ML CUP PO SCH ×2 (09:00→21:00)
[2016-10-01] MEDS: BUDESONIDE-FORMOTEROL 160/4.5 MCG INHALER INH SCH ×2 (09:00→21:43)
[2016-10-01] MEDS: FOLIC ACID 1 MG TAB PO SCH (09:08)
[2016-10-01] MEDS: RIFAXIMIN 550 MG TAB PO SCH ×2 (09:08→21:46)
[2016-10-01] MEDS: LANSOPRAZOLE SOLUTAB 30 MG TAB NG SCH (09:08)
[2016-10-01] MEDS: LISINOPRIL 5 MG TAB PO SCH (09:08)
[2016-10-01] MEDS: THIAMINE HCL 100 MG TAB PO SCH (09:08)
[2016-10-01] MEDS: MULTIVITAMIN TAB PO SCH (09:08)
[2016-10-01] MEDS: FLUCONAZOLE 200 MG TAB PO SCH (09:08)
[2016-10-01] MEDS: FERROUS SULFATE 325 MG (65 MG ELEMENTAL IRON) TAB PO SCH ×2 (09:08→21:46)
[2016-10-01] MEDS: POTASSIUM CL 40 MEQ/30 ML LIQ UDC NG SCH (09:09)
[2016-10-01] MEDS: MODAFINIL 200 MG TAB PO SCH (09:09)
[2016-10-01 09:15] LABS: BICARBONATE 23.7 MEQ/L (21.0-32.0); POTASSIUM 4.8 MEQ/L (3.5-5.1)
--- NOTE | 2016-10-01 10:55 | HHI.PR ---
Subjective Remarks awake, oriented x 3 c/o "panic and anxiety attack" diaphoretic at home used to take Xanax 0.25, requesting dose no cp no sob no fever no rectal bleeding Objective Objective Results - Vital Signs Date Time Temp Pulse Resp B/P Pulse Ox O2 Delivery O2 Flow Rate FiO2 10/01/16 08:56 97.0 72 18 134/66 97 10/01/16 05:13 96.9 72 17 171/81 97 10/01/16 05:10 20 10/01/16 00:25 97.0 72 17 179/84 97 09/30/16 20:55 97.5 81 17 183/75 94 09/30/16 20:00 67 09/30/16 20:00 Nasal Cannula 3.00 09/30/16 19:16 96 Nasal Cannula 3.00 09/30/16 16:00 97.8 74 16 102/61 96 09/30/16 12:00 97.7 84 17 187/79 94 I/O 09/30/16 09/30/16 09/30/16 10/01/16 10/01/16 10/01/16 07:00 15:00 23:00 07:00 15:00 23:00 Intake Total 240 ml 480 ml 120 ml 240 ml Output Total 700 ml 800 ml 450 ml 500 ml Balance -460 ml -320 ml -330 ml -260 ml Intake Oral 240 ml 480 ml 120 ml 120 ml IV Total 120 ml Output Urine Total 700 ml 800 ml 450 ml 500 ml # Bowel Movements 3 Result Diagram: 10/01/16 0800 10/01/16 0800 Other Results Laboratory Tests Test 10/01/16 08:00 White Blood Count 12.7 Red Blood Count 2.58 Hemoglobin 8.3 Hematocrit 25.6 Mean Corpuscular Volume 99.5 Mean Corpuscular Hemoglobin 32.2 Mean Corpuscular Hemoglobin 32.4 Concent Red Cell Distribution Width 16.6 Platelet Count 324 Mean Platelet Volume 8.3 Sodium Level 134 Potassium Level 4.8 Chloride Level 102 Carbon Dioxide Level 23.7 Anion Gap 8 Blood Urea Nitrogen 5 Creatinine 0.37 Estimat Glomerular Filtration 179 Rate Random Glucose 84 Calcium Level 7.9 Date/Time Procedure Status Source Growth 09/29/16 09:15 Gram Stain - Final Resulted Fluid Pleural Fluid 09/29/16 09:15 Body Fluid Culture - Preliminary Resulted Fluid Pleural Fluid NO GROWTH IN 24 HOURS. 09/28/16 19:45 Aerobic Blood Culture - Preliminary Resulted Blood Peripheral NO GROWTH IN 2 DAYS 09/28/16 19:45 Anaerobic Blood Culture - Preliminary Resulted Blood Peripheral NO GROWTH IN 2 DAYS 09/28/16 13:58 Urine Culture - Final Complete Urine Catheterized Urine Siria Albicans ROS Psych: Anxiety Physical Exam Physical Exam GENERAL: This is a thin well-developed. Malnourished. Anxious SKIN: diaphoretic HEENT: Normocephalic, atraumatic. Pupils equal, round, reactive to light and accommodation at 2. No scleral icterus. No drainage. Mucous membranes were pale pink and moist. NECK: Supple. CARDIOVASCULAR: S1, S2, No murmurs, rubs or gallops appreciated. RESPIRATORY: Diminished, exp. wheeze GASTROINTESTINAL: Abdomen is flat, soft and nontender, nondistended. -lama with alyssa urine. MUSCULOSKELETAL: No joint abnormalities, pedal pulses 2+, no pedal edema NEUROLOGIC: Awake, oriented 3, more appropriate, no focal deficits. Urinary Catheter: Yes Assessment to: Continue Lama insert reason: Obstruction/Retention A/P Diagnosis: (1) COPD exacerbation (2) Metabolic encephalopathy (3) Tobacco abuse (4) ETOH abuse (5) UTI (urinary tract infection) (6) Dysphagia (7) Respiratory failure Plan: resolved (8) Urinary retention (9) Anemia (10) Pleural effusion Assessment and Plan 09/28, fever, CXR bilat pleural effusion started on abx Zosyn and Zithromax Pulmonary consult, input appreciated S/P right thoracentesis, 750 cc drained follow cultures continue with oxygen Duonebs Improving, no fever WBC trending down encephalopathy improved continue Lactulose and Rifaximin Dec. Lactulose to BID Acute renal injury,secondary to urinary retention-resolved Renal US ordered, bladder distended Lama reinserted x 2 Continue with lama Urology consulted, Dr. Qiu evaluated, recommends to continue with lama, avoid constipation and limit narc continue Bethanechol UA + UTI, positive for Siria Continue Diflucan Anemia, heme + stools appreciate GI input status post colonoscopy and upper endoscopy 2/ Findings of external and internal hemorrhoids, diverticulosis, one polyp was snared, esophagitis, portal gastropathy. Recommends no NSAIDs, PPI, no nuts, no popcorn. Bx tubulovillous adenoma continue with PPI low iron stores-Continue PO iron Required PRBC transfusion x 2, HH stable SBFT done, no acute findings No actual source of bleeding found though GI evaluation, recommends OP follow up with possible CE as OP Anxiety Resume xanax HTN, BP uncontrolled restarted Lisinopril, BP improved today OOB with assist CM for dc planning will re-evaluate this afternoon, if improved with anxiety, plan to dc to SNF Clinically improving, no fever, labs stable D/W RN D/W Dr. Guaman D/W pt This patient was seen by myself and Dr. Guaman, this note is written on his behalf. Discussed With: Nurse, Family (patient), Other (Dr. Alvarado. Patient seen on his behalf) Problem Qualifiers (1) UTI (urinary tract infection): Qualified Code: N39.0 - Urinary tract infection without hematuria, site unspecified (2) Dysphagia: Qualified Code: R13.10 - Dysphagia, unspecified type (3) Respiratory failure: (4) Anemia: Licha Vyas Oct 01, 2016 10:55
[2016-10-01] MEDS: ALPRAZolam 0.25 MG TAB PO PRN ×2 (10:59→19:32)
[2016-10-01] MEDS: AZITHROMYCIN INJ 500 MG in SODIUM CHLOR 0.9% 250 ML INJ 250 ML IV SCH (17:16)
[2016-10-01] MEDS: RESP: ALBUTEROL 2.5 MG/IPRATROPIUM 0.5 MG NEB (PRN) NEB (22:03)
[2016-10-02 00:38] VITALS: BP 150/67; PULSE 72; RESP 16; TEMP 97.6; O2SAT 98
[2016-10-02] MEDS: CHLORHEXIDINE GLUCONATE 2 % 1 PACK (2 CLOTHS) TOP SCH (04:00)
[2016-10-02 04:46] VITALS: BP 158/73; PULSE 70; RESP 18; TEMP 97.6; O2SAT 98
[2016-10-02] MEDS: BETHANECHOL CHL 25 MG TAB PO SCH ×2 (04:59→14:08)
[2016-10-02] MEDS: cloNIDine HCL 0.3 MG TAB PO SCH ×2 (05:00→14:08)
[2016-10-02] MEDS: ACETAMINOPHEN/HYDROcodone 325 MG/5 MG TAB PO PRN (05:00)
[2016-10-02] MEDS: PIPERACIL-TAZO 3.375 GM PREMIX 50 ML IV SCH ×3 (05:01→12:51)
[2016-10-02] MEDS: CHLORHEXIDINE 0.12% (ORAL KIT) 15 ML CUP OROPHARYNG SCH (08:00)
[2016-10-02 08:13] VITALS: BP 163/78; PULSE 67; RESP 20; TEMP 98; O2SAT 100
[2016-10-02] MEDS: POTASSIUM CL 40 MEQ/30 ML LIQ UDC NG SCH (08:22)
[2016-10-02] MEDS: ALPRAZolam 0.25 MG TAB PO PRN (08:23)
[2016-10-02] MEDS: RIFAXIMIN 550 MG TAB PO SCH (08:23)
[2016-10-02] MEDS: LISINOPRIL 5 MG TAB PO SCH (08:23)
[2016-10-02] MEDS: LANSOPRAZOLE SOLUTAB 30 MG TAB NG SCH (08:23)
[2016-10-02] MEDS: MODAFINIL 200 MG TAB PO SCH (08:23)
[2016-10-02] MEDS: MULTIVITAMIN TAB PO SCH (08:23)
[2016-10-02] MEDS: FLUCONAZOLE 200 MG TAB PO SCH (08:23)
[2016-10-02] MEDS: THIAMINE HCL 100 MG TAB PO SCH (08:24)
[2016-10-02] MEDS: FOLIC ACID 1 MG TAB PO SCH (08:24)
[2016-10-02] MEDS: FERROUS SULFATE 325 MG (65 MG ELEMENTAL IRON) TAB PO SCH (08:24)
[2016-10-02 08:25] VITALS: PULSE 71
[2016-10-02] MEDS: BUDESONIDE-FORMOTEROL 160/4.5 MCG INHALER INH SCH (08:25)
[2016-10-02] MEDS: LACTULOSE SYRUP 20 GM/30 ML CUP PO SCH (08:27)
[2016-10-02] MEDS: SODIUM CHLORIDE 0.9% FLUSH 5 ML FLUSH IV FLUSH SCH (08:28)
[2016-10-02 10:21] VITALS: O2SAT 97
[2016-10-02] MEDS ORDERED: DIFL100T PO (12:13)
[2016-10-02] MEDS ORDERED: LISI-519 PO (12:14)
[2016-10-02] MEDS ORDERED: FERR325T PO (12:14)
--- NOTE | 2016-10-02 12:15 | HHI.PR ---
Subjective Remarks awake, oriented x 2-3 less anxious no abd pain no n/v no fever ok with going to SNF today Objective Objective Results - Vital Signs Date Time Temp Pulse Resp B/P Pulse Ox O2 Delivery O2 Flow Rate FiO2 10/02/16 10:21 97 21 10/02/16 08:13 98.0 67 20 163/78 100 10/02/16 07:56 Nasal Cannula 1.00 10/02/16 04:46 97.6 70 18 158/73 98 10/02/16 00:38 97.6 72 16 150/67 98 10/01/16 22:05 95 Nasal Cannula 3.00 10/01/16 19:56 97.2 76 16 154/73 98 10/01/16 16:31 96.9 70 18 118/70 98 10/01/16 13:29 97.0 78 18 158/72 97 I/O 10/01/16 10/01/16 10/01/16 10/02/16 10/02/16 10/02/16 07:00 15:00 23:00 07:00 15:00 23:00 Intake Total 240 ml 360 ml 240 ml Output Total 500 ml 1850 ml 500 ml Balance -260 ml 360 ml -1610 ml -500 ml Intake Oral 120 ml 360 ml 240 ml IV Total 120 ml Output Urine Total 500 ml 1850 ml 500 ml Result Diagram: 10/01/16 0800 10/01/16 0800 Other Results Date/Time Procedure Status Source Growth 09/29/16 09:15 Gram Stain - Final Complete Fluid Pleural Fluid 09/29/16 09:15 Body Fluid Culture - Final Complete Fluid Pleural Fluid NO GROWTH IN 72 HRS.--AEROBICALLY OR ... 09/28/16 19:45 Aerobic Blood Culture - Preliminary Resulted Blood Peripheral NO GROWTH IN 4 DAYS 09/28/16 19:45 Anaerobic Blood Culture - Preliminary Resulted Blood Peripheral NO GROWTH IN 4 DAYS 09/28/16 13:58 Urine Culture - Final Complete Urine Catheterized Urine Siria Albicans ROS General: Other (12 point ROS limited ) Physical Exam Physical Exam GENERAL: This is a thin well-developed. Malnourished. Anxious SKIN: diaphoretic HEENT: Normocephalic, atraumatic. Pupils equal, round, reactive to light and accommodation at 2. No scleral icterus. No drainage. Mucous membranes were pale pink and moist. NECK: Supple. CARDIOVASCULAR: S1, S2, No murmurs, rubs or gallops appreciated. RESPIRATORY: Diminished, exp. wheeze GASTROINTESTINAL: Abdomen is flat, soft and nontender, nondistended. -lama with alyssa urine. MUSCULOSKELETAL: No joint abnormalities, pedal pulses 2+, no pedal edema NEUROLOGIC: Awake, oriented 3, more appropriate, no focal deficits. Urinary Catheter: Yes Assessment to: Continue Lama insert reason: Obstruction/Retention A/P Diagnosis: (1) COPD exacerbation (2) Metabolic encephalopathy (3) Tobacco abuse (4) ETOH abuse (5) UTI (urinary tract infection) (6) Dysphagia (7) Respiratory failure Plan: resolved (8) Urinary retention (9) Anemia (10) Pleural effusion Assessment and Plan 09/28, fever, CXR bilat pleural effusion started on abx Zosyn and Zithromax Pulmonary consult, input appreciated S/P right thoracentesis, 750 cc drained follow cultures continue with oxygen Duonebs Improving, no fever WBC trending down encephalopathy improved continue Lactulose and Rifaximin Lactulose to BID Acute renal injury,secondary to urinary retention-resolved Renal US ordered, bladder distended Lama reinserted x 2 Continue with lama Urology consulted, Dr. Qiu evaluated, recommends to continue with lama, avoid constipation and limit narc continue Bethanechol UA + UTI, positive for Siria Continue Diflucan Anemia, heme + stools appreciate GI input status post colonoscopy and upper endoscopy / Findings of external and internal hemorrhoids, diverticulosis, one polyp was snared, esophagitis, portal gastropathy. Recommends no NSAIDs, PPI, no nuts, no popcorn. Bx tubulovillous adenoma continue with PPI low iron stores-Continue PO iron Required PRBC transfusion x 2, HH stable SBFT done, no acute findings No actual source of bleeding found though GI evaluation, recommends OP follow up with possible CE as OP Anxiety Continue xanax Dec. Provigil HTN, BP uncontrolled Continue Lisinopril BP better today OOB with assist Discharge to SNF today F/U GI 2 weeks F/U urology keep lama in place, bladder training at facility Diet-heart healthy Activity-as tolerated D/W RN D/W Dr. Guaman D/W pt D/W CM This patient was seen by myself and Dr. Guaman, this note is written on his behalf. Discharge Planning 45 minutes Discussed With: Nurse, Family (patient), Other (Dr. Alvarado. Patient seen on his behalf) Problem Qualifiers (1) UTI (urinary tract infection): Qualified Code: N39.0 - Urinary tract infection without hematuria, site unspecified (2) Dysphagia: Qualified Code: R13.10 - Dysphagia, unspecified type (3) Respiratory failure: (4) Anemia: Licha Vyas Oct 02, 2016 12:15
--- NOTE | 2016-10-02 12:21 | HHI.DS ---
Discharge Summary Admission Date Sep 02, 2016 at 16:42 Discharge Date: Oct 02, 2016 Admitting Diagnosis COPD Exacerbation (1) COPD exacerbation (2) Metabolic encephalopathy (3) Tobacco abuse (4) ETOH abuse (5) UTI (urinary tract infection) (6) Dysphagia (7) Respiratory failure (8) Urinary retention (9) Anemia (10) Pleural effusion Procedures S/P right thoracentesis, 750 cc drained 09/29 status post colonoscopy and upper endoscopy 09/25 Findings of external and internal hemorrhoids, diverticulosis, one polyp was snared, esophagitis, portal gastropathy. Recommends no NSAIDs, PPI, no nuts, no popcorn. Bx tubulovillous adenoma CBC/BMP: 10/01/16 0800 10/01/16 0800 Significant Findings Laboratory Tests Test 09/30/16 10/01/16 08:28 08:00 Sodium Level 134 MEQ/L 134 MEQ/L (136-145) (136-145) Blood Urea Nitrogen 5 MG/DL (7-18) 5 MG/DL (7-18) Creatinine 0.45 MG/DL 0.37 MG/DL (0.50-1.00) (0.50-1.00) Calcium Level 7.6 MG/DL 7.9 MG/DL (8.5-10.1) (8.5-10.1) B-Type Natriuretic Peptide 209 PG/ML (0-100) White Blood Count 12.7 TH/MM3 (4.0-11.0) Red Blood Count 2.58 MIL/MM3 (4.00-5.30) Hemoglobin 8.3 GM/DL (11.6-15.3) Hematocrit 25.6 % (35.0-46.0) Imaging Last Impressions Thoracentesis Ultrasound 09/29/16 0000 Signed Impressions: Service Date/Time: Thursday, September 29, 2016 08:30 - CONCLUSION: Uncomplicated ultrasound guided thoracentesis. Fluid was sent for ordered studies. 750 cc were removed. Mundo López MD FACR Chest X-Ray 09/29/16 0000 Signed Impressions: Service Date/Time: Thursday, September 29, 2016 09:25 - CONCLUSION: 1. No evidence of pneumothorax following thoracentesis. Miles Rojas MD Small Bowel X-Ray 09/27/16 Signed Impressions: Service Date/Time: Tuesday, September 27, 2016 09:01 - CONCLUSION: Unremarkable small bowel examination. Mundo López MD FACR Renal Ultrasound 09/21/16 0000 Signed Impressions: Service Date/Time: September 14:52 - CONCLUSION: 1. Markedly distended urinary bladder. 2. Mild right hydronephrosis. Mild nonspecific prominence of the left renal pelvis without cielo hydronephrosis on the left. 3. Cholelithiasis and incompletely distended gallbladder. Calderon Marinelli MD Abdomen X-Ray 09/16/16 0000 Signed Impressions: Service Date/Time: Friday, September 16, 2016 03:16 - CONCLUSION: Feeding tube as described above with distal tip in the proximal stomach. Td Jones MD Head CT 09/08/16 0000 Signed Impressions: Service Date/Time: Thursday, September 08, 2016 22:26 - CONCLUSION: 1. No acute intracranial abnormalities. Air-fluid levels in the left maxillary sinus and ethmoid air cells characteristic of sinusitis. Berlin Carrillo MD Liver Ultrasound 09/03/16 0000 Signed Impressions: Service Date/Time: Saturday, September 03, 2016 16:11 - CONCLUSION: There is no hepatic biliary duct dilatation. Probable small gallstones or sludge. Normal common duct. Mundo López MD FACR Hospital Course This is a 52 year old white female with a significant history of chronic obstructive pulmonary disease who was brought into the emergency room via ambulance from her home with shortness of breath. The patient had been seen in the emergency room the day before with the same symptoms of shortness of breath and cough for several days. She did improve with nebulizer treatments and Solu-Medrol. Her O2 sat was labile during this emergency room visit, but patient refused admission to the hospital and was discharged home. According to the record, the patient took by mouth prednisone but continued with symptoms of shortness of breath and dyspnea for several hours. Emergency Medical Service did administer albuterol but patient continued with shortness of breath. She did have productive cough with thick white sputum. On admission, she denied any chest pain, had a thick white sputum, no hemoptysis, no fevers. She had never been intubated for her respiratory distress. The patient did continue to decline, was intubated and placed in the Intensive Care Unit for monitoring. Patient admitted on 09/02/16. The patient was noted to have chronic obstructive pulmonary disease exacerbation, hypercapnic respiratory failure as well as hypertensive urgency. She was noted to be critically ill with poor air movement, steroids, BiPAP, antibiotics, medical management for her blood pressure, peptic ulcer disease and deep venous thrombosis prophylaxis, but patient continued to decline. The patient was extubated. She was positive for a urinary tract infection several days ago, was put on antibiotics--vancomycin and piperacillin. She initially had a feeding tube, ST consulted to work and evaluate pt. She was extubated on 09/11/16 and transitioned to O2 per nasal cannula. The patient was encephalopathic, altered mental status with some delirium. She has a significant history of ETOH abuse and chronic benzodiazepine use. Medical management consultation was ordered. Pt. diagnosed with: (1) COPD exacerbation (2) Metabolic encephalopathy (3) Tobacco abuse (4) ETOH abuse (5) UTI (urinary tract infection) (6) Dysphagia (7) Respiratory failure Plan: resolved (8) Urinary retention (9) Anemia (10) Pleural effusion During the course of the hospitalization the following took place: Patient had a protracted lengthy hospitalization was complicated by pleural effusions, fever, urinary retention, GI bleed. Patient was eventually transferred out of the intensive care unit respiratory failure resolved Remained on oxygen at 2 L Was continued on DuoNeb's IV steroids eventually discontinued Patient's voice was very soft, post extubation. She was monitored closely. Voiced did improved. Encephalopathy improved slowly, continued on Lactulose and Rifaximin Ammonia trended down Provigil was added and helped to improve alertness Physical therapy work with patient, assisted out of bed Speech therapy continue to follow patient's, diets were adjusted as patient's mentation improved Patient was noted with anemia, H&H trending downward Was noted with heme + stools GI was consulted, workup was recommended , patient initially refuse upper and lower endoscopy. There was no active bleeding Patient was put on Protonix for GI prophylaxis Iron studies were done, low iron started on PO iron Required PRBC transfusion x 2, HH stable posttransfusion Patient did finally agreed to GI workup status post colonoscopy and upper endoscopy 09/25-Findings of external and internal hemorrhoids, diverticulosis, one polyp was snared, esophagitis, portal gastropathy. Recommended no NSAIDs, PPI, no nuts, no popcorn. Bx came back positive for tubulovillous adenoma SBFT done, no acute findings No actual source of bleeding found though GI evaluation, recommended OP follow up with possible CE as OP H&H remained stable, no active bleeding Hepatitis workup was done, as patient was noted with elevated liver enzymes. Patient was positive for hep C. There was no further recommendations per GI other than to follow up as outpatient. Patient was being prepared for discharge when she was noted with acute renal injury, was started on IVF. BMP was monitored Discharge was held Renal US ordered, bladder distended Lama was reinserted, large amount of urine was obtained Lama was discontinued liver patient remained with urinary retention, require Lama reinsertion During reinsertion, there was some trauma, with some labial swelling. Hematuria was noted. Because of urinary retention, Urology consulted. Dr. Qiu evaluated, recommended to continue with lama, avoid constipation and limit narcotic Started on Bethanechol On 09/28, patient was noted with fever Chest x-ray order-bilat pleural effusion noted started on abx Zosyn and Zithromax Pulmonary consulted, input appreciated. Thoracentesis is recommended. Interventional radiology consulted S/P right thoracentesis, 750 cc drained followed cultures, remain negative continued with oxygen Duonebs continue Pt improved, WBC trending down, no more fever Patient also noted with recurrent UTIs, positive for Siria Was continued on Diflucan Patient was noted with increased anxiety Resumed xanax, provigil was decreased Anxiety improved Patient initially had low blood pressure, lisinopril discontinued Later in hospitalization, blood pressure started to become more elevated, up to 180s Lisinopril started on a lower dose, blood pressure improved Patient's condition improved slowly, more oriented, less encephalopathic Was instructed to refrain from drinking and using cigarettes Patient was agreeable with going to rehabilitation She was tolerating diet well, no nausea, vomiting No fever H&H stable OOB with assist her PT CM for dc planning to SNF was arranged. Pt. discharged to SNF in stable condition Pt Condition on Discharge: Stable Discharge Disposition: Discharge to SNF Discharge Instructions DIET: Follow Instructions for: Heart Healthy Diet Activities you can perform: Weight Bearing as Fercho Follow up Referrals: Gastroenterology PCP Follow-up New Medications: Fluconazole (Diflucan) 100 Mg Tab 100 MG PO DAILY Infection #7 Ref 0 TAB Ferrous Sulfate (Ferrous Sulfate) 325 Mg Tab 325 MG PO BID ANEMIA #60 Ref 0 TAB Folic Acid (Folate) 1 Mg Tab 1 MG PO DAILY nutrition def #30 TAB Lactulose Liq (Lactulose Liq) 10 Gm/15 Ml Soln 30 ML PO TID encephalopathy #90 ML Lansoprazole ODT (Prevacid Solutab ODT) 30 Mg Tab 30 MG PO DAILY gastritits #30 TAB Lisinopril (Lisinopril) 5 Mg Tab 5 MG PO DAILY Blood Pressure Management #30 TAB Thiamine (Vitamin B-1) 100 Mg Tab 100 MG PO DAILY NUTRITIONAL DEF #30 TAB Continued Medications: Albuterol 18 GM Inh (Ventolin Hfa 18 GM Inh) 90 Mcg/Act Aer 2 PUFF INH Q4-6H PRN SHORTNESS OF BREATH #1 Ref 0 INHALER Budesonide-Formoterol Inh (Symbicort Inh) 160-4.5 Mcg/Act Aero 1 PUFF INH Q12HR #1 Ref 0 INHALER Clonidine (Clonidine) 0.1 Mg Tab 0.1 MG PO BID Blood Pressure Management #60 Ref 0 TAB Discontinued Medications: Albuterol 6.7 GM Inh (Proventil Hfa 6.7 GM Inh) 90 Mcg/Act Aer 2 PUFF INH Q4-6H PRN SHORTNESS OF BREATH #1 Ref 0 INHALER Alprazolam (Alprazolam) 0.5 Mg Tab 0.5 MG PO BID PRN ANXIETY Ref 0 TAB Hydrocodone-Acetaminophen (Fortine) 10-325 Mg Tab 1 TAB PO BID PRN PAIN Ref 0 TAB Lisinopril (Lisinopril) 40 Mg Tab 40 MG PO DAILY Blood Pressure Management #30 Ref 0 TAB Methocarbamol (Methocarbamol) 750 Mg Tab 750 MG PO BID Muscle Spasm #120 Ref 0 TAB Prednisone (Prednisone) 50 Mg Tab 50 MG PO DAILY #5 Ref 0 TAB Licha Vyas Oct 02, 2016 12:21
[2016-10-02] MEDS: RESP: ALBUTEROL 2.5 MG/IPRATROPIUM 0.5 MG NEB (PRN) NEB (12:27)
[2016-10-02] MEDS ORDERED: ALPR.25 PO (13:16)
[2016-10-02] MEDS ORDERED: MODA200T12 PO (13:16)
[2016-10-02] MEDS ORDERED: HYDR-3516 PO (13:16)
== END 2016-10-02 14:44 | DRG 207 ==
LOC: PHED 15:35 → PHEDA 16:42 → HIMN 18:25 → N05A 09-18 18:37 → N05B 09-24 16:05
PROVIDERS: ADMIT Specialist; ATTEND Specialist
PROC: 5A09357 Assistance with Respiratory Ventilation, Less than 24 Consecutive Hours, Continuous Positive Airway Pressure (ICD-10-PCS; 2016-09-02)
PROC: 5A1955Z Respiratory Ventilation, Greater than 96 Consecutive Hours (ICD-10-PCS; principal; 2016-09-04)
PROC: 0BH17EZ Insertion of Endotracheal Airway into Trachea, Via Natural or Artificial Opening (ICD-10-PCS; 2016-09-04)
PROC: 0T9B70Z Drainage of Bladder with Drainage Device, Via Natural or Artificial Opening (ICD-10-PCS; 2016-09-22)
PROC: 0DJ08ZZ Inspection of Upper Intestinal Tract, Via Natural or Artificial Opening Endoscopic (ICD-10-PCS; 2016-09-25)
PROC: 0DBN8ZZ Excision of Sigmoid Colon, Via Natural or Artificial Opening Endoscopic (ICD-10-PCS; 2016-09-25)
PROC: 0W993ZZ Drainage of Right Pleural Cavity, Percutaneous Approach (ICD-10-PCS; 2016-09-29)
DX: J96.02 Acute respiratory failure with hypercapnia (principal); G92 Toxic encephalopathy; N17.9 Acute kidney failure, unspecified; J90 Pleural effusion, not elsewhere classified; E87.0 Hyperosmolality and hypernatremia; J44.1 Chronic obstructive pulmonary disease with (acute) exacerbation; E87.1 Hypo-osmolality and hyponatremia; N39.0 Urinary tract infection, site not specified; N13.30 Unspecified hydronephrosis; K76.6 Portal hypertension; E87.2 Acidosis; F10.239 Alcohol dependence with withdrawal, unspecified; B37.49 Other urogenital candidiasis; J96.01 Acute respiratory failure with hypoxia; R13.10 Dysphagia, unspecified; I16.0 Hypertensive urgency; J98.01 Acute bronchospasm; I10 Essential (primary) hypertension; H93.12 Tinnitus, left ear; E16.2 Hypoglycemia, unspecified; E86.0 Dehydration; D53.9 Nutritional anemia, unspecified; M51.26 Other intervertebral disc displacement, lumbar region; G89.29 Other chronic pain; K31.89 Other diseases of stomach and duodenum; K20.9 Esophagitis, unspecified; K57.30 Diverticulosis of large intestine without perforation or abscess without bleeding; D12.5 Benign neoplasm of sigmoid colon; K64.8 Other hemorrhoids; K80.20 Calculus of gallbladder without cholecystitis without obstruction; K59.00 Constipation, unspecified; R73.9 Hyperglycemia, unspecified; M81.0 Age-related osteoporosis without current pathological fracture; M19.90 Unspecified osteoarthritis, unspecified site; E83.39 Other disorders of phosphorus metabolism; B96.20 Unspecified Escherichia coli [E. coli] as the cause of diseases classified elsewhere; B18.2 Chronic viral hepatitis C; R49.0 Dysphonia; R63.4 Abnormal weight loss; T38.0X5A Adverse effect of glucocorticoids and synthetic analogues, initial encounter; F41.1 Generalized anxiety disorder; F17.210 Nicotine dependence, cigarettes, uncomplicated; F40.240 Claustrophobia; Z16.23 Resistance to quinolones and fluoroquinolones; Z28.82 Immunization not carried out because of caregiver refusal; Z68.21 Body mass index [BMI] 21.0-21.9, adult; Z78.1 Physical restraint status; Z88.6 Allergy status to analgesic agent
CPT/HCPCS: 31500; 32555; 36430; 36600; 70450; 71010; 71020; 74000; 74250; 76705; 76775; 80048; 80053; 80074; 80076; 80202; 81001; 82140; 82272; 82550; 82552; 82607; 82728; 82805; 82945; 82948; 83520; 83540; 83550; 83605; 83615; 83735; 83880; 84100; 84157; 84484; 85014; 85018; 85025; 85027; 85044; 85379; 85610; 85730; 86038; 86256; 86403; 86850; 86900; 86901; 86920; 87040; 87070; 87077; 87086; 87186; 87205; 87493; 87522; 87641; 87804; 87902; 88112; 88305; 93005; 94002; 94003; 94640; 94664; 94667; 95819; 96361; 96374; 96375; C1729; C9399; J0360; J0456; J0696; J1120; J1630; J1650; J1940; J1956; J2060; J2212; J2270; J2543; J2920; J2930; J3010; J3370; J7030; J7040; J7042; J7050; J7512; J7613; P9016

== ENCOUNTER 2016-10-05 09:22 | Inpatient (IN) | payer MEDICARE, MEDICAID ==
[2016-10-05] VITALS (8 sets, daily range): BP systolic 121–181; BP diastolic 75–92; PULSE 86–94; RESP 16–28; TEMP 97.9; O2SAT 96–100
[~2016-10-05] VITALS: Ht 160 cm; Wt 52.0 kg
[~2016-10-05 09:22] MED LIST changes: -ALBU6.7H INH; +ALPR.25 PO; -ALPR0.5T3 PO; +DIFL100T PO; +FERR325T PO; +FOLI1TAB4 PO; -HYDR-3366 PO; +HYDR-3516 PO; +LACT10SO PO; +LISI-519 PO; -LISI40TA PO; -METH750T PO; +MODA200T12 PO; -PRED50 PO; +PREV30TA3 PO; -SYMB80AE INH; +VITA100T2 PO
[2016-10-05] MEDS ORDERED: MODA200T12 PO (09:37)
[2016-10-05] MEDS ORDERED: SODIUM CHLORIDE 0.9% FLUSH 5 ML FLUSH IVF PRN (09:45)
[2016-10-05] MEDS ORDERED: LOPE2CAP PO (09:57)
[2016-10-05] MEDS ORDERED: MILKSUS PO (09:57)
[2016-10-05] MEDS ORDERED: MYLASUS2 PO (09:57)
[2016-10-05] MEDS ORDERED: RESP: ALBUTEROL 2.5 MG/IPRATROPIUM 0.5 MG NEB (SCH) INH ONE (10:00)
[2016-10-05] MEDS ORDERED: FLEEENE3 RECTAL (10:02)
[2016-10-05] MEDS ORDERED: DULC10SU3 RECTAL (10:02)
[2016-10-05] MEDS ORDERED: LOPE1LIQ3 PO (10:05)
--- NOTE | 2016-10-05 10:09 | PD ---
HPI Chief Complaint: Respiratory Symptoms Time Seen by Provider: 09:50 Travel History International Travel<30 days: No Contact w/Intl Traveler<30days: No Traveled to known affect area: No History of Present Illness HPI 60-year-old female patient presenting from rehabilitation with history of anxiety, COPD, multiple medical issues, nursing note reviewed, presents back to the ER today for a sudden onset of palpitations, shortness of breath, and anxiety. Patient apparently was having heart rates in the 170s, desaturations down to the 50s, and had been given her Xanax and Lortab in the facility. The symptoms subsided by the time she came to the ER. She is on 3 L of oxygen and is 96%. She states she is feeling more comfortable and her heart rate is in more controlled rate. She states that the facility is fairly loud and causes her anxiety to worsen. She states that the facility is not giving her her when necessary nebulizers. She denies any fevers or any other issues. Modifying Factors: None Associated Signs & Symptoms: Anxiety, palpitations, tachycardia, shortness of breath Risk Factors: History of anxiety, COPD PFSH Past Medical History Arthritis: No Asthma: No Anxiety: Yes Cancer: No Congestive Heart Failure: No COPD: Yes Coronary Artery Disease: No Diabetes: Yes Patient Takes Glucophage: No Diminished Hearing: Yes ("tinnitus left ear") Genitourinary: No Herniated Disk: Yes Hypertension: Yes Musculoskeletal: Yes ("L1,L2,L3,fractures and L5 herniated disc") Neurologic: No Respiratory: Yes (CHRONIC BRONCHITIS) Immunizations Current: Yes Thyroid Disease: No Influenza Vaccination: Yes : 0 Para: 0 Miscarriage: 0 : 0 Past Surgical History Abdominal Surgery: No Cardiac Surgery: No Ear Surgery: No Endocrine Surgery: No Eye Surgery: No Genitourinary Surgery: No Gynecologic Surgery: Yes (Hystorectomy) Hysterectomy: Yes Oral Surgery: Yes (All teeth removed, cannot recall year) Thoracic Surgery: No Social History Alcohol Use: Yes (stopped on last visit) Tobacco Use: Yes (1 PPD, quit upon last visit, left 3 days ago) Substance Use: Yes (etoh) Allergies-Medications (Allergen,Severity, Reaction): Coded Allergies: Aspirin (Verified Adverse Reaction, Severe, "don't take aspirin i have tinnitus, 10/05/16) Reported Meds & Prescriptions Reported Meds & Active Scripts Active Hydrocodone-Acetaminophen 5-325 mg Tab 1 Tab PO Q4H PRN Xanax (Alprazolam) 0.25 Mg Tab 0.25 Mg PO Q8H PRN Lisinopril 5 Mg Tab 5 Mg PO DAILY Ferrous Sulfate 325 Mg Tab 325 Mg PO BID Diflucan (Fluconazole) 100 Mg Tab 100 Mg PO DAILY Vitamin B-1 (Thiamine HCl) 100 Mg Tab 100 Mg PO DAILY Prevacid Solutab ODT (Lansoprazole) 30 Mg Tab 30 Mg PO DAILY Lactulose Liq (Lactulose) 10 Gm/15 Ml Soln 30 Ml PO TID Folate (Folic Acid) 1 Mg Tab 1 Mg PO DAILY Reported Loperamide Liq (Loperamide HCl) 1 Mg/5 Ml Liq 2 Mg PO DIRECTED PRN Give 4mg (20ml) for initial dose then, 2 mg (10 mL) after each loose stool. Not to exceed 16 mg (80 mL) per day. Fleet Enema Rectal (Sodium Phosphates Rectal) 7-19 Gm/118 Ml Enem 118 Ml RECTAL DAILY PRN Dulcolax Supp (Bisacodyl) 10 Mg Supp 10 Mg RECTAL DAILY PRN Loperamide (Loperamide HCl) 2 Mg Cap 2 Mg PO DIRECTED PRN Give two capsules for the initial dose, then One capsule after each loose stool. Not to exceed 8 capsules per day. Milk of Magnesia Liq (Magnesium Hydroxide) 400 Mg/5 Ml Susp 30 Ml PO Q4HR PRN Mylanta Liq (Frawikdh-Clhqpfalz-Uesfrhgzqzp Liq) 200-200-20 Mg/5 Ml Susp 30 Ml PO Q4HR PRN Take between meals or as directed. Shake well. Maximum 120 ml/24 hrs. Modafinil 200 Mg Tab 200 Mg PO DAILY PRN Symbicort Inh (Budesonide/Formoterol Fumarate) 160-4.5 Mcg/Act Aero 1 Puff INH Q12HR Clonidine (Clonidine HCl) 0.1 Mg Tab 0.1 Mg PO BID Ventolin Hfa 18 GM Inh (Albuterol Sulfate) 90 Mcg/Act Aer 2 Puff INH Q4HR PRN Review of Systems Except as stated in HPI: all other systems reviewed are Neg Physical Exam Narrative GENERAL: Well-nourished, well-developed elderly white female patient in no acute distress in the ER. Awake and oriented 3. SKIN: Warm and dry. HEAD: Normocephalic. EYES: No scleral icterus. No injection or drainage. NECK: Supple, trachea midline. CARDIOVASCULAR: Regular rate and rhythm without murmurs, gallops, or rubs. RESPIRATORY: Breath sounds equal with mild wheezing throughout bilaterally. No accessory muscle use. GASTROINTESTINAL: Abdomen soft, non-tender, nondistended. MUSCULOSKELETAL: No cyanosis, or edema. BACK: Nontender without obvious deformity. No CVA tenderness. Data Data Last Documented VS Vital Signs Date Time Temp Pulse Resp B/P Pulse Ox O2 Delivery O2 Flow Rate FiO2 10/05/16 09:48 24 98 Nasal Cannula 3 10/05/16 09:40 90 10/05/16 09:32 97.9 175/84 Orders Complete Blood Count With Diff (10/05/16 09:43) Comprehensive Metabolic Panel (10/05/16 09:43) B-Type Natriuretic Peptide (10/05/16 09:43) Act Partial Throm Time (Ptt) (10/05/16 09:43) Prothrombin Time / Inr (Pt) (10/05/16 09:43) Iv Access Insert/Monitor (10/05/16 09:43) Electrocardiogram (10/05/16 09:43) Ecg Monitoring (10/05/16 09:43) Oximetry (10/05/16 09:43) Oxygen Administration (10/05/16 09:43) Chest, Single Ap (10/05/16 09:43) Sodium Chloride 0.9% Flush (Ns Flush) (10/05/16 09:45) Albuterol-Ipratropium Neb (Duoneb Neb) (10/05/16 10:00) Potassium Chloride Eff (K-Lyte Cl Eff) (10/05/16 10:45) Furosemide Inj (Lasix Inj) (10/05/16 11:00) Potassium Cl 40 Meq/30 Ml Liq (Kcl 40 Me (10/05/16 11:15) Labs Laboratory Tests Test 10/05/16 09:50 White Blood Count 14.2 TH/MM3 Red Blood Count 2.59 MIL/MM3 Hemoglobin 8.7 GM/DL Hematocrit 25.3 % Mean Corpuscular Volume 97.3 FL Mean Corpuscular Hemoglobin 33.6 PG Mean Corpuscular Hemoglobin 34.5 % Concent Red Cell Distribution Width 16.7 % Platelet Count 368 TH/MM3 Mean Platelet Volume 7.6 FL Neutrophils (%) (Auto) 86.8 % Lymphocytes (%) (Auto) 5.3 % Monocytes (%) (Auto) 7.6 % Eosinophils (%) (Auto) 0.1 % Basophils (%) (Auto) 0.2 % Neutrophils # (Auto) 12.3 TH/MM3 Lymphocytes # (Auto) 0.8 TH/MM3 Monocytes # (Auto) 1.1 TH/MM3 Eosinophils # (Auto) 0.0 TH/MM3 Basophils # (Auto) 0.0 TH/MM3 CBC Comment DIFF FINAL Differential Comment Prothrombin Time 12.8 SEC Prothromb Time International 1.2 RATIO Ratio Activated Partial 27.3 SEC Thromboplast Time Sodium Level 136 MEQ/L Potassium Level 3.2 MEQ/L Chloride Level 98 MEQ/L Carbon Dioxide Level 31.9 MEQ/L Anion Gap 6 MEQ/L Blood Urea Nitrogen 2 MG/DL Creatinine 0.35 MG/DL Estimat Glomerular Filtration 191 ML/MIN Rate Random Glucose 121 MG/DL Calcium Level 8.2 MG/DL Total Bilirubin 0.4 MG/DL Aspartate Amino Transf 37 U/L (AST/SGOT) Alanine Aminotransferase 55 U/L (ALT/SGPT) Alkaline Phosphatase 97 U/L B-Type Natriuretic Peptide 1574 PG/ML Total Protein 6.1 GM/DL Albumin 2.1 GM/DL MDM Medical Decision Making Medical Screen Exam Complete: Yes Emergency Medical Condition: Yes Medical Record Reviewed: Yes Interpretation(s) EKG shows NSR, no ST elevation or depression, and no arrhythmias. No significant T-wave inversions. Laboratory Tests Test 10/05/16 09:50 White Blood Count 14.2 TH/MM3 (4.0-11.0) Red Blood Count 2.59 MIL/MM3 (4.00-5.30) Hemoglobin 8.7 GM/DL (11.6-15.3) Hematocrit 25.3 % (35.0-46.0) Neutrophils (%) (Auto) 86.8 % (16.0-70.0) Lymphocytes (%) (Auto) 5.3 % (9.0-44.0) Neutrophils # (Auto) 12.3 TH/MM3 (1.8-7.7) Lymphocytes # (Auto) 0.8 TH/MM3 (1.0-4.8) Monocytes # (Auto) 1.1 TH/MM3 (0-0.9) Prothrombin Time 12.8 SEC (9.8-11.6) Potassium Level 3.2 MEQ/L (3.5-5.1) Blood Urea Nitrogen 2 MG/DL (7-18) Creatinine 0.35 MG/DL (0.50-1.00) Random Glucose 121 MG/DL (74-106) Calcium Level 8.2 MG/DL (8.5-10.1) Alanine Aminotransferase 55 U/L (10-53) (ALT/SGPT) B-Type Natriuretic Peptide 1574 PG/ML (0-100) Total Protein 6.1 GM/DL (6.4-8.2) Albumin 2.1 GM/DL (3.4-5.0) Last 24 hours Impressions Chest X-Ray 10/05/16 0943 Signed Impressions: Service Date/Time: September 09:44 - CONCLUSION: 1. Bilateral pleural effusions, left greater than right with slight increase in size on the left since September 29. No pneumothorax. Berlin Carrillo MD Differential Diagnosis Anxiety, tachycardia, shortness of breathCOPD exacerbation versus dysrhythmias versus anxiety attack Narrative Course Chest x-ray shows bilateral pleural effusion which is worsening. Her BNP is elevated. At this point, Lasix was initiated on her. She has a low potassium and potassium was given by mouth. My plan would be to admit her for further treatment and evaluation. Case was discussed with Dr. Guaman for admission. Diagnosis Primary Impression: Pleural effusion Additional Impression: CHF exacerbation Admitting Information Admitting Physician Requests: Admit Deepti Cramer MD Oct 05, 2016 10:09
[2016-10-05 10:16] LABS: AUTOMATED NEUTROPHIL # 12.3 TH/MM3 (1.8-7.7); BASOPHIL % 0.2 % (0.0-2.0); EOSINOPHIL % 0.1 % (0.0-4.0); HEMATOCRIT 25.3 % (35.0-46.0); HEMO FLAGS DIFF FINAL; LYMPH % 5.3 % (9.0-44.0); LYMPHOCYTE # 0.8 TH/MM3 (1.0-4.8); MEAN CELL VOLUME 97.3 FL (80.0-100.0); MEAN CORPUSCULAR HEMOGLOBIN 33.6 PG (27.0-34.0); MEAN CORPUSCULAR HGB CONC 34.5 % (32.0-36.0); MONO % 7.6 % (0.0-8.0); NEUT % 86.8 % (16.0-70.0); PLATELET COUNT 368 TH/MM3 (150-450); RED BLOOD COUNT 2.59 MIL/MM3 (4.00-5.30); RED CELL DISTRIBUTION WIDTH 16.7 % (11.6-17.2); WHITE BLOOD COUNT 14.2 TH/MM3 (4.0-11.0)
[2016-10-05 10:26] LABS: APTT (PATIENT) 27.3 SEC (24.3-30.1); INTERNATIONAL NORMALIZED RATIO 1.2 RATIO; PROTHROMBIN TIME - PATIENT 12.8 SEC (9.8-11.6)
--- NOTE | 2016-10-05 10:29 | RADRPT ---
EXAM DATE/TIME: 10/05/2016 09:44 [facility] COMPARISON: CHEST EXPIRATION ONLY, September 29, 2016, 9:25. INDICATIONS : Shortness of breath. MEDICAL HISTORY : Hypertension. Diabetes mellitus type II. SURGICAL HISTORY : None. ENCOUNTER: Initial ACUITY: 1 day PAIN SCORE: 0/10 LOCATION: Bilateral chest FINDINGS: There are bilateral pleural effusions. The pleural effusion on the right is not significantly changed from September 29. Left pleural effusion of moderate size has increased slightly since September 29. H eart size within normal limits. No pneumothorax. Mild scoliosis. CONCLUSION: 1. Bilateral pleural effusions, left greater than right with slight increase in size on the left sinc e September 29. No pneumothorax. Berlin Carrillo MD on October 05, 2016 at 10:23 Board Certified Radiologist. This report was verified electronically.
[2016-10-05 10:35] LABS: ALT (GPT) 55 U/L (10-53); ANION GAP 6 MEQ/L (5-15); AST (GOT) 37 U/L (15-37); BICARBONATE 31.9 MEQ/L (21.0-32.0); BLOOD UREA NITROGEN 2 MG/DL (7-18); CHLORIDE 98 MEQ/L (98-107); GLOMERULAR FILTRATION RATE 191 ML/MIN (>89); POTASSIUM 3.2 MEQ/L (3.5-5.1); SODIUM (NA) 136 MEQ/L (136-145)
[2016-10-05 10:37] LABS: ALKALINE PHOSPHATASE 97 U/L (45-117); TOTAL BILIRUBIN ADULT 0.4 MG/DL (0.2-1.0)
[2016-10-05] MEDS ORDERED: POTASSIUM CHLORIDE 25 MEQ EFFERVESCENT TAB PO ONE (10:45)
[2016-10-05] MEDS ORDERED: FUROSEMIDE 40 MG/4 ML VIAL IV PUSH ONE (11:00)
--- NOTE | 2016-10-05 11:11 | EKG ---
Date Performed: 10/05/2016 Time Performed: 10:27:39 PTAGE: 60 years EKG: Sinus rhythm WITH SHORT RI INTERVAL SEPTAL MYOCARDIAL INFARCTION MODERATE T-WAVE ABNORMALITY, CONSIDER ANTERIOR I SCHEMIA ABNORMAL ECG PREVIOUS TRACING : 09/02/2016 16.43 DOCTOR: Priyank Baron Interpretating Date/Time 10/05/2016 11:10:13
[2016-10-05] MEDS ORDERED: POTASSIUM CL 40 MEQ/30 ML LIQ UDC PO ONE (11:15)
[2016-10-05] MEDS ORDERED: LOPERAMIDE HCL 2 MG CAP PO PRN (11:45)
[2016-10-05] MEDS ORDERED: BISACODYL 10 MG SUPP RECTAL PRN (11:45)
[2016-10-05] MEDS ORDERED: MAGNESIUM HYDROXIDE SUSP 30 ML CUP PO PRN (11:45)
[2016-10-05] MEDS ORDERED: SOD PHOSPHATE/SOD BIPHOSPHATE (ADULT) ENEMA 133ML RECTAL PRN (11:45)
[2016-10-05] MEDS ORDERED: MODAFINIL 200 MG TAB PO PRN (11:45)
[2016-10-05] MEDS ORDERED: LOPERAMIDE HCL SOLN 2 MG/10 ML UDC PO PRN (11:45)
[2016-10-05] MEDS ORDERED: ALUMINUM/MAGNESIUM/SIMETH 30 ML CUP PO PRN (11:45)
[2016-10-05] MEDS ORDERED: ALBUTEROL SULFATE 90 MCG/ACT HFA 8 GM INHALER INH PRN (11:45)
[2016-10-05] MEDS ORDERED: NALOXONE HCL 0.4 MG/ML AMP IV PRN (12:00)
[2016-10-05] MEDS ORDERED: SODIUM CHLORIDE 0.9% FLUSH 5 ML FLUSH FLUSH PRN (12:00)
[2016-10-05] MEDS ORDERED: ACETAMINOPHEN 325 MG TAB PO PRN (12:00)
[2016-10-05] MEDS ORDERED: ONDANSETRON HCL 4 MG/2 ML VIAL IVP PRN (12:00)
[2016-10-05] MEDS: LACTULOSE SYRUP 20 GM/30 ML CUP PO SCH ×2 (15:04→18:00)
[2016-10-05] MEDS: FLUCONAZOLE 100 MG TAB PO SCH (15:04)
[2016-10-05] MEDS: FOLIC ACID 1 MG TAB PO SCH (15:05)
[2016-10-05] MEDS: cloNIDine HCL 0.1 MG TAB PO SCH ×2 (15:05→21:30)
[2016-10-05] MEDS: POTASSIUM CHLORIDE 10 MEQ CONTROLLED RELEASE TAB PO SCH ×2 (15:05→21:30)
[2016-10-05] MEDS: LISINOPRIL 5 MG TAB PO SCH (15:05)
[2016-10-05] MEDS: THIAMINE HCL 100 MG TAB PO SCH (15:05)
[2016-10-05] MEDS: FERROUS SULFATE 325 MG (65 MG ELEMENTAL IRON) TAB PO SCH ×2 (15:05→21:30)
[2016-10-05] MEDS: BUDESONIDE-FORMOTEROL 160/4.5 MCG INHALER INH SCH ×2 (15:06→21:51)
[2016-10-05] MEDS: ACETAMINOPHEN/HYDROcodone 325 MG/5 MG TAB PO PRN ×2 (15:11→23:48)
[2016-10-05] MEDS: ALPRAZolam 0.25 MG TAB PO PRN (15:11)
--- NOTE | 2016-10-05 15:51 | MH ---
cc: ALYSSA GUAMAN DATE OF ADMISSION: 10/05/2016 DATE OF 1955 CHIEF COMPLAINT Shortness of breath. TRAVEL INTERNATIONAL LESS THAN 30 DAYS: No HISTORY OF PRESENT ILLNESS This is a pleasant 60-year-old white female who was recently in the hospital here at [facility] and was sent to rehabilitation to strengthen and assist her in getting her ADLs back. The patient has a significant history of COPD which continues to be an issue for her at times. The patient has been working with a rehab team at the rehabilitation SNF. She states that the facility is non conclusive for her to be able to rest. It is very loud and it causes her anxiety. The patient states that her appetite has been fair but she has had an occasional cough since she has been there. The patient has strengthened and feels like that she is doing better with her rehab but due to her anxiety she has not been able to rest. Today the patient had an episode to where she was tachycardic. She de-sated down into the 50s. She had a sudden onset of palpitations. She was given Xanax and Lortab at the facility and ER was called to evaluate. The patient was placed on O2 at 3 liters and was brought to the emergency room and by the time she got here her heart rate was controlled and she was much more comfortable. She currently has no shortness of breath. She is alert, oriented, answering questions appropriately and resting on a stretcher. The patient denies any fever. Denies any acute pain. Denies any headache. She has had no recent weight gain, possibly some weight loss over these last couple of hospital admissions. The patient is positive for anxiety. Positive for shortness of breath. Positive for some palpitations. She is positive for her shortness of breath today as well as a nonproductive cough which waxes and wanes throughout the day. The patient has a Lopez catheter in place draining clear yellow urine. PAST MEDICAL HISTORY Past medical history includes: 1. COPD. 2. Anxiety disorder. 3. Respiratory failure. 4. Degenerative disk disease. 5. Hypertension. 6. Chronic bronchitis. 7. Diabetes mellitus type 2. 8. CHF exacerbation. 9. Pleural effusions. 10. Urinary retention. 11. Metabolic encephalopathy. 12. Previous ETOH abuse. 13. UTI. 14. Tobacco abuse. 15. Anemia. PAST SURGICAL HISTORY 1. Hysterectomy. 2. Oral surgery with all teeth removed. 3. Thoracentesis for the right lung. 4. Post ventilator management last admission. ALLERGIES ASPIRIN. MEDICATION Active: 1. Hydrocodone acetaminophen. 2. Xanax. 3. Lisinopril. 4. Ferrous sulfate. 5. Diflucan. 6. Vitamin B1. 7. Prevacid. 8. Lactulose. 9. Folate. Reported meds: 1. Lomotil liquid. 2. Fleet's enema. 3. Dulcolax. 4. Imodium. 5. Milk of Magnesia. 6. Mylanta. 7. Symbicort. 8. Clonidine. 9. Ventolin. 10. Modafinil. Some of these meds are p.r.n. meds. SOCIAL HISTORY The patient is single. Before becoming ill she lived in her own apartment. She has no children. She is single. She has no other family living except for a niece who does come and check on her. FAMILY HISTORY COPD, otherwise unknown. REVIEW OF SYSTEMS A 12-point review was done. Positives noted in HPI which include anxiety, shortness of breath, palpitations, cough. Appetite fair. Hypoxemia, panic attack. All other systems are negative or unremarkable. PHYSICAL EXAMINATION VITAL SIGNS: Temperature is 97.9, pulse of 94, respirations between 24 and 28, O2 sat 96 on 3 liters nasal cannula. Blood pressure 181/89 and 175/84 since in the ER. GENERAL: Thin, well-nourished white female, looks older than her stated age, resting in the stretcher. She is alert and oriented and a fair historian. SKIN: Skin is pale, warm and dry, slightly rai. HEENT: Atraumatic, normocephalic. PERRLA at 2. No scleral icterus. No drainage. Mucous membranes are pale and moist. NECK: Neck is supple. Trachea is midline. CARDIOVASCULAR: Regular rate and rhythm in the 90s. Soft systolic murmur, grade 2/6. No rubs, no gallops. RESPIRATORY: Breathing is somewhat choppy with low volumes. She has mild inspiratory wheezing noted in her mid to lower lobes, decreased breath sounds on the left and right but left is greater than the right. GASTROINTESTINAL: Abdomen is flat, soft, nontender, nondistended. : Lopez catheter in place, clear yellow urine, draining adequate amounts. MUSCULOSKELETAL: Moves all extremities with purpose. No edema, no cyanosis. NEUROLOGIC: Equal hand recapper. Voice is soft and clear. Slight hoarseness noted. PSYCHIATRIC: Appropriate mood. Mild anxiety. DIAGNOSTIC DATA WBC count 14.2, RBC 2.59, hemoglobin 8.7, hematocrit 25.3, neutrophil auto count 86.8 and lymphocyte auto count 5.3, monocyte 1.1, platelet count 368. All other hematology studies are normal. Sodium 136, potassium 3.2, chloride 98, carbon dioxide 31.9, amnion gap 6, BUN 2, creatinine 0.35, GFR 191, glucose 121, calcium 8.2, ALT 55, BNP 1574, total protein 6.1, albumin 2.1. IMAGING STUDIES Chest x-ray shows bilateral pleural effusions, left greater than the right with slight increase in the left since October 01, no pneumothorax. ASSESSMENT AND PLAN Pleural effusions, congestive heart failure exacerbation, COPD exacerbation, probable panic attack, leukocytosis, hypokalemia, anemia, history of ETOH abuse, urinary retention. Our plan is to admit her to observation. Will monitor her ECG. Vital signs will be q. 4, 2-D echo. Will reconcile her medications. Give her a heart healthy diet. As needed medications for bowel regimen, fever and pain. Place her on 10 mEq of potassium p.o. b.i.d. and recheck labs in the morning. The patient will consult cardiology for their expert opinion. The patient states that her jet dyeing machine tender came in and stated that he was planning to do a thoracentesis on her left lung tomorrow. We will follow his expert recommendations. Will get PT and OT to work with the patient. Please note, the patient still has a Lopez catheter in place. She has had this catheter since last hospital stay which has been several weeks. So we need to evaluate her catheter. Her congestive heart failure will be reassessed while in the hospital and we will follow her needs based on her hospital course. She is full code, full aggressive care. Dictated by: KATERYNA Live Alyssa Guaman MD JP/ELYSSA /2:05 PM /3:48 PM Pt was seen and examined in ER as above on day of admission face to face time spent with pt chart was reviewed in detail including meds labs and notes and rad data plan of care was dw balance screwhead polisher dw pt dw internal affairs commander dw ER physician PENNY
[2016-10-05] MEDS: LANSOPRAZOLE SOLUTAB 30 MG TAB PO SCH (16:05)
[2016-10-05] MEDS: FUROSEMIDE 40 MG/4 ML VIAL IVP SCH (19:34)
--- NOTE | 2016-10-05 20:00 | EC ---
Study Study Date:10/05/2016 STUDY CONCLUSIONS SUMMARY - Left ventricle: The cavity size was normal. Wall thickness was normal. Systolic function was mildly reduced. The estimated ejection fraction was in the range of 45% to 50%. Wall motion was normal; there were no regional wall motion abnormalities. - Mitral valve: Moderate regurgitation. - Pulmonary arteries: PA peak pressure: 43mm Hg (S). - Pericardium, extracardiac: There was a right pleural effusion. There was a left pleural effusion. If LV function is below 40, please consider prescribing an ACEI or ARB or document rationale for non-use. PROCEDURE DATA STUDY STATUS: Elective. Procedure: Transthoracic echocardiography. Image quality was good. Scanning was performed from the parasternal, apical, and subcostal acoustic windows. Study completion: The patient tolerated the procedure well. Transthoracic echocardiography. M-mode, complete 2D, complete spectral Doppler, and color Doppler. Patient status: Inpatient. CARDIAC ANATOMY LEFT VENTRICLE: The cavity size was normal. Wall thickness was normal. Systolic function was mildly reduced. The estimated ejection fraction was in the range of 45% to 50%. Wall motion was normal; there were no regional wall motion abnormalities. AORTIC VALVE: Trileaflet; normal thickness leaflets. Doppler: Transvalvular velocity was within the normal range. There was no stenosis. No regurgitation. AORTA: Aortic root: The aortic root was normal in size. MITRAL VALVE: Structurally normal valve. Doppler: Transvalvular velocity was within the normal range. There was no evidence for stenosis. Moderate regurgitation. Mean gradient: 3mm Hg (D). Peak gradient: 7mm Hg (D). LEFT ATRIUM: The atrium was normal in size. RIGHT VENTRICLE: The cavity size was normal. Wall thickness was normal. PULMONIC VALVE: Doppler: Transvalvular velocity was within the normal range. There was no evidence for stenosis. No regurgitation. TRICUSPID VALVE: Structurally normal valve. Doppler: Transvalvular velocity was within the normal range. Trace regurgitation. PULMONARY ARTERY: The main pulmonary artery was normal-sized. Systolic pressure was within the normal range. RIGHT ATRIUM: The atrium was normal in size. PERICARDIUM: There was no pericardial effusion. SYSTEMIC VEINS: Inferior vena cava: The vessel was normal in size. Pleura: There was a right pleural effusion. There was a left pleural effusion. BASIC MEASUREMENTS ADULT Normal Left ventricle LV internal dimension, ED, chordal level, *38.4 mm 43-52 PLAX LV internal dimension, ES, chordal level, 32 mm 23-38 PLAX Fractional shortening, chordal level, PLAX *17 % >29 LV posterior wall thickness, ED 7.15 mm IVS/LVPW ratio, ED 1.08 <1.3 Ventricular septum Septal thickness, ED 7.71 mm Aortic valve Leaflet separation 16 mm 15-26 Left atrium Anterior-posterior dimension 37 mm Right ventricle RV internal dimension, ED, PLAX 19.2 mm 19-38 BASIC MEASUREMENTS ADULT Normal Aortic valve Leaflet separation 16 mm 15-26 Aorta Root diameter, ED 26 mm 20-37 DOPPLER MEASUREMENTS ADULT Normal Main pulmonary artery Pressure, S *43 mm Hg =30 Aortic valve VTI, S 30.3 cm Mitral valve Peak E-wave velocity 106 cm/s Peak A-wave velocity 53.7 cm/s Mean velocity, D 71.3 cm/s Mean gradient, D 3 mm Hg Peak gradient, D 7 mm Hg Peak E/A ratio 2 Tricuspid valve Regurgitant peak velocity 307 cm/s Peak RV-RA gradient, S 38 mm Hg Maximal regurgitant velocity 307 cm/s Systemic veins Estimated CVP 5 mm Hg Right ventricle RV pressure, S *43 mm Hg <30 LEGEND: Mean values are shown as u=mean value. Asterisk (*) romero values outside specified normal range. Prepared and signed by Alessandro White [id number]
--- NOTE | 2016-10-05 20:16 | MB ---
cc: JOSE MONTAÑO DATE OF CONSULTATION: 10/05/2016. REASON FOR CONSULTATION: Heart failure exacerbation. HISTORY OF PRESENT ILLNESS: 60-year-old female with past history significant for severe COPD, hypertension, diabetes type 2, metabolic encephalopathy and alcohol abuse who was brought into the hospital from the rehabilitation assisted facility after an episode of tachycardia and hypoxemia. She is better. She currently has no idea what happened; however, she does report that she feels better. She denies any chest pain, shortness of breath, palpitations, syncope. She is very poor historian and most of the history is taken from the chart. According to the chart, she had shortness of breath as well as a nonproductive cough. REVIEW OF SYSTEMS: Unobtainable. PAST MEDICAL HISTORY: 1. COPD. 2. Anxiety. 3. Hypertension. 4. Chronic bronchitis. 5. Diabetes type 2. 6. Heart failure. 7. Pleural effusions. 8. Urinary retention. 9. Metabolic encephalopathy. 10. Urinary tract infection. 11. Tobacco abuse. 12. Anemia. PAST SURGICAL HISTORY: 1. Hysterectomy. 2. Thoracentesis. ALLERGIES: 1. ASPIRIN. MEDICATIONS: Reviewed. SOCIAL HISTORY: Positive for alcohol, tobacco, no illicit drug use. PHYSICAL EXAMINATION: VITAL SIGNS: Temperature 97.9, respiratory rate 26, pulse 90, O2 sats 166/92, O2 sats 97% on three liters nasal cannula. GENERAL: Generally she is disoriented although alert and awake in no acute distress. NECK: Positive JVD, no carotid bruits. HEART: Normal S1 and S2. Regular rate and rhythm. No murmurs, rubs or gallops. LUNGS: No accessory muscle use. Sounds are equal in both lungs with mild wheezing. GASTROINTESTINAL: Positive bowel sounds. The abdomen is soft, nontender and nondistended. EXTREMITIES: No cyanosis or edema. Pulses throughout. DATA: CBC: Hemoglobin 8, hematocrit 25. Chemistries: Sodium 136, potassium 3.2, BUN 2, creatinine 0.35. BNP 1574. Troponin 0.05. Albumin 2.1. TIBC 221. Iron saturation 8.6, ferritin 1314. Chest x-ray shows bilateral pleural effusions. EKG shows sinus rhythm with nonspecific T abnormalities in leads I and aVL. ASSESSMENT: This is a 52-year-old female with above history and findings admitted with an apparent episode of shortness of breath of unclear etiology. The differential diagnosis includes COPD, heart failure and/or anxiety. Echocardiogram has been ordered and we are still awaiting results. I agree with continuing aggressive medical management for CAD risk factors as well as some mild IV diuresis. The patient's anemia should be evaluated. I will leave that to the primary team. RECOMMENDATIONS: 1. Continue IV diuresis. 2. Strict intake and output. 3. Daily weights. 4. Heart-healthy diet. 5. Aggressive medical management for coronary artery disease risk factors. Thank you for the opportunity to take part in the care of this patient. Will be available on a PRN basis for further questions or concerns. MD CRICKET Velasquez/HELADIO /7:45 PM /7:58 PM PENNY
[2016-10-05] MEDS: SODIUM CHLORIDE 0.9% FLUSH 5 ML FLUSH FLUSH SCH (21:30)
[2016-10-06] VITALS (8 sets, daily range): BP systolic 115–145; BP diastolic 60–88; PULSE 68–83; RESP 16–18; TEMP 97.5–98.8; O2SAT 96–100
[2016-10-06 05:50] LABS: AUTOMATED NEUTROPHIL # 9.2 TH/MM3 (1.8-7.7); BASOPHIL % 0.3 % (0.0-2.0); EOSINOPHIL % 0.4 % (0.0-4.0); HEMATOCRIT 25.4 % (35.0-46.0); HEMO FLAGS DIFF FINAL; LYMPH % 12.1 % (9.0-44.0); LYMPHOCYTE # 1.4 TH/MM3 (1.0-4.8); MEAN CELL VOLUME 97.2 FL (80.0-100.0); MEAN CORPUSCULAR HEMOGLOBIN 32.6 PG (27.0-34.0); MEAN CORPUSCULAR HGB CONC 33.5 % (32.0-36.0); MONO % 8.3 % (0.0-8.0); NEUT % 78.9 % (16.0-70.0); PLATELET COUNT 330 TH/MM3 (150-450); RED BLOOD COUNT 2.62 MIL/MM3 (4.00-5.30); RED CELL DISTRIBUTION WIDTH 16.8 % (11.6-17.2); WHITE BLOOD COUNT 11.7 TH/MM3 (4.0-11.0)
[2016-10-06 06:03] LABS: BICARBONATE 34.6 MEQ/L (21.0-32.0); POTASSIUM 3.5 MEQ/L (3.5-5.1)
[2016-10-06] MEDS ORDERED: POTASSIUM CL 40 MEQ/30 ML LIQ UDC PO ONE (07:30)
--- NOTE | 2016-10-06 07:55 | HHI.PR ---
Subjective Subjective Remarks SOB better no cp no fever tele reviewed, SR diuresing well inc. stool noted with flat pink rash over mons pubis, mild erythema to groin wants to go home not SNF Review of Systems Constitutional Constitutional Remarks 12 point ROS completed, unreliable Vitals/Results Intake & Output 10/05/16 10/05/16 10/06/16 15:00 23:00 07:00 Output Total 2500 ml Balance -2500 ml Output Urine Total 2500 ml # Voids 0 # Bowel Movements 1 Vital Signs Vital Signs Date Time Temp Pulse Resp B/P Pulse Ox O2 Delivery O2 Flow Rate FiO2 10/06/16 07:38 97.5 77 18 138/66 100 10/06/16 03:41 98.0 83 18 145/88 98 10/05/16 21:31 94 16 173/81 98 Nasal Cannula 3 10/05/16 19:25 86 22 166/92 97 Nasal Cannula 3 10/05/16 17:09 121/75 10/05/16 15:12 94 22 168/85 97 Nasal Cannula 3 10/05/16 11:21 94 26 181/89 96 Nasal Cannula 3 10/05/16 09:48 24 98 Nasal Cannula 3 10/05/16 09:40 90 26 99 Nasal Cannula 5 10/05/16 09:32 97.9 91 28 175/84 100 CBC/BMP: 10/06/16 0510 10/06/16 0510 Lab Results Laboratory Tests Test 10/05/16 10/06/16 09:50 05:10 White Blood Count 14.2 TH/MM3 11.7 TH/MM3 Red Blood Count 2.59 MIL/MM3 2.62 MIL/MM3 Hemoglobin 8.7 GM/DL 8.5 GM/DL Hematocrit 25.3 % 25.4 % Mean Corpuscular Volume 97.3 FL 97.2 FL Mean Corpuscular Hemoglobin 33.6 PG 32.6 PG Mean Corpuscular Hemoglobin 34.5 % 33.5 % Concent Red Cell Distribution Width 16.7 % 16.8 % Platelet Count 368 TH/MM3 330 TH/MM3 Mean Platelet Volume 7.6 FL 7.9 FL Neutrophils (%) (Auto) 86.8 % 78.9 % Lymphocytes (%) (Auto) 5.3 % 12.1 % Monocytes (%) (Auto) 7.6 % 8.3 % Eosinophils (%) (Auto) 0.1 % 0.4 % Basophils (%) (Auto) 0.2 % 0.3 % Neutrophils # (Auto) 12.3 TH/MM3 9.2 TH/MM3 Lymphocytes # (Auto) 0.8 TH/MM3 1.4 TH/MM3 Monocytes # (Auto) 1.1 TH/MM3 1.0 TH/MM3 Eosinophils # (Auto) 0.0 TH/MM3 0.0 TH/MM3 Basophils # (Auto) 0.0 TH/MM3 0.0 TH/MM3 CBC Comment DIFF FINAL DIFF FINAL Differential Comment Prothrombin Time 12.8 SEC Prothromb Time International 1.2 RATIO Ratio Activated Partial 27.3 SEC Thromboplast Time Sodium Level 136 MEQ/L 134 MEQ/L Potassium Level 3.2 MEQ/L 3.5 MEQ/L Chloride Level 98 MEQ/L 93 MEQ/L Carbon Dioxide Level 31.9 MEQ/L 34.6 MEQ/L Anion Gap 6 MEQ/L 6 MEQ/L Blood Urea Nitrogen 2 MG/DL 3 MG/DL Creatinine 0.35 MG/DL 0.41 MG/DL Estimat Glomerular Filtration 191 ML/MIN 159 ML/MIN Rate Random Glucose 121 MG/DL 96 MG/DL Calcium Level 8.2 MG/DL 8.1 MG/DL Total Bilirubin 0.4 MG/DL Aspartate Amino Transf 37 U/L (AST/SGOT) Alanine Aminotransferase 55 U/L (ALT/SGPT) Alkaline Phosphatase 97 U/L B-Type Natriuretic Peptide 1574 PG/ML Total Protein 6.1 GM/DL Albumin 2.1 GM/DL Physical Exam General General Appearance: Well Developed, Comfortable, Malnourished Eyes Eye Exam: Pupils Equal, Pupils Reactive Ears & Nose Ears & Nose Exam: Nasal Mucosa [place] Throat Throat Exam: Oral Mucosa [place] & Moist Neck Neck Exam: Neck Supple, Trachea Midline Pulmonary Resp Remarks rales LLL, RLL exp. wheezing Cardiology CV Exam: Regular, Good Perfusion Gastrointestinal/Abdomen GI Exam: Soft, Non-Tender, Bowel Sounds Present, Positive Bowel Movement, Non- Distended Genitourinary Exam: Clear Urine Remarks Lama Musculoskeletal MS Exam: Joints Intact Integumentary Skin Exam: Warm, Dry Extremeties Extremities Exam: No Edema, Pedal Pulses Palpable Neurologic Neuro Exam: Alert, Awake, Oriented, Speech Clear, Moving All Extremities, No Focal Deficits Psychiatric Psych Exam: Appropriate Responses VTE Prophylaxis VTE Prophylaxis Device: SCDs Assessment/Plan Problem List: (1) CHF exacerbation (2) Pleural effusion (3) Anemia (4) Urinary retention (5) COPD exacerbation (6) Rash of genital area (7) Leukocytosis (8) Anxiety (9) History of ETOH abuse (10) Hx of hepatitis C Assessment/Plan continue IV Lasix K replacement Echo done, EF 45-50% Left pleural eff. inc from before, will order US for marking may need thoracentesis Appreciate cardiology input Continue Duonebs Oxygen to keep sats > 92% Monitor HH recent GI work up PT eval and tx OOB with assist Keep lama in place Urinary retention, was seen by urology Rash Nystatin monitor Labs in am Poss. SNF tomorrow D/W RN D/W Dr. Guaman D/W pt This pt. was seen by myself and Dr. Guaman, this note is written on his behalf. Problem Qualifiers (1) CHF exacerbation: Qualified Code: I50.9 - Acute on chronic congestive heart failure, unspecified congestive heart failure type (2) Anemia: Qualified Code: D64.9 - Anemia, unspecified type (3) Leukocytosis: Qualified Code: D72.829 - Leukocytosis, unspecified type Licha Vyas Oct 06, 2016 07:55
[2016-10-06] MEDS: FUROSEMIDE 40 MG/4 ML VIAL IVP SCH ×2 (08:51→16:08)
[2016-10-06] MEDS: THIAMINE HCL 100 MG TAB PO SCH (08:52)
[2016-10-06] MEDS: LISINOPRIL 5 MG TAB PO SCH (08:52)
[2016-10-06] MEDS: LANSOPRAZOLE SOLUTAB 30 MG TAB PO SCH (08:53)
[2016-10-06] MEDS: FOLIC ACID 1 MG TAB PO SCH (08:53)
[2016-10-06] MEDS: FERROUS SULFATE 325 MG (65 MG ELEMENTAL IRON) TAB PO SCH ×2 (08:53→21:58)
[2016-10-06] MEDS: POTASSIUM CHLORIDE 10 MEQ CONTROLLED RELEASE TAB PO SCH ×2 (08:53→21:58)
[2016-10-06] MEDS: cloNIDine HCL 0.1 MG TAB PO SCH ×2 (08:53→21:58)
[2016-10-06] MEDS: SODIUM CHLORIDE 0.9% FLUSH 5 ML FLUSH FLUSH SCH ×2 (08:54→21:00)
[2016-10-06] MEDS: FLUCONAZOLE 100 MG TAB PO SCH (08:54)
[2016-10-06] MEDS: BUDESONIDE-FORMOTEROL 160/4.5 MCG INHALER INH SCH ×2 (08:56→21:00)
[2016-10-06] MEDS: LACTULOSE SYRUP 20 GM/30 ML CUP PO SCH ×2 (08:57→21:58)
[2016-10-06] MEDS ORDERED: INFLUENZA VIRUS VACCINE (QUADRIVALENT) 0.5 ML SYR IM ONE (09:00)
[2016-10-06] MEDS: ACETAMINOPHEN/HYDROcodone 325 MG/5 MG TAB PO PRN ×2 (09:08→16:08)
--- NOTE | 2016-10-06 09:15 | RADRPT ---
EXAM DATE/TIME: 10/06/2016 08:37 [facility] COMPARISON: No previous studies available for comparison. INDICATIONS : Left pleural effusion. MEDICAL HISTORY : Hypertension. Chronic obstructive pulmonary disease. Chronic bronchitis. Dysp katarina. L1-L3 fractures. L5 herniated disc. Diabetes. Osteoporosis. ETOH abuse. SURGICAL HISTORY : Hysterectomy. Back surgery. ENCOUNTER: Subsequent ACUITY: 4-6 days PAIN SCORE: 0/10 LOCATION: Left chest MEASUREMENTS: SKIN TO PARIETAL PLEURA: 1.4 cm SKIN TO MAX SAFE DEPTH: 5.1 cm ESTIMATED FLUID VOLUME: 1378 cc FLUID COMPOSITION: simple FINDINGS: Pleural effusion as above. A mikaela was placed on the skin surface superficial to the pleural fluid col lection. CONCLUSION: Ultrasound marking for thoracentesis as described above. Mundo López MD FACR on October 06, 2016 at 9:13 Board Certified Radiologist. This report was verified electronically.
--- NOTE | 2016-10-06 15:15 | RADRPT ---
EXAM DATE/TIME: 10/06/2016 14:37 [facility] COMPARISON: CHEST EXPIRATION ONLY, September 29, 2016, 9:25. INDICATIONS : S/p left side thoacentesis MEDICAL HISTORY : Chronic obstructive pulmonary disease. SURGICAL HISTORY : None. ENCOUNTER: Initial ACUITY: 1 day PAIN SCORE: 0/10 LOCATION: Bilateral chest FINDINGS: A single AP erect expiratory view of the chest was obtained and demonstrates no evidence of pneumotho rax. The previously noted left effusion has decreased in size with decreased opacity. A right-sided e ffusion remains with patchy opacity at the right lung base and blunting of the costophrenic angle. At herosclerotic changes are again noted in aorta. The heart size is within normal limits. There are mul tiple overlying electrocardiogram leads. CONCLUSION: 1. No evidence of pneumothorax status post thoracentesis. 2. Interval decrease in the size of the left pleural effusion. 3. Right pleural effusion remains. Alex Wilde MD on October 06, 2016 at 15:11 Board Certified Radiologist. This report was verified electronically.
--- NOTE | 2016-10-06 15:37 | RADRPT ---
EXAM DATE/TIME: 10/06/2016 13:51 [facility] COMPARISON: No previous studies available for comparison. INDICATIONS : Left pleural effusion. MEDICAL HISTORY : Hypertension. Chronic obstructive pulmonary disease. Diabetic. Lumbar back problems. SURGICAL HISTORY : Hysterectomy. Back surgery. ENCOUNTER: Subsequent ACUITY: 1 day PAIN SCORE: 3/10 LOCATION: Left chest FLUID: Total volume of 850 cc of clear, yellow fluid was removed. Fluid was sent to lab for ordered studies. TECHNIQUE: 1. Ultrasound guidance for thoracentesis. 2. Thoracentesis. The risks, benefits, and alternatives to ultrasound guided thoracentesis were explained to the patien t in lay simple terms, including the risk of bleeding and infection. Written and verbal informed con sent was obtained. Appropriate area for thoracentesis was marked under ultrasound guidance with the patient in the uprig ht position. Overlying skin was prepped and draped in the usual sterile fashion and with local anest hetic, a dermatotomy was made with an 11 blade scalpel. A 6 [place] thoracentesis catheter was placed in the pleural space and fluid was removed. Catheter was then removed and a sterile dressing applie d. There were no immediate complications. The patient tolerated the procedure well and the left the ultrasound suite in stable condition. Chest radiograph is to be obtained. CONCLUSION: Uncomplicated ultrasound guided thoracentesis. Mundo López MD FACR on October 06, 2016 at 15:35 Board Certified Radiologist. This report was verified electronically.
[2016-10-06] MEDS: NYSTATIN 100,000 U/GM OINT 15 GM TUBE TOPICAL SCH ×2 (16:07→21:00)
[2016-10-06 19:41] LABS: TOTAL PROTEIN,PLEURAL FLUID 1.3 GM/DL
[2016-10-06 20:24] LABS: PLEURAL FLUID PH 7.5
[2016-10-06] MEDS ORDERED: ALPRAZolam 0.25 MG TAB PO PRN (21:00)
[2016-10-06] MEDS: ALPRAZolam 0.25 MG TAB PO PRN (21:58)
[2016-10-06 22:12] LABS: PLEURAL FLUID LYMPHS 69 %
[2016-10-07] MEDS: ACETAMINOPHEN/HYDROcodone 325 MG/5 MG TAB PO PRN ×2 (02:38→12:12)
[2016-10-07 05:36] LABS: HEMATOCRIT 27.3 % (35.0-46.0); MEAN CELL VOLUME 97.6 FL (80.0-100.0); MEAN CORPUSCULAR HGB CONC 32.7 % (32.0-36.0); PLATELET COUNT 338 TH/MM3 (150-450); RED CELL DISTRIBUTION WIDTH 16.3 % (11.6-17.2); REVIEW FLAG FINAL; WHITE BLOOD COUNT 12.5 TH/MM3 (4.0-11.0)
--- NOTE | 2016-10-07 05:57 | RADRPT ---
EXAM DATE/TIME: 10/07/2016 05:20 [facility] COMPARISON: CT BRAIN W/O CONTRAST, September 08, 2016, 22:26. INDICATIONS : Trauma, fall. RADIATION DOSE: 36.26 CTDIvol (mGy) MEDICAL HISTORY : None SURGICAL HISTORY : None. ENCOUNTER: Initial ACUITY: 1 day PAIN SCALE: 0/10 LOCATION: cranial TECHNIQUE: Multiple contiguous axial images were obtained of the head. Using automated exposure control and adj ustment of the mA and/or kV according to patient size, radiation dose was kept as low as reasonably a chievable to obtain optimal diagnostic quality images. FINDINGS: There is no evidence of acute cortical infarction, acute hemorrhage, mass effect or midline shift. Bi frontal atrophy is present. Posterior fossa structures are unremarkable. A sebaceous cyst is present in the midline at the base of the neck measuring 2 cm CONCLUSION: 1. Atrophy as described above. No evidence of acute intracranial pathology. Miles Rojas MD on October 07, 2016 at 5:55 Board Certified Radiologist. This report was verified electronically.
[2016-10-07 06:02] LABS: BICARBONATE 37.3 MEQ/L (21.0-32.0); POTASSIUM 3.4 MEQ/L (3.5-5.1)
[2016-10-07 06:10] VITALS: O2SAT 98
--- NOTE | 2016-10-07 07:27 | MB ---
cc: AJ GAINES DATE OF CONSULTATION: 10/06/2016 REASON FOR CONSULTATION: Pleural effusions and respiratory distress with chronic obstructive pulmonary disease. HISTORY OF PRESENT ILLNESS: This is a 60-year-old white female who has had a prior history of COPD and history of chronic bronchitis who was admitted with complaints of weakness, shortness of breath, persistent cough and weight loss. The patient was also tachycardiac and was brought to the emergency room for evaluation and has been on 3 liters of oxygen via nasal cannula. She complained of some tightness and lower chest and upon doing an x-ray was found to have bilateral pleural effusions, more so on the left side. She has been anxious and has had a persistent cough, A ultrasound of the chest was done following admission and this showed a moderately large left pleural effusion with volume of over 1000 cc's. PAST HISTORY 1. The patient's past history has included chronic obstructive pulmonary disease. 2. History of chronic bronchitis. 3. History of pleural effusion. 4. Has had urinary retention and urinary tract infection. 5. Has degenerative disk disease 6. History of anxiety. 7. History of congestive heart failure and anemia. PAST SURGICAL HISTORY: 1. Oral surgery. 2. History of hysterectomy. 3. Prior history of respiratory failure requiring ventilator support. ALLERGIES ASPIRIN MEDICATION LIST: Reviewed from the chart. HABITS The patient has smoked in the past for over 30 years about a pack a day. No significant alcohol. FAMILY HISTORY: Significant for chronic obstructive pulmonary disease. REVIEW OF SYSTEMS The patient has had some weight loss. She has dizziness, postnasal drip. She has wheezing, shortness of breath and orthopnea. She has anxiety attacks. She has epigastric distress and abdominal cramping. No urinary symptoms. No leg or calf muscle pains but does have some leg edema. PHYSICAL EXAMINATION IN GENERAL: This thinly built middle-aged white female is alert and anxious, pale and mildly dyspneic at rest. VITAL SIGNS: Blood pressure 170/80, pulse is pulse is 95, respirations are 20-24, temperature 97.8. HEAD, EYES, EARS, NOSE, AND THROAT: Head normocephalic. Pupils reactive and equal. Tongue is moist. Nasal mucosa injected. Throat is clear. NECK: The neck is supple without venous distension. Trachea midline. CHEST: Equal movements with percussion note dull at the bases with diminished breath sounds with over the left lower chest. There are a few basilar crackles. HEART: Heart sounds are regular S1-S2. No murmur. No S3. ABDOMEN: The abdomen is soft, benign. No masses or organomegaly or tenderness. The bowel sounds active. EXTREMITIES: Mild edema with diminished pulses. Reflexes 1+ with no gross motor deficits. The extremities did reveal muscle wasting. NEUROLOGIC: Cranial nerves are grossly intact. SKIN: Skin was dry and scaly. IMPRESSION 1. Bibasilar effusion with hypoxemia. 2. Congestive heart failure with acute exacerbation 3. He has chronic obstructive pulmonary disease with chronic bronchitis. 4. Deconditioning. PLAN The patient has been scheduled to have an ultrasound-guided thoracentesis. We will also repeat a chest x-ray and significant fluid is present on the right-sided a thoracentesis will be planned on the right side. Nebulized DuoNeb solution added q.i.d. and continue with diuretic therapy. The patient will also need potassium replacement therapy, The pulmonary function study is to be done at the bedside and incentive spirometry every 2 hours. The patient will be placed on O2 at 2-[address] Guaman this consultation. MD TRAY Burgess/alfredito /11:22 PM /7:19 AM
[2016-10-07 07:44] VITALS: BP 148/73; PULSE 74; RESP 17; TEMP 98.4; O2SAT 99
--- NOTE | 2016-10-07 08:15 | HHI.PR ---
Subjective Subjective Remarks SOB better no cp no fever tele reviewed, SR pt. got out of bed, fell, CT head negative Review of Systems Constitutional Constitutional Remarks 12 point ROS completed, unreliable Vitals/Results Vital Signs Vital Signs Date Time Temp Pulse Resp B/P Pulse Ox O2 Delivery O2 Flow Rate FiO2 10/07/16 07:44 98.4 74 17 148/73 99 10/07/16 06:10 98 Nasal Cannula 2.00 10/06/16 23:43 98.8 68 18 115/60 97 10/06/16 15:56 98.8 73 18 133/65 96 10/06/16 14:33 98.7 72 18 117/70 100 10/06/16 14:17 98.0 80 16 116/70 96 10/06/16 11:51 98.2 72 18 118/64 100 10/06/16 10:10 75 CBC/BMP: 10/07/16 0500 10/07/16 0500 Lab Results Laboratory Tests Test 10/06/16 10/07/16 14:00 05:00 Pleural Fluid pH 7.5 Pleural Fluid WBC 85 /MM3 Pleural Fluid RBC 34 /MM3 Pleural Fluid Neutrophils 14 % Pleural Fluid Lymphocytes 69 % Pleural Fluid Eosinophils 4 % Pleural Fluid Histiocytes 13 % Pleural Fluid Total Protein 1.3 GM/DL Pleural Fluid LDH 75 U/L Pleural Fluid Glucose 123 MG/DL Pleural Fluid Amylase 12 U/L White Blood Count 12.5 TH/MM3 Red Blood Count 2.80 MIL/MM3 Hemoglobin 8.9 GM/DL Hematocrit 27.3 % Mean Corpuscular Volume 97.6 FL Mean Corpuscular Hemoglobin 32.0 PG Mean Corpuscular Hemoglobin 32.7 % Concent Red Cell Distribution Width 16.3 % Platelet Count 338 TH/MM3 Mean Platelet Volume 7.9 FL Sodium Level 134 MEQ/L Potassium Level 3.4 MEQ/L Chloride Level 89 MEQ/L Carbon Dioxide Level 37.3 MEQ/L Anion Gap 8 MEQ/L Blood Urea Nitrogen 4 MG/DL Creatinine 0.43 MG/DL Estimat Glomerular Filtration 151 ML/MIN Rate Random Glucose 98 MG/DL Calcium Level 8.2 MG/DL Microbiology Microbiology 10/06/16 Gram Stain, Received Pending 10/06/16 Body Fluid Culture, Received Pending 10/06/16 Acid Fast Stain, Received Pending 10/06/16 Mycobacterial Culture, Received Pending 10/06/16 Fungal Smear, Received Pending 10/06/16 Fungal Culture, Received Pending Physical Exam General General Appearance: Well Developed, Comfortable, Malnourished Eyes Eye Exam: Pupils Equal, Pupils Reactive Ears & Nose Ears & Nose Exam: Nasal Mucosa Elysian Throat Throat Exam: Oral Mucosa Elysian & Moist Neck Neck Exam: Neck Supple, Trachea Midline Pulmonary Resp Remarks breath sounds diminished, faint rales Cardiology CV Exam: Regular, Good Perfusion Gastrointestinal/Abdomen GI Exam: Soft, Non-Tender, Bowel Sounds Present, Positive Bowel Movement, Non- Distended Genitourinary Exam: Clear Urine Remarks Lama Musculoskeletal MS Exam: Joints Intact Integumentary Skin Exam: Warm, Dry Extremeties Extremities Exam: No Edema, Pedal Pulses Palpable Neurologic Neuro Exam: Alert, Awake, Oriented, Speech Clear, Moving All Extremities, No Focal Deficits Psychiatric Psych Exam: Appropriate Responses VTE Prophylaxis VTE Prophylaxis Device: SCDs Assessment/Plan Problem List: (1) CHF exacerbation (2) Pleural effusion (3) Anemia (4) Urinary retention (5) COPD exacerbation (6) Rash of genital area (7) Leukocytosis (8) Anxiety (9) History of ETOH abuse (10) Hx of hepatitis C Assessment/Plan change to PO lasix, 40 mg PO daily K replacement Echo done, EF 45-50% S/P left thoracentesis, 850cc drained Pulm consulted, input appreciated PFTs ordered Appreciate cardiology input Continue Duonebs Oxygen to keep sats > 92% Monitor HH-stable recent GI work up PT eval and tx OOB with assist S/P fall, CT head negative Bed alarm on Keep lama in place Urinary retention, was seen by urology Rash, today noted with some fluid filled vesicles? denies recent intercourse, last time was 15 years ago Nystatin monitor Replace K PT eval and tx Change to inpatient, not ready for dc. Needs further pulm work up, continue diuretics, thoracentesis done Tx to tele floor D/W RN D/W Dr. Guaman D/W pt This pt. was seen by myself and Dr. Guaman, this note is written on his behalf. Problem Qualifiers (1) CHF exacerbation: Qualified Code: I50.9 - Acute on chronic congestive heart failure, unspecified congestive heart failure type (2) Anemia: Qualified Code: D64.9 - Anemia, unspecified type (3) Leukocytosis: Qualified Code: D72.829 - Leukocytosis, unspecified type Licha Vyas Oct 07, 2016 08:15
[2016-10-07] MEDS: THIAMINE HCL 100 MG TAB PO SCH (08:46)
[2016-10-07] MEDS: SODIUM CHLORIDE 0.9% FLUSH 5 ML FLUSH FLUSH SCH (08:46)
[2016-10-07] MEDS: LISINOPRIL 5 MG TAB PO SCH (08:47)
[2016-10-07] MEDS: FERROUS SULFATE 325 MG (65 MG ELEMENTAL IRON) TAB PO SCH (08:47)
[2016-10-07] MEDS: FUROSEMIDE 40 MG/4 ML VIAL IVP SCH (08:47)
[2016-10-07] MEDS: FLUCONAZOLE 100 MG TAB PO SCH (08:48)
[2016-10-07] MEDS: cloNIDine HCL 0.1 MG TAB PO SCH (08:48)
[2016-10-07] MEDS: LANSOPRAZOLE SOLUTAB 30 MG TAB PO SCH (08:48)
[2016-10-07] MEDS: BUDESONIDE-FORMOTEROL 160/4.5 MCG INHALER INH SCH (08:49)
[2016-10-07] MEDS: POTASSIUM CHLORIDE 10 MEQ CONTROLLED RELEASE TAB PO SCH (08:49)
[2016-10-07] MEDS: FOLIC ACID 1 MG TAB PO SCH (08:49)
[2016-10-07] MEDS: NYSTATIN 100,000 U/GM OINT 15 GM TUBE TOPICAL SCH (08:50)
[2016-10-07] MEDS: LACTULOSE SYRUP 20 GM/30 ML CUP PO SCH (08:51)
[2016-10-07] MEDS ORDERED: POTASSIUM CL 40 MEQ/30 ML LIQ UDC PO ONE (09:00)
[2016-10-07] MEDS ORDERED: FUROSEMIDE 40 MG TAB PO SCH (09:00)
[2016-10-07] MEDS ORDERED: BETAMETHASONE/CLOTRIMAZOLE CREAM 15 GM TOPICAL SCH (10:00)
--- NOTE | 2016-10-07 10:44 | RADRPT ---
EXAM DATE/TIME: 10/07/2016 09:54 [facility] COMPARISON: CHEST EXPIRATION ONLY, October 06, 2016, 14:37. US GUIDED THORACENTESIS LEFT, October 06, 2016, 13 :51. US CHEST LEFT, October 06, 2016, 8:37. CHEST SINGLE AP, October 05, 2016, 9:44. INDICATIONS : Shortness of breath, chest congestion. MEDICAL HISTORY : Chronic obstructive pulmonary disease. SURGICAL HISTORY : None. ENCOUNTER: Subsequent ACUITY: 2 days PAIN SCORE: 0/10 LOCATION: Bilateral chest FINDINGS: Mild bibasilar infiltrate again noted, slightly improved on the right, slightly worse on the left. A small right pleural effusion is again noted, appears to be decreasing. No pneumothorax seen. Heart size stable, within normal limits. CONCLUSION: Mild bibasilar consolidation that is slightly improved on the right and slightly worse on the left. D ecreased right pleural effusion. No significant recurrent left pleural effusion. No pneumothorax. Jesus Steiner MD on October 07, 2016 at 10:41 Board Certified Radiologist. This report was verified electronically.
[2016-10-07 11:31] VITALS: BP 136/66; PULSE 71; RESP 18; TEMP 99.1; O2SAT 100
[2016-10-07] MEDS ORDERED: LOTR15T TOPICAL (14:45)
[2016-10-07] MEDS ORDERED: FURO40TA PO (14:45)
--- NOTE | 2016-10-07 14:47 | HHI.DCPOC ---
Discharge Care Plan Diagnosis: (1) CHF exacerbation Your Health Problems Are: Chest Pain Shortness of Breath Goals to Promote Your Health * To prevent worsening of your condition and complications * To maintain your health at the optimal level Directions to Meet Your Goals Take your medications as prescribed Follow your dietary instruction Follow activity as directed Keep your appointments as scheduled Take your immunizations and boosters as scheduled If your symptoms worsen call your PCP, if no PCP go to Urgent Care Center or Emergency Room Smoking is Dangerous to Your Health. Avoid second hand smoke Call the 24-hour hour crisis hotline for domestic abuse at Licha Vyas Oct 07, 2016 14:47
--- NOTE | 2016-10-07 15:00 | RADRPT ---
EXAM DATE/TIME: 10/07/2016 14:44 [facility] COMPARISON: CHEST PA & LAT, October 07, 2016, 9:54. INDICATIONS : Cough. MEDICAL HISTORY : Chronic obstructive pulmonary disease. SURGICAL HISTORY : None. ENCOUNTER: Initial ACUITY: 1 day PAIN SCORE: 0/10 LOCATION: Bilateral chest FINDINGS: Patchy consolidation of the bases and a small right pleural effusion are again noted, not significant ly changed. No pneumothorax. Heart size stable, within normal limits. CONCLUSION: Mild bibasilar consolidation and small right pleural effusion. Jesus Steiner MD on October 07, 2016 at 14:58 Board Certified Radiologist. This report was verified electronically.
[2016-10-07] MEDS ORDERED: POTA-243 PO (15:07)
[2016-10-07] MEDS ORDERED: HYDR-3516 PO (15:09)
[2016-10-07] MEDS ORDERED: MODA200T12 PO (15:09)
[2016-10-07] MEDS ORDERED: ALPR.25 PO (15:09)
--- NOTE | 2016-10-07 15:50 | HHI.DS ---
Discharge Summary Admission Date Oct 07, 2016 at 07:33 Discharge Date: Oct 07, 2016 Admitting Diagnosis CHF exacerbation (1) CHF exacerbation (2) Urinary retention (3) Anemia (4) Anxiety (5) Pleural effusion (6) COPD exacerbation (7) History of ETOH abuse (8) Hx of hepatitis C (9) Rash of genital area Procedures S/P left thoracentesis, 850cc drained 10/06 S/P right thoracentesis 300 cc drained 10/07 CBC/BMP: 10/07/16 0500 10/07/16 0500 Significant Findings Laboratory Tests Test 10/05/16 10/06/16 10/06/16 10/07/16 09:50 05:10 14:00 05:00 White Blood Count 14.2 TH/MM3 11.7 TH/MM3 12.5 TH/MM3 (4.0-11.0) (4.0-11.0) (4.0-11.0) Red Blood Count 2.59 MIL/MM3 2.62 MIL/MM3 2.80 MIL/MM3 (4.00-5.30) (4.00-5.30) (4.00-5.30) Hemoglobin 8.7 GM/DL 8.5 GM/DL 8.9 GM/DL (11.6-15.3) (11.6-15.3) (11.6-15.3) Hematocrit 25.3 % 25.4 % 27.3 % (35.0-46.0) (35.0-46.0) (35.0-46.0) Neutrophils (%) (Auto) 86.8 % 78.9 % (16.0-70.0) (16.0-70.0) Lymphocytes (%) (Auto) 5.3 % (9.0-44.0) Neutrophils # (Auto) 12.3 TH/MM3 9.2 TH/MM3 (1.8-7.7) (1.8-7.7) Lymphocytes # (Auto) 0.8 TH/MM3 (1.0-4.8) Monocytes # (Auto) 1.1 TH/MM3 1.0 TH/MM3 (0-0.9) (0-0.9) Prothrombin Time 12.8 SEC (9.8-11.6) Potassium Level 3.2 MEQ/L 3.4 MEQ/L (3.5-5.1) (3.5-5.1) Blood Urea Nitrogen 2 MG/DL (7-18) 3 MG/DL (7-18) 4 MG/DL (7-18) Creatinine 0.35 MG/DL 0.41 MG/DL 0.43 MG/DL (0.50-1.00) (0.50-1.00) (0.50-1.00) Random Glucose 121 MG/DL (74-106) Calcium Level 8.2 MG/DL 8.1 MG/DL 8.2 MG/DL (8.5-10.1) (8.5-10.1) (8.5-10.1) Alanine Aminotransferase 55 U/L (10-53) (ALT/SGPT) B-Type Natriuretic Peptide 1574 PG/ML (0-100) Total Protein 6.1 GM/DL (6.4-8.2) Albumin 2.1 GM/DL (3.4-5.0) Monocytes (%) (Auto) 8.3 % (0.0-8.0) Sodium Level 134 MEQ/L 134 MEQ/L (136-145) (136-145) Chloride Level 93 MEQ/L 89 MEQ/L (98-107) (98-107) Carbon Dioxide Level 34.6 MEQ/L 37.3 MEQ/L (21.0-32.0) (21.0-32.0) Pleural Fluid WBC 85 /MM3 (0-10) Pleural Fluid RBC 34 /MM3 (0-0) Imaging Last Impressions Chest X-Ray 10/07/16 0600 Signed Impressions: Service Date/Time: Friday, October 07, 2016 09:54 - CONCLUSION: Mild bibasilar consolidation that is slightly improved on the right and slightly worse on the left. Decreased right pleural effusion. No significant recurrent left pleural effusion. No pneumothorax. Jesus Steiner MD Head CT 10/07/16 0000 Signed Impressions: Service Date/Time: Friday, October 07, 2016 05:20 - CONCLUSION: 1. Atrophy as described above. No evidence of acute intracranial pathology. Miles Rojas MD Thoracentesis Ultrasound 10/06/16 0000 Signed Impressions: Service Date/Time: Thursday, October 06, 2016 13:51 - CONCLUSION: Uncomplicated ultrasound guided thoracentesis. Mundo López MD FACR Chest Ultrasound 10/06/16 0000 Signed Impressions: Service Date/Time: Thursday, October 06, 2016 08:37 - CONCLUSION: Ultrasound marking for thoracentesis as described above. Mundo López MD FACR Hospital Course This is a pleasant 60-year-old white female who was recently in the hospital here at [facility] and was sent to rehabilitation to strengthen and assist her in getting her ADLs back. The patient has a significant history of COPD and was recently intubated. During previous admission she also required thoracentesis to the left for pleural effusion. According to patient, she had been doing relatively well with rehabilitation, she started to develop shortness of breath, Sats dropped down to 50s. She had sudden palpitations. She was given Xanax and Lortab at the facility and EMS was called. Patient was put on oxygen at 3 L and was brought in for further evaluation. Patient has a catheter in place from previous admission, she had urinary retention and urology recommended to keep in place. In the ED, patient was evaluated and imaging studies were completed. She was noted with pleural effusions. She was put on diuretics. Patient was admitted for: (1) CHF exacerbation (2) Pleural effusion (3) Anemia (4) Urinary retention (5) COPD exacerbation (6) Rash of genital area (7) Leukocytosis (8) Anxiety (9) History of ETOH abuse (10) Hx of hepatitis C During the course of the hospitalization, the following to place: Patient was admitted Home medications were continued and Physical therapy was ordered Patient was put on appropriate GI and DVT prophylaxis Cardiology was consulted for evaluation Echo was ordered, EF 45-50% Recommended to continue Lasix IV Ultrasound of the chest was order, marking down for left Interventional radiology was consulted, patient had left thoracentesis with 850 cc drained 10/06. Patient tolerated procedure well, no pneumothorax after Patient's symptoms improve Patient was changed to PO lasix, 40 mg PO daily Neurology was also consulted Pulmonology recommended PFTs and recommended thoracentesis on the right as well Patient underwent right-sided thoracentesis with 300 cc drained 10/07 Patient tolerated procedure well Postop x-ray showed no pneumothorax Patient was cleared for discharge by pulmonology Patient's H&H remained stable Patient had had recent GI workup There was no GI bleeding Was continued on PPI PT eval and tx-patient was weak She wanted to go home but we informed her that she was not ready yet until she gained more strength She did have a fall attempting to get out of bed Had a CT of the head that was negative Bed alarm was in place Patient had no other events Kept lama in place Urinary retention, was seen by urology [facility] from previous admission She was noted with rash, no recent sexual intercourse, the last time was 15 years ago She was put on Lotrimin Her potassium was replaced She was put on scheduled potassium replacement Case management was consulted for discharge planning, patient to go back to rehabilitation facility She was discharged to SNF in stable condition Pt Condition on Discharge: Stable Discharge Disposition: Discharge to SNF Discharge Instructions DIET: Follow Instructions for: Heart Healthy Diet Activities you can perform: Weight Bearing as Fercho Follow up Referrals: PCP Follow-up New Medications: Betamethasone-Clotrimazole Topical (Lotrisone Topical) 1-0.05% Cream 1 APPLIC TOPICAL Q12HR vaginal rash Days 7 TUBE Furosemide (Furosemide) 40 Mg Tab 40 MG PO DAILY FLUID OVERLOAD #14 Ref 0 TAB Potassium Chloride ER (Klor-Con 10) 10 Meq Tab 10 MEQ PO BID REPLACEMENT #60 Ref 0 TAB Changed Medications: Modafinil (Modafinil) 200 Mg Tab 25 MG PO DAILY PRN SLEEP DISORDERS #14 Ref 0 TAB (Changed from: 200 MG) Continued Medications: Albuterol 18 GM Inh (Ventolin Hfa 18 GM Inh) 90 Mcg/Act Aer 2 PUFF INH Q4HR PRN SHORTNESS OF BREATH #1 Ref 0 INHALER Alprazolam (Xanax) 0.25 Mg Tab 0.25 MG PO Q8H PRN ANXIETY #30 TAB (This prescription has been renewed) Xkkmmynm-Dowwyijcw-Xqnbgvvskpn Liq (Mylanta Liq) 200-200-20 Mg/5 Ml Susp 30 ML PO Q4HR Take between meals or as directed. Shake well. Maximum 120 ml/24 hrs. PRN INDIGESTION Ref 0 ML Bisacodyl Supp (Dulcolax Supp) 10 Mg Supp 10 MG RECTAL DAILY PRN IF NO BM FROM MOM #12 Ref 0 SUPP Budesonide-Formoterol Inh (Symbicort Inh) 160-4.5 Mcg/Act Aero 1 PUFF INH Q12HR #1 Ref 0 INHALER Clonidine (Clonidine) 0.1 Mg Tab 0.1 MG PO BID Blood Pressure Management #60 Ref 0 TAB Ferrous Sulfate (Ferrous Sulfate) 325 Mg Tab 325 MG PO BID ANEMIA #60 Ref 0 TAB Folic Acid (Folate) 1 Mg Tab 1 MG PO DAILY nutrition def #30 TAB Hydrocodone-Acetaminophen (Hydrocodone-Acetaminophen) 5-325 mg Tab 1 TAB PO Q4H PRN PAIN 4-6 #30 TAB (This prescription has been renewed) Lactulose Liq (Lactulose Liq) 10 Gm/15 Ml Soln 30 ML PO TID encephalopathy #90 ML Lansoprazole ODT (Prevacid Solutab ODT) 30 Mg Tab 30 MG PO DAILY gastritits #30 TAB Lisinopril (Lisinopril) 5 Mg Tab 5 MG PO DAILY Blood Pressure Management #30 TAB Loperamide Liq (Loperamide Liq) 1 Mg/5 Ml Liq 2 MG PO DIRECTED Give 4mg (20ml) for initial dose then, 2 mg (10 mL) after each loose stool. Not to exceed 16 mg (80 mL) per day. PRN DIARRHEA #1 Ref 0 BOTTLE Magnesium Hydroxide Liq (Milk of Magnesia Liq) 400 Mg/5 Ml Susp 30 ML PO Q4HR PRN CONSTIPATION #1 Ref 0 BOTTLE Sodium Phosphates Rectal (Fleet Enema Rectal) 7-19 Gm/118 Ml Enem 118 ML RECTAL DAILY PRN IF NO BM IN 48 HRS FROM SUPP Ref 0 BOTTLE Thiamine (Vitamin B-1) 100 Mg Tab 100 MG PO DAILY NUTRITIONAL DEF #30 TAB Discontinued Medications: Fluconazole (Diflucan) 100 Mg Tab 100 MG PO DAILY Infection #7 Ref 0 TAB Loperamide (Loperamide) 2 Mg Cap 2 MG PO DIRECTED Give two capsules for the initial dose, then One capsule after each loose stool. Not to exceed 8 capsules per day. PRN DIARRHEA Ref 0 CAP Licha Vyas Oct 07, 2016 15:49
[2016-10-07 16:15] VITALS: BP 156/74; PULSE 78; RESP 18; TEMP 97.9; O2SAT 98
--- NOTE | 2016-10-08 08:27 | MP ---
cc: AJ CHAVEZ DATE OF SURGERY: 10/07/2016 PREOPERATIVE DIAGNOSIS: Right pleural effusion. POSTOPERATIVE DIAGNOSIS: Right pleural effusion OPERATION: Right thoracentesis. ANESTHESIA: 1% Xylocaine SURGEON: Dr. Aj Chavez PROCEDURE AND FINDINGS The patient's right posterior back was prepped with chlorhexidine solution following which sterile drapes were applied. 1% Xylocaine was then injected in the pleural space on the posterior axillary line after which a small incision was made with a scalpel blade. Following this, a 14-gauge catheter was inserted into the pleural space and connected to a vacuum bottle. Approximately 300 cc of serosanguineous fluid was aspirated, at which time the flow stopped. The patient tolerated the procedure well. MD TRAY Burgess/JUAN MANUEL /2:39 PM /8:24 AM
== END 2016-10-07 18:27 | disposition home or self-care (01) | DRG 292 ==
LOC: NEPE 09:22 → INTOOBSV 11:10 → NEDA 11:10 → NEDH 16:17 → NEPFCDU 23:18 → OBSVTOIN 10-07 07:33
PROVIDERS: ADMIT Specialist; ATTEND Specialist
PROC: 0W9B3ZX Drainage of Left Pleural Cavity, Percutaneous Approach, Diagnostic (ICD-10-PCS; principal; 2016-10-06)
PROC: 0W993ZX Drainage of Right Pleural Cavity, Percutaneous Approach, Diagnostic (ICD-10-PCS; 2016-10-07)
DX: I11.0 Hypertensive heart disease with heart failure (principal); J90 Pleural effusion, not elsewhere classified; J44.1 Chronic obstructive pulmonary disease with (acute) exacerbation; D64.9 Anemia, unspecified; D72.829 Elevated white blood cell count, unspecified; E11.9 Type 2 diabetes mellitus without complications; I50.9 Heart failure, unspecified; F41.9 Anxiety disorder, unspecified; R33.9 Retention of urine, unspecified; R21 Rash and other nonspecific skin eruption; F17.210 Nicotine dependence, cigarettes, uncomplicated
CPT/HCPCS: 32555; 70450; 71010; 71020; 76604; 80048; 80053; 82150; 82945; 83615; 83880; 83986; 84157; 85025; 85027; 85610; 85730; 87015; 87070; 87102; 87116; 87205; 87206; 88112; 88305; 89051; 93005; 93306; 94664; C1729; G0378; G8987-GP; G8988-GP; J1940

== ENCOUNTER 2016-11-09 09:20 | Inpatient (IN) | payer MEDICARE, MEDICAID ==
[~2016-11-09] VITALS: Ht 175.3 cm; Wt 50.2 kg
[2016-11-09] VITALS (11 sets, daily range): BP systolic 68–159; BP diastolic 44–70; PULSE 80–120; RESP 17–24; TEMP 98.2–101.2; O2SAT 91–100
[~2016-11-09 09:20] MED LIST changes: -DIFL100T PO; +DULC10SU3 RECTAL; +FLEEENE3 RECTAL; +FURO40TA PO; +LOPE1LIQ3 PO; +LOTR15T TOPICAL; +MILKSUS PO; +MYLASUS2 PO; +POTA-243 PO
[2016-11-09] MEDS ORDERED: SODIUM CHLOR 0.9% 1000 ML INJ 1,000 ML IV SCH (09:50)
[2016-11-09] MEDS ORDERED: ONDANSETRON HCL 4 MG/2 ML VIAL IVP ONE (10:00)
[2016-11-09] MEDS ORDERED: SODIUM CHLORIDE 0.9% FLUSH 10 ML FLUSH IV FLUSH PRN ×2 (10:00→19:30)
[2016-11-09] MEDS ORDERED: MORPHINE SULFATE 4 MG/ML INJ IV PUSH ONE (10:00)
--- NOTE | 2016-11-09 10:00 | PD ---
HPI Chief Complaint: General Weakness Time Seen by Provider: 09:49 Travel History International Travel<30 days: No Contact w/Intl Traveler<30days: No Traveled to known affect area: No History of Present Illness HPI Is a 60-year-old woman, who is been at [facility] for the past month or so since being admitted for COPD and C. difficile, who presents to the emergency department referred in for worsening weakness, somnolence, and abdominal pain and distention. She's completed treatment for C. difficile and was reportedly negative at her most recent check. She still having some loose stools. She reports over the past couple days she's been having worsening weakness, abdominal distention, hasn't been eating, and has been having abdominal pain. She has a history of heavy alcohol use up until she was admitted in the end of September. She is on lactulose. Only abdominal surgical history was a . No history of bowel obstruction in the past. History Past Medical History Narrative Medical COPD Anxiety Hypertension Diabetes CHF History of alcohol abuse History of tobacco use Recent history of C. difficile Hypertension : 0 Para: 0 Social History Alcohol Use: No Tobacco Use: No Allergies-Medications (Allergen,Severity, Reaction): Coded Allergies: Aspirin (Verified Adverse Reaction, Severe, "don't take aspirin i have tinnitus, 11/09/16) Reported Meds & Prescriptions Reported Meds & Active Scripts Active Modafinil 200 Mg Tab 25 Mg PO DAILY PRN Hydrocodone-Acetaminophen 5-325 mg Tab 1 Tab PO Q4H PRN Xanax (Alprazolam) 0.25 Mg Tab 0.25 Mg PO Q8H PRN Klor-Con 10 (Potassium Chloride) 10 Meq Tab 10 Meq PO BID Furosemide 40 Mg Tab 40 Mg PO DAILY Lisinopril 5 Mg Tab 5 Mg PO DAILY Ferrous Sulfate 325 Mg Tab 325 Mg PO BID Prevacid Solutab ODT (Lansoprazole) 30 Mg Tab 30 Mg PO DAILY Folate (Folic Acid) 1 Mg Tab 1 Mg PO DAILY Reported Tylenol (Acetaminophen) 325 Mg Tab 650 Mg PO Q4H PRN Vitamin D3 (Cholecalciferol) 1,000 Unit Tab 3,000 Units PO DAILY Mucinex ER 12 HR (Guaifenesin) 600 Mg Tyrell 1,200 Mg PO BID Magnesium Oxide 400 Mg Tab 400 Mg PO DAILY Lactulose Liq (Lactulose) 10 Gm/15 Ml Soln 15 Ml PO BID Gabapentin 300 Mg Cap 300 Mg PO TID Imodium A-D Liq (Loperamide HCl) 1 Mg/7.5 Ml Liq 4 Mg PO INITIAL DOSE PRN After initial dose give 2 mg (15 mL) after each loose stool. Not to exceed 16 mg (120 mL) per day. Imodium A-D (Loperamide HCl) 2 Mg Tab 4 Mg PO INITIAL DOSE PRN After initial dose, give 1 tablet (2mg) after each loose stool-not to exceed 8 tablets/24hrs Fleet Enema Rectal (Sodium Phosphates Rectal) 7-19 Gm/118 Ml Enem 118 Ml RECTAL DAILY PRN Dulcolax Supp (Bisacodyl) 10 Mg Supp 10 Mg RECTAL DAILY PRN Milk of Magnesia Liq (Magnesium Hydroxide) 400 Mg/5 Ml Susp 30 Ml PO Q4HR PRN Mylanta Liq (Vqpdimho-Vlvestzxe-Rnrvngohwzo Liq) 200-200-20 Mg/5 Ml Susp 30 Ml PO Q4HR PRN Take between meals or as directed. Shake well. Maximum 120 ml/24 hrs. Symbicort Inh (Budesonide/Formoterol Fumarate) 160-4.5 Mcg/Act Aero 1 Puff INH Q12HR Clonidine (Clonidine HCl) 0.1 Mg Tab 0.1 Mg PO BID Ventolin Hfa 18 GM Inh (Albuterol Sulfate) 90 Mcg/Act Aer 2 Puff INH Q4HR PRN Review of Systems Except as stated in HPI: all other systems reviewed are Neg Physical Exam Narrative GENERAL: Chronically ill-appearing 60 year-old woman, thin. SKIN: Warm and dry. HEAD: Atraumatic. Normocephalic. EYES: Pupils equal and round. No scleral icterus. No injection or drainage. ENT: No nasal bleeding or discharge. Mucous membranes pink and moist. NECK: Trachea midline. No JVD. CARDIOVASCULAR: Regular rate and rhythm. No murmur appreciated. RESPIRATORY: No accessory muscle use. Clear to auscultation. Breath sounds equal bilaterally. GASTROINTESTINAL: Abdomen is distended, tenderness with tight skin. Dull to percussion. Diffuse tenderness without peritonitis. MUSCULOSKELETAL: No obvious deformities. Decreased muscle bulk. No edema. NEUROLOGICAL: Awake but a little bit sluggish. No obvious cranial nerve deficits. Motor grossly within normal limits. Normal speech. Data Data Last Documented VS Vital Signs Date Time Temp Pulse Resp B/P Pulse Ox O2 Delivery O2 Flow Rate FiO2 11/09/16 13:35 106 18 123/57 100 Nasal Cannula 2 11/09/16 09:28 98.2 Orders Complete Blood Count With Diff (11/09/16 09:50) Comprehensive Metabolic Panel (11/09/16 09:50) Lipase (11/09/16 09:50) Lactic Acid (11/09/16 09:50) Prothrombin Time / Inr (Pt) (11/09/16 09:50) Act Partial Throm Time (Ptt) (11/09/16 09:50) Urinalysis - C+S If Indicated (11/09/16 09:50) Iv Access Insert/Monitor (11/09/16 09:50) Ecg Monitoring (11/09/16 09:50) Oximetry (11/09/16 09:50) Morphine Inj (Morphine Inj) (11/09/16 10:00) Ondansetron Inj (Zofran Inj) (11/09/16 10:00) Sodium Chlor 0.9% 1000 Ml Inj (Ns 1000 M (11/09/16 09:50) Sodium Chloride 0.9% Flush (Ns Flush) (11/09/16 10:00) Electrocardiogram (11/09/16 09:50) Chest, Single Ap (11/09/16 09:50) Ondansetron Inj (Zofran Inj) (11/09/16 11:30) Potassium, Serum (K) (11/09/16 14:21) Ecg Monitoring (11/09/16 11:21) Oximetry (11/09/16 11:21) Calcium Gluconate Inj (Calcium Gluconate (11/09/16 11:30) Insulin Human Regular Inj (Novolin R Inj (11/09/16 11:30) Dextrose 50% In [place]ante (Vial) Inj (D50w (Vi (11/09/16 11:30) Sodium Bicarbonate 8.4% Inj (Sodium Bica (11/09/16 11:30) Albuterol Concentrated Neb (Albuterol Co (11/09/16 11:30) Ct Abd/Pel W/O Iv Contrast (11/09/16 ) Urine Culture (11/09/16 11:42) Sodium Chlor 0.9% 1000 Ml Inj (Ns 1000 M (11/09/16 13:30) Ceftriaxone Inj (Rocephin Inj) (11/09/16 13:30) Basic Metabolic Panel (Bmp) (11/09/16 13:56) Labs Laboratory Tests Test 11/09/16 11/09/16 10:18 11:42 White Blood Count 36.9 TH/MM3 Red Blood Count 3.10 MIL/MM3 Hemoglobin 9.2 GM/DL Hematocrit 28.6 % Mean Corpuscular Volume 92.1 FL Mean Corpuscular Hemoglobin 29.5 PG Mean Corpuscular Hemoglobin 32.1 % Concent Red Cell Distribution Width 14.9 % Platelet Count 604 TH/MM3 Mean Platelet Volume 6.6 FL Neutrophils (%) (Auto) 88.5 % Lymphocytes (%) (Auto) 3.0 % Monocytes (%) (Auto) 7.8 % Eosinophils (%) (Auto) 0.0 % Basophils (%) (Auto) 0.7 % Neutrophils # (Auto) 32.7 TH/MM3 Lymphocytes # (Auto) 1.1 TH/MM3 Monocytes # (Auto) 2.9 TH/MM3 Eosinophils # (Auto) 0.0 TH/MM3 Basophils # (Auto) 0.3 TH/MM3 CBC Comment AUTO DIFF Differential Total Cells 100 Counted Neutrophils % (Manual) 82 % Band Neutrophils % 3 % Lymphocytes % 3 % Monocytes % 11 % Neutrophils # (Manual) 31.7 TH/MM3 Myelocytes 1 % Differential Comment FINAL DIFF MANUAL Platelet Estimate HIGH Platelet Morphology Comment NORMAL Ovalocytes 1+ Prothrombin Time 11.5 SEC Prothromb Time International 1.0 RATIO Ratio Activated Partial 31.6 SEC Thromboplast Time Sodium Level 112 MEQ/L Potassium Level 7.4 MEQ/L Chloride Level 85 MEQ/L Carbon Dioxide Level 18.4 MEQ/L Anion Gap 9 MEQ/L Blood Urea Nitrogen 47 MG/DL Creatinine 2.46 MG/DL Estimat Glomerular Filtration 20 ML/MIN Rate Random Glucose 107 MG/DL Lactic Acid Level 1.0 mmol/L Calcium Level 10.0 MG/DL Total Bilirubin 0.5 MG/DL Aspartate Amino Transf 24 U/L (AST/SGOT) Alanine Aminotransferase 25 U/L (ALT/SGPT) Alkaline Phosphatase 139 U/L Total Protein 8.1 GM/DL Albumin 3.1 GM/DL Lipase 91 U/L Urine Color YELLOW Urine Turbidity CLOUDY Urine pH 5.5 Urine Specific [place] 1.016 Urine Protein 30 mg/dL Urine Glucose (UA) NEG mg/dL Urine Ketones NEG mg/dL Urine Occult Blood LARGE Urine Nitrite NEG Urine Bilirubin NEG Urine Urobilinogen LESS THAN 2.0 MG/DL Urine Leukocyte Esterase LARGE Urine RBC /hpf Urine WBC /hpf Urine WBC Clumps MOD Urine Bacteria OCC /hpf Urine Mucus FEW /lpf Microscopic Urinalysis Comment CULTURE INDICATED MDM Medical Decision Making Medical Screen Exam Complete: Yes Emergency Medical Condition: Yes Interpretation(s) My review of EKG: Normal sinus rhythm at a rate of 81, normal axis, normal intervals, septal Q waves, no definite evidence of acute ischemia. Chest x-ray: Negative. LABS: CBC remarkable for white count of 37,000, hemoglobin 9.2, platelet count 604 CMP remarkable for sodium 112, potassium 7.4, bicarbonate 18.4, BUN/creatinine 47/2.46 Lipase 91 Coags unremarkable UA with innumerable red blood cells and white blood cells CT abdomen and pelvis: Markedly distended fluid filled structure within the midline the pelvis extending the lower abdomen suggestive of markedly dilated urinary bladder. Moderate hydronephrosis. Differential Diagnosis Obstruction, ascites, C. difficile, SBP, other Narrative Course Medical decision making INITIAL: Is a 60-year-old woman who presents to the emergency department complaining of weakness, abdominal pain, abdominal distention. She is distended on exam with diffuse tenderness. Recent treatment for C. difficile. History of alcoholism but no reported history of cirrhosis of the CT and the record. We'll check labs, UA, x-ray, CT, reassess. FINAL: Patient with bladder obstruction markedly distended urinary bladder renal failure with electrolyte abnormalities and leukocytosis. Concern for infection given the marked leukocytosis. Given ceftriaxone. Lopez catheter is placed with 2 L of fluid out, turned grossly bloody afterwards. Patient was admitted to the ICU. Dr. Brown requested we call nephrology. We will place consulted him as well. Diagnosis Primary Impression: Renal failure Additional Impressions: Bladder outlet obstruction Hyponatremia Hyperkalemia Priyank Amanda MD Nov 09, 2016 10:00
[2016-11-09 10:35] LABS: AUTOMATED NEUTROPHIL # 32.7 TH/MM3 (1.8-7.7); BASOPHIL # 0.3 TH/MM3 (0-0.2); BASOPHIL % 0.7 % (0.0-2.0); HEMATOCRIT 28.6 % (35.0-46.0); LYMPHOCYTE # 1.1 TH/MM3 (1.0-4.8); MEAN CELL VOLUME 92.1 FL (80.0-100.0); MEAN CORPUSCULAR HEMOGLOBIN 29.5 PG (27.0-34.0); MEAN CORPUSCULAR HGB CONC 32.1 % (32.0-36.0); MONO % 7.8 % (0.0-8.0); NEUT % 88.5 % (16.0-70.0); PLATELET COUNT 604 TH/MM3 (150-450); RED CELL DISTRIBUTION WIDTH 14.9 % (11.6-17.2); WHITE BLOOD COUNT 36.9 TH/MM3 (4.0-11.0)
--- NOTE | 2016-11-09 10:35 | RADRPT ---
EXAM DATE/TIME: 11/09/2016 10:06 [facility] COMPARISON: CHEST SINGLE AP, October 07, 2016, 14:44. INDICATIONS : Patient has been short of breath and abdomen pain for a week. MEDICAL HISTORY : Chronic obstructive pulmonary disease. SURGICAL HISTORY : None. ENCOUNTER: Initial ACUITY: 1 week PAIN SCORE: 10/10 LOCATION: Bilateral Abdomen. FINDINGS: A single view of the chest demonstrates the lungs to be symmetrically aerated without evidence of mas s, infiltrate or effusion. The cardiomediastinal contours are unremarkable. No evidence of free int raperitoneal air. Osseous structures are intact. CONCLUSION: 1. No evidence of free intraperitoneal air. 2. Unremarkable chest. Ankur Squires MD on November 09, 2016 at 10:33 Board Certified Radiologist. This report was verified electronically.
[2016-11-09 10:37] LABS: HEMO FLAGS AUTO DIFF
[2016-11-09 10:44] LABS: APTT (PATIENT) 31.6 SEC (24.3-30.1); PROTHROMBIN TIME - PATIENT 11.5 SEC (9.8-11.6)
[2016-11-09 11:08] LABS: ALKALINE PHOSPHATASE 139 U/L (45-117); ALT (GPT) 25 U/L (10-53); ANION GAP 9 MEQ/L (5-15); AST (GOT) 24 U/L (15-37); BICARBONATE 18.4 MEQ/L (21.0-32.0); BLOOD UREA NITROGEN 47 MG/DL (7-18); CHLORIDE 85 MEQ/L (98-107); GLOMERULAR FILTRATION RATE 20 ML/MIN (>89); TOTAL BILIRUBIN ADULT 0.5 MG/DL (0.2-1.0)
[2016-11-09 11:12] LABS: BANDS 3 % (0-6); MYELOCYTES 1 % (0-0); NEUTROPHIL # MANUAL DIFF 31.7 TH/MM3 (1.8-7.7); POLYS (SEG NEUTROPHILS) 82 % (16-70); WBC DIFF SAMPLE 100
[2016-11-09 11:13] LABS: OVALOCYTES 1+ (NORMAL); PLATELET ESTIMATE SMEAR HIGH (NORMAL); PLATELET MORPHOLOGY NORMAL (NORMAL); SCAN/DIFF FINAL DIFF MANUAL
[2016-11-09 11:16] LABS: SODIUM (NA) 112 MEQ/L (136-145)
[2016-11-09 11:20] LABS: POTASSIUM 7.4 MEQ/L (3.5-5.1)
[2016-11-09] MEDS ORDERED: INSULIN HUMAN REGULAR 1,000 UNITS/10 ML VIAL IV PUSH ONE ×2 (11:30→16:15)
[2016-11-09] MEDS ORDERED: SODIUM BICARBONATE 8.4% SOLN 50 MEQ/50 ML VIAL SLOW IVP ONE (11:30)
[2016-11-09] MEDS ORDERED: DEXTROSE 50% IN WATER 50 ML VIAL(D50) IV PUSH ONE (11:30)
[2016-11-09] MEDS ORDERED: CALCIUM GLUCONATE 10% 1 GM/10 ML VIAL SLOW IVP ONE (11:30)
[2016-11-09] MEDS ORDERED: RESP: ALBUTEROL CONC 2.5 MG/0.5 ML NEB INH ONE (11:30)
[2016-11-09] MEDS ORDERED: ONDANSETRON HCL 4 MG/2 ML VIAL IV ONE (11:30)
[2016-11-09 12:19] LABS: BACTERIA, URINE OCC /hpf; BLOOD, URINE LARGE (NEG); COMMENT (UR) CULTURE INDICATED; CULTURE IF INDICATED CULTURE INDICATED; GLUCOSE,URINE NEG (NEG); KETONE, URINE NEG (NEG); MUCUS URINE FEW /lpf (OCC); NITRITE,URINE NEG (NEG); PH, URINE 5.5 (5.0-8.5); URINE COLOR YELLOW (YELLW/STRAW)
[2016-11-09] MEDS ORDERED: MAGN400T2 PO (12:37)
[2016-11-09] MEDS ORDERED: MUCI600T PO (12:37)
[2016-11-09] MEDS ORDERED: LACT10SO PO (12:37)
[2016-11-09] MEDS ORDERED: TYLE325T PO (12:37)
[2016-11-09] MEDS ORDERED: [UNRECOGNIZED DRUG - CODE] PO (12:37)
[2016-11-09] MEDS ORDERED: GABA300C5 PO (12:37)
[2016-11-09] MEDS ORDERED: VITA100018 PO (12:37)
[2016-11-09] MEDS ORDERED: IMOD2TAB3 PO (12:37)
[2016-11-09] MEDS ORDERED: cefTRIAXone INJ 1,000 MG in SODIUM CHLORIDE 0.9% INJ 100 ML IV ONE (13:30)
[2016-11-09] MEDS ORDERED: SODIUM CHLOR 0.9% 1000 ML INJ 1,000 ML IV ONE (13:30)
--- NOTE | 2016-11-09 13:36 | RADRPT ---
EXAM DATE/TIME: 11/09/2016 12:40 [facility] COMPARISON: No previous studies available for comparison. INDICATIONS : Upper back pain. ORAL CONTRAST: No oral contrast ingested. RADIATION DOSE: 7.34 CTDIvol (mGy) MEDICAL HISTORY : Hypertension. Chronic obstructive pulmonary disease. Diabetes SURGICAL HISTORY : Hysterectomy. Lumbar surgery ENCOUNTER: Initial ACUITY: 1 day PAIN SCALE: 10/10 LOCATION: Abdomen TECHNIQUE: Volumetric scanning of the abdomen and pelvis was performed. Using automated exposure control and ad justment of the mA and/or kV according to patient size, radiation dose was kept as low as reasonably achievable to obtain optimal diagnostic quality images. FINDINGS: There is a very large fluid filled structure within the midline of the pelvis which extends into the lower abdomen. This likely represents a markedly distended urinary bladder. Moderate hydronephrosis is noted bilaterally likely related to bladder outlet obstruction. Lopez catheter insertion may be indicated for decompression of this markedly distended urinary bladder to relieve suspected bladder o utlet obstruction. Calcified gallstones are noted within the gallbladder. There is a right adrenal nodule measuring 2.2 x 1.8 cm consistent with possible adrenal adenoma. Evaluation of the solid orga ns of the abdomen is limited by the lack of intravenous contrast. The visualized lung bases are stephanie r. CONCLUSION: 1. Markedly distended fluid filled structure within the midline of the pelvis extending into the low er abdomen suggestive of markedly dilated urinary bladder. The finding is suggestive of bladder outl et obstruction. Moderate hydronephrosis is noted bilaterally. Lopez catheter insertion may be helpf ul for decompression of this suspected bladder outlet obstruction and should be considered. 2. Multiple calcified non-obstructing bilateral renal calculi. 3. Cholelithiasis. 4. Right adrenal nodule measuring 2.2 x 1.8 cm consistent with possible adrenal adenoma. Ankur Squires MD on November 09, 2016 at 13:24 Board Certified Radiologist. This report was verified electronically.
[2016-11-09] MEDS: methylPREDNISolone SOD SUCC 40 MG/1 ML VIAL IV PUSH SCH ×2 (14:30→20:28)
[2016-11-09] MEDS: INSULIN NovoLIN REGULAR SUPPLEMENTAL SCALE SQ SCH ×2 (14:30→18:00)
[2016-11-09] MEDS ORDERED: DEXT 5%-NACL 0.9% 1000 ML INJ 1,000 ML IV SCH (14:30)
[2016-11-09] MEDS ORDERED: GLUCAGON 1 MG/ML VIAL OTHER PRN (14:30)
[2016-11-09] MEDS ORDERED: RESP: ALBUTEROL 2.5 MG/IPRATROPIUM 0.5 MG NEB (PRN) INH (14:30)
[2016-11-09] MEDS ORDERED: CHLORHEXIDINE GLUCONATE 2 % 1 PACK (2 CLOTHS) TOP PRN (14:30)
[2016-11-09] MEDS ORDERED: MISCELLANEOUS NURSING INFORMATION XX SCH (14:30)
[2016-11-09] MEDS ORDERED: DEXTROSE 50% IN WATER 50 ML VIAL(D50) IV PUSH PRN (14:30)
--- NOTE | 2016-11-09 14:33 | EKG ---
Date Performed: 11/09/2016 Time Performed: 10:44:32 PTAGE: 60 years EKG: Sinus rhythm POSSIBLE LEFT ATRIAL ENLARGEMENT SEPTAL MYOCARDIAL INFARCTION ABNORMAL ECG PREVIOUS TRACING :10/05/16 DOCTOR: Oleg Moran Interpretating Date/Time 11/09/2016 14:32:47
[2016-11-09 15:47] LABS: BICARBONATE 18.6 MEQ/L (21.0-32.0)
[2016-11-09] MEDS ORDERED: TERBUTALINE INJ 1 MG/ML AMP SQ PRN (16:15)
[2016-11-09] MEDS ORDERED: NOREPINEPHRINE-DEXTROSE DRIP 250 ML IV SCH (16:15)
[2016-11-09] MEDS ORDERED: SODIUM BICARBONATE 8.4% INJ 50 MEQ/50 ML SYR IV PUSH ONE (16:15)
[2016-11-09] MEDS ORDERED: Vancomycin Consult Pharmacy 1 EA OTHER SCH (16:15)
[2016-11-09] MEDS ORDERED: SODIUM CHLORID 0.9% 500 ML INJ 500 ML IV ONE (16:15)
[2016-11-09] MEDS ORDERED: DEXTROSE 50% IN WATER 50 ML SYRINGE IV ONE (16:15)
--- NOTE | 2016-11-09 16:26 | MH ---
cc: LISA EMERSON M.D. DATE OF ADMISSION: 11/09/2016 DATE OF 1955 HISTORY OF PRESENT ILLNESS: The patient is a 60-year-old female with past medical history of COPD, hypertension and diabetes mellitus, recent history of C diff who presented from [facility] for generalized weakness, somnolence and abdominal pain associated with distension. She completed treatment for C diff and had a repeat a C-diff check at [facility] which was reportedly negative. She still having some liquid stools. She also reports decreased p.o. intake. On arrival to the emergency department, the patient was found to be in renal failure with a BUN of 47, creatinine 2.46, hyperkalemic with potassium level was 7.4 and hyponatremic with a sodium level of 112. Other significant labs on arrival showed significant leukocytosis with a WBC of 36.9. Her lactic acid level measured at 1.0. Due to her abdominal pain. CT scan of the abdomen and pelvis without contrast was obtained which showed findings suggestive of bladder outlet obstruction and bilaterally moderate hydronephrosis. A Lopez catheter was inserted in the emergency room and the patient had approximately 2 liters of urine output which initially was clear, however, it turned bloody. Chest x-ray In the ER showed no acute cardiopulmonary disease. In the emergency department she was given 2 liters of normal saline and she was treated for hyperkalemia with 10 units IV insulin, 1 ampule of D50, sodium bicarb milliequivalent. Albuterol 10 mg and 2 grams of calcium gluconate. Her urinalysis showed large blood, large leukocyte esterase, occasional bacteria and moderate WBC clumps. The patient received Rocephin 1 gram IV. When seen she is on at 2 liters oxygen with saturation of 100%, blood pressure of 123/57 with a pulse of 107. The patient is afebrile with a temperature of 98.2. She denies any shortness of breath, chest pain or any constitutional symptoms. PAST MEDICAL HISTORY: Significant for chronic obstructive pulmonary disease. Anxiety. Hypertension. History of C-Difficile. PAST SURGICAL HISTORY Previous hysterectomy Previous thoracentesis on the right lung. ALLERGIES ASPIRIN SOCIAL HISTORY The patient is a [facility] resident. She has history of tobacco and Ethyl alcohol use, quit a couple months ago. MEDICATIONS: Her medications reviewed which include; Symbicort Ventolin clonidine Imodium lactulose Mucinex lisinopril ferrous sulfate folic acid. REVIEW OF SYSTEMS As per HPI. Rest of the system unremarkable. PHYSICAL EXAMINATION: IN GENERAL: 60-year-old female lying in bed in no acute respiratory distress. VITAL SIGNS: Temperature 98.2, pulse of 107, blood pressure of 107/59, saturation 100% on 2 liters oxygen. HEAD, EYES, EARS, NOSE, AND THROAT: Atraumatic, normocephalic pupil equal and active to accommodation X on muscles intact. Conjunctivae pink. Nonicteric sclerae. Dry mucous membranes. NECK: Supple. No JVD, adenopathy or thyromegaly. Trachea midline. CARDIOVASCULAR SYSTEM: Tachycardiac normal S1-S2. No murmurs, rubs or gallops noted. LUNGS: Pulmonary exam bilateral air entry with scattered wheezing. ABDOMEN: Soft, mildly distended. Positive bowel sounds. EXTREMITIES: No cyanosis, edema. NEUROLOGIC: No focal sensory deficit. RADIOLOGIC: EKG showed sinus rhythm. In with a rate of 81 beats per minute. Possible left atrial enlargement level is on a LABORATORY DATA WBC 36.9, hemoglobin 9.2, hematocrit 28, platelet count 604, sodium 112, potassium 7.4, chloride 85, CO2 18, BUN of 47, creatinine 2.46, glucose 107, lactic acid 1, AST 24, ALT 25, alk phos 139, total bilirubin 0.5, lipase 91, albumin 3.1, INR 1.0, PT 11.5, PTT 31.6. Urinalysis showed large blood, large leukocyte esterase moderate WBC clumps of occasional bacteria. RADIOGRAPHY Chest x-ray Showed no acute cardiopulmonary disease. CT abdomen, pelvis showed findings suggestive of bladder. Bladder with obstruction with moderate hydronephrosis bilaterally cholelithiasis and multiple calcified nonobstructing bilateral renal calculi and right adrenal nodule measuring 2.2 x 1.8 cm in IMPRESSION 1. Respiratory insufficiency. 2. Renal failure. 3. Hyperkalemia and hyponatremia. 4. Bladder outlet obstruction. 5. Moderate hydronephrosis. 6. Hematuria 7. Leukocytosis. 8. A urinary tract infection. 9. Recent history of C diff 10. COPD 11. Hypertension 12. History of anxiety disorder 13. Anemia. RECOMMENDATIONS 1. Monitor neuro status closely and avoid sedatives. 2. Continue with oxygen and maintain sats above 92%. 3. Bronchodilators in the form of DuoNeb q. 4+ q. two p.r.n. for shortness of breath and will place on IV steroids Solu-Medrol 40 mg IV q. eight. 4. Resume Symbicort 160/4.5. Plus q. 12. 5. Monitor heart rate and blood pressure closely and maintain MAP greater than 65 mmHg. Lactic acid level measured at 1.0. Will hold antihypertensive meds for now. She had an echocardiogram on October 05 which showed an EF of 45-50% with no regional wall motion abnormalities. 6. Monitor renal function Is and Os and avoid nephrotoxins and the patient was treated for hyperkalemia with calcium gluconate IV insulin D50, sodium bicarb and albuterol in the ED. Will repeat a BMP now and check sodium level q. 4-hour. Patient might need hemodialysis for hyperkalemia. 7. The patient was given at 2 liters of normal saline in the ER we will continue with maintenance fluids in the form of D5 NS at 75 ml an hour in addition and Dr. Vanessa from nephrology service has been consulted. 8. We will check serum and urine osmolality and we will obtain a baseline TSH level. 9. Keep n.p.o. for now and place on Protonix 40 mg IV daily for GI prophylaxis. 10. Monitor CBC, and will continue with folic acid 1 mg daily and ferrous sulfate 325 mg b.i.d. 11. Patient was given Rocephin 1 gram in ED. Will place on broad spectrum abx Zosyn, give Vanco 1gram x1 and Flagyl 500mg IV Q8. Monitor for signs of infections which include fever and WBC. Follow up on urine culture. Check BC x 2 sets. CXR in ED showed no evidence of any acute cardiopulmonary disease. Check C-diff PCR r/o C-diff. 12. Place on sliding scale sliding scale insulin with Accu-Chek q. 4-hour for glycemic control as the patient will be on IV steroids. 13. We will consult urology service for hematuria and underlying bladder outlet obstruction. The patient might need cystoscopy will defer to urology. 14. GI prophylaxis with Protonix 40 mg daily and DVT profile prophylaxis with SCDs. Will hold off on chemical anticoagulation prophylaxis for now given underlying hematuria. 15. Further recommendations will be based on hospital course. 16. CCT 40 mins MD Divya Morley /2:36 PM /3:07 PM MTDD
[2016-11-09] MEDS ORDERED: VANCOMYCIN INJ 1,000 MG in SODIUM CHLOR 0.9% 250 ML INJ 250 ML IV ONE (17:00)
--- NOTE | 2016-11-09 17:16 | PD.PROCEDR ---
Central Line Procedure REASON FOR PROCEDURE Central venous access PROCEDURE PERFORMED Central line placement: Right subclavian CVP CONSENT Informed consent for procedure was obtained. The risks and benefits of the procedure were discussed to include but limited to bleeding, clot formation, infection, and even . ANESTHESIA Local injection of 1% Lidocaine DESCRIPTION OF THE PROCEDURE The patient was placed in supine, mild Trendelenburg position. The area was exposed and cleansed with ChloraPrep, times two. Large sterile drape was used to cover the patient, with the site exposed, under sterile conditions including cap, face mask, sterile gown, and sterile gloves. On single attempt, the introducer needle was inserted with negative pressure in syringe and venous flash was obtained. The guide wire was then advanced without any restriction and the needle was removed. The dilator was used without any complications. Using Seldinger technique the catheter was advanced over the guide wire to a depth of 20 centimeters. The guide wire was removed. All ports were aspirated with dark venous blood return and flushed easily with sterile saline. All ports were capped. Antibiotic disc was placed around central line at puncture site. The central line was secured to the skin with two interrupted 2.0 silk sutures. The area was bandaged with sterile see-through central line bandage. RADIOLOGICAL DATA CXR ordered to verify line placement COMPLICATIONS: No apparent complications ESTIMATED BLOOD LOSS: Less than 1 cc. Brandon Brown MD Nov 09, 2016 17:16
--- NOTE | 2016-11-09 17:18 | PD.PROCEDR ---
Central Line Procedure REASON FOR PROCEDURE Central venous access, hemodialysis PROCEDURE PERFORMED Central line placement: Right IJ vascatheter placement CONSENT Informed consent for procedure was obtained. The risks and benefits of the procedure were discussed to include but limited to bleeding, clot formation, infection, and even . ANESTHESIA Local injection of 1% Lidocaine DESCRIPTION OF THE PROCEDURE The patient was placed in supine, mild Trendelenburg position. The area was exposed and cleansed with ChloraPrep, times two. Large sterile drape was used to cover the patient, with the site exposed, under sterile conditions including cap, face mask, sterile gown, and sterile gloves. On single attempt, the introducer needle was inserted with negative pressure in syringe and venous flash was obtained. The guide wire was then advanced without any restriction and the needle was removed. The dilator was used without any complications. Using Seldinger technique the catheter was advanced over the guide wire to a depth of 20 centimeters. The guide wire was removed. All ports were aspirated with dark venous blood return and flushed easily with sterile saline. All ports were capped. Antibiotic disc was placed around central line at puncture site. The central line was secured to the skin with two interrupted 2.0 silk sutures. The area was bandaged with sterile see-through central line bandage. RADIOLOGICAL DATA Ultrasound guidance was used to locate right IJ vein. CXR ordered to verify line placement. COMPLICATIONS: No apparent complications ESTIMATED BLOOD LOSS: Less than 1 cc. Brandon Brown MD Nov 09, 2016 17:18
--- NOTE | 2016-11-09 17:39 | RADRPT ---
EXAM DATE/TIME: 11/09/2016 17:05 [facility] COMPARISON: CHEST SINGLE AP, November 09, 2016, 10:06. INDICATIONS : Central line and Vas cath placement. MEDICAL HISTORY : None. SURGICAL HISTORY : None. ENCOUNTER: Initial ACUITY: 1 day PAIN SCORE: Non-responsive. LOCATION: Bilateral chest FINDINGS: A right subclavian central line has its tip in the superior vena cava. A right internal jugular VasC ath has its tip in the superior vena cava also. There is no pneumothorax status post placement of the se lines. The heart is normal. The pulmonary vascular pattern is normal. The lungs are clear. CONCLUSION: No pneumothorax status post placement of right internal jugular VasCath and right subclavian central line which both have their tips in the superior vena cava in good position. Ankur Squires MD on November 09, 2016 at 17:35 Board Certified Radiologist. This report was verified electronically.
[2016-11-09 17:53] LABS: AUTOMATED NEUTROPHIL # 25.8 TH/MM3 (1.8-7.7); BASOPHIL % 0.1 % (0.0-2.0); LYMPH % 3.8 % (9.0-44.0); LYMPHOCYTE # 1.1 TH/MM3 (1.0-4.8); MEAN CELL VOLUME 92.1 FL (80.0-100.0); MEAN CORPUSCULAR HEMOGLOBIN 30.8 PG (27.0-34.0); MEAN CORPUSCULAR HGB CONC 33.5 % (32.0-36.0); MONO % 10.4 % (0.0-8.0); NEUT % 85.7 % (16.0-70.0); PLATELET COUNT 421 TH/MM3 (150-450); RED BLOOD COUNT 2.22 MIL/MM3 (4.00-5.30); RED CELL DISTRIBUTION WIDTH 14.9 % (11.6-17.2); WHITE BLOOD COUNT 30.1 TH/MM3 (4.0-11.0)
--- NOTE | 2016-11-09 17:54 | PD.CONS ---
HPI Service Urology Consult Requested By Reason for Consult Retention, hematuria Primary Care Physician Miles Casillas MD Diagnosis: History of Present Illness 60yo female with history of HTN, COPD, and DM admitted for hyperkalemia found to have a markedly distended bladder seen in consultation for hematuria. Patient 's bladder was significantly distended on CT scan, at which point a urethral catheter was placed. Over 2L was removed from the bladder. Initial urine output was clear, however this turned bloody after decompression of the bladder. Patient denies any issues voiding prior to hospitalization. No fevers, no abdominal pain. No history of hematuria Review of Systems ROS Limitations: Clinical Condition Constitutional: DENIES: Fever Endocrine: DENIES: Polyuria Eyes: DENIES: Blurred vision Ears, nose, mouth, throat: DENIES: Hearing loss Respiratory: DENIES: Apneas Cardiovascular: DENIES: Chest pain Gastrointestinal: DENIES: Abdominal pain Genitourinary: COMPLAINS OF: Hematuria, DENIES: Urinary frequency, Urinary incontinence Musculoskeletal: DENIES: Back pain Integumentary: DENIES: Rash Hematologic/lymphatic: DENIES: Bruising Neurologic: DENIES: Headache Psychiatric: DENIES: Anxiety Except as stated in HPI: all other systems reviewed are Neg Past Family Social History Past Medical History COPD HTN DM Past Surgical History Hysterectomy Reported Medications Reported Meds & Active Scripts Active Modafinil 200 Mg Tab 25 Mg PO DAILY PRN Hydrocodone-Acetaminophen 5-325 mg Tab 1 Tab PO Q4H PRN Xanax (Alprazolam) 0.25 Mg Tab 0.25 Mg PO Q8H PRN Klor-Con 10 (Potassium Chloride) 10 Meq Tab 10 Meq PO BID Furosemide 40 Mg Tab 40 Mg PO DAILY Lisinopril 5 Mg Tab 5 Mg PO DAILY Ferrous Sulfate 325 Mg Tab 325 Mg PO BID Prevacid Solutab ODT (Lansoprazole) 30 Mg Tab 30 Mg PO DAILY Folate (Folic Acid) 1 Mg Tab 1 Mg PO DAILY Reported Tylenol (Acetaminophen) 325 Mg Tab 650 Mg PO Q4H PRN Vitamin D3 (Cholecalciferol) 1,000 Unit Tab 3,000 Units PO DAILY Mucinex ER 12 HR (Guaifenesin) 600 Mg Tyrell 1,200 Mg PO BID Magnesium Oxide 400 Mg Tab 400 Mg PO DAILY Lactulose Liq (Lactulose) 10 Gm/15 Ml Soln 15 Ml PO BID Gabapentin 300 Mg Cap 300 Mg PO TID Imodium A-D Liq (Loperamide HCl) 1 Mg/7.5 Ml Liq 4 Mg PO INITIAL DOSE PRN After initial dose give 2 mg (15 mL) after each loose stool. Not to exceed 16 mg (120 mL) per day. Imodium A-D (Loperamide HCl) 2 Mg Tab 4 Mg PO INITIAL DOSE PRN After initial dose, give 1 tablet (2mg) after each loose stool-not to exceed 8 tablets/24hrs Fleet Enema Rectal (Sodium Phosphates Rectal) 7-19 Gm/118 Ml Enem 118 Ml RECTAL DAILY PRN Dulcolax Supp (Bisacodyl) 10 Mg Supp 10 Mg RECTAL DAILY PRN Milk of Magnesia Liq (Magnesium Hydroxide) 400 Mg/5 Ml Susp 30 Ml PO Q4HR PRN Mylanta Liq (Klrfazqg-Uxrunpvns-Mxmzlmgocii Liq) 200-200-20 Mg/5 Ml Susp 30 Ml PO Q4HR PRN Take between meals or as directed. Shake well. Maximum 120 ml/24 hrs. Symbicort Inh (Budesonide/Formoterol Fumarate) 160-4.5 Mcg/Act Aero 1 Puff INH Q12HR Clonidine (Clonidine HCl) 0.1 Mg Tab 0.1 Mg PO BID Ventolin Hfa 18 GM Inh (Albuterol Sulfate) 90 Mcg/Act Aer 2 Puff INH Q4HR PRN Allergies: Coded Allergies: Aspirin (Verified Adverse Reaction, Severe, "don't take aspirin i have tinnitus, 11/09/16) Active Ordered Medications Current Medications Medications (Trade) Dose Ordered Sig/Shayla Route Start Time Stop Time Status Last Admin (NS Flush) 2 ml UNSCH PRN IV FLUSH 11/09/16 10:00 11/09/16 10:25 Miscellaneous Information 1 [id number] XX 11/09/16 14:30 (Chlorhexidine 2% Cloth) 3 pack Taper DAILY@04 TOP 11/10/16 04:00 11/06/17 03:59 (Chlorhexidine 2% Cloth) 3 pack UNSCH PRN TOP 11/09/16 14:30 (SoluMEDROL INJ) 40 mg Q8HR IV PUSH 11/09/16 14:30 Insulin Human Regular 1 1 Q6HR SQ 11/09/16 14:30 Sodium Bicarbonate 75 meq/Dextrose 1,075 ml @ 100 mls/hr [id number] IV 11/09/16 18:00 (Levophed-Dextrose Drip) 250 ml @ 0 mls/hr TITRATE IV 11/09/16 16:15 Terbutaline Sulfate 1 mg 1 mg UNSCH PRN SQ 11/09/16 16:15 Piperacillin Sod/ Tazobactam Sod 50 ml @ 100 mls/hr Q6H IV 11/09/16 18:00 Pharmacy Profile Note 0 ml @ 0 mls/hr UNSCH OTHER 11/09/16 16:15 Vancomycin HCl 1000 mg/Sodium Chloride 250 ml @ 250 mls/hr ONCE ONCE IV 11/09/16 17:00 11/09/16 17:59 (Flagyl 500 Mg Inj) 100 ml @ 100 mls/hr Q8H IV 11/09/16 17:00 Miscellaneous Information SPECIFIC LAB TO BE DRAWN:[facility] LEVEL DATE TO... ONCE ONCE XX 11/11/16 06:00 11/11/16 06:01 Family History family history reviewed and noncontributory to present illness Social History Tobacco and ETOH use Physical Exam Vital Signs Date Time Temp Pulse Resp B/P Pulse Ox O2 Delivery O2 Flow Rate FiO2 11/09/16 14:55 87 18 134/61 100 Nasal Cannula 2 11/09/16 13:35 106 18 123/57 100 Nasal Cannula 2 11/09/16 13:29 18 100 Nasal Cannula 2 11/09/16 13:28 108 18 149/65 100 Nasal Cannula 2 11/09/16 10:49 80 20 157/70 100 Nasal Cannula 2 11/09/16 09:28 98.2 86 20 142/65 100 Physical Exam GENERAL: This is a well-developed patient, in no acute distress. SKIN: No rashes, ecchymoses or lesions. Cool and dry. HEAD: Atraumatic. Normocephalic. EYES: Extraocular motions intact. ENT: Nose without bleeding, purulent drainage. Airway patent. NECK: Trachea midline. No JVD or lymphadenopathy. CARDIOVASCULAR: normal pulses, no edema RESPIRATORY: nonlabored respirations GASTROINTESTINAL: Abdomen soft, non-tender, nondistended. GENITOURINARY: Lama catheter in place, draining light red urine, no clots noted MUSCULOSKELETAL: Extremities without clubbing, cyanosis, or edema. NEUROLOGICAL: Awake and alert. Motor and sensory grossly within normal limits. Normal speech. Lab results reviewed: Yes Laboratory Tests Test 11/09/16 11/09/16 11/09/16 10:18 11:42 15:02 White Blood Count 36.9 Red Blood Count 3.10 Hemoglobin 9.2 Hematocrit 28.6 Mean Corpuscular Volume 92.1 Mean Corpuscular Hemoglobin 29.5 Mean Corpuscular Hemoglobin 32.1 Concent Red Cell Distribution Width 14.9 Platelet Count 604 Mean Platelet Volume 6.6 Neutrophils (%) (Auto) 88.5 Lymphocytes (%) (Auto) 3.0 Monocytes (%) (Auto) 7.8 Eosinophils (%) (Auto) 0.0 Basophils (%) (Auto) 0.7 Neutrophils # (Auto) 32.7 Lymphocytes # (Auto) 1.1 Monocytes # (Auto) 2.9 Eosinophils # (Auto) 0.0 Basophils # (Auto) 0.3 CBC Comment AUTO DIFF Differential Total Cells 100 Counted Neutrophils % (Manual) 82 Band Neutrophils % 3 Lymphocytes % 3 Monocytes % 11 Neutrophils # (Manual) 31.7 Myelocytes 1 Differential Comment FINAL DIFF MANUAL Platelet Estimate HIGH Platelet Morphology Comment NORMAL Ovalocytes 1+ Prothrombin Time 11.5 Prothromb Time International 1.0 Ratio Activated Partial 31.6 Thromboplast Time Sodium Level 112 121 Potassium Level 7.4 7.0 Chloride Level 85 94 Carbon Dioxide Level 18.4 18.6 Anion Gap 9 8 Blood Urea Nitrogen 47 44 Creatinine 2.46 1.99 Estimat Glomerular Filtration 20 26 Rate Random Glucose 107 109 Lactic Acid Level 1.0 Calcium Level 10.0 9.0 Total Bilirubin 0.5 Aspartate Amino Transf 24 (AST/SGOT) Alanine Aminotransferase 25 (ALT/SGPT) Alkaline Phosphatase 139 Total Protein 8.1 Albumin 3.1 Lipase 91 Urine Color YELLOW Urine Turbidity CLOUDY Urine pH 5.5 Urine Specific [place] 1.016 Urine Protein 30 Urine Glucose (UA) NEG Urine Ketones NEG Urine Occult Blood LARGE Urine Nitrite NEG Urine Bilirubin NEG Urine Urobilinogen LESS THAN 2.0 Urine Leukocyte Esterase LARGE Urine RBC Urine WBC Urine WBC Clumps MOD Urine Bacteria OCC Urine Mucus FEW Microscopic Urinalysis Comment CULTURE INDICATED Date/Time Procedure Status Source Growth 11/09/16 11:42 Urine Culture Received Urine Clean Catch Pending Result Diagram: 11/09/16 1018 11/09/16 1502 Personally reviewed images: Yes Imaging Last Impressions Chest X-Ray 11/09/16 0950 Signed Impressions: Service Date/Time: October 10:06 - CONCLUSION: 1. No evidence of free intraperitoneal air. 2. Unremarkable chest. Ankur Squires MD Abdomen/Pelvis CT 11/09/16 0000 Signed Impressions: Service Date/Time: , November 09, 2016 12:40 - CONCLUSION: 1. Markedly distended fluid filled structure within the midline of the pelvis extending into the lower abdomen suggestive of markedly dilated urinary bladder. The finding is suggestive of bladder outlet obstruction. Moderate hydronephrosis is noted bilaterally. Lama catheter insertion may be helpful for decompression of this suspected bladder outlet obstruction and should be considered. 2. Multiple calcified non-obstructing bilateral renal calculi. 3. Cholelithiasis. 4. Right adrenal nodule measuring 2.2 x 1.8 cm consistent with possible adrenal adenoma. Ankur Squires MD Assessment and Plan Problem List: (1) UTI (urinary tract infection) ICD Code: N39.0 Status: Acute (2) Renal failure ICD Code: N19 Status: Acute (3) Bladder outlet obstruction ICD Code: N32.0 Status: Acute Assessment and Plan -CT scan images reviewed with bladder noted to be distended up to and beyond the level of the umbilicus. Small bilateral nonobstructing stones noted in each kidney -Bladder outlet obstruction may be neurogenic in origin with history of DM -Hematuria likely due to decompression of bladder and bleeding from bladder wall secondary to release of the 2L from the bladder -Recommend maintain lama catheter in place and to be discharged with catheter in place with close urology follow-up. Given the size of the bladder on CT scan , unlikely she would be able to void if catheter is removed. She will require further evaluation as outpatient with likely cystoscopy and urodynamic study to further evaluate her voiding dysfunction -Please call with questions Dwayne Fatima MD Nov 09, 2016 17:54
[2016-11-09 17:57] LABS: HEMO FLAGS AUTO DIFF
[2016-11-09 17:59] LABS: HEMATOCRIT 20.4 % (35.0-46.0)
[2016-11-09] MEDS ORDERED: SODIUM BICARBONATE 8.4% INJ 75 MEQ in DEXTROSE 5% IN WATE 1000ML INJ 1,000 ML IV SCH ×2 (18:00)
[2016-11-09 18:35] LABS: METAMYELOCYTES 1 % (0-1); NEUTROPHIL # MANUAL DIFF 26.2 TH/MM3 (1.8-7.7); POLYS (SEG NEUTROPHILS) 86 % (16-70); WBC DIFF SAMPLE 100
[2016-11-09 18:36] LABS: PLATELET ESTIMATE SMEAR HIGH (NORMAL); PLATELET MORPHOLOGY NORMAL (NORMAL); SCAN/DIFF FINAL DIFF MANUAL
[2016-11-09] MEDS ORDERED: HEPARIN SODIUM - IV 10,000 UNITS/10 ML VIAL OTHER PRN (19:30)
[2016-11-09] MEDS ORDERED: ONDANSETRON HCL 4 MG/2 ML VIAL IV PRN (19:30)
[2016-11-09] MEDS ORDERED: MANNITOL 12.5 GM/50 ML VIAL IV PRN (19:30)
[2016-11-09] MEDS ORDERED: NS 250 ML IV PRN (19:30)
[2016-11-09] MEDS ORDERED: GENTAMICIN SULFATE (DIALYSIS USE ONLY) 20 MG/2 ML VIAL OTHER PRN (19:30)
[2016-11-09] MEDS ORDERED: diphenhydrAMINE HCL 25 MG CAP PO PRN (19:30)
[2016-11-09] MEDS ORDERED: NITROGLYCERIN 0.4 MG SL 25 TABS/BTL SL PRN (19:30)
[2016-11-09] MEDS ORDERED: SODIUM CHLOR 0.9% 1000 ML IV PRN ×2 (19:30)
[2016-11-09] MEDS ORDERED: ALBUMIN HUMAN 25% 25 GM/100 ML BAGP IV PRN (19:30)
[2016-11-09] MEDS ORDERED: cloNIDine HCL 0.1 MG TAB PO PRN (19:30)
[2016-11-09] MEDS ORDERED: HEPARIN SODIUM - IV 10,000 UNITS/10 ML VIAL IV FLUSH PRN (19:30)
[2016-11-09] MEDS ORDERED: ACETAMINOPHEN 325 MG TAB PO PRN (19:30)
[2016-11-09] MEDS ORDERED: GELATIN 12 MM/7 MM FOAM TOP PRN (19:30)
[2016-11-09] MEDS: metroNIDAZOLE 500 MG INJ 100 ML IV SCH (19:50)
[2016-11-09] MEDS: PIPERACIL-TAZO 3.375 GM PREMIX 50 ML IV SCH (19:51)
[2016-11-09 21:41] LABS: POTASSIUM 3.8 MEQ/L (3.5-5.1)
[2016-11-09 21:53] LABS: CALCIUM-PROTEIN CORRECTED 8.4 MG/DL (8.5-10.1)
[2016-11-09] MEDS ORDERED: ACETAMINOPHEN 500 MG CPLT PO PRN (22:00)
[2016-11-09] MEDS: oxyCODONE/ACETAMINOPHEN 10 MG/325 MG TAB PO PRN (22:05)
--- NOTE | 2016-11-09 22:22 | MB ---
cc: JACKIE VILLAVICENCIO MD DATE OF CONSULTATION 11/09/16 REASON FOR CONSULTATION Severe hyperkalemia and acute kidney injury. HISTORY OF PRESENT ILLNESS This is a 60-year-old female with past medical history of chronic obstructive pulmonary disease, hypertension, diabetes mellitus, history of C-difficile who was transferred here from the shelter because of generalized weakness, abdominal pain and distension. I was called to see the patient because of severe hyperkalemia and elevated BUN and creatinine. The patient has potassium of 7.4 on presentation and it improved to 7.0 after giving some medication, but the patient was having some acidosis and hyperkalemia. She was started on dialysis. The patient has been passing urine. She recently had abdominal surgery. She recently had thoracentesis done and here in the hospital also she was found to have bladder distension. She was having abdominal pain and she has bladder obstruction and, after putting the Lopez catheter, she started having bloody urine coming out. Urology also has been consulted. The patient was given treatment for hyperkalemia, but the potassium was not coming down fast enough so she was started on dialysis and she just finished her first treatment with 1.0 potassium. The patient is very malnourished and severely dehydrated. She is not able to give much history. She does not even know why she is here. Most of the history was taken from the patient's chart, although she is awake. PAST MEDICAL HISTORY 1. Hypertension, 2. Chronic obstructive pulmonary disease, 3. History of anxiety, 4. History of C-difficile colitis, 5. Diabetes mellitus, 6. History of alcoholism in the past. PAST SURGICAL HISTORY History of thoracentesis done REVIEW OF SYSTEMS Limited since the patient is not answering all the questions. She is chronically ill and has malnutrition and looks severely dehydrated not in acute distress. She denies any chest pain. No shortness of breath. Her abdominal pain is much better. There is no nausea or vomiting. There is no history of diarrhea. SOCIAL HISTORY The patient lives in a nursing facility. She previously has history of alcoholism FAMILY HISTORY Noncontributory. ALLERGIES ASPIRIN MEDICATIONS Currently 1. IV fluid with Sodium bicarbonate. 2. Zosyn 3.375 grams q. 6-hour 3. Regular insulin sliding scale. 4. Metronidazole 500 mg q. 8-hour. 5. Methylprednisone 40 mg IV q. 8-hour PHYSICAL EXAMINATION GENERAL: On examination, the patient is awake. She is not fully oriented not in acute distress. VITAL SIGNS: Last blood pressure is 134/61, temperature is 98.2. HEENT: Pupils are mid constricted. Nonicteric sclerae, conjunctivae pale. NECK: Supple. JVD is not elevated. LUNGS: The patient has bilateral decreased air entry with occasional wheezing. HEART: S1, S2 regular rhythm. ABDOMEN: Soft, lax. There is no tenderness. EXTREMITIES: There is some muscle wasting and there is no edema LABORATORY DATA WBC count is 30.1, hemoglobin repeat one is 6.8 with a platelet count of 421. Sodium initially was 112 and the repeat one is 121. Potassium is 7.0, just now we got the last potassium Which is 6.2, bicarb is 18.6, chloride 94, BUN 44, creatinine 1.9, glucose 109. Calcium 9.0, TSH 0.406, INR 1.0. Urinalysis showing protein of 30 with large leukocyte esterase, moderate WBC. Blood cultures and urine culture pending. IMAGING STUDIES The patient had a CT scan of the abdomen and pelvis done which shows marked distended fluid stricture in the midline of the pelvis suggestive of urinary bladder distension, multiple calcified nonobstructing renal calculi, cholelithiasis, large adrenal nodule. ASSESSMENT/PLAN 1. Acute kidney injury 2. Hyperkalemia. 3. Hyponatremia. 4. Anemia. 5. Dehydration. 6. Urinary tract infection. 7. Rule-out sepsis 8. History of C-difficile colitis. The patient just now finished the dialysis. She was dialyzed mainly for hyperkalemia. Her sodium was also low and it has been improving. The patient has drop in the hemoglobin may possibly be dilutional effect since she was quite dehydrated when she came in. After giving the fluid, her hemoglobin dropped so this needs to be worked up. She probably will need blood transfusion. From the renal standpoint, the acute kidney injury is related to bladder outlet obstruction associated with also dehydration and the possibility of ATN because of the infection. Continue the antibiotic and the IV fluid and most likely she will not need another dialysis. We will follow the urine output and renal function and the potassium and sodium level. Thank you for the consultation. I will follow the patient while she is in the hospital. MD DELANEY Palomo/ /7:41 PM /10:05 PM
[2016-11-09] MEDS: RESP: ALBUTEROL 2.5 MG/IPRATROPIUM 0.5 MG NEB (SCH) INH (23:08)
[2016-11-10] VITALS (14 sets, daily range): BP systolic 133–187; BP diastolic 59–79; PULSE 78–106; RESP 16–34; TEMP 97.8–98.3; O2SAT 94–99
[2016-11-10] MEDS: PIPERACIL-TAZO 3.375 GM PREMIX 50 ML IV SCH ×4 (01:26→18:35)
[2016-11-10] MEDS: metroNIDAZOLE 500 MG INJ 100 ML IV SCH ×3 (01:27→18:36)
[2016-11-10] MEDS: INSULIN NovoLIN REGULAR SUPPLEMENTAL SCALE SQ SCH ×4 (01:27→18:00)
[2016-11-10] MEDS: CHLORHEXIDINE GLUCONATE 2 % 1 PACK (2 CLOTHS) TOP SCH (04:00)
[2016-11-10] MEDS: RESP: ALBUTEROL 2.5 MG/IPRATROPIUM 0.5 MG NEB (SCH) INH ×6 (04:21→23:03)
[2016-11-10] MEDS: methylPREDNISolone SOD SUCC 40 MG/1 ML VIAL IV PUSH SCH ×3 (05:09→21:09)
[2016-11-10] MEDS: oxyCODONE/ACETAMINOPHEN 10 MG/325 MG TAB PO PRN ×4 (05:12→21:19)
[2016-11-10 06:48] LABS: AUTOMATED NEUTROPHIL # 12.3 TH/MM3 (1.8-7.7); HEMATOCRIT 23.2 % (35.0-46.0); HEMO FLAGS DIFF FINAL; LYMPH % 3.2 % (9.0-44.0); LYMPHOCYTE # 0.4 TH/MM3 (1.0-4.8); MEAN CELL VOLUME 85.9 FL (80.0-100.0); MEAN CORPUSCULAR HEMOGLOBIN 29.6 PG (27.0-34.0); MEAN CORPUSCULAR HGB CONC 34.5 % (32.0-36.0); MONO % 2.9 % (0.0-8.0); NEUT % 93.9 % (16.0-70.0); PLATELET COUNT 347 TH/MM3 (150-450); RED CELL DISTRIBUTION WIDTH 16.8 % (11.6-17.2)
[2016-11-10 07:22] LABS: BICARBONATE 31.7 MEQ/L (21.0-32.0); CALCIUM-PROTEIN CORRECTED 8.3 MG/DL (8.5-10.1); POTASSIUM 3.9 MEQ/L (3.5-5.1); TOTAL BILIRUBIN ADULT 1.9 MG/DL (0.2-1.0)
--- NOTE | 2016-11-10 08:47 | HHI.CCPN ---
Subjective Remarks/Hospital Course The patient is a 60-year-old female with past medical history of COPD, hypertension and diabetes mellitus, recent history of C diff who presented from [facility] for generalized weakness, somnolence and abdominal pain associated with distension. She completed treatment for C diff and had a repeat a C-diff check at intermediate which was reportedly negative. She still having some liquid stools. She also reports decreased p.o. intake. On arrival to the emergency department, the patient was found to be in renal failure with a BUN of 47, creatinine 2.46, hyperkalemic with potassium level was 7.4 and hyponatremic with a sodium level of 112. Other significant labs on arrival showed significant leukocytosis with a WBC of 36.9. Her lactic acid level measured at 1.0. Due to her abdominal pain. CT scan of the abdomen and pelvis without contrast was obtained which showed findings suggestive of bladder outlet obstruction and bilaterally moderate hydronephrosis. A Lopez catheter was inserted in the emergency room and the patient had approximately 2 liters of urine output which initially was clear, however, it turned bloody. Chest x-ray In the ER showed no acute cardiopulmonary disease. In the emergency department she was given 2 liters of normal saline and she was treated for hyperkalemia with 10 units IV insulin, 1 ampule of D50, sodium bicarb milliequivalent. Albuterol 10 mg and 2 grams of calcium gluconate. Her urinalysis showed large blood, large leukocyte esterase, occasional bacteria and moderate WBC clumps. The patient received Rocephin 1 gram IV. When seen she is on at 2 liters oxygen with saturation of 100%, blood pressure of 123/57 with a pulse of 107. The patient is afebrile with a temperature of 98.2. She denies any shortness of breath, chest pain or any constitutional symptoms. 11/10 Patent s/p emergent HD yesterday for hyperkalemia ( K 7.4)now K 3.9 this morning. s/p transfusion 2u PRBC for Hgb 6.8 this morning now Hgb 8.0 WBC trending down 13 from 36.9 on arrival. Objective Vital Signs Date Time Temp Pulse Resp B/P Pulse Ox O2 Delivery O2 Flow Rate FiO2 11/10/16 07:37 94 Nasal Cannula 2.00 11/10/16 06:00 83 11/10/16 04:00 98.0 18 144/64 Intake and Output 11/09/16 11/09/16 11/10/16 08:00 16:00 00:00 Intake Total 1753 ml Output Total 2400 ml 1375 ml Balance -2400 ml 378 ml Result Diagram: 11/10/16 0638 11/10/16 0638 Other Results Laboratory Tests Test 11/09/16 11/09/16 11/09/16 11/09/16 10:18 11:42 11:47 15:02 White Blood Count 36.9 TH/MM3 Red Blood Count 3.10 MIL/MM3 Hemoglobin 9.2 GM/DL Hematocrit 28.6 % Mean Corpuscular Volume 92.1 FL Mean Corpuscular Hemoglobin 29.5 PG Mean Corpuscular Hemoglobin 32.1 % Concent Red Cell Distribution Width 14.9 % Platelet Count 604 TH/MM3 Mean Platelet Volume 6.6 FL Neutrophils (%) (Auto) 88.5 % Lymphocytes (%) (Auto) 3.0 % Monocytes (%) (Auto) 7.8 % Eosinophils (%) (Auto) 0.0 % Basophils (%) (Auto) 0.7 % Neutrophils # (Auto) 32.7 TH/MM3 Lymphocytes # (Auto) 1.1 TH/MM3 Monocytes # (Auto) 2.9 TH/MM3 Eosinophils # (Auto) 0.0 TH/MM3 Basophils # (Auto) 0.3 TH/MM3 CBC Comment AUTO DIFF Differential Total Cells 100 Counted Neutrophils % (Manual) 82 % Band Neutrophils % 3 % Lymphocytes % 3 % Monocytes % 11 % Neutrophils # (Manual) 31.7 TH/MM3 Myelocytes 1 % Differential Comment FINAL DIFF MANUAL Platelet Estimate HIGH Platelet Morphology Comment NORMAL Ovalocytes 1+ Prothrombin Time 11.5 SEC Prothromb Time International 1.0 RATIO Ratio Activated Partial 31.6 SEC Thromboplast Time Sodium Level 112 MEQ/L 121 MEQ/L Potassium Level 7.4 MEQ/L 7.0 MEQ/L Chloride Level 85 MEQ/L 94 MEQ/L Carbon Dioxide Level 18.4 MEQ/L 18.6 MEQ/L Anion Gap 9 MEQ/L 8 MEQ/L Blood Urea Nitrogen 47 MG/DL 44 MG/DL Creatinine 2.46 MG/DL 1.99 MG/DL Estimat Glomerular Filtration 20 ML/MIN 26 ML/MIN Rate Random Glucose 107 MG/DL 109 MG/DL Lactic Acid Level 1.0 mmol/L Calcium Level 10.0 MG/DL 9.0 MG/DL Total Bilirubin 0.5 MG/DL Aspartate Amino Transf 24 U/L (AST/SGOT) Alanine Aminotransferase 25 U/L (ALT/SGPT) Alkaline Phosphatase 139 U/L Total Protein 8.1 GM/DL Albumin 3.1 GM/DL Lipase 91 U/L Urine Color YELLOW Urine Turbidity CLOUDY Urine pH 5.5 Urine Specific [place] 1.016 Urine Protein 30 mg/dL Urine Glucose (UA) NEG mg/dL Urine Ketones NEG mg/dL Urine Occult Blood LARGE Urine Nitrite NEG Urine Bilirubin NEG Urine Urobilinogen LESS THAN 2.0 MG/DL Urine Leukocyte Esterase LARGE Urine RBC /hpf Urine WBC /hpf Urine WBC Clumps MOD Urine Bacteria OCC /hpf Urine Mucus FEW /lpf Microscopic Urinalysis Comment CULTURE INDICATED Urine Osmolality 280 MOSM/KG Test 11/09/16 11/09/16 11/09/16 11/09/16 17:41 18:00 18:15 20:24 White Blood Count 30.1 TH/MM3 Red Blood Count 2.22 MIL/MM3 Hemoglobin 6.8 GM/DL Hematocrit 20.4 % Mean Corpuscular Volume 92.1 FL Mean Corpuscular Hemoglobin 30.8 PG Mean Corpuscular Hemoglobin 33.5 % Concent Red Cell Distribution Width 14.9 % Platelet Count 421 TH/MM3 Mean Platelet Volume 6.2 FL Neutrophils (%) (Auto) 85.7 % Lymphocytes (%) (Auto) 3.8 % Monocytes (%) (Auto) 10.4 % Eosinophils (%) (Auto) 0.0 % Basophils (%) (Auto) 0.1 % Neutrophils # (Auto) 25.8 TH/MM3 Lymphocytes # (Auto) 1.1 TH/MM3 Monocytes # (Auto) 3.1 TH/MM3 Eosinophils # (Auto) 0.0 TH/MM3 Basophils # (Auto) 0.0 TH/MM3 CBC Comment AUTO DIFF Differential Total Cells 100 Counted Neutrophils % (Manual) 86 % Lymphocytes % 3 % Monocytes % 10 % Neutrophils # (Manual) 26.2 TH/MM3 Metamyelocytes 1 % Differential Comment FINAL DIFF MANUAL Platelet Estimate HIGH Platelet Morphology Comment NORMAL Red Cell Morphology Comment NORMAL Potassium Level 6.2 MEQ/L Serum Osmolality 279 MOSM/KG Thyroid Stimulating Hormone 0.406 uIU/ML 3rd Gen Nasal Screen MRSA (PCR) NEGATIVE Blood Type A POSITIVE Antibody Screen NEGATIVE Crossmatch Leukocyte-Reduced Red Blood Cells Blood Bank Comment Test 11/09/16 11/09/16 11/10/16 20:45 23:30 06:38 Sodium Level 133 MEQ/L 132 MEQ/L 129 MEQ/L Potassium Level 3.8 MEQ/L 3.9 MEQ/L Chloride Level 96 MEQ/L 90 MEQ/L Carbon Dioxide Level 30.0 MEQ/L 31.7 MEQ/L Anion Gap 7 MEQ/L 7 MEQ/L Blood Urea Nitrogen 15 MG/DL 15 MG/DL Creatinine 0.65 MG/DL 0.61 MG/DL Estimat Glomerular Filtration 94 ML/MIN 101 ML/MIN Rate Random Glucose 116 MG/DL 187 MG/DL Calcium Level 7.3 MG/DL 7.2 MG/DL Protein Corrected Calcium 8.4 MG/DL 8.3 MG/DL Total Protein 5.1 GM/DL 5.1 GM/DL White Blood Count 13.0 TH/MM3 Red Blood Count 2.70 MIL/MM3 Hemoglobin 8.0 GM/DL Hematocrit 23.2 % Mean Corpuscular Volume 85.9 FL Mean Corpuscular Hemoglobin 29.6 PG Mean Corpuscular Hemoglobin 34.5 % Concent Red Cell Distribution Width 16.8 % Platelet Count 347 TH/MM3 Mean Platelet Volume 6.3 FL Neutrophils (%) (Auto) 93.9 % Lymphocytes (%) (Auto) 3.2 % Monocytes (%) (Auto) 2.9 % Eosinophils (%) (Auto) 0.0 % Basophils (%) (Auto) 0.0 % Neutrophils # (Auto) 12.3 TH/MM3 Lymphocytes # (Auto) 0.4 TH/MM3 Monocytes # (Auto) 0.4 TH/MM3 Eosinophils # (Auto) 0.0 TH/MM3 Basophils # (Auto) 0.0 TH/MM3 CBC Comment DIFF FINAL Differential Comment Total Bilirubin 1.9 MG/DL Aspartate Amino Transf 27 U/L (AST/SGOT) Alanine Aminotransferase 17 U/L (ALT/SGPT) Alkaline Phosphatase 84 U/L Albumin 2.0 GM/DL Imaging Last Impressions Chest X-Ray 11/09/16 0950 Signed Impressions: Service Date/Time: October 10:06 - CONCLUSION: 1. No evidence of free intraperitoneal air. 2. Unremarkable chest. Ankur Squires MD Abdomen/Pelvis CT 11/09/16 0000 Signed Impressions: Service Date/Time: October 12:40 - CONCLUSION: 1. Markedly distended fluid filled structure within the midline of the pelvis extending into the lower abdomen suggestive of markedly dilated urinary bladder. The finding is suggestive of bladder outlet obstruction. Moderate hydronephrosis is noted bilaterally. Lopez catheter insertion may be helpful for decompression of this suspected bladder outlet obstruction and should be considered. 2. Multiple calcified non-obstructing bilateral renal calculi. 3. Cholelithiasis. 4. Right adrenal nodule measuring 2.2 x 1.8 cm consistent with possible adrenal adenoma. Ankur Squires MD Objective Remarks GENERAL: Patien tis lying in bed in NAD SKIN: Warm and dry. HEAD: Normocephalic. EYES: No scleral icterus. No injection or drainage. NECK: Supple, trachea midline. No JVD or lymphadenopathy. CARDIOVASCULAR: Regular rate and rhythm without murmurs, gallops, or rubs. RESPIRATORY: Breath sounds equal bilaterally. No accessory muscle use. GASTROINTESTINAL: Abdomen soft, non-tender, nondistended. MUSCULOSKELETAL: No cyanosis, or edema. Neuro: Awake and alert A/P Assessment and Plan 1. Respiratory insufficiency. 2. ARF with hyperkalemia- resolved 3. Hyponatremia. 4. Bladder outlet obstruction. 5. Moderate hydronephrosis. 6. Hematuria 7. Leukocytosis...trending down 8. UTI 9. Recent history of C diff 10. COPD 11. Hypertension 12. History of anxiety disorder 13. Anemia. Plan: Neuro: Awake and alert. Monitor neuro status Pulm: Continue with oxygen and maintain sats above 92%. Bronchodilators, Solu-Medrol 40 mg IV q.8, continue with Symbicort CV: Resume BP home med ( Clonidine 0.1mg BID) for BP control. Monitor HR and BP and maintain MAP >65 mmHg. Lactic acid level:1.0. Echo from October 05 showed an EF 45-50% with no RWMA : Monitor renal function Is and Os and avoid nephrotoxins s/p emergent HD yesterday for hyperkalemia, K level 3.9 this morning. Renal- Dr. Vanessa/ d/c bicarb drip, monitor sodium level. GI: On Protonix 40 mg IV daily for GI prophylaxis. On heart healthy diet Heme: s/p transfusion 2u PRBC this morning. Monitor CBC, on folic acid 1 mg daily and ferrous sulfate 325 mg b.i.d. Urology is following for hematuria ID: Continue with abx (Zosyn, Flagyl, Vanco) Monitor for signs of infections(fever and WBC). Follow up on urine and blood cultures. CXR in ED showed no evidence of any acute cardiopulmonary disease. Check C-diff PCR r/o C-diff. Endo: SSI with Accu-Chek q. 4-hour for glycemic control GI prophylaxis with Protonix 40 mg daily and DVT profile prophylaxis with SCDs. Not on chemical anticoagulation prophylaxis given hematuria and anemia requiring blood transfusion Will sign off and transfer care to [facility] Level 3 Brandon Brown MD Nov 10, 2016 08:47
[2016-11-10] MEDS: FOLIC ACID 1 MG TAB PO SCH (09:41)
[2016-11-10] MEDS: FERROUS SULFATE 325 MG (65 MG ELEMENTAL IRON) TAB PO SCH ×2 (09:42→21:10)
[2016-11-10] MEDS: cloNIDine HCL 0.1 MG TAB PO SCH ×2 (09:42→21:10)
[2016-11-10] MEDS ORDERED: CALCIUM GLUCONATE INJ 1 GM in SODIUM CHLORIDE 0.9% INJ 100 ML IV ONE (10:00)
[2016-11-10] MEDS: hydrALAZINE HCL 20 MG/ML VIAL IV PUSH PRN ×3 (10:11→21:09)
[2016-11-10] MEDS ORDERED: cefTRIAXone INJ 1,000 MG in SODIUM CHLORIDE 0.9% INJ 100 ML IV SCH (13:00)
--- NOTE | 2016-11-10 13:02 | HHI.NPPN ---
Subjective General Problems: Anemia, Mebatolic Acidosis Renal Failure: Acute History of Present Illness 60-year-old female with past medical history of chronic obstructive pulmonary disease, hypertension, diabetes mellitus, history of C-difficile [facility] of generalized weakness, abdominal pain and distension. I was called to see the patient because of severe hyperkalemia and elevated BUN and creatinine. Additional Remarks Patient is more alert, no SOB, no abd. pain. Review of Systems General Constitutional: Fatigue Objective Data Data 11/09/16 11/10/16 19:00 07:00 Intake Total 2890 ml Output Total 2400 ml 1775 ml Balance -2400 ml 1115 ml Intake Oral 360 ml IV Total 2530 ml Output Urine Total 2400 ml 1775 ml Hemodialysis 0 ml # Voids 1 # Bowel Movements 0 Vital Signs Date Time Temp Pulse Resp B/P Pulse Ox O2 Delivery O2 Flow Rate FiO2 11/10/16 09:43 15 11/10/16 08:00 85 11/10/16 08:00 97.8 85 20 187/77 99 11/10/16 07:37 94 Nasal Cannula 2.00 11/10/16 06:00 83 11/10/16 04:00 80 11/10/16 04:00 98.0 80 18 144/64 99 11/10/16 02:00 78 11/10/16 00:00 83 11/10/16 00:00 98.3 83 16 133/59 94 11/09/16 22:00 90 11/09/16 20:00 120 11/09/16 20:00 101.2 120 24 159/66 100 11/09/16 19:36 95 Nasal Cannula 2.00 11/09/16 18:00 111 11/09/16 16:00 98.2 80 17 68/44 91 11/09/16 16:00 80 11/09/16 14:55 87 18 134/61 100 Nasal Cannula 2 11/09/16 13:35 106 18 123/57 100 Nasal Cannula 2 11/09/16 13:29 18 100 Nasal Cannula 2 11/09/16 13:28 108 18 149/65 100 Nasal Cannula 2 -: 11/10/16 0638 11/10/16 0638 Microbiology 11/09/16 Aerobic Blood Culture - Preliminary, Resulted NO GROWTH IN 1 DAY 3/23/17 Anaerobic Blood Culture - Preliminary, Resulted NO GROWTH IN 1 DAY 11/09/16 Aerobic Blood Culture - Preliminary, Resulted NO GROWTH IN 1 DAY 11/09/16 Anaerobic Blood Culture - Preliminary, Resulted NO GROWTH IN 1 DAY Physical Exam General Appearance: No Acute Distress, Comfortable Eyes Eye Exam: Pupils Equal Throat Throat Exam: Oral Mucosa [place] & Moist Neck Neck Exam: Neck Supple Pulmonary Resp Exam: Breath Sounds Equal, No Distress, Decreased Bases Cardiology CV Exam: Regular Gastrointestinal/Abdomen GI Exam: Soft, Non-Tender, Bowel Sounds Present, Distended Extremeties Extremities Exam: Trace Edema Neurologic Neuro Exam: Alert, Awake Assessment/Plan Assessment Summary: JERI/Acute Renal Failure Electrolyte Assessment: Hyperkalemia Problem List: (1) Hyperkalemia (2) Hyponatremia (3) COPD exacerbation (4) Bladder outlet obstruction (5) UTI (urinary tract infection) (6) Renal failure Plan Patient has bloody urine. Creatinine now normalized. K is normal and sodium is better. Most likely has Obs. uropathy and pre renal. Continue IVF. D/C Vascath. I will sign off from Nephrology, call if needed. Jessica Vanessa MD Nov 10, 2016 13:02
[2016-11-10] MEDS: VANCOMYCIN INJ 750 MG in SODIUM CHLOR 0.9% 250 ML INJ 250 ML IV SCH (14:23)
[2016-11-11] VITALS (11 sets, daily range): BP systolic 158–214; BP diastolic 69–86; PULSE 84–115; RESP 14–28; TEMP 98–99; O2SAT 92–98
[2016-11-11] MEDS: metroNIDAZOLE 500 MG INJ 100 ML IV SCH ×3 (01:10→16:21)
[2016-11-11] MEDS: PIPERACIL-TAZO 3.375 GM PREMIX 50 ML IV SCH ×4 (01:10→17:17)
[2016-11-11] MEDS: hydrALAZINE HCL 20 MG/ML VIAL IV PUSH PRN ×2 (02:51→17:23)
[2016-11-11] MEDS: RESP: ALBUTEROL 2.5 MG/IPRATROPIUM 0.5 MG NEB (SCH) INH ×5 (03:55→20:01)
[2016-11-11] MEDS: CHLORHEXIDINE GLUCONATE 2 % 1 PACK (2 CLOTHS) TOP SCH (04:00)
[2016-11-11 04:43] LABS: AUTOMATED NEUTROPHIL # 13.6 TH/MM3 (1.8-7.7); HEMATOCRIT 25.5 % (35.0-46.0); HEMO FLAGS DIFF FINAL; LYMPH % 3.6 % (9.0-44.0); LYMPHOCYTE # 0.5 TH/MM3 (1.0-4.8); MEAN CELL VOLUME 86.4 FL (80.0-100.0); MEAN CORPUSCULAR HEMOGLOBIN 30.3 PG (27.0-34.0); MEAN CORPUSCULAR HGB CONC 35.1 % (32.0-36.0); MONO % 6.8 % (0.0-8.0); NEUT % 89.6 % (16.0-70.0); PLATELET COUNT 421 TH/MM3 (150-450); RED BLOOD COUNT 2.95 MIL/MM3 (4.00-5.30); RED CELL DISTRIBUTION WIDTH 17.2 % (11.6-17.2); WHITE BLOOD COUNT 15.2 TH/MM3 (4.0-11.0)
[2016-11-11] MEDS ORDERED: ZOLPIDEM TARTRATE 10 MG TAB PO ONE (04:45)
[2016-11-11 05:13] LABS: BICARBONATE 29.4 MEQ/L (21.0-32.0); MAGNESIUM 1.3 MG/DL (1.5-2.5)
[2016-11-11] MEDS: methylPREDNISolone SOD SUCC 40 MG/1 ML VIAL IV PUSH SCH ×3 (05:13→21:36)
[2016-11-11] MEDS: LABETALOL HCL 100 MG/20 ML VIAL IV PUSH PRN ×2 (05:13→16:20)
[2016-11-11] MEDS: INSULIN NovoLIN REGULAR SUPPLEMENTAL SCALE SQ SCH ×4 (06:00→17:27)
[2016-11-11] MEDS ORDERED: PHARMACY ORDERED LAB XX ONE ×3 (06:00→08:45)
[2016-11-11] MEDS: FERROUS SULFATE 325 MG (65 MG ELEMENTAL IRON) TAB PO SCH ×2 (08:37→21:36)
[2016-11-11] MEDS: FOLIC ACID 1 MG TAB PO SCH (08:37)
[2016-11-11] MEDS: cloNIDine HCL 0.1 MG TAB PO SCH ×2 (08:37→21:36)
[2016-11-11] MEDS: VANCOMYCIN INJ 750 MG in SODIUM CHLOR 0.9% 250 ML INJ 250 ML IV SCH ×2 (08:37→21:36)
[2016-11-11] MEDS: MAGNESIUM SULFATE 1 GM PREMIX 100 ML IV SCH ×2 (10:31→13:13)
[2016-11-11] MEDS ORDERED: SODIUM PHOSPHATE INJ 30 MMOL in SODIUM CHLOR 0.9% 250 ML INJ 250 ML IV ONE (11:00)
[2016-11-11] MEDS ORDERED: ALTEPLASE RECOMBINANT 2 MG VIAL INTRACATH PRN (20:45)
[2016-11-11] MEDS: ACETAMINOPHEN/HYDROcodone 325 MG/5 MG TAB PO PRN (21:37)
[2016-11-12] VITALS (11 sets, daily range): BP systolic 122–195; BP diastolic 60–85; PULSE 74–106; RESP 17–24; TEMP 96.1–98.8; O2SAT 94–97
[2016-11-12] MEDS: RESP: ALBUTEROL 2.5 MG/IPRATROPIUM 0.5 MG NEB (SCH) INH ×7 (00:26→23:57)
[2016-11-12] MEDS: LABETALOL HCL 100 MG/20 ML VIAL IV PUSH PRN (00:32)
[2016-11-12] MEDS: metroNIDAZOLE 500 MG INJ 100 ML IV SCH ×3 (00:32→16:14)
[2016-11-12] MEDS: PIPERACIL-TAZO 3.375 GM PREMIX 50 ML IV SCH ×5 (00:32→23:11)
[2016-11-12] MEDS: ACETAMINOPHEN/HYDROcodone 325 MG/5 MG TAB PO PRN ×6 (02:50→21:56)
[2016-11-12] MEDS: hydrALAZINE HCL 20 MG/ML VIAL IV PUSH PRN (03:30)
[2016-11-12 03:47] LABS: AUTOMATED NEUTROPHIL # 8.9 TH/MM3 (1.8-7.7); BASOPHIL % 0.1 % (0.0-2.0); HEMATOCRIT 23.3 % (35.0-46.0); HEMO FLAGS DIFF FINAL; LYMPH % 6.7 % (9.0-44.0); LYMPHOCYTE # 0.7 TH/MM3 (1.0-4.8); MEAN CELL VOLUME 86.8 FL (80.0-100.0); MEAN CORPUSCULAR HEMOGLOBIN 29.8 PG (27.0-34.0); MEAN CORPUSCULAR HGB CONC 34.3 % (32.0-36.0); MONO % 5.9 % (0.0-8.0); NEUT % 87.3 % (16.0-70.0); PLATELET COUNT 379 TH/MM3 (150-450); RED BLOOD COUNT 2.68 MIL/MM3 (4.00-5.30); RED CELL DISTRIBUTION WIDTH 16.9 % (11.6-17.2); WHITE BLOOD COUNT 10.2 TH/MM3 (4.0-11.0)
[2016-11-12] MEDS: CHLORHEXIDINE GLUCONATE 2 % 1 PACK (2 CLOTHS) TOP SCH (04:00)
[2016-11-12 04:07] LABS: BICARBONATE 29.9 MEQ/L (21.0-32.0); MAGNESIUM 1.6 MG/DL (1.5-2.5); POTASSIUM 3.7 MEQ/L (3.5-5.1)
[2016-11-12] MEDS ORDERED: MAGNESIUM SULFATE 1 GM PREMIX 100 ML IV ONE (05:15)
--- NOTE | 2016-11-12 05:25 | HHI.PR ---
Subjective Remarks Late entry. Date of service 11/11/16. Patient seen the morning of 11/11/16. Patient says she is feeling better than on admission, still quite fatigued. Denies any chest pain or shortness of breath. Denies any nausea or vomiting. Objective Vital Signs Date Time Temp Pulse Resp B/P Pulse Ox O2 Delivery O2 Flow Rate FiO2 11/12/16 04:00 78 11/12/16 04:00 98.5 78 20 157/67 97 11/12/16 03:50 20 11/12/16 02:00 75 11/12/16 00:00 81 11/12/16 00:00 98.8 81 24 170/74 96 11/11/16 22:00 84 11/11/16 20:01 97 Nasal Cannula 2.00 11/11/16 20:00 89 11/11/16 20:00 98.7 89 28 158/69 97 11/11/16 16:00 98.0 86 24 214/86 97 11/11/16 12:00 99.0 91 24 172/72 92 11/11/16 08:01 93 21 11/11/16 08:00 98.6 93 28 168/74 92 11/11/16 06:00 111 I/O 11/11/16 11/11/16 11/11/16 11/12/16 11/12/16 11/12/16 07:00 15:00 23:00 07:00 15:00 23:00 Intake Total 1516 ml 1290 ml 457 ml Output Total 1950 ml 400 ml 800 ml Balance -434 ml 890 ml -343 ml Intake Oral 850 ml 600 ml 240 ml IV Total 666 ml 690 ml 217 ml Output Urine Total 1950 ml 400 ml 800 ml # Bowel Movements 0 0 Result Diagram: 11/12/16 0334 11/12/16 0334 Objective Remarks GENERAL: patient sitting up in bed. Appears comfortable. SKIN: Warm and dry. HEAD: Normocephalic. EYES: No scleral icterus. No injection or drainage. NECK: Supple, trachea midline. No JVD. CARDIOVASCULAR: Regular rate and rhythm without murmurs, gallops, or rubs. RESPIRATORY: Breath sounds equal bilaterally. No accessory muscle use. GASTROINTESTINAL: Abdomen soft, non-tender, nondistended. Lopez catheter in place with bloody urine. No clots observed. MUSCULOSKELETAL: No cyanosis, or edema. BACK: Nontender without obvious deformity. No CVA tenderness. A/P Assessment and Plan 60-year-old female with a history of COPD, hypertension and diabetes mellitus, recent history of C diff who presented from [facility] for generalized weakness, somnolence and abdominal pain associated with distension, thought to be in renal failure with creatinine 2.46, BUN 47, as well as hyperkalemia with potassium 7.4 for which she received medical treatment for hyperkalemia, as well as dialysis on 11/10. She also was found to have anemia with hemoglobin 6.8 on 11/10, improving 8.0 CT abdomen showed L obstruction, bilateral hydronephrosis. //Acute kidney injury. Obstructive secondary to bladder unobstructive. Status post dialysis. Placement of Lopez catheter to continue Appreciate urology and nephrology assistance. //Bladder outlet obstruction //Bilateral hydronephrosis. //Hematuria -As per urology, bleeding likely secondary to bladder distention. -Appreciate urology assistance. Patient will need to be discharged with Lopez catheter, follow up with urology as outpatient. //Severe sepsis with tachycardia, leukocytosis, UTI -Coag-negative UTI Blood cultures from admission still negative Continue antibiotics. //UTI with coag-negative staph. Sensitivities pending. -Continue broad-spectrum antibiotics. //Hyponatremia.. Stable. 129. Appreciate nephrology assistance. //Hypokalemia. Acute and severe on admission. Improved after dialysis. Appreciate nephrology assistance. Continue to monitor. //Acute anemia. Likely secondary to hematuria. Status post blood transfusion . Continue to follow. //COPD. With questionable acute exacerbation. On 2 L nasal cannula currently. Continue nebs, steroids. //Hypertension. Blood pressure acceptable. Continue blood pressure medications as necessary. Monitor. //Prophylaxis. SCDs. Holding on anticoagulation due to hematuria. Discharge Planning patient likely go back to SNF when hematuria improves, urine cultures have returned with sensitivities. Zion Muhammad MD Nov 12, 2016 05:25
[2016-11-12] MEDS: INSULIN NovoLIN REGULAR SUPPLEMENTAL SCALE SQ SCH ×4 (05:30→18:14)
[2016-11-12] MEDS: methylPREDNISolone SOD SUCC 40 MG/1 ML VIAL IV PUSH SCH ×3 (05:30→21:11)
[2016-11-12] MEDS ORDERED: ENALAPRILAT 1.25 MG/ML VIAL IV PRN (06:00)
[2016-11-12] MEDS: cloNIDine HCL 0.1 MG TAB PO SCH ×2 (09:45→21:10)
[2016-11-12] MEDS: FERROUS SULFATE 325 MG (65 MG ELEMENTAL IRON) TAB PO SCH ×2 (09:46→21:10)
[2016-11-12] MEDS: FOLIC ACID 1 MG TAB PO SCH (09:46)
[2016-11-12] MEDS: VANCOMYCIN INJ 750 MG in SODIUM CHLOR 0.9% 250 ML INJ 250 ML IV SCH ×2 (09:47→21:11)
[2016-11-12] MEDS: cloNIDine HCL 0.1 MG TAB PO PRN ×2 (16:58→23:11)
[2016-11-12] MEDS ORDERED: MAGNESIUM HYDROXIDE SUSP 30 ML CUP PO ONE (17:00)
[2016-11-12] MEDS ORDERED: DOCUSATE SODIUM 50 MG/SENNA 8.6 MG TAB PO ONE (17:00)
[2016-11-12] MEDS ORDERED: PHARMACY ORDERED LAB XX ONE (20:45)
[2016-11-12] MEDS ORDERED: diphenhydrAMINE HCL 50 MG CAP PO ONE (21:30)
--- NOTE | 2016-11-12 23:54 | HHI.PR ---
Subjective Remarks patient seen this morning around 11 AM. She reports that fatigue is improving. Denies any chest pain. Reports that she shortness of breath is much improved. Objective Vital Signs Date Time Temp Pulse Resp B/P Pulse Ox O2 Delivery O2 Flow Rate FiO2 11/12/16 21:00 195/84 11/12/16 20:26 97 Nasal Cannula 1.00 11/12/16 20:00 98.1 81 17 185/85 96 11/12/16 16:00 98.2 85 22 166/74 94 11/12/16 12:00 97.4 80 20 122/60 94 11/12/16 08:00 97 Nasal Cannula 2.00 11/12/16 08:00 96.1 78 21 186/73 95 11/12/16 06:40 97.8 78 18 154/67 96 11/12/16 06:00 74 11/12/16 04:00 78 11/12/16 04:00 98.5 78 20 157/67 97 11/12/16 03:50 20 11/12/16 02:00 75 11/12/16 00:00 81 11/12/16 00:00 98.8 81 24 170/74 96 I/O 11/11/16 11/11/16 11/11/16 11/12/16 11/12/16 11/12/16 07:00 15:00 23:00 07:00 15:00 23:00 Intake Total 1516 ml 1290 ml 457 ml 689 ml 1390 ml 480 ml Output Total 1950 ml 400 ml 800 ml 700 ml 900 ml 150 ml Balance -434 ml 890 ml -343 ml -11 ml 490 ml 330 ml Intake Oral 850 ml 600 ml 240 ml 250 ml 840 ml 480 ml IV Total 666 ml 690 ml 217 ml 439 ml 550 ml Output Urine Total 1950 ml 400 ml 800 ml 700 ml 900 ml 150 ml # Bowel Movements 0 0 0 Result Diagram: 11/12/1633311/12/16333 Objective Remarks GENERAL: patient sitting up in bed. Appears comfortable. SKIN: Warm and dry. HEAD: Normocephalic. EYES: No scleral icterus. No injection or drainage. NECK: Supple, trachea midline. No JVD. CARDIOVASCULAR: Regular rate and rhythm without murmurs, gallops, or rubs. RESPIRATORY: Breath sounds equal bilaterally. No accessory muscle use. GASTROINTESTINAL: Abdomen soft, non-tender, nondistended. Lopez catheter in place with bloody urine. No clots observed. MUSCULOSKELETAL: No cyanosis, or edema. BACK: Nontender without obvious deformity. No CVA tenderness. A/P Assessment and Plan 60-year-old female with a history of COPD, hypertension and diabetes mellitus, recent history of C diff who presented from [facility] for generalized weakness, somnolence and abdominal pain associated with distension, thought to be in renal failure with creatinine 2.46, BUN 47, as well as hyperkalemia with potassium 7.4 for which she received medical treatment for hyperkalemia, as well as dialysis on 11/10. She also was found to have anemia with hemoglobin 6.8 on 11/10, improving 8.0 CT abdomen showed L obstruction, bilateral hydronephrosis. //Acute kidney injury. Obstructive secondary to bladder unobstructive. Status post dialysis. Placement of Lopez catheter to continue Appreciate urology and nephrology assistance. //Bladder outlet obstruction //Bilateral hydronephrosis. //Hematuria -As per urology, bleeding likely secondary to bladder distention. -Appreciate urology assistance. Patient will need to be discharged with Lopez catheter, follow up with urology as outpatient. //Severe sepsis with tachycardia, leukocytosis, UTI -Coag-negative UTI Blood cultures from admission still negative Continue antibiotics. //UTI with coag-negative staph. Sensitivities pending. -Continue broad-spectrum antibiotics. //Hyponatremia.. Stable Appreciate nephrology assistance. //Hypokalemia. Acute and severe on admission. Improved after dialysis. Appreciate nephrology assistance. Continue to monitor. //Acute anemia. Likely secondary to hematuria. Status post blood transfusion . Continue to follow. //COPD. With questionable acute exacerbation. On 2 L nasal cannula currently. Continue nebs, steroids. //Hypertension. Blood pressure acceptable. Continue blood pressure medications as necessary. Monitor. //constipation. 11/12. Cathartics given. /heel ulcers right foot. Wound care nursing consult. //Prophylaxis. SCDs. Holding on anticoagulation due to hematuria. Discharge Planning patient likely go back to SNF when hematuria improves, urine cultures have returned with sensitivities. Zion Muhammad MD Nov 12, 2016 23:54
[2016-11-13] VITALS: BP 196/96; PULSE 75; RESP 16; TEMP 97.7; O2SAT 98
[2016-11-13] MEDS: metroNIDAZOLE 500 MG INJ 100 ML IV SCH ×2 (00:25→08:48)
[2016-11-13] MEDS: CHLORHEXIDINE GLUCONATE 2 % 1 PACK (2 CLOTHS) TOP SCH (02:32)
[2016-11-13] MEDS: ACETAMINOPHEN/HYDROcodone 325 MG/5 MG TAB PO PRN ×4 (02:32→15:40)
[2016-11-13] MEDS: RESP: ALBUTEROL 2.5 MG/IPRATROPIUM 0.5 MG NEB (SCH) INH ×4 (03:47→15:49)
[2016-11-13 04:00] VITALS: BP 163/63; PULSE 79; RESP 17; TEMP 98.2; O2SAT 96
[2016-11-13] MEDS: PIPERACIL-TAZO 3.375 GM PREMIX 50 ML IV SCH ×2 (05:47→11:56)
[2016-11-13] MEDS: methylPREDNISolone SOD SUCC 40 MG/1 ML VIAL IV PUSH SCH (05:47)
[2016-11-13] MEDS: INSULIN NovoLIN REGULAR SUPPLEMENTAL SCALE SQ SCH ×4 (05:54→17:48)
[2016-11-13 06:27] LABS: AUTOMATED NEUTROPHIL # 8.4 TH/MM3 (1.8-7.7); HEMATOCRIT 23.7 % (35.0-46.0); HEMO FLAGS DIFF FINAL; LYMPHOCYTE # 0.8 TH/MM3 (1.0-4.8); MEAN CORPUSCULAR HEMOGLOBIN 30.1 PG (27.0-34.0); MEAN CORPUSCULAR HGB CONC 34.2 % (32.0-36.0); MONO % 8.9 % (0.0-8.0); NEUT % 83.1 % (16.0-70.0); PLATELET COUNT 366 TH/MM3 (150-450); RED BLOOD COUNT 2.69 MIL/MM3 (4.00-5.30); RED CELL DISTRIBUTION WIDTH 16.6 % (11.6-17.2); WHITE BLOOD COUNT 10.1 TH/MM3 (4.0-11.0)
[2016-11-13 06:45] LABS: BICARBONATE 30.3 MEQ/L (21.0-32.0); MAGNESIUM 1.6 MG/DL (1.5-2.5); POTASSIUM 3.6 MEQ/L (3.5-5.1)
[2016-11-13 07:53] VITALS: O2SAT 97
[2016-11-13 08:13] VITALS: BP 200/100; PULSE 82; RESP 18; TEMP 97.8; O2SAT 94
[2016-11-13] MEDS ORDERED: ALPRAZolam 0.25 MG TAB PO PRN (08:45)
[2016-11-13] MEDS: cloNIDine HCL 0.1 MG TAB PO SCH (08:48)
[2016-11-13] MEDS: FOLIC ACID 1 MG TAB PO SCH (08:48)
[2016-11-13] MEDS: FERROUS SULFATE 325 MG (65 MG ELEMENTAL IRON) TAB PO SCH (08:48)
[2016-11-13 08:59] VITALS: BP 168/70
[2016-11-13] MEDS ORDERED: LISINOPRIL 5 MG TAB PO SCH (09:00)
[2016-11-13] MEDS ORDERED: MAGNESIUM OXIDE 400 MG TAB PO SCH (09:00)
[2016-11-13] MEDS ORDERED: FUROSEMIDE 40 MG TAB PO SCH (09:00)
[2016-11-13] MEDS: GABAPENTIN 300 MG CAP PO SCH ×3 (10:02→17:27)
[2016-11-13] MEDS: LACTULOSE SYRUP 20 GM/30 ML CUP PO SCH ×2 (10:02→20:02)
[2016-11-13] MEDS: VANCOMYCIN INJ 750 MG in SODIUM CHLOR 0.9% 250 ML INJ 250 ML IV SCH ×2 (10:05→20:01)
[2016-11-13] MEDS ORDERED: HYDR-3516 PO (14:37)
[2016-11-13] MEDS ORDERED: MACR100C2 PO (14:37)
[2016-11-13] MEDS ORDERED: POTASSIUM PHOSPHATE/SODIUM PHOSPHATE 250 MG TAB PO ONE (14:45)
[2016-11-13] MEDS ORDERED: MAGNESIUM OXIDE 400 MG TAB PO ONE (14:45)
[2016-11-13 17:10] VITALS: BP 186/91; PULSE 76; RESP 18; TEMP 96.7; O2SAT 100
[2016-11-13] MEDS: cloNIDine HCL 0.1 MG TAB PO PRN (17:27)
--- NOTE | 2016-11-15 21:22 | HHI.PR ---
Subjective Remarks late entry. Date of Service 11/13/16. pt reports feeling well. no cp or sob. no n/v. no pain. Objective Result Diagram: 11/13/16 0552 11/13/16 0552 Objective Remarks GENERAL: patient sitting up in bed. Appears comfortable. SKIN: Warm and dry. HEAD: Normocephalic. EYES: No scleral icterus. No injection or drainage. NECK: Supple, trachea midline. No JVD. CARDIOVASCULAR: Regular rate and rhythm without murmurs, gallops, or rubs. RESPIRATORY: Breath sounds equal bilaterally. No accessory muscle use. GASTROINTESTINAL: Abdomen soft, non-tender, nondistended. Lopez catheter in place with light red urine. No clots observed. MUSCULOSKELETAL: No cyanosis, or edema. BACK: Nontender without obvious deformity. No CVA tenderness. A/P Assessment and Plan 60-year-old female with a history of COPD, hypertension and diabetes mellitus, recent history of C diff who presented from [facility] for generalized weakness, somnolence and abdominal pain associated with distension, thought to be in renal failure with creatinine 2.46, BUN 47, as well as hyperkalemia with potassium 7.4 for which she received medical treatment for hyperkalemia, as well as dialysis on 11/10. She also was found to have anemia with hemoglobin 6.8 on 11/10, improving 8.0 CT abdomen showed L obstruction, bilateral hydronephrosis. Urology was consulted, placed Lopez catheter, which will need to remain in place until follow-up with urology as outpatient. //Acute kidney injury. Obstructive secondary to bladder unobstructive. Status post dialysis. Placement of Lopez catheter to continue Appreciate urology and nephrology assistance. -Lopez catheter will need to remain in place, with follow-up with neurology as outpatient. //Bladder outlet obstruction //Bilateral hydronephrosis. //Hematuria -As per urology, bleeding likely secondary to bladder distention. -Appreciate urology assistance. Patient will need to be discharged with Lopez catheter, follow up with urology as outpatient. //Severe sepsis with tachycardia, leukocytosis, UTI -Coag-negative UTI Blood cultures from admission still negative Continue antibiotics. //UTI with coag-negative staph. Sensitivities pending. -Continue broad-spectrum antibiotics. //Hyponatremia.. Stable Appreciate nephrology assistance. //Hypokalemia. Acute and severe on admission. Improved after dialysis. Appreciate nephrology assistance. Continue to monitor. //Acute anemia. Likely secondary to hematuria. Status post blood transfusion . Heme: Stable 8.1. //COPD. With questionable acute exacerbation. -No need for oxygen No need for steroids No exacerbation. //Hypertension. Blood elevated around 200 on 11/13. Start home blood pressure medications, with improvement SBPto 160s. Expect to improve further. //constipation. 11/12. Cathartics given. /heel ulcers right foot. Wound care nursing consult. //Prophylaxis. SCDs. Holding on anticoagulation due to hematuria. Discharge Planning Discharge to SNF. -Complete antibiotic course. -Leave Lopez in for obstruction. Follow up urology as outpatient. Zion Muhammad MD Nov 15, 2016 21:22
--- NOTE | 2016-11-15 21:30 | HHI.DS ---
Discharge Summary Admission Date Nov 09, 2016 at 13:58 Discharge Date: Nov 13, 2016 Admitting Diagnosis renal failure, bladder OBSTRUCTION, HYPERKALEMIA, HYPONATREMIA (1) UTI (urinary tract infection) ICD Code: N39.0 (2) Bladder outlet obstruction ICD Code: N32.0 (3) Renal failure ICD Code: N19 Procedures Central line placement. Removal. Brief History - From Admission The patient is a 60-year-old female with past medical history of COPD, hypertension and diabetes mellitus, recent history of C diff who presented from [facility] for generalized weakness, somnolence and abdominal pain associated with distension. She completed treatment for C diff and had a repeat a C-diff check at [facility] which was reportedly negative. She still having some liquid stools. She also reports decreased p.o. intake. On arrival to the emergency department, the patient was found to be in renal failure with a BUN of 47, creatinine 2.46, hyperkalemic with potassium level was 7.4 and hyponatremic with a sodium level of 112. Other significant labs on arrival showed significant leukocytosis with a WBC of 36.9. Her lactic acid level measured at 1.0. Due to her abdominal pain. CT scan of the abdomen and pelvis without contrast was obtained which showed findings suggestive of bladder outlet obstruction and bilaterally moderate hydronephrosis. A Lopez catheter was inserted in the emergency room and the patient had approximately 2 liters of urine output which initially was clear, however, it turned bloody. Chest x-ray In the ER showed no acute cardiopulmonary disease. In the emergency department she was given 2 liters of normal saline and she was treated for hyperkalemia with 10 units IV insulin, 1 ampule of D50, sodium bicarb milliequivalent. Albuterol 10 mg and 2 grams of calcium gluconate. Her urinalysis showed large blood, large leukocyte esterase, occasional bacteria and moderate WBC clumps. The patient received Rocephin 1 gram IV. When seen she is on at 2 liters oxygen with saturation of 100%, blood pressure of 123/57 with a pulse of 107. The patient is afebrile with a temperature of 98.2. She denies any shortness of breath, chest pain or any constitutional symptoms. 11/10 Patent s/p emergent HD yesterday for hyperkalemia ( K 7.4)now K 3.9 this morning. s/p transfusion 2u PRBC for Hgb 6.8 this morning now Hgb 8.0 WBC trending down 13 from 36.9 on arrival. CBC/BMP: 11/13/16 0552 11/13/16 0552 Significant Findings Laboratory Tests Test 11/13/16 05:52 Red Blood Count 2.69 MIL/MM3 (4.00-5.30) Hemoglobin 8.1 GM/DL (11.6-15.3) Hematocrit 23.7 % (35.0-46.0) Mean Platelet Volume 6.0 FL (7.0-11.0) Neutrophils (%) (Auto) 83.1 % (16.0-70.0) Lymphocytes (%) (Auto) 8.0 % (9.0-44.0) Monocytes (%) (Auto) 8.9 % (0.0-8.0) Neutrophils # (Auto) 8.4 TH/MM3 (1.8-7.7) Lymphocytes # (Auto) 0.8 TH/MM3 (1.0-4.8) Sodium Level 132 MEQ/L (136-145) Chloride Level 93 MEQ/L (98-107) Creatinine 0.44 MG/DL (0.50-1.00) Random Glucose 122 MG/DL (74-106) Calcium Level 8.1 MG/DL (8.5-10.1) Phosphorus Level 2.2 MG/DL (2.5-4.9) Albumin 2.3 GM/DL (3.4-5.0) Imaging Last Impressions Chest X-Ray 11/09/16 0950 Signed Impressions: Service Date/Time: October 10:06 - CONCLUSION: 1. No evidence of free intraperitoneal air. 2. Unremarkable chest. Ankur Squires MD Abdomen/Pelvis CT 11/09/16 0000 Signed Impressions: Service Date/Time: October 12:40 - CONCLUSION: 1. Markedly distended fluid filled structure within the midline of the pelvis extending into the lower abdomen suggestive of markedly dilated urinary bladder. The finding is suggestive of bladder outlet obstruction. Moderate hydronephrosis is noted bilaterally. Lopez catheter insertion may be helpful for decompression of this suspected bladder outlet obstruction and should be considered. 2. Multiple calcified non-obstructing bilateral renal calculi. 3. Cholelithiasis. 4. Right adrenal nodule measuring 2.2 x 1.8 cm consistent with possible adrenal adenoma. Ankur Squires MD Hospital Course 60-year-old female with a history of COPD, hypertension and diabetes mellitus, recent history of C diff who presented from [facility] for generalized weakness, somnolence and abdominal pain associated with distension, thought to be in renal failure with creatinine 2.46, BUN 47, as well as hyperkalemia with potassium 7.4 for which she received medical treatment for hyperkalemia, as well as dialysis on 11/10. She also was found to have anemia with hemoglobin 6.8 on 11/10, improving 8.0 CT abdomen showed L obstruction, bilateral hydronephrosis. Urology was consulted, placed Lopez catheter, which will need to remain in place until follow-up with urology as outpatient. For problem-based summary from most recent progress note, please see below. //Acute kidney injury. Obstructive secondary to bladder unobstructive. Status post dialysis. Placement of Lopez catheter to continue Appreciate urology and nephrology assistance. -Lopez catheter will need to remain in place, with follow-up with neurology as outpatient. //Bladder outlet obstruction //Bilateral hydronephrosis. //Hematuria -As per urology, bleeding likely secondary to bladder distention. -Appreciate urology assistance. Patient will need to be discharged with Lopez catheter, follow up with urology as outpatient. //Severe sepsis with tachycardia, leukocytosis, UTI -Coag-negative UTI Blood cultures from admission still negative Continue antibiotics. //UTI with coag-negative staph. Sensitivities pending. -Continue broad-spectrum antibiotics. //Hyponatremia.. Stable Appreciate nephrology assistance. //Hypokalemia. Acute and severe on admission. Improved after dialysis. Appreciate nephrology assistance. Continue to monitor. //Acute anemia. Likely secondary to hematuria. Status post blood transfusion . Heme: Stable 8.1. //COPD. With questionable acute exacerbation. -No need for oxygen No need for steroids No exacerbation. //Hypertension. Blood elevated around 200 on 11/13. Start home blood pressure medications, with improvement SBPto 160s. Expect to improve further. //constipation. 11/12. Cathartics given. /heel ulcers right foot. Wound care nursing consult. //Prophylaxis. SCDs. Holding on anticoagulation due to hematuria. Pt Condition on Discharge: Good Discharge Disposition: Discharge to SNF Discharge Time: > 30 minutes Discharge Instructions DIET: Follow Instructions for: Heart Healthy Diet Activities you can perform: Regular-No Restrictions Follow up Referrals: PCP Follow-up - 2-3 Days with Miles Casillas MD Urology - 1 Week with Dwayne Fatima MD New Medications: Nitrofurantoin Monohydrate Macrocrystals (Macrobid) 100 Mg Cap 100 MG PO BID Infection Days 10 Ref 0 CAP Continued Medications: Acetaminophen (Tylenol) 325 Mg Tab 650 MG PO Q4H PRN Pain,Discomfort,Temp > 101 Ref 0 TAB Albuterol 18 GM Inh (Ventolin Hfa 18 GM Inh) 90 Mcg/Act Aer 2 PUFF INH Q4HR PRN SHORTNESS OF BREATH #1 Ref 0 INHALER Alprazolam (Xanax) 0.25 Mg Tab 0.25 MG PO Q8H PRN ANXIETY #30 TAB Uzelpkcr-Flsclkowr-Dsrxdkfjwev Liq (Mylanta Liq) 200-200-20 Mg/5 Ml Susp 30 ML PO Q4HR Take between meals or as directed. Shake well. Maximum 120 ml/24 hrs. PRN INDIGESTION Ref 0 ML Bisacodyl Supp (Dulcolax Supp) 10 Mg Supp 10 MG RECTAL DAILY PRN IF NO BM FROM MOM #12 Ref 0 SUPP Budesonide-Formoterol Inh (Symbicort Inh) 160-4.5 Mcg/Act Aero 1 PUFF INH Q12HR #1 Ref 0 INHALER Cholecalciferol (Vitamin D3) 1,000 Unit Tab 3000 UNITS PO DAILY Nutritional Supplement #1 Ref 0 BOTTLE Clonidine (Clonidine) 0.1 Mg Tab 0.1 MG PO BID Blood Pressure Management #60 Ref 0 TAB Ferrous Sulfate (Ferrous Sulfate) 325 Mg Tab 325 MG PO BID ANEMIA #60 Ref 0 TAB Folic Acid (Folate) 1 Mg Tab 1 MG PO DAILY nutrition def #30 TAB Furosemide (Furosemide) 40 Mg Tab 40 MG PO DAILY FLUID OVERLOAD #14 Ref 0 TAB Gabapentin (Gabapentin) 300 Mg Cap 300 MG PO TID #90 Ref 0 CAP Guaifenesin ER 12 HR (Mucinex ER 12 HR) 600 Mg Tyrell 1200 MG PO BID Chest Congestion/Cough Ref 0 TAB Hydrocodone-Acetaminophen (Hydrocodone-Acetaminophen) 5-325 mg Tab 1 TAB PO Q4H PRN PAIN 4-6 #24 TAB (This prescription has been renewed) Lactulose Liq (Lactulose Liq) 10 Gm/15 Ml Soln 15 ML PO BID Ref 0 ML Lansoprazole ODT (Prevacid Solutab ODT) 30 Mg Tab 30 MG PO DAILY gastritits #30 TAB Lisinopril (Lisinopril) 5 Mg Tab 5 MG PO DAILY Blood Pressure Management #30 TAB Loperamide (Imodium A-D) 2 Mg Tab 4 MG PO INITIAL DOSE After initial dose, give 1 tablet (2mg) after each loose stool-not to exceed 8 tablets/24hrs PRN DIARRHEA Ref 0 TAB Loperamide Liq (Imodium A-D Liq) 1 Mg/7.5 Ml Liq 4 MG PO INITIAL DOSE After initial dose give 2 mg (15 mL) after each loose stool. Not to exceed 16 mg (120 mL) per day. PRN DIARRHEA #1 Ref 0 BOTTLE Magnesium Hydroxide Liq (Milk of Magnesia Liq) 400 Mg/5 Ml Susp 30 ML PO Q4HR PRN CONSTIPATION #1 Ref 0 BOTTLE Magnesium Oxide (Magnesium Oxide) 400 Mg Tab 400 MG PO DAILY Nutritional Supplement Ref 0 TAB Potassium Chloride ER (Klor-Con 10) 10 Meq Tab 10 MEQ PO BID REPLACEMENT #60 Ref 0 TAB Sodium Phosphates Rectal (Fleet Enema Rectal) 7-19 Gm/118 Ml Enem 118 ML RECTAL DAILY PRN IF NO BM IN 48 HRS FROM SUPP Ref 0 BOTTLE Discontinued Medications: Modafinil (Modafinil) 200 Mg Tab 25 MG PO DAILY PRN SLEEP DISORDERS #14 Ref 0 TAB Zion Muhammad MD Nov 15, 2016 21:30
== END 2016-11-13 20:00 | DRG 872 ==
LOC: NEDAMB 09:20 → NEDA 13:58 → HIME 15:30 → HOCA 11-12 07:31
PROVIDERS: ADMIT Hospitalist; ATTEND Hospitalist
PROC: 02HV33Z Insertion of Infusion Device into Superior Vena Cava, Percutaneous Approach (ICD-10-PCS; principal; 2016-11-09)
PROC: 5A1D00Z (ICD-10-PCS; 2016-11-09)
PROC: 30233N1 Transfusion of Nonautologous Red Blood Cells into Peripheral Vein, Percutaneous Approach (ICD-10-PCS; 2016-11-10)
DX: A41.9 Sepsis, unspecified organism (principal); N17.9 Acute kidney failure, unspecified; E46 Unspecified protein-calorie malnutrition; E87.2 Acidosis; E11.621 Type 2 diabetes mellitus with foot ulcer; N13.30 Unspecified hydronephrosis; E87.1 Hypo-osmolality and hyponatremia; Z68.1 Body mass index [BMI] 19.9 or less, adult; N39.0 Urinary tract infection, site not specified; L97.419 Non-pressure chronic ulcer of right heel and midfoot with unspecified severity; J44.9 Chronic obstructive pulmonary disease, unspecified; R65.20 Severe sepsis without septic shock; N32.0 Bladder-neck obstruction; D64.9 Anemia, unspecified; E87.5 Hyperkalemia; E86.0 Dehydration; I10 Essential (primary) hypertension; R31.9 Hematuria, unspecified; F41.9 Anxiety disorder, unspecified; F10.21 Alcohol dependence, in remission; K59.00 Constipation, unspecified; Z87.891 Personal history of nicotine dependence
CPT/HCPCS: 36430; 36556; 71010; 74176; 76937; 80048; 80053; 80069; 80074; 80202; 81001; 82948; 83605; 83690; 83735; 83930; 83935; 84100; 84132; 84155; 84295; 84443; 85007; 85025; 85027; 85610; 85730; 86403; 86850; 86900; 86901; 86920; 87040; 87077; 87086; 87186; 87641; 90935; 93005; 94640; 94664; 96374; 96375; 96376; J0360; J0610; J0696; J1580; J1644; J1815; J2270; J2405; J2543; J2920; J2997; J3370; J3475; J7030; J7040; J7050; J7070; P9016; P9047; Q0163

== ENCOUNTER 2017-01-12 14:33 | Emergency (ER) | payer MEDICARE, MEDICAID ==
[~2017-01-12] VITALS: Ht 160 cm; Wt 48.0 kg
[~2017-01-12 14:33] MED LIST changes: +GABA300C5 PO; +IMOD2TAB3 PO; -LOPE1LIQ3 PO; -LOTR15T TOPICAL; +MACR100C2 PO; +MAGN400T2 PO; -MODA200T12 PO; +MUCI600T PO; +TYLE325T PO; +VITA100018 PO; -VITA100T2 PO; +[UNRECOGNIZED DRUG - CODE] PO
[2017-01-12 14:38] VITALS: BP 192/92; PULSE 83; RESP 16; TEMP 99.1; O2SAT 100
[2017-01-12] MEDS ORDERED: ONDANSETRON HCL 4 MG/2 ML VIAL IV PUSH ONE (15:00)
[2017-01-12] MEDS ORDERED: MORPHINE SULFATE 4 MG/ML INJ IV PUSH ONE (15:00)
[2017-01-12] MEDS ORDERED: SODIUM CHLORID 0.9% 500 ML INJ 500 ML IV ONE (15:00)
[2017-01-12] MEDS ORDERED: CLINDAMYCIN INJ 600 MG in SODIUM CHLORIDE 0.9% INJ 100 ML IV ONE (15:00)
--- NOTE | 2017-01-12 15:03 | PD ---
HPI Chief Complaint: Edema Time Seen by Provider: 14:45 Travel History International Travel<30 days: No Contact w/Intl Traveler<30days: No Traveled to known affect area: No History of Present Illness HPI The patient is a 61-year-old female who presents emergency department for right heel pain. The patient states she was admitted to the hospital and placed on a ventilator for COPD exacerbation, had a prolonged hospitalization and subsequent fdc facility placement after her admission. The patient states she had a sore on the back of the right heel and some bilateral lower extremity edema after admission to the fdc facility. The patient states she's had increasing pain over the affected area, does note the heel lesion is still place and there is mild redness and swelling of the right foot. She also notes mild swelling the left foot, states this is intermittent, worse with prolonged standing, and alleviated in the morning. The patient does have a history of COPD secondary to chronic tobacco use, continues to smoke. She also drinks approximate 6 beers per day. The patient's primary physician is Dr. Levy in [place], [place]. Patient denies any acute trauma to the right foot, denies any drainage from the right heel lesion. PFSH Past Medical History Arthritis: No Asthma: Yes Anxiety: Yes Cancer: No Cardiovascular Problems: Yes High Cholesterol: No Chemotherapy: No Congestive Heart Failure: No COPD: Yes Coronary Artery Disease: No Diabetes: No Diminished Hearing: Yes ("tinnitus left ear") Endocrine: No GERD: No Genitourinary: Yes Hiatal Hernia: No Herniated Disk: Yes Hypertension: Yes Immune Disorder: No Musculoskeletal: Yes Neurologic: No Psychiatric: No Reproductive: No Respiratory: Yes (COPD) Immunizations Current: Yes Radiation Therapy: No Sleep Apnea: Yes Thyroid Disease: No Ulcer: No : 0 Para: 0 Miscarriage: 0 : 0 Past Surgical History Abdominal Surgery: No Arteriovenous Shunt: No Cardiac Surgery: No Ear Surgery: No Endocrine Surgery: No Eye Surgery: No Genitourinary Surgery: No Gynecologic Surgery: Yes (hysterectomy) Hysterectomy: Yes Insulin Pump: No Joint Replacement: No Oral Surgery: Yes (All teeth removed, cannot recall year) Thoracic Surgery: No Social History Alcohol Use: No Tobacco Use: No Substance Use: Yes (ONLY Marijuanna in the past IN THE PAST) Allergies-Medications (Allergen,Severity, Reaction): Coded Allergies: Aspirin (Verified Adverse Reaction, Severe, "don't take aspirin i have tinnitus, 01/12/17) Reported Meds & Prescriptions Reported Meds & Active Scripts Active Macrobid (Nitrofurantoin Monoh/Nitrofur Macro) 100 Mg Cap 100 Mg PO BID 10 Days Hydrocodone-Acetaminophen 5-325 mg Tab 1 Tab PO Q4H PRN Xanax (Alprazolam) 0.25 Mg Tab 0.25 Mg PO Q8H PRN Klor-Con 10 (Potassium Chloride) 10 Meq Tab 10 Meq PO BID Furosemide 40 Mg Tab 40 Mg PO DAILY Lisinopril 5 Mg Tab 5 Mg PO DAILY Ferrous Sulfate 325 Mg Tab 325 Mg PO BID Prevacid Solutab ODT (Lansoprazole) 30 Mg Tab 30 Mg PO DAILY Folate (Folic Acid) 1 Mg Tab 1 Mg PO DAILY Reported Tylenol (Acetaminophen) 325 Mg Tab 650 Mg PO Q4H PRN Vitamin D3 (Cholecalciferol) 1,000 Unit Tab 3,000 Units PO DAILY Mucinex ER 12 HR (Guaifenesin) 600 Mg Tyrell 1,200 Mg PO BID Magnesium Oxide 400 Mg Tab 400 Mg PO DAILY Lactulose Liq (Lactulose) 10 Gm/15 Ml Soln 15 Ml PO BID Gabapentin 300 Mg Cap 300 Mg PO TID Imodium A-D Liq (Loperamide HCl) 1 Mg/7.5 Ml Liq 4 Mg PO INITIAL DOSE PRN After initial dose give 2 mg (15 mL) after each loose stool. Not to exceed 16 mg (120 mL) per day. Imodium A-D (Loperamide HCl) 2 Mg Tab 4 Mg PO INITIAL DOSE PRN After initial dose, give 1 tablet (2mg) after each loose stool-not to exceed 8 tablets/24hrs Fleet Enema Rectal (Sodium Phosphates Rectal) 7-19 Gm/118 Ml Enem 118 Ml RECTAL DAILY PRN Dulcolax Supp (Bisacodyl) 10 Mg Supp 10 Mg RECTAL DAILY PRN Milk of Magnesia Liq (Magnesium Hydroxide) 400 Mg/5 Ml Susp 30 Ml PO Q4HR PRN Mylanta Liq (Bderbouk-Nwzexvdfv-Gnfexwykrhh Liq) 200-200-20 Mg/5 Ml Susp 30 Ml PO Q4HR PRN Take between meals or as directed. Shake well. Maximum 120 ml/24 hrs. Symbicort Inh (Budesonide/Formoterol Fumarate) 160-4.5 Mcg/Act Aero 1 Puff INH Q12HR Clonidine (Clonidine HCl) 0.1 Mg Tab 0.1 Mg PO BID Ventolin Hfa 18 GM Inh (Albuterol Sulfate) 90 Mcg/Act Aer 2 Puff INH Q4HR PRN Review of Systems Except as stated in HPI: all other systems reviewed are Neg General / Constitutional: No: Fever Cardiovascular: No: Chest Pain or Discomfort Respiratory: Positive: Shortness of Breath (chronic shortness of breath secondary to COPD) Gastrointestinal: No: Nausea, Vomiting, Abdominal Pain Genitourinary: Positive: Other (Lopez catheter in place from her previous hospitalization), No: Dysuria Musculoskeletal: Positive: Edema, Pain Neurologic: Positive: Sensory Disturbance (neuropathy of both lower extremities ) Psychiatric: Positive: Substance Abuse (drinks 6 beers per day) Physical Exam Narrative GENERAL: Awake, alert, 61-year-old female who appears her stated age and is in no acute respiratory distress. SKIN: Focused skin assessment warm/dry. HEAD: Atraumatic. Normocephalic. EYES: No injection or drainage. ENT: No nasal bleeding or discharge. Mucous membranes pink and moist. NECK: Trachea midline. No JVD. MUSCULOSKELETAL: The right heel has a 2 cm circular lesion on the posterior aspect of the right heel with no visible drainage. Mild edema both feet bilaterally that is pitting inferior to the ankle. Mild erythema over the lateral aspect of the right foot with dried of the skin. Positive distal pulses. NEUROLOGICAL: Awake and alert. No obvious cranial nerve deficits. Motor grossly within normal limits. Normal speech. PSYCHIATRIC: Appropriate mood and affect; insight and judgment normal. Data Data Last Documented VS Vital Signs Date Time Temp Pulse Resp B/P Pulse Ox O2 Delivery O2 Flow Rate FiO2 01/12/17 14:38 99.1 83 16 192/92 100 Orders Complete Blood Count With Diff (01/12/17 14:53) Westergren Sedimentation Rate (01/12/17 14:53) Comprehensive Metabolic Panel (01/12/17 14:53) Blood Culture (01/12/17 14:53) Lactic Acid (01/12/17 14:53) Foot, Heel Only ([id number]) (01/12/17 ) Clindamycin Inj (Cleocin Inj) (01/12/17 15:00) Morphine Inj (Morphine Inj) (01/12/17 15:00) Sodium Chlorid 0.9% 500 Ml Inj (Ns 500 M (01/12/17 15:00) Ondansetron Inj (Zofran Inj) (01/12/17 15:00) Labs Laboratory Tests Test 01/12/17 15:25 White Blood Count 9.6 TH/MM3 Red Blood Count 3.73 MIL/MM3 Hemoglobin 11.9 GM/DL Hematocrit 34.5 % Mean Corpuscular Volume 92.5 FL Mean Corpuscular Hemoglobin 31.9 PG Mean Corpuscular Hemoglobin 34.5 % Concent Red Cell Distribution Width 17.1 % Platelet Count 295 TH/MM3 Mean Platelet Volume 6.8 FL Neutrophils (%) (Auto) 47.8 % Lymphocytes (%) (Auto) 42.9 % Monocytes (%) (Auto) 7.9 % Eosinophils (%) (Auto) 0.4 % Basophils (%) (Auto) 1.0 % Neutrophils # (Auto) 4.6 TH/MM3 Lymphocytes # (Auto) 4.1 TH/MM3 Monocytes # (Auto) 0.8 TH/MM3 Eosinophils # (Auto) 0.0 TH/MM3 Basophils # (Auto) 0.1 TH/MM3 CBC Comment DIFF FINAL Differential Comment Sodium Level 126 MEQ/L Potassium Level 3.8 MEQ/L Chloride Level 90 MEQ/L Carbon Dioxide Level 26.3 MEQ/L Anion Gap 10 MEQ/L Blood Urea Nitrogen 2 MG/DL Creatinine 0.46 MG/DL Estimat Glomerular Filtration 139 ML/MIN Rate Random Glucose 93 MG/DL Lactic Acid Level 2.1 mmol/L Calcium Level 8.5 MG/DL Total Bilirubin 0.3 MG/DL Aspartate Amino Transf 45 U/L (AST/SGOT) Alanine Aminotransferase 34 U/L (ALT/SGPT) Alkaline Phosphatase 89 U/L Total Protein 7.2 GM/DL Albumin 3.3 GM/DL MDM Medical Decision Making Medical Screen Exam Complete: Yes Emergency Medical Condition: Yes Medical Record Reviewed: Yes Interpretation(s) Laboratory Tests Test 01/12/17 15:25 White Blood Count 9.6 TH/MM3 Red Blood Count 3.73 MIL/MM3 Hemoglobin 11.9 GM/DL Hematocrit 34.5 % Mean Corpuscular Volume 92.5 FL Mean Corpuscular Hemoglobin 31.9 PG Mean Corpuscular Hemoglobin 34.5 % Concent Red Cell Distribution Width 17.1 % Platelet Count 295 TH/MM3 Mean Platelet Volume 6.8 FL Neutrophils (%) (Auto) 47.8 % Lymphocytes (%) (Auto) 42.9 % Monocytes (%) (Auto) 7.9 % Eosinophils (%) (Auto) 0.4 % Basophils (%) (Auto) 1.0 % Neutrophils # (Auto) 4.6 TH/MM3 Lymphocytes # (Auto) 4.1 TH/MM3 Monocytes # (Auto) 0.8 TH/MM3 Eosinophils # (Auto) 0.0 TH/MM3 Basophils # (Auto) 0.1 TH/MM3 CBC Comment DIFF FINAL Differential Comment Sodium Level 126 MEQ/L Potassium Level 3.8 MEQ/L Chloride Level 90 MEQ/L Carbon Dioxide Level 26.3 MEQ/L Anion Gap 10 MEQ/L Blood Urea Nitrogen 2 MG/DL Creatinine 0.46 MG/DL Estimat Glomerular Filtration 139 ML/MIN Rate Random Glucose 93 MG/DL Lactic Acid Level 2.1 mmol/L Calcium Level 8.5 MG/DL Total Bilirubin 0.3 MG/DL Aspartate Amino Transf 45 U/L (AST/SGOT) Alanine Aminotransferase 34 U/L (ALT/SGPT) Alkaline Phosphatase 89 U/L Total Protein 7.2 GM/DL Albumin 3.3 GM/DL Differential Diagnosis Differential diagnosis includes cellulitis, osteomyelitis, heel ulcer, hypoalbuminemia, dependent edema, DVT. Narrative Course IV was established, labs are drawn and sent, and the patient was placed on cardiac telemetry monitoring and continuous pulse oximetry monitoring. X-ray of the right heel was obtained. Blood culture, lactic acid, and sedimentation rate were sent to lab. The patient was administered clindamycin 600 mg intravenously with IV fluids, morphine, and Zofran. X-ray reveals no evidence of osteomyelitis. Sodium is low 126, review the EMR, she does have a history of hyponatremia with previous low 121. She appears to run in the high 120s to low 130s. The patient has no altered mental status, I will add sodium to her regimen. White count is unremarkable. Patient will be placed on clindamycin, Cipro, and salt tablets. She is advised to follow-up with her primary physician return if symptoms worsen or progress. Diagnosis Primary Impression: Cellulitis of right foot Additional Impression: Hyponatremia Patient Instructions: General Instructions Additional Instructions: Medications as directed. Follow-up with her primary physician. Return if symptoms worsen or progress. Increased sodium intake. Decrease alcohol use. Med/Other Pt SpecificInfo: Prescription(s) given Scripts Clindamycin (Cleocin)150 Mg [id number] Mg PO Q6H 7 Days Ref 0 Prov:Pelon Charles MD 01/12/17 Ciprofloxacin (Cipro)250 Mg [id number] Mg PO BID 7 Days Ref 0 Prov:Pelon Charles MD 01/12/17 Disposition: 01 DISCHARGE HOME Condition: Stable Pelon Charles MD January 12, 2017 15:03
--- NOTE | 2017-01-12 15:40 | RADHPO ---
EXAM DATE/TIME: 01/12/2017 15:08 [facility] COMPARISON: No previous studies available for comparison. INDICATIONS : Right heel pain, swelling, and redness. MEDICAL HISTORY : Hypertension. Chronic obstructive pulmonary disease. Diabetes SURGICAL HISTORY : Hysterectomy. Lumbar spine surgery ENCOUNTER: Initial ACUITY: 2 months PAIN SCORE: 10/10 LOCATION: Right heel FINDINGS: Two view examination of the right heel demonstrates the trabecula to be intact with no evidence of fr acture. There is a normal calcaneal angle. The soft tissues are of normal thickness. CONCLUSION: Unremarkable examination of the right heel. Jesus Hernandez MD on January 12, 2017 at 15:38 Board Certified Radiologist. This report was verified electronically.
[2017-01-12 15:55] LABS: AUTOMATED NEUTROPHIL # 4.6 TH/MM3 (1.8-7.7); BASOPHIL # 0.1 TH/MM3 (0-0.2); EOSINOPHIL % 0.4 % (0.0-4.0); HEMATOCRIT 34.5 % (35.0-46.0); HEMO FLAGS DIFF FINAL; LYMPH % 42.9 % (9.0-44.0); LYMPHOCYTE # 4.1 TH/MM3 (1.0-4.8); MEAN CELL VOLUME 92.5 FL (80.0-100.0); MEAN CORPUSCULAR HEMOGLOBIN 31.9 PG (27.0-34.0); MEAN CORPUSCULAR HGB CONC 34.5 % (32.0-36.0); MONO % 7.9 % (0.0-8.0); NEUT % 47.8 % (16.0-70.0); PLATELET COUNT 295 TH/MM3 (150-450); RED BLOOD COUNT 3.73 MIL/MM3 (4.00-5.30); RED CELL DISTRIBUTION WIDTH 17.1 % (11.6-17.2); WHITE BLOOD COUNT 9.6 TH/MM3 (4.0-11.0)
[2017-01-12 16:03] LABS: CHLORIDE 90 MEQ/L (98-107); POTASSIUM 3.8 MEQ/L (3.5-5.1); SODIUM (NA) 126 MEQ/L (136-145)
[2017-01-12 16:07] LABS: ANION GAP 10 MEQ/L (5-15); BICARBONATE 26.3 MEQ/L (21.0-32.0); BLOOD UREA NITROGEN 2 MG/DL (7-18)
[2017-01-12 16:10] LABS: ALT (GPT) 34 U/L (10-53); AST (GOT) 45 U/L (15-37); GLOMERULAR FILTRATION RATE 139 ML/MIN (>89)
[2017-01-12 16:12] LABS: TOTAL BILIRUBIN ADULT 0.3 MG/DL (0.2-1.0)
[2017-01-12 16:13] LABS: ALKALINE PHOSPHATASE 89 U/L (45-117)
[2017-01-12] MEDS ORDERED: CIPR250T52 PO (16:19)
[2017-01-12] MEDS ORDERED: CLIN150 PO (16:19)
[2017-01-12] MEDS ORDERED: NORC5TAB PO (16:27)
[2017-01-12 16:30] VITALS: BP 175/81; PULSE 76; RESP 16; O2SAT 96
[2017-01-12 17:45] VITALS: BP 170/78
== END 2017-01-12 17:47 | disposition home or self-care (01) ==
LOC: PHED 14:33
DX: L03.115 Cellulitis of right lower limb (principal); E87.1 Hypo-osmolality and hyponatremia; J45.909 Unspecified asthma, uncomplicated; F41.9 Anxiety disorder, unspecified; J44.9 Chronic obstructive pulmonary disease, unspecified; I10 Essential (primary) hypertension; G47.30 Sleep apnea, unspecified; Z79.899 Other long term (current) drug therapy
CPT/HCPCS: 73650; 80053; 83605; 85025; 85652; 87040; 96365; 96375; 99284; J2270; J2405; J7040

== ENCOUNTER 2017-03-02 15:30 | Emergency (ER) | payer MEDICARE, MEDICAID ==
[~2017-03-02] VITALS: Ht 160 cm; Wt 43.7 kg
[~2017-03-02 15:30] MED LIST changes: +CIPR250T52 PO; +CLIN150 PO; +NORC5TAB PO
[2017-03-02 15:34] VITALS: BP 161/72; PULSE 79; RESP 18; TEMP 98.5; O2SAT 97
--- NOTE | 2017-03-02 16:15 | PD ---
HPI . left heel infection for several months Chief Complaint: Skin Problem Time Seen by Provider: 16:15 Travel History International Travel<30 days: No Contact w/Intl Traveler<30days: No Traveled to known affect area: No History of Present Illness HPI 61 yr old female here with c/o left heel pain and infection for several months. Patient is mainly here because she has a slow healing wound on her left heel that is causing her increased amounts of pain when walking. She tells me she is followed by her PCP and takes meds for pain, but the area is hurting more than usual. She wants to have it checked to make sure the infection is not getting worse. She denies any fever or chills. PFSH Past Medical History Arthritis: No Asthma: Yes Anxiety: Yes Cancer: No Cardiovascular Problems: Yes High Cholesterol: No Chemotherapy: No Congestive Heart Failure: No COPD: Yes Coronary Artery Disease: No Diabetes: No Diminished Hearing: Yes ("tinnitus left ear") Endocrine: No GERD: No Genitourinary: Yes (pt has lama cath in place ) Herniated Disk: Yes Hypertension: Yes Immune Disorder: No Musculoskeletal: Yes Neurologic: No Psychiatric: No Reproductive: No Respiratory: Yes (COPD) Integumentary: Yes (pt arrives with right foot wound) Immunizations Current: Yes Radiation Therapy: No Sleep Apnea: Yes Thyroid Disease: No Ulcer: No : 0 Para: 0 Miscarriage: 0 : 0 Past Surgical History Abdominal Surgery: No Arteriovenous Shunt: No Cardiac Surgery: No Ear Surgery: No Endocrine Surgery: No Eye Surgery: No Genitourinary Surgery: No Gynecologic Surgery: Yes (hysterectomy) Hysterectomy: Yes Insulin Pump: No Joint Replacement: No Oral Surgery: Yes (All teeth removed, cannot recall year) Thoracic Surgery: No Other Surgery: Yes ( ) Social History Alcohol Use: No Tobacco Use: No Substance Use: Yes (ONLY Marijuanna in the past IN THE PAST) Allergies-Medications (Allergen,Severity, Reaction): Coded Allergies: Aspirin (Verified Adverse Reaction, Severe, "don't take aspirin i have tinnitus, 03/02/17) Reported Meds & Prescriptions Reported Meds & Active Scripts Active Cipro (Ciprofloxacin HCl) 250 Mg Tab 500 Mg PO BID 7 Days Cleocin (Clindamycin HCl) 150 Mg Cap 150 Mg PO Q6H 7 Days Xanax (Alprazolam) 0.25 Mg Tab 0.25 Mg PO Q8H PRN Reported Robaxin (Methocarbamol) 500 Mg Tab 500 Mg PO DAILY Lisinopril 40 Mg Tab 40 Mg PO DAILY Lortab (Hydrocodone-Acetaminophen) 10-325 Mg Tab 1 Tab PO Q4H PRN Tylenol (Acetaminophen) 325 Mg Tab 650 Mg PO Q4H PRN Symbicort Inh (Budesonide/Formoterol Fumarate) 160-4.5 Mcg/Act Aero 1 Puff INH Q12HR Clonidine (Clonidine HCl) 0.1 Mg Tab 0.1 Mg PO BID Ventolin Hfa 18 GM Inh (Albuterol Sulfate) 90 Mcg/Act Aer 2 Puff INH Q4HR PRN Review of Systems General / Constitutional: No: Fever Eyes: No: Visual changes HENT: No: Headaches Cardiovascular: No: Chest Pain or Discomfort Respiratory: No: Shortness of Breath Gastrointestinal: No: Abdominal Pain Genitourinary: No: Dysuria Musculoskeletal: No: Pain Skin: Positive Other (right posterior heel wound), No Rash Neurologic: No: Weakness Psychiatric: No: Depression Endocrine: No: Polydipsia Hematologic/Lymphatic: No: Easy Bruising Physical Exam Narrative GENERAL: AAO x 3, no acute distress, Well-nourished, well-developed patient. SKIN: Warm and dry. No visible rashes or bruising. small 0.8 cm healing ulceration with scab formation, no purulence or erythema. there is slight erythema over the entire dorsum of the foot mainly near toes without edema or temperature variation. pulses are diminished but present. HEAD: Normocephalic and atraumatic. EYES: No scleral icterus. No injection or drainage. ENT: No nasal drainage noted. Mucous membranes pink. Airway patent. NECK: Supple, trachea midline. No JVD. CARDIOVASCULAR: Regular rate and rhythm without murmurs, gallops, or rubs. RESPIRATORY: Breath sounds equal bilaterally. No accessory muscle use. No rhonchi or rales. GASTROINTESTINAL: Abdomen soft, non-tender, nondistended. Lama cath in place. EXTREMITIES: No cyanosis or edema. all digits and joints move freely. BACK: Nontender without obvious deformity. No CVA tenderness. NEURO: CN II-12 intact, PSYCH: AAO x 3, normal affect. Data Data Last Documented VS Vital Signs Date Time Temp Pulse Resp B/P Pulse Ox O2 Delivery O2 Flow Rate FiO2 03/02/17 17:36 87 20 175/80 98 03/02/17 15:34 98.5 Orders Complete Blood Count With Diff (03/02/17 16:26) Basic Metabolic Panel (Bmp) (03/02/17 16:26) Foot, Complete ([id number]) (03/02/17 16:30) Labs Laboratory Tests Test 03/02/17 16:30 White Blood Count 9.0 TH/MM3 Red Blood Count 4.43 MIL/MM3 Hemoglobin 14.3 GM/DL Hematocrit 43.3 % Mean Corpuscular Volume 97.7 FL Mean Corpuscular Hemoglobin 32.2 PG Mean Corpuscular Hemoglobin 32.9 % Concent Red Cell Distribution Width 12.9 % Platelet Count 246 TH/MM3 Mean Platelet Volume 7.1 FL Neutrophils (%) (Auto) 50.3 % Lymphocytes (%) (Auto) 39.1 % Monocytes (%) (Auto) 9.2 % Eosinophils (%) (Auto) 0.8 % Basophils (%) (Auto) 0.6 % Neutrophils # (Auto) 4.5 TH/MM3 Lymphocytes # (Auto) 3.5 TH/MM3 Monocytes # (Auto) 0.8 TH/MM3 Eosinophils # (Auto) 0.1 TH/MM3 Basophils # (Auto) 0.1 TH/MM3 CBC Comment DIFF FINAL Differential Comment Sodium Level 133 MEQ/L Potassium Level 4.1 MEQ/L Chloride Level 98 MEQ/L Carbon Dioxide Level 25.5 MEQ/L Anion Gap 10 MEQ/L Blood Urea Nitrogen 3 MG/DL Creatinine 0.56 MG/DL Estimat Glomerular Filtration 111 ML/MIN Rate Random Glucose 88 MG/DL Calcium Level 9.4 MG/DL [facility] Medical Decision Making Medical Screen Exam Complete: Yes Emergency Medical Condition: Yes Medical Record Reviewed: Yes Differential Diagnosis right foot cellulitis, osteomyelitis, less likely sepsis Narrative Course 61-year-old female here with complaints of a right heel ulceration/wound. This wound just appears to be slow healing and does not show any signs of active infection. She may benefit from a wound care consult through her outpatient primary care provider. I will check labs to make sure there is no abnormality such as elevated white count or neutrophil shift. I reviewed her records and she suffers from chronic hyponatremia. X-ray also ordered to check for any signs of osteomyelitis. Laboratory Tests Test 03/02/17 16:30 White Blood Count 9.0 TH/MM3 Red Blood Count 4.43 MIL/MM3 Hemoglobin 14.3 GM/DL Hematocrit 43.3 % Mean Corpuscular Volume 97.7 FL Mean Corpuscular Hemoglobin 32.2 PG Mean Corpuscular Hemoglobin 32.9 % Concent Red Cell Distribution Width 12.9 % Platelet Count 246 TH/MM3 Mean Platelet Volume 7.1 FL Neutrophils (%) (Auto) 50.3 % Lymphocytes (%) (Auto) 39.1 % Monocytes (%) (Auto) 9.2 % Eosinophils (%) (Auto) 0.8 % Basophils (%) (Auto) 0.6 % Neutrophils # (Auto) 4.5 TH/MM3 Lymphocytes # (Auto) 3.5 TH/MM3 Monocytes # (Auto) 0.8 TH/MM3 Eosinophils # (Auto) 0.1 TH/MM3 Basophils # (Auto) 0.1 TH/MM3 CBC Comment DIFF FINAL Differential Comment Sodium Level 133 MEQ/L Potassium Level 4.1 MEQ/L Chloride Level 98 MEQ/L Carbon Dioxide Level 25.5 MEQ/L Anion Gap 10 MEQ/L Blood Urea Nitrogen 3 MG/DL Creatinine 0.56 MG/DL Estimat Glomerular Filtration 111 ML/MIN Rate Random Glucose 88 MG/DL Calcium Level 9.4 MG/DL Labs are unremarkable except for low sodium level which is expected. Patient has chronic hyponatremia. Last Impressions Foot X-Ray 03/02/17 1630 Signed Impressions: Service Date/Time: Thursday, March 02, 2017 16:42 - CONCLUSION: Chronic changes and no evidence for acute fracture. Hemal Beyer MD Discussed all workup with patient. She has mild erythema of the right foot. I will go ahead and cover her with antibiotics. I stressed outpatient f/u and possible wound care referral for chronic slow healing ulcer. Patient verbalized understanding of instructions, questions were answered, and thanked me for their care. I advised them if their condition worsens, please return to the nearest emergency room for further care. Diagnosis Primary Impression: Cellulitis of right foot Patient Instructions: General Instructions Additional Instructions: [place] for worsening signs of infection which include fever, increased redness , increased warmth, purulent drainage, increased swelling or streaking. If any of these develop, please go to the nearest emergency room. Please return to emergency department if your symptoms return or worsen. Follow up with your primary care provider. Take medications as prescribed. Med/Other Pt SpecificInfo: Prescription(s) given Scripts Ciprofloxacin (Cipro)250 Mg [id number] Mg PO BID 7 Days Ref 0 Prov:Ramona Dominguez DO 03/02/17 Clindamycin (Cleocin)150 Mg [id number] Mg PO Q6H 7 Days Ref 0 Prov:Ramona Domniguez DO 03/02/17 Paulina Moe Mar 02, 2017 16:15
[2017-03-02] MEDS ORDERED: LISI40TA PO (16:21)
[2017-03-02] MEDS ORDERED: HYDR-3535 PO (16:21)
[2017-03-02] MEDS ORDERED: ROBA500T PO (16:23)
[2017-03-02 16:39] LABS: AUTOMATED NEUTROPHIL # 4.5 TH/MM3 (1.8-7.7); BASOPHIL # 0.1 TH/MM3 (0-0.2); BASOPHIL % 0.6 % (0.0-2.0); EOSINOPHIL # 0.1 TH/MM3 (0-0.4); EOSINOPHIL % 0.8 % (0.0-4.0); HEMATOCRIT 43.3 % (35.0-46.0); HEMO FLAGS DIFF FINAL; LYMPH % 39.1 % (9.0-44.0); LYMPHOCYTE # 3.5 TH/MM3 (1.0-4.8); MEAN CELL VOLUME 97.7 FL (80.0-100.0); MEAN CORPUSCULAR HEMOGLOBIN 32.2 PG (27.0-34.0); MEAN CORPUSCULAR HGB CONC 32.9 % (32.0-36.0); MONO % 9.2 % (0.0-8.0); NEUT % 50.3 % (16.0-70.0); PLATELET COUNT 246 TH/MM3 (150-450); RED BLOOD COUNT 4.43 MIL/MM3 (4.00-5.30); RED CELL DISTRIBUTION WIDTH 12.9 % (11.6-17.2)
[2017-03-02 16:48] LABS: POTASSIUM 4.1 MEQ/L (3.5-5.1)
[2017-03-02 16:51] LABS: BICARBONATE 25.5 MEQ/L (21.0-32.0)
--- NOTE | 2017-03-02 17:13 | RADRPT ---
EXAM DATE/TIME: 03/02/2017 16:42 [facility] COMPARISON: No previous studies available for comparison. INDICATIONS : Entire right foot pain, redness, and swelling. No known injury. MEDICAL HISTORY : Hypertension. Chronic obstructive pulmonary disease. Diabetes SURGICAL HISTORY : Hysterectomy. Lumbar spine surgery ENCOUNTER: Initial ACUITY: 7 - 11 months PAIN SCORE: 10/10 LOCATION: Right foot FINDINGS: No definite fractures, or dislocations are identified. No definite lytic or sclerotic lesion is seen . Slight osteopenia is seen with slight degenerative change within multiple joints. CONCLUSION: Chronic changes and no evidence for acute fracture. Hemal Beyer MD on March 02, 2017 at 17:08 Board Certified Radiologist. This report was verified electronically.
[2017-03-02] MEDS ORDERED: CLIN150 PO (17:22)
[2017-03-02] MEDS ORDERED: CIPR250T52 PO (17:22)
[2017-03-02 17:36] VITALS: BP 175/80
== END 2017-03-02 17:39 | disposition home or self-care (01) ==
LOC: PHEFT 15:30
DX: L03.115 Cellulitis of right lower limb (principal); J44.9 Chronic obstructive pulmonary disease, unspecified; I10 Essential (primary) hypertension
CPT/HCPCS: 73630; 80048; 85025; 99284

== ENCOUNTER 2017-03-18 09:56 | Emergency (ER) | payer MEDICARE, MEDICAID ==
[~2017-03-18] VITALS: Ht 160 cm; Wt 44.0 kg
[~2017-03-18 09:56] MED LIST changes: -DULC10SU3 RECTAL; -FERR325T PO; -FLEEENE3 RECTAL; -FOLI1TAB4 PO; -FURO40TA PO; -GABA300C5 PO; -HYDR-3516 PO; +HYDR-3535 PO; -IMOD2TAB3 PO; -LACT10SO PO; -LISI-519 PO; +LISI40TA PO; -MACR100C2 PO; -MAGN400T2 PO; -MILKSUS PO; -MUCI600T PO; -MYLASUS2 PO; -NORC5TAB PO; -POTA-243 PO; -PREV30TA3 PO; +ROBA500T PO; -VITA100018 PO; -[UNRECOGNIZED DRUG - CODE] PO
[2017-03-18 09:58] VITALS: BP 171/85; PULSE 69; RESP 20; TEMP 98.6; O2SAT 97
--- NOTE | 2017-03-18 10:13 | PD ---
HPI Chief Complaint: Respiratory Symptoms Time Seen by Provider: 10:09 Travel History International Travel<30 days: No Contact w/Intl Traveler<30days: No Traveled to known affect area: No History of Present Illness HPI Patient presents with complaints of shortness of breath. Symptom onset 2-3 days. History of COPD. Continues to smoke. Positive nonproductive cough. Denies nausea vomiting or diarrhea. Subjective fever. No new rashes. Denies any urinary or bowel symptoms. Denies any chest pain. Noncompliant with antihypertensives today which included clonidine. PFSH Past Medical History Arthritis: No Asthma: Yes Anxiety: Yes Cancer: No Cardiovascular Problems: Yes High Cholesterol: No Chemotherapy: No Congestive Heart Failure: No COPD: Yes Coronary Artery Disease: No Diabetes: No Diminished Hearing: Yes ("tinnitus left ear") Endocrine: No GERD: No Genitourinary: Yes (pt has lama cath in place ) Herniated Disk: Yes Hypertension: Yes Immune Disorder: No Musculoskeletal: Yes Neurologic: No Psychiatric: No Reproductive: No Respiratory: Yes Integumentary: Yes (TREATED FOR CELLULITIS, R FOOT) Immunizations Current: Yes Radiation Therapy: No Sleep Apnea: Yes Thyroid Disease: No Ulcer: No ?: Not : 0 Para: 0 Miscarriage: 0 : 0 Past Surgical History Abdominal Surgery: No Arteriovenous Shunt: No Cardiac Surgery: No Ear Surgery: No Endocrine Surgery: No Eye Surgery: No Genitourinary Surgery: No Gynecologic Surgery: Yes (hysterectomy) Hysterectomy: Yes Insulin Pump: No Joint Replacement: No Oral Surgery: Yes (All teeth removed, cannot recall year) Thoracic Surgery: No Other Surgery: Yes (trach in past) Social History Alcohol Use: Yes (3-4 daily) Tobacco Use: Yes (1 pk) Substance Use: Yes (ONLY Marijuanna in the past IN THE PAST) Allergies-Medications (Allergen,Severity, Reaction): Coded Allergies: Aspirin (Verified Adverse Reaction, Severe, "don't take aspirin i have tinnitus, 03/18/17) Reported Meds & Prescriptions Reported Meds & Active Scripts Active Cipro (Ciprofloxacin HCl) 250 Mg Tab 500 Mg PO BID 7 Days Cleocin (Clindamycin HCl) 150 Mg Cap 150 Mg PO Q6H 7 Days Xanax (Alprazolam) 0.25 Mg Tab 0.25 Mg PO Q8H PRN Reported Robaxin (Methocarbamol) 500 Mg Tab 500 Mg PO DAILY Lisinopril 40 Mg Tab 40 Mg PO DAILY Lortab (Hydrocodone-Acetaminophen) 10-325 Mg Tab 1 Tab PO Q4H PRN Tylenol (Acetaminophen) 325 Mg Tab 650 Mg PO Q4H PRN Symbicort Inh (Budesonide/Formoterol Fumarate) 160-4.5 Mcg/Act Aero 1 Puff INH Q12HR Clonidine (Clonidine HCl) 0.1 Mg Tab 0.1 Mg PO BID Ventolin Hfa 18 GM Inh (Albuterol Sulfate) 90 Mcg/Act Aer 2 Puff INH Q4HR PRN Review of Systems General / Constitutional: No: Fever Eyes: No: Visual changes HENT: No: Headaches Cardiovascular: No: Chest Pain or Discomfort Respiratory: Positive: Cough, Shortness of Breath Gastrointestinal: No: Abdominal Pain Genitourinary: No: Dysuria Musculoskeletal: No: Pain Skin: No Rash Neurologic: No: Weakness Psychiatric: No: Depression Endocrine: No: Polydipsia Hematologic/Lymphatic: No: Easy Bruising Physical Exam Narrative GENERAL: Well-nourished, well-developed patient. SKIN: Focused skin assessment warm/dry. HEAD: Normocephalic. EYES: No scleral icterus. No injection or drainage. NECK: Supple, trachea midline. No JVD or lymphadenopathy. CARDIOVASCULAR: Regular rate and rhythm without murmurs, gallops, or rubs. RESPIRATORY: Decreased breath sounds left lower lobe. No accessory muscle use. GASTROINTESTINAL: Abdomen soft, non-tender, nondistended. Lama catheter in place, followed by urology MUSCULOSKELETAL: No cyanosis, or edema. BACK: Nontender without obvious deformity. No CVA tenderness. Data Data Last Documented VS Vital Signs Date Time Temp Pulse Resp B/P Pulse Ox O2 Delivery O2 Flow Rate FiO2 03/18/17 11:40 193/86 03/18/17 09:58 98.6 69 20 97 Orders Complete Blood Count With Diff (03/18/17 10:09) Chest, Single Ap (03/18/17 10:09) Clonidine (Catapres) (03/18/17 11:00) Labs Laboratory Tests Test 03/18/17 10:23 White Blood Count 7.8 TH/MM3 Red Blood Count 4.19 MIL/MM3 Hemoglobin 13.9 GM/DL Hematocrit 41.3 % Mean Corpuscular Volume 98.5 FL Mean Corpuscular Hemoglobin 33.1 PG Mean Corpuscular Hemoglobin 33.7 % Concent Red Cell Distribution Width 12.4 % Platelet Count 250 TH/MM3 Mean Platelet Volume 7.2 FL Neutrophils (%) (Auto) 62.1 % Lymphocytes (%) (Auto) 24.8 % Monocytes (%) (Auto) 12.3 % Eosinophils (%) (Auto) 0.5 % Basophils (%) (Auto) 0.3 % Neutrophils # (Auto) 4.9 TH/MM3 Lymphocytes # (Auto) 1.9 TH/MM3 Monocytes # (Auto) 1.0 TH/MM3 Eosinophils # (Auto) 0.0 TH/MM3 Basophils # (Auto) 0.0 TH/MM3 CBC Comment DIFF FINAL Differential Comment MDM Medical Decision Making Medical Screen Exam Complete: Yes Emergency Medical Condition: Yes Differential Diagnosis COPD exacerbation, pneumonia, bronchitis, tobacco abuse, dyspnea Narrative Course Assessment and plan discussed with patient at bedside. O2 sat 97%. Blood pressure responded well to clonidine. Last 72 hours Impressions Chest X-Ray 03/18/17 1009 Signed Impressions: Service Date/Time: Saturday, March 18, 2017 10:26 - CONCLUSION: No acute disease. Mundo López MD FACR Diagnosis Primary Impression: COPD exacerbation Patient Instructions: General Instructions Additional Instructions: Encouraged smoking cessation. Rest fluids and Motrin. Follow-up with PCP. Return to emergency room with any onset of new symptoms. Discussed rebound hypertension and importance of taking clonidine regularly Med/Other Pt SpecificInfo: Prescription(s) given Scripts Methylprednisolone Dosepak (Medrol Dosepak)4 Mg Dspk4 Mg PO DIRECTED #1 DSPK Ref 0 Per Pharmacist direction Prov:Nelson Bernard MD 03/18/17 Alprazolam (Xanax)0.25 Mg Tab0.25 Mg PO Q4H PRN (ANXIETY) #15 TAB Ref 0 Prov:Nelson Bernard MD 03/18/17 Azithromycin (Zithromax Z-Nick)250 Mg [id number] Mg PO DIRECTED #1 DSPK Ref 0 500 MG (2 tabs) day 1, then 1 tab days 2-5. Prov:Nelson Bernard MD 03/18/17 Disposition: 01 DISCHARGE HOME Condition: Good Nelson Bernard MD Mar 18, 2017 10:13
[2017-03-18 10:39] LABS: AUTOMATED NEUTROPHIL # 4.9 TH/MM3 (1.8-7.7); BASOPHIL % 0.3 % (0.0-2.0); EOSINOPHIL % 0.5 % (0.0-4.0); HEMATOCRIT 41.3 % (35.0-46.0); HEMO FLAGS DIFF FINAL; LYMPH % 24.8 % (9.0-44.0); LYMPHOCYTE # 1.9 TH/MM3 (1.0-4.8); MEAN CELL VOLUME 98.5 FL (80.0-100.0); MEAN CORPUSCULAR HEMOGLOBIN 33.1 PG (27.0-34.0); MEAN CORPUSCULAR HGB CONC 33.7 % (32.0-36.0); MONO % 12.3 % (0.0-8.0); NEUT % 62.1 % (16.0-70.0); PLATELET COUNT 250 TH/MM3 (150-450); RED BLOOD COUNT 4.19 MIL/MM3 (4.00-5.30); RED CELL DISTRIBUTION WIDTH 12.4 % (11.6-17.2); WHITE BLOOD COUNT 7.8 TH/MM3 (4.0-11.0)
--- NOTE | 2017-03-18 10:41 | RADRPT ---
EXAM DATE/TIME: 03/18/2017 10:26 [facility] COMPARISON: CHEST SINGLE AP, November 09, 2016, 17:05. INDICATIONS : Short of breath MEDICAL HISTORY : Chronic obstructive pulmonary disease. SURGICAL HISTORY : None. ENCOUNTER: Initial ACUITY: 2 weeks PAIN SCORE: 0/10 LOCATION: Bilateral chest FINDINGS: A single view of the chest demonstrates the lungs to be symmetrically aerated without evidence of mas s, infiltrate or effusion. The cardiomediastinal contours are unremarkable. Osseous structures are intact. CONCLUSION: No acute disease. Mundo López MD FACR on March 18, 2017 at 10:39 Board Certified Radiologist. This report was verified electronically.
[2017-03-18] MEDS ORDERED: cloNIDine HCL 0.1 MG TAB PO ONE (11:00)
[2017-03-18 11:40] VITALS: BP 193/86
[2017-03-18 12:14] VITALS: BP 155/69
[2017-03-18] MEDS ORDERED: ALPR.25 PO (12:17)
[2017-03-18] MEDS ORDERED: ZITHTAB PO (12:17)
[2017-03-18] MEDS ORDERED: MEDR4PAK PO (12:17)
== END 2017-03-18 12:34 | disposition home or self-care (01) ==
LOC: PHED 09:56
DX: J44.1 Chronic obstructive pulmonary disease with (acute) exacerbation (principal); I10 Essential (primary) hypertension; F17.200 Nicotine dependence, unspecified, uncomplicated
CPT/HCPCS: 71010; 85025; 99284

== ENCOUNTER 2017-03-30 12:20 | Inpatient (IN) | payer MEDICARE, MEDICAID ==
[~2017-03-30 12:20] MED LIST changes: +MEDR4PAK PO; +ZITHTAB PO
[2017-03-30] MEDS: RESP: ALBUTEROL 2.5 MG/IPRATROPIUM 0.5 MG NEB (SCH) INH ×2 (12:43→12:44)
[2017-03-30 12:45] VITALS: O2SAT 97
[2017-03-30] MEDS ORDERED: methylPREDNISolone SOD SUCC 125 MG/2 ML VIAL IVP ONE (12:45)
[2017-03-30] MEDS ORDERED: SODIUM CHLORIDE 0.9% FLUSH 10 ML FLUSH IVF PRN (12:45)
--- NOTE | 2017-03-30 12:45 | PD ---
HPI Chief Complaint: Respiratory Symptoms Time Seen by Provider: 12:31 Travel History International Travel<30 days: No Contact w/Intl Traveler<30days: No Traveled to known affect area: No History of Present Illness HPI This is a 61-year-old female who presents to the emergency department with COPD. She says she's been increasingly short of breath over the past week, constant, severe associated with a productive cough with white sputum. She denies any fevers or chills. She also says she's been having a pain and discomfort in the right side of her throat, worse with swallowing making her feel like she is having trouble breathing. She says this is been present for about a month. PFSH Past Medical History Arthritis: No Asthma: Yes Anxiety: Yes Cancer: No Cardiovascular Problems: Yes High Cholesterol: No Chemotherapy: No Congestive Heart Failure: No COPD: Yes Coronary Artery Disease: No Diabetes: No Diminished Hearing: Yes ("tinnitus left ear") Endocrine: No Gastrointestinal Disorders: No GERD: No Genitourinary: Yes (pt has lama cath in place ) Herniated Disk: Yes Hypertension: Yes Immune Disorder: No Implanted Vascular Access Dvce: No Musculoskeletal: Yes Neurologic: No Psychiatric: No Reproductive: No Respiratory: Yes Integumentary: Yes (TREATED FOR CELLULITIS, R FOOT) Immunizations Current: Yes Radiation Therapy: No Sleep Apnea: Yes Thyroid Disease: No Ulcer: No ?: Not : 0 Para: 0 Miscarriage: 0 : 0 Past Surgical History Abdominal Surgery: No Arteriovenous Shunt: No Cardiac Surgery: No Ear Surgery: No Endocrine Surgery: No Eye Surgery: No Genitourinary Surgery: No Gynecologic Surgery: Yes (hysterectomy) Hysterectomy: Yes Insulin Pump: No Joint Replacement: No Neurologic Surgery: No Oral Surgery: Yes (All teeth removed, cannot recall year) Thoracic Surgery: No Other Surgery: Yes (trach in past) Social History Alcohol Use: Yes (3-4 daily) Tobacco Use: Yes (1 pk) Substance Use: Yes (ONLY Marijuanna in the past IN THE PAST) Allergies-Medications (Allergen,Severity, Reaction): Coded Allergies: Aspirin (Verified Adverse Reaction, Severe, "don't take aspirin i have tinnitus, 03/18/17) Reported Meds & Prescriptions Reported Meds & Active Scripts Active Xanax (Alprazolam) 0.25 Mg Tab 0.25 Mg PO Q8H PRN Reported Robaxin (Methocarbamol) 500 Mg Tab 500 Mg PO DAILY Lisinopril 40 Mg Tab 40 Mg PO DAILY Lortab (Hydrocodone-Acetaminophen) 10-325 Mg Tab 1 Tab PO Q4H PRN Symbicort Inh (Budesonide/Formoterol Fumarate) 160-4.5 Mcg/Act Aero 1 Puff INH Q12HR Clonidine (Clonidine HCl) 0.1 Mg Tab 0.1 Mg PO BID Ventolin Hfa 18 GM Inh (Albuterol Sulfate) 90 Mcg/Act Aer 2 Puff INH Q4HR PRN Review of Systems Except as stated in HPI: all other systems reviewed are Neg Physical Exam Narrative GENERAL: Thin and frail female older appearing than stated age SKIN: Focused skin assessment warm and dry. HEAD: Atraumatic. Normocephalic. EYES: Pupils equal and round. No injection or drainage. ENT: Moist mucous membranes NECK: Trachea midline. No asymmetry of the external neck exam. CARDIOVASCULAR: Regular rate and rhythm. No murmur appreciated. RESPIRATORY: Poor air movement bilaterally, mild wheezing appreciated over the left lung. Patient appears dyspneic with accessory muscle use, speaking 3-4 words sentences. GASTROINTESTINAL: Abdomen soft, non-tender, nondistended. MUSCULOSKELETAL: No obvious deformities. NEUROLOGICAL: Awake and alert. No obvious cranial nerve deficits. Moving all extremities. PSYCHIATRIC: Appropriate mood and affect; insight and judgment normal. Data Data Last Documented VS Vital Signs Date Time Temp Pulse Resp B/P Pulse Ox O2 Delivery O2 Flow Rate FiO2 03/30/17 14:33 91 18 159/71 97 Room Air 03/30/17 12:45 21 Orders Complete Blood Count With Diff (03/30/17 12:36) Comprehensive Metabolic Panel (03/30/17 12:36) Iv Access Insert/Monitor (03/30/17 12:36) Ecg Monitoring (03/30/17 12:36) Oximetry (03/30/17 12:36) Oxygen Administration (03/30/17 12:36) Chest, Single Ap (03/30/17 12:36) Sodium Chloride 0.9% Flush (Ns Flush) (03/30/17 12:45) Methylprednisolone So Succ Inj (Solumedr (03/30/17 12:45) Albuterol-Ipratropium Neb (Duoneb Neb) (03/30/17 12:45) Ct Soft Tiss Neck W Iv Cont (03/30/17 ) Iohexol 350 Inj (Omnipaque 350 Inj) (03/30/17 13:56) Alprazolam (Xanax) (03/30/17 14:30) Albuterol Neb (Albuterol Neb) (03/30/17 14:30) Azithromycin (Zithromax) (03/30/17 14:30) Admit Order (Ed Use Only) (03/30/17 14:48) Labs Laboratory Tests Test 03/30/17 12:45 White Blood Count 8.9 TH/MM3 Red Blood Count 4.52 MIL/MM3 Hemoglobin 14.7 GM/DL Hematocrit 44.2 % Mean Corpuscular Volume 97.8 FL Mean Corpuscular Hemoglobin 32.5 PG Mean Corpuscular Hemoglobin 33.3 % Concent Red Cell Distribution Width 12.1 % Platelet Count 276 TH/MM3 Mean Platelet Volume 7.1 FL Neutrophils (%) (Auto) 54.8 % Lymphocytes (%) (Auto) 31.8 % Monocytes (%) (Auto) 11.9 % Eosinophils (%) (Auto) 0.4 % Basophils (%) (Auto) 1.1 % Neutrophils # (Auto) 4.9 TH/MM3 Lymphocytes # (Auto) 2.8 TH/MM3 Monocytes # (Auto) 1.1 TH/MM3 Eosinophils # (Auto) 0.0 TH/MM3 Basophils # (Auto) 0.1 TH/MM3 CBC Comment DIFF FINAL Differential Comment Sodium Level 128 MEQ/L Potassium Level 4.3 MEQ/L Chloride Level 96 MEQ/L Carbon Dioxide Level 24.1 MEQ/L Anion Gap 8 MEQ/L Blood Urea Nitrogen 3 MG/DL Creatinine 0.52 MG/DL Estimat Glomerular Filtration 121 ML/MIN Rate Random Glucose 95 MG/DL Calcium Level 9.6 MG/DL Total Bilirubin 0.4 MG/DL Aspartate Amino Transf 44 U/L (AST/SGOT) Alanine Aminotransferase 38 U/L (ALT/SGPT) Alkaline Phosphatase 86 U/L Total Protein 7.7 GM/DL Albumin 3.5 GM/DL MDM Medical Decision Making Medical Screen Exam Complete: Yes Emergency Medical Condition: Yes Medical Record Reviewed: Yes (patient was admitted in September in the setting of his COPD exacerbation and ultimately was intubated) Interpretation(s) No leukocytosis Mild hyponatremia Last 24 hours Impressions Chest X-Ray 03/30/17 1236 Signed Impressions: Service Date/Time: Thursday, March 30, 2017 13:15 - CONCLUSION: No acute cardiopulmonary abnormality is identified. Jesus Perez MD Neck CT 03/30/17 0000 Signed Impressions: Service Date/Time: Thursday, March 30, 2017 13:48 - CONCLUSION: 5 mm right apical lung nodule. Followup with standard CT examination the chest would initially be suggested. No acute or suspicious findings in the neck Jesus Hernandez MD Differential Diagnosis COPD exacerbation, congestive heart failure, pleural effusion, pneumonia Narrative Course This is a 61-year-old female who presents to the emergency department with shortness of breath. She is diffusely wheezing on exam, tachypneic and speaks 3 to forward sentences. She is placed in a monitor and an IV was established. She was given serial bronchodilator treatments, IV steroids, but continued to be dyspneic. She's not hypoxic. She does appear a little bit anxious. She takes Xanax at home so I gave her her home dose. I think she would benefit from admission especially given her intubation earlier this year. Chest x-rays unremarkable. Patient will be admitted for COPD exacerbation. Physician Communication Physician Communication Discussed with Dr. Lugo Diagnosis Primary Impression: COPD exacerbation Admitting Information Admitting Physician Requests: Admit Nicole Gallego MD Mar 30, 2017 12:45
[2017-03-30 13:00] LABS: AUTOMATED NEUTROPHIL # 4.9 TH/MM3 (1.8-7.7); BASOPHIL # 0.1 TH/MM3 (0-0.2); BASOPHIL % 1.1 % (0.0-2.0); EOSINOPHIL % 0.4 % (0.0-4.0); HEMATOCRIT 44.2 % (35.0-46.0); HEMO FLAGS DIFF FINAL; LYMPH % 31.8 % (9.0-44.0); LYMPHOCYTE # 2.8 TH/MM3 (1.0-4.8); MEAN CELL VOLUME 97.8 FL (80.0-100.0); MEAN CORPUSCULAR HEMOGLOBIN 32.5 PG (27.0-34.0); MEAN CORPUSCULAR HGB CONC 33.3 % (32.0-36.0); MONO % 11.9 % (0.0-8.0); NEUT % 54.8 % (16.0-70.0); PLATELET COUNT 276 TH/MM3 (150-450); RED BLOOD COUNT 4.52 MIL/MM3 (4.00-5.30); RED CELL DISTRIBUTION WIDTH 12.1 % (11.6-17.2); WHITE BLOOD COUNT 8.9 TH/MM3 (4.0-11.0)
[2017-03-30 13:08] LABS: CHLORIDE 96 MEQ/L (98-107); POTASSIUM 4.3 MEQ/L (3.5-5.1); SODIUM (NA) 128 MEQ/L (136-145)
[2017-03-30 13:12] LABS: ANION GAP 8 MEQ/L (5-15); BICARBONATE 24.1 MEQ/L (21.0-32.0); BLOOD UREA NITROGEN 3 MG/DL (7-18)
[2017-03-30 13:15] LABS: ALT (GPT) 38 U/L (10-53); AST (GOT) 44 U/L (15-37); GLOMERULAR FILTRATION RATE 121 ML/MIN (>89)
[2017-03-30 13:16] LABS: TOTAL BILIRUBIN ADULT 0.4 MG/DL (0.2-1.0)
[2017-03-30 13:17] LABS: ALKALINE PHOSPHATASE 86 U/L (45-117)
[2017-03-30] MEDS ORDERED: IOHEXOL 350 MG/ML 10 ML VIAL (for RAD DIAG) IV ONE (13:56)
--- NOTE | 2017-03-30 14:02 | RADRPT ---
EXAM DATE/TIME: 03/30/2017 13:15 [facility] COMPARISON: CHEST SINGLE AP, March 18, 2017, 10:26. INDICATIONS : Short of breath. MEDICAL HISTORY : Chronic obstructive pulmonary disease. Bronchitis. SURGICAL HISTORY : None. ENCOUNTER: Initial ACUITY: 3 weeks PAIN SCORE: 0/10 LOCATION: Bilateral chest FINDINGS: Portable AP view of the chest demonstrates a normal-sized cardiac silhouette. No effusion, consolidat ion, or pneumothorax is visualized. The bones and soft tissues demonstrate no acute abnormality. CONCLUSION: No acute cardiopulmonary abnormality is identified. Jesus Perez MD on March 30, 2017 at 13:59 Board Certified Radiologist. This report was verified electronically.
--- NOTE | 2017-03-30 14:10 | RADRPT ---
EXAM DATE/TIME: 03/30/2017 13:48 [facility] COMPARISON: No previous studies available for comparison. INDICATIONS : Right neck pain. Difficulty swallowing. Evaluate for mass. IV CONTRAST: 50 cc Omnipaque 350 (iohexol) IV RADIATION DOSE: 9.63 CTDIvol (mGy) MEDICAL HISTORY : Chronic obstructive pulmonary disease. Hypertension. Asthma. SURGICAL HISTORY : Oral surgery. ENCOUNTER: Initial ACUITY: 1 day PAIN SCALE: 7/10 LOCATION: Right neck TECHNIQUE: Volumetric scanning of the neck was performed. Using automated exposure control and adjustment of th e mA and/or kV according to patient size, radiation dose was kept as low as reasonably achievable to obtain optimal diagnostic quality images. DICOM format image data is available electronically for r eview and comparison. FINDINGS: Is a 5 mm nodule in the medial right lung apex NASOPHARYNX: The nasopharyngeal airway has a normal configuration. No mucosal thickening or mass is seen. OROPHARYNX: The intrinsic muscles of the tongue are symmetric. The tonsillar pillars are intact. The prevertebr al soft tissues are not thickened. LARYNX: The supraglottic, glottic, and infraglottic structures are intact. PARAPHARYNGEAL: The parapharyngeal space is intact. SALIVARY GLANDS: The parotid and submandibular glands are intact. LYMPH NODES: No enlarged or necrotic-appearing nodes. THYROID: Homogeneous enhancement without evidence of nodule. BONES: Unremarkable. CONCLUSION: 5 mm right apical lung nodule. Followup with standard CT examination the chest would initially be sug gested. No acute or suspicious findings in the neck Jesus Hernandez MD on March 30, 2017 at 14:02 Board Certified Radiologist. This report was verified electronically.
[2017-03-30] MEDS ORDERED: AZITHROMYCIN 250 MG TAB PO ONE (14:30)
[2017-03-30] MEDS ORDERED: RESP: ALBUTEROL 2.5 MG/3 ML NEB (PRN) NEB (14:30)
[2017-03-30] MEDS ORDERED: ALPRAZolam 0.25 MG TAB PO ONE (14:30)
[2017-03-30 14:33] VITALS: BP 159/71; PULSE 91; RESP 18; O2SAT 97
[2017-03-30 15:47] VITALS: BP 163/80; PULSE 87; RESP 18; O2SAT 96
[2017-03-30] MEDS ORDERED: SODIUM CHLORIDE 0.9% FLUSH 10 ML FLUSH IV FLUSH PRN (16:15)
[2017-03-30] MEDS ORDERED: RESP: ALBUTEROL 2.5 MG/IPRATROPIUM 0.5 MG NEB (PRN) NEB (16:15)
--- NOTE | 2017-03-30 17:35 | HHI.HP ---
HPI Service [facility] Primary Care Physician Liang Perdue, Admission Diagnosis copd exacerbation Diagnoses: (1) COPD exacerbation Chief Complaint: Shortness of breath Travel History International Travel<30 Days: No Contact w/Intl Traveler <30 Da: No Traveled to Known Affected Are: No History of Present Illness 61-year-old female with a history of COPD presented to the ED for evaluation of worsening symptoms of shortness of breath along with a productive cough 1 week however worse over the past 24 hours. Patient states, she has been out of her medication for the past 2 weeks. She denies any febrile episode however reports some chest discomfort. She continued to smoke. She also complained of discomfort in the right side of her throat and worse with swallowing as well as breathing. She denies any hemoptysis. Review of Systems Except as stated in HPI: all other systems reviewed are Neg Past Family Social History Past Medical History Asthma: Yes Anxiety: Yes Cardiovascular Problems: Yes COPD: Yes Diminished Hearing: Yes ("tinnitus left ear") Genitourinary: Yes (pt has lama cath in place ) Herniated Disk: Yes Hypertension: Yes Musculoskeletal: Yes Respiratory: Yes Integumentary: Yes (TREATED FOR CELLULITIS, R FOOT) Immunizations Current: Yes Sleep Apnea: Yes Past Surgical History Gynecologic Surgery: Yes (hysterectomy) Hysterectomy: Yes Oral Surgery: Yes (All teeth removed, cannot recall year) Other Surgery: Yes (trach in past) Reported Medications Xanax (Alprazolam) 0.25 Mg Tab 0.25 Mg PO Q8H PRN Robaxin (Methocarbamol) 500 Mg Tab 500 Mg PO DAILY Lisinopril 40 Mg Tab 40 Mg PO DAILY Lortab (Hydrocodone-Acetaminophen) 10-325 Mg Tab 1 Tab PO Q4H PRN Symbicort Inh (Budesonide/Formoterol Fumarate) 160-4.5 Mcg/Act Aero 1 Puff INH Q12HR Clonidine (Clonidine HCl) 0.1 Mg Tab 0.1 Mg PO BID Ventolin Hfa 18 GM Inh (Albuterol Sulfate) 90 Mcg/Act Aer 2 Puff INH Q4HR PRN Allergies: Coded Allergies: Aspirin (Verified Adverse Reaction, Severe, "don't take aspirin i have tinnitus, 03/18/17) Family History Father with history of CAD Mother had COPD Social History Alcohol Use: Yes (3-4 daily) Tobacco Use: Yes (1 pk) Substance Use: Yes (ONLY Marijuanna in the past IN THE PAST) Physical Exam Vital Signs Vital Signs Date Time Temp Pulse Resp B/P Pulse Ox O2 Delivery O2 Flow Rate FiO2 03/30/17 15:47 87 18 163/80 96 Room Air 03/30/17 14:33 91 18 159/71 97 Room Air 03/30/17 12:45 97 21 03/30/17 12:40 Room Air Physical Exam GENERAL: This is a well-nourished, well-developed patient, in no apparent distress. SKIN: No rashes, ecchymoses or lesions. Cool and dry. HEAD: Atraumatic. Normocephalic. No temporal or scalp tenderness. EYES: Pupils equal round and reactive. Extraocular motions intact. No scleral icterus. No injection or drainage. ENT: Nose without bleeding, purulent drainage or septal hematoma. Throat without erythema, tonsillar hypertrophy or exudate. Uvula midline. Airway patent. NECK: Trachea midline. No JVD or lymphadenopathy. Supple, nontender, no meningeal signs. CARDIOVASCULAR: Regular rate and rhythm without murmurs, gallops, or rubs. RESPIRATORY: Clear to auscultation. Breath sounds equal bilaterally. No wheezes , rales, or rhonchi. GASTROINTESTINAL: Abdomen soft, non-tender, nondistended. No hepato-splenomegaly , or palpable masses. No guarding. MUSCULOSKELETAL: Extremities without clubbing, cyanosis, or edema. No joint tenderness, effusion, or edema noted. No calf tenderness. Negative Homans sign bilaterally. NEUROLOGICAL: Awake and alert. Cranial nerves II through XII intact. Motor and sensory grossly within normal limits. Five out of 5 muscle strength in all muscle groups. Normal speech. Laboratory Laboratory Tests Test 03/30/17 12:45 White Blood Count 8.9 Red Blood Count 4.52 Hemoglobin 14.7 Hematocrit 44.2 Mean Corpuscular Volume 97.8 Mean Corpuscular Hemoglobin 32.5 Mean Corpuscular Hemoglobin 33.3 Concent Red Cell Distribution Width 12.1 Platelet Count 276 Mean Platelet Volume 7.1 Neutrophils (%) (Auto) 54.8 Lymphocytes (%) (Auto) 31.8 Monocytes (%) (Auto) 11.9 Eosinophils (%) (Auto) 0.4 Basophils (%) (Auto) 1.1 Neutrophils # (Auto) 4.9 Lymphocytes # (Auto) 2.8 Monocytes # (Auto) 1.1 Eosinophils # (Auto) 0.0 Basophils # (Auto) 0.1 CBC Comment DIFF FINAL Differential Comment Sodium Level 128 Potassium Level 4.3 Chloride Level 96 Carbon Dioxide Level 24.1 Anion Gap 8 Blood Urea Nitrogen 3 Creatinine 0.52 Estimat Glomerular Filtration 121 Rate Random Glucose 95 Calcium Level 9.6 Total Bilirubin 0.4 Aspartate Amino Transf 44 (AST/SGOT) Alanine Aminotransferase 38 (ALT/SGPT) Alkaline Phosphatase 86 Total Protein 7.7 Albumin 3.5 Result Diagram: 03/30/17 1245 03/30/17 1245 Imaging Last Impressions Chest X-Ray 03/30/17 1236 Signed Impressions: Service Date/Time: Thursday, March 30, 2017 13:15 - CONCLUSION: No acute cardiopulmonary abnormality is identified. Jesus Perez MD Neck CT 03/30/17 0000 Signed Impressions: Service Date/Time: Thursday, March 30, 2017 13:48 - CONCLUSION: 5 mm right apical lung nodule. Followup with standard CT examination the chest would initially be suggested. No acute or suspicious findings in the neck Jesus Hernandez MD Assessment and Plan Problem List: (1) COPD exacerbation ICD Code: J44.1 Status: Acute Assessment and Plan 61 year-old female COPD exacerbation Chest x-ray noted and review by me without any cardio pulmonary disease Neck CT with finding of 5 mm right apical lung nodule, therefore will check chest CT Start scheduled Solu-Medrol, long and short-acting bronchodilator,Symbicort, Spiriva, Mucinex and azithromycin Maintain oxygen saturation above 92% and check sputum culture Advised on tobacco cessation Hypertension Labile BP Resume lisinopril and clonidine Vasotec when necessary Tobacco abuse Tobacco cessation counseling provided Nicotine patch DVT prophylaxis: Bilateral SCDs Code Status Full code Discussed Condition With Patient, ED physician Physician Certification 2 Midnight Certification Type: Admission for Inpatient Services Order for Inpatient Services The services are ordered in accordance with Medicare regulations or non- Medicare payer requirements, as applicable. In the case of services not specified as inpatient-only, they are appropriately provided as inpatient services in accordance with the 2-midnight benchmark. Estimated LOS (days): 2 days is the estimated time the patient will need to remain in the hospital, assuming treatment plan goals are met and no additional complications. Post-Hospital Plan: Not yet determined Cale Lugo MD Mar 30, 2017 17:35
[2017-03-30] MEDS ORDERED: ENALAPRILAT 2.5 MG/2 ML VIAL IV PUSH PRN (18:00)
[2017-03-30] MEDS: NICOTINE 21 MG/24 HR PATCH T-DERMAL SCH (18:31)
[2017-03-30 19:51] VITALS: O2SAT 96
[2017-03-30] MEDS: RESP: ALBUTEROL 2.5 MG/IPRATROPIUM 0.5 MG NEB (SCH) NEB (19:51)
[2017-03-30 20:15] VITALS: BP 139/62; PULSE 71; RESP 20; TEMP 97.6; O2SAT 97
[2017-03-30] MEDS: REMOVE OLD PATCH T-DERMAL SCH (21:00)
[2017-03-30] MEDS: methylPREDNISolone SOD SUCC 125 MG/2 ML VIAL IVP SCH (21:28)
[2017-03-30] MEDS: ALPRAZolam 0.25 MG TAB PO PRN (21:28)
[2017-03-30] MEDS: cloNIDine HCL 0.1 MG TAB PO SCH (21:28)
[2017-03-30] MEDS: guaiFENesin E.R. 600 MG TAB PO SCH (21:28)
[2017-03-30] MEDS: SODIUM CHLORIDE 0.9% FLUSH 10 ML FLUSH IV FLUSH SCH (21:29)
[2017-03-30] MEDS: BUDESONIDE-FORMOTEROL 160/4.5 MCG INHALER INH SCH (21:36)
[2017-03-31] VITALS (7 sets, daily range): BP systolic 114–166; BP diastolic 64–88; PULSE 61–97; RESP 14–22; TEMP 96.7–98.3; O2SAT 95–100
[2017-03-31] MEDS: methylPREDNISolone SOD SUCC 125 MG/2 ML VIAL IVP SCH (04:37)
[2017-03-31] MEDS: TIOTROPIUM BROMIDE 18 MCG INH INH SCH (07:32)
[2017-03-31] MEDS: ALPRAZolam 0.25 MG TAB PO PRN ×3 (07:32→16:58)
[2017-03-31] MEDS: BUDESONIDE-FORMOTEROL 160/4.5 MCG INHALER INH SCH ×2 (07:32→20:32)
[2017-03-31 07:39] LABS: AUTOMATED NEUTROPHIL # 3.1 TH/MM3 (1.8-7.7); BASOPHIL % 0.2 % (0.0-2.0); HEMATOCRIT 41.8 % (35.0-46.0); HEMO FLAGS DIFF FINAL; LYMPH % 26.1 % (9.0-44.0); LYMPHOCYTE # 1.1 TH/MM3 (1.0-4.8); MEAN CELL VOLUME 96.8 FL (80.0-100.0); MEAN CORPUSCULAR HEMOGLOBIN 32.5 PG (27.0-34.0); MEAN CORPUSCULAR HGB CONC 33.6 % (32.0-36.0); MONO % 5.2 % (0.0-8.0); NEUT % 68.5 % (16.0-70.0); PLATELET COUNT 224 TH/MM3 (150-450); RED BLOOD COUNT 4.32 MIL/MM3 (4.00-5.30); RED CELL DISTRIBUTION WIDTH 11.4 % (11.6-17.2); WHITE BLOOD COUNT 4.4 TH/MM3 (4.0-11.0)
[2017-03-31] MEDS: RESP: ALBUTEROL 2.5 MG/IPRATROPIUM 0.5 MG NEB (SCH) NEB ×3 (07:43→19:19)
[2017-03-31 07:48] LABS: POTASSIUM 4.7 MEQ/L (3.5-5.1)
[2017-03-31 07:52] LABS: BICARBONATE 27.5 MEQ/L (21.0-32.0)
[2017-03-31] MEDS: LISINOPRIL 20 MG TAB PO SCH (08:14)
[2017-03-31] MEDS: cloNIDine HCL 0.1 MG TAB PO SCH ×2 (08:14→20:32)
[2017-03-31] MEDS: guaiFENesin E.R. 600 MG TAB PO SCH ×2 (08:14→20:32)
[2017-03-31] MEDS: NICOTINE 21 MG/24 HR PATCH T-DERMAL SCH (08:15)
[2017-03-31] MEDS: SODIUM CHLORIDE 0.9% FLUSH 10 ML FLUSH IV FLUSH SCH ×2 (08:23→20:32)
--- NOTE | 2017-03-31 13:01 | HHI.PR ---
Subjective Remarks Follow-up COPD exacerbation 03/31/17-patient seen and examined, reports significant improvement or shortness of breath. Objective Vitals Vital Signs Date Time Temp Pulse Resp B/P Pulse Ox O2 Delivery O2 Flow Rate FiO2 03/31/17 08:00 97.4 97 22 133/80 95 03/31/17 07:44 97 21 03/31/17 00:34 97.9 61 14 141/64 97 03/30/17 20:15 97.6 71 20 139/62 97 03/30/17 19:51 96 21 03/30/17 15:47 87 18 163/80 96 Room Air 03/30/17 14:33 91 18 159/71 97 Room Air I/O 03/30/17 03/30/17 03/30/17 03/31/17 03/31/17 03/31/17 07:00 15:00 23:00 07:00 15:00 23:00 Intake Total 200 ml Output Total 550 ml 425 ml Balance -350 ml -425 ml Intake Oral 200 ml Output Urine Total 550 ml 425 ml # Voids 0 Result Diagram: 03/31/17 0702 03/31/17 0702 Imaging Last Impressions Chest X-Ray 03/30/17 1236 Signed Impressions: Service Date/Time: Thursday, March 30, 2017 13:15 - CONCLUSION: No acute cardiopulmonary abnormality is identified. Jesus Perez MD Neck CT 03/30/17 0000 Signed Impressions: Service Date/Time: Thursday, March 30, 2017 13:48 - CONCLUSION: 5 mm right apical lung nodule. Followup with standard CT examination the chest would initially be suggested. No acute or suspicious findings in the neck Jesus Hernandez MD Objective Remarks GENERAL: NAD SKIN: Warm and dry. Right heel ulcer HEAD: Normocephalic. EYES: No scleral icterus. No injection or drainage. NECK: Supple, trachea midline. No JVD or lymphadenopathy. CARDIOVASCULAR: Regular rate and rhythm without murmurs, gallops, or rubs. RESPIRATORY: Breath sounds equal bilaterally. No accessory muscle use. GASTROINTESTINAL: Abdomen soft, non-tender, nondistended. MUSCULOSKELETAL: No cyanosis, or edema. BACK: Nontender without obvious deformity. No CVA tenderness. A/P Problem List: (1) COPD exacerbation ICD Code: J44.1 Status: Acute Assessment and Plan 61 year-old female COPD exacerbation Chest x-ray without any cardio pulmonary disease Neck CT with finding of 5 mm right apical lung nodule, consider chest CT Continue scheduled Solu-Medrol, long and short-acting bronchodilator, Symbicort, Spiriva, Mucinex and azithromycin Maintain oxygen saturation above 92% and check sputum culture Advised on tobacco cessation Hypertension Continue lisinopril and clonidine Vasotec when necessary Tobacco abuse Tobacco cessation counseling provided Nicotine patch Right heel ulcer Wound care DVT prophylaxis: Bilateral SCDs Discharge Planning Likely discharge in a.m. 04/01/17 Cale Lugo MD Mar 31, 2017 13:01
[2017-03-31] MEDS ORDERED: AZITHROMYCIN 250 MG TAB PO SCH (16:15)
[2017-03-31] MEDS: METHOCARBAMOL 500 MG TAB PO SCH (17:45)
[2017-03-31] MEDS: REMOVE OLD PATCH T-DERMAL SCH (20:33)
[2017-04-01 00:16] VITALS: BP 153/68; PULSE 63; RESP 16; TEMP 96.7; O2SAT 100
[2017-04-01] MEDS ORDERED: methylPREDNISolone SOD SUCC 40 MG/1 ML VIAL IV SCH (01:00)
[2017-04-01] MEDS: TIOTROPIUM BROMIDE 18 MCG INH INH SCH (07:40)
[2017-04-01] MEDS: BUDESONIDE-FORMOTEROL 160/4.5 MCG INHALER INH SCH (07:40)
[2017-04-01] MEDS: RESP: ALBUTEROL 2.5 MG/IPRATROPIUM 0.5 MG NEB (SCH) NEB ×2 (07:59→14:00)
[2017-04-01 08:00] VITALS: BP 150/74; PULSE 76; RESP 20; TEMP 98.1; O2SAT 94
[2017-04-01 08:01] VITALS: O2SAT 96
[2017-04-01] MEDS ORDERED: predniSONE 20 MG TAB PO SCH (09:00)
[2017-04-01] MEDS: SODIUM CHLORIDE 0.9% FLUSH 10 ML FLUSH IV FLUSH SCH (09:45)
[2017-04-01] MEDS: ALPRAZolam 0.25 MG TAB PO PRN (09:46)
[2017-04-01] MEDS: cloNIDine HCL 0.1 MG TAB PO SCH (09:46)
[2017-04-01] MEDS: guaiFENesin E.R. 600 MG TAB PO SCH (09:46)
[2017-04-01] MEDS: NICOTINE 21 MG/24 HR PATCH T-DERMAL SCH (09:46)
[2017-04-01] MEDS: METHOCARBAMOL 500 MG TAB PO SCH (09:46)
[2017-04-01] MEDS: LISINOPRIL 20 MG TAB PO SCH (09:46)
[2017-04-01] MEDS ORDERED: PRED20 PO (11:25)
[2017-04-01] MEDS ORDERED: AZIT250T3 PO (11:25)
--- NOTE | 2017-04-01 11:29 | HHI.DCPOC ---
Discharge Care Plan Diagnosis: (1) COPD exacerbation (2) Tobacco abuse Goals to Promote Your Health * To prevent worsening of your condition and complications * To maintain your health at the optimal level Directions to Meet Your Goals Take your medications as prescribed Follow your dietary instruction Follow activity as directed Keep your appointments as scheduled Take your immunizations and boosters as scheduled If your symptoms worsen call your PCP, if no PCP go to Urgent Care Center or Emergency Room Smoking is Dangerous to Your Health. Avoid second hand smoke Call the 24-hour hour crisis hotline for domestic abuse at Preston Lees MD Apr 01, 2017 11:29
--- NOTE | 2017-04-01 11:40 | HHI.DS ---
Discharge Summary Admission Date Mar 30, 2017 at 14:48 Discharge Date: Apr 01, 2017 Admitting Diagnosis copd exacerbation (1) COPD exacerbation ICD Code: J44.1 Procedures None Brief History - From Admission 61-year-old female with a history of COPD presented to the ED for evaluation of worsening symptoms of shortness of breath along with a productive cough 1 week however worse over the past 24 hours. Patient states, she has been out of her medication for the past 2 weeks. She denies any febrile episode however reports some chest discomfort. She continued to smoke. She also complained of discomfort in the right side of her throat and worse with swallowing as well as breathing. She denies any hemoptysis. CBC/BMP: 03/31/17 0702 03/31/17 0702 Significant Findings Laboratory Tests Test 03/30/17 03/31/17 12:45 07:02 Monocytes (%) (Auto) 11.9 % (0.0-8.0) Monocytes # (Auto) 1.1 TH/MM3 (0-0.9) Sodium Level 128 MEQ/L 132 MEQ/L (136-145) (136-145) Chloride Level 96 MEQ/L 97 MEQ/L (98-107) (98-107) Blood Urea Nitrogen 3 MG/DL (7-18) Aspartate Amino Transf 44 U/L (15-37) (AST/SGOT) Red Cell Distribution Width 11.4 % (11.6-17.2) Random Glucose 144 MG/DL (74-106) Imaging Last Impressions Chest X-Ray 03/30/17 1236 Signed Impressions: Service Date/Time: Thursday, March 30, 2017 13:15 - CONCLUSION: No acute cardiopulmonary abnormality is identified. Jesus Perez MD Neck CT 03/30/17 0000 Signed Impressions: Service Date/Time: Thursday, March 30, 2017 13:48 - CONCLUSION: 5 mm right apical lung nodule. Followup with standard CT examination the chest would initially be suggested. No acute or suspicious findings in the neck Jesus Hernandez MD PE at Discharge GENERAL: NAD NECK: Supple, trachea midline. No JVD or lymphadenopathy. CARDIOVASCULAR: Regular rate and rhythm without murmurs, gallops, or rubs. RESPIRATORY: Diminished breath sounds at the bases. Otherwise Breath sounds equal bilaterally. No accessory muscle use. GASTROINTESTINAL: Abdomen soft, non-tender, nondistended. MUSCULOSKELETAL: No cyanosis, or edema. BACK: Nontender without obvious deformity. No CVA tenderness. Pt update on day of discharge Patient reports she is feeling better. She is inquiring about whether or not she will need home oxygen. Hospital Course 61 year-old female admitted with COPD exacerbation. Evaluation and treatment course detailed below: COPD exacerbation Chest x-ray without any cardio pulmonary disease Neck CT with finding of 5 mm right apical lung nodule, discussed this finding with the patient at length. She does have a primary care physician and follow it up. I have given her a prescription for the chest CT to be done outpatient. Patient treated with short-acting bronchodilator,Symbicort, Spiriva, Mucinex and azithromycin. She is discharged on a prednisone taper and azithromycin in addition to her chronic COPD medications. Patient was weaned off oxygen. She was advised on tobacco cessation. Hypertension Continue home dose lisinopril and clonidine Tobacco abuse Tobacco cessation counseling provided Nicotine patch Right heel ulcer Wound care followed the patient. Advise outpatient follow-up. Pt Condition on Discharge: Stable Discharge Disposition: Discharge Home Discharge Time: <= 30 minutes Discharge Instructions DIET: Follow Instructions for: Heart Healthy Diet Activities you can perform: Regular-No Restrictions Follow up Referrals: PCP Follow-up New Orders: CT THORAX W/O CONTRAST (CHEST) - 1 Week New Medications: Prednisone (Prednisone) 20 Mg Tab 20 MG PO DIRECTED 20 MG daily x 3 days, then 10 MG daily x 4 days Inflammation #5 Ref 0 TAB Azithromycin (Azithromycin) 250 Mg Tab 250 MG PO DAILY #3 TAB Continued Medications: Albuterol 18 GM Inh (Ventolin Hfa 18 GM Inh) 90 Mcg/Act Aer 2 PUFF INH Q4HR PRN SHORTNESS OF BREATH #1 Ref 0 INHALER Alprazolam (Xanax) 0.25 Mg Tab 0.25 MG PO Q8H PRN ANXIETY #30 TAB Budesonide-Formoterol Inh (Symbicort Inh) 160-4.5 Mcg/Act Aero 1 PUFF INH Q12HR #1 Ref 0 INHALER Clonidine (Clonidine) 0.1 Mg Tab 0.1 MG PO BID Blood Pressure Management #60 Ref 0 TAB Hydrocodone-Acetaminophen (Lortab) 10-325 Mg Tab 1 TAB PO Q4H PRN PAIN Ref 0 TAB Lisinopril (Lisinopril) 40 Mg Tab 40 MG PO DAILY Blood Pressure Management #30 Ref 0 TAB Methocarbamol (Robaxin) 500 Mg Tab 500 MG PO DAILY Muscle Spasm Ref 0 TAB Preston Lees MD Apr 01, 2017 11:40
[2017-04-01 12:00] VITALS: BP 126/94; PULSE 70; RESP 18; TEMP 97.6; O2SAT 95
== END 2017-04-01 15:02 | disposition home or self-care (01) | DRG 191 ==
LOC: PHED 12:20 → PHEDA 14:48 → PHICU 16:14 → PH3B 17:24
PROVIDERS: ADMIT Family Medicine; ATTEND Family Medicine
DX: J44.1 Chronic obstructive pulmonary disease with (acute) exacerbation (principal); L97.419 Non-pressure chronic ulcer of right heel and midfoot with unspecified severity; I10 Essential (primary) hypertension; G47.30 Sleep apnea, unspecified; F41.9 Anxiety disorder, unspecified; H93.12 Tinnitus, left ear; F17.200 Nicotine dependence, unspecified, uncomplicated; M51.26 Other intervertebral disc displacement, lumbar region
CPT/HCPCS: 70491; 71010; 80048; 80053; 85025; 94640; 94664; 96374; J2920; J2930; J7512; Q9967

== ENCOUNTER 2017-04-12 10:01 | Emergency (ER) | payer MEDICARE, MEDICAID ==
[~2017-04-12] VITALS: Ht 160 cm; Wt 43.0 kg
[~2017-04-12 10:01] MED LIST changes: +AZIT250T3 PO; -CIPR250T52 PO; -CLIN150 PO; -MEDR4PAK PO; +PRED20 PO; -TYLE325T PO; -ZITHTAB PO
[2017-04-12 10:06] VITALS: BP 178/81; PULSE 61; RESP 24; TEMP 99.2; O2SAT 97
[2017-04-12] MEDS ORDERED: SODIUM CHLORIDE 0.9% FLUSH 10 ML FLUSH IVF PRN (10:30)
--- NOTE | 2017-04-12 10:32 | PD ---
HPI Chief Complaint: Respiratory Symptoms Time Seen by Provider: 10:22 Travel History International Travel<30 days: No Contact w/Intl Traveler<30days: No Traveled to known affect area: No History of Present Illness HPI this patient complains of shortness of breath. She has long-standing history of severe COPD and is nebulizer dependent. SHe says that she quit smoking 2 days ago. SHe has had shortness of breath for the last week but gradually worsening. She's been wheezing and congested. No fever or chest pain. Symptoms severity is moderate. No alleviating factors PFSH Past Medical History Arthritis: No Asthma: Yes Anxiety: Yes Cancer: No Cardiovascular Problems: Yes High Cholesterol: No Chemotherapy: No Congestive Heart Failure: No COPD: Yes Coronary Artery Disease: No Diabetes: No Diminished Hearing: Yes ("tinnitus left ear") Endocrine: No Gastrointestinal Disorders: No GERD: No Genitourinary: Yes (pt has lama cath in place ) Hiatal Hernia: No Herniated Disk: Yes Hypertension: Yes Immune Disorder: No Implanted Vascular Access Dvce: No Musculoskeletal: Yes Neurologic: No Psychiatric: No Reproductive: No Respiratory: Yes Integumentary: Yes (TREATED FOR CELLULITIS, R FOOT) Immunizations Current: Yes Radiation Therapy: No Sleep Apnea: Yes Thyroid Disease: No Ulcer: No : 0 Para: 0 Miscarriage: 0 : 0 Past Surgical History Abdominal Surgery: No Arteriovenous Shunt: No Cardiac Surgery: No Ear Surgery: No Endocrine Surgery: No Eye Surgery: No Genitourinary Surgery: No Gynecologic Surgery: Yes (hysterectomy) Hysterectomy: Yes Insulin Pump: No Joint Replacement: No Neurologic Surgery: No Oral Surgery: Yes (All teeth removed, cannot recall year) Thoracic Surgery: No Other Surgery: Yes (trach in past) Social History Alcohol Use: Yes (3-4 daily) Tobacco Use: Yes (states she recently quit) Substance Use: Yes (ONLY Marijuanna in the past) Allergies-Medications (Allergen,Severity, Reaction): Coded Allergies: aspirin (Unverified Adverse Reaction, Severe, "don't take aspirin i have tinnitus, 04/12/17) Reported Meds & Prescriptions Reported Meds & Active Scripts Active Xanax (Alprazolam) 0.25 Mg Tab 0.25 Mg PO Q8H PRN Reported Robaxin (Methocarbamol) 500 Mg Tab 500 Mg PO DAILY Lisinopril 40 Mg Tab 40 Mg PO DAILY Lortab (Hydrocodone-Acetaminophen) 10-325 Mg Tab 1 Tab PO Q4H PRN Symbicort Inh (Budesonide/Formoterol Fumarate) 160-4.5 Mcg/Act Aero 1 Puff INH Q12HR Clonidine (Clonidine HCl) 0.1 Mg Tab 0.1 Mg PO BID Ventolin Hfa 18 GM Inh (Albuterol Sulfate) 90 Mcg/Act Aer 2 Puff INH Q4HR PRN Review of Systems General / Constitutional: No: Fever Eyes: No: Visual changes HENT: No: Headaches Cardiovascular: No: Chest Pain or Discomfort Respiratory: Positive: Cough, Shortness of Breath, Wheezing Gastrointestinal: No: Abdominal Pain Genitourinary: No: Dysuria Musculoskeletal: No: Pain Skin: No Rash Neurologic: No: Weakness Psychiatric: No: Depression Endocrine: No: Polydipsia Hematologic/Lymphatic: No: Easy Bruising Physical Exam Narrative GENERAL: Thin, well-developed patient with shortness of breath. SKIN: Focused skin assessment reveals no rash and nodules. Skin is Warm and dry. HEAD: Atraumatic. Normocephalic. EYES: Pupils equal and round. No scleral icterus. No injection or drainage. ENT: No nasal bleeding or discharge. Mucous membranes pink and moist. Whitish lesions on the mucous membrane of oropharynx NECK: Trachea midline. No JVD. CARDIOVASCULAR: Regular rate and rhythm. No murmur appreciated. RESPIRATORY: Slight accessory muscle use. Diffuse expiratory wheezing. Breath sounds equal bilaterally. GASTROINTESTINAL: Abdomen soft, non-tender, nondistended. Hepatic and splenic margins not palpable. MUSCULOSKELETAL: No obvious deformities. No clubbing. No cyanosis. No edema. NEUROLOGICAL: Awake and alert. No obvious cranial nerve deficits. Motor grossly within normal limits. Normal speech. PSYCHIATRIC: Appropriate mood and affect; insight and judgment normal. Data Data Last Documented VS Vital Signs Date Time Temp Pulse Resp B/P (MAP) Pulse Ox O2 Delivery O2 Flow Rate FiO2 04/12/17 11:31 70 18 130/62 (84) 97 Room Air 2.00 04/12/17 10:06 99.2 Orders Orders Complete Blood Count With Diff (04/12/17 10:26) Basic Metabolic Panel (Bmp) (04/12/17 10:26) Iv Access Insert/Monitor (04/12/17 10:26) Ecg Monitoring (04/12/17 10:26) Oximetry (04/12/17 10:26) Oxygen Administration (04/12/17 10:26) Chest, Single Ap (04/12/17 10:26) Sodium Chloride 0.9% Flush (Ns Flush) (04/12/17 10:30) Albuterol-Ipratropium Neb (Duoneb Neb) (04/12/17 10:30) Labs Laboratory Tests Test 04/12/17 10:34 White Blood Count 9.1 TH/MM3 Red Blood Count 4.09 MIL/MM3 Hemoglobin 13.4 GM/DL Hematocrit 38.6 % Mean Corpuscular Volume 94.4 FL Mean Corpuscular Hemoglobin 32.7 PG Mean Corpuscular Hemoglobin Concent 34.6 % Red Cell Distribution Width 11.2 % Platelet Count 215 TH/MM3 Mean Platelet Volume 6.9 FL Neutrophils (%) (Auto) 64.7 % Lymphocytes (%) (Auto) 25.6 % Monocytes (%) (Auto) 8.2 % Eosinophils (%) (Auto) 0.4 % Basophils (%) (Auto) 1.1 % Neutrophils # (Auto) 6.0 TH/MM3 Lymphocytes # (Auto) 2.3 TH/MM3 Monocytes # (Auto) 0.7 TH/MM3 Eosinophils # (Auto) 0.0 TH/MM3 Basophils # (Auto) 0.1 TH/MM3 CBC Comment DIFF FINAL Differential Comment Blood Urea Nitrogen 5 MG/DL Creatinine 0.54 MG/DL Random Glucose 100 MG/DL Calcium Level 9.0 MG/DL Sodium Level 125 MEQ/L Potassium Level 4.2 MEQ/L Chloride Level 91 MEQ/L Carbon Dioxide Level 26.0 MEQ/L Anion Gap 8 MEQ/L Estimat Glomerular Filtration Rate 116 ML/MIN MDM Medical Decision Making Medical Screen Exam Complete: Yes Emergency Medical Condition: Yes Medical Record Reviewed: Yes Differential Diagnosis Differential diagnosis includes COPD, asthma, pneumonia, bronchitis, PE. Narrative Course I have reviewed the patient's electronic medical record. Reviewed her discharge summary from earlier this month IV placed CBC Metabolic profile I reviewed her chest x-ray I gave her series of 3 nebulizer treatments Paramedics gave her IV Solu-Medrol in route Diagnosis Primary Impression: COPD exacerbation Additional Impression: Hyponatremia Additional Instructions: The patient was advised to follow up with their physician and return if they worsen. Stop smoking 1200 mL per 24-hour fluid restriction Have your primary physician reassess your sodium next week Med/Other Pt SpecificInfo: Prescription(s) given Scripts Ipratropium Neb (Ipratropium Neb) 0.5 Mg/2.5 Ml Amp 0.5 MG NEB Q12HR NEB for Breathing Treatment, #60 NEBULE 0 Refills Prov: Leandro Lazcano MD 04/12/17 Albuterol Neb (Albuterol Neb) 2.5 Mg/3 Ml Neb 2.5 MG NEB Q4HR NEB Y for SHORTNESS OF BREATH, #60 NEBULE 0 Refills Prov: Leandro Lazcano MD 04/12/17 Prednisone (Prednisone) 20 Mg Tab 40 MG PO DAILY, #10 TAB 0 Refills Take 40 mg (2 tablets) daily for 5 days Prov: Leandro Lazcano MD 04/12/17 Disposition: 01 DISCHARGE HOME Condition: Stable Leandro Lazcano MD Apr 12, 2017 10:32
[2017-04-12] MEDS: RESP: ALBUTEROL 2.5 MG/IPRATROPIUM 0.5 MG NEB (SCH) INH ×2 (10:36→10:37)
[2017-04-12 10:37] VITALS: O2SAT 97
[2017-04-12 10:40] VITALS: O2SAT 93
[2017-04-12 10:46] LABS: BASOPHIL # 0.1 TH/MM3 (0-0.2); BASOPHIL % 1.1 % (0.0-2.0); EOSINOPHIL % 0.4 % (0.0-4.0); HEMATOCRIT 38.6 % (35.0-46.0); HEMO FLAGS DIFF FINAL; LYMPH % 25.6 % (9.0-44.0); LYMPHOCYTE # 2.3 TH/MM3 (1.0-4.8); MEAN CELL VOLUME 94.4 FL (80.0-100.0); MEAN CORPUSCULAR HEMOGLOBIN 32.7 PG (27.0-34.0); MEAN CORPUSCULAR HGB CONC 34.6 % (32.0-36.0); MONO % 8.2 % (0.0-8.0); NEUT % 64.7 % (16.0-70.0); PLATELET COUNT 215 TH/MM3 (150-450); RED BLOOD COUNT 4.09 MIL/MM3 (4.00-5.30); RED CELL DISTRIBUTION WIDTH 11.2 % (11.6-17.2); WHITE BLOOD COUNT 9.1 TH/MM3 (4.0-11.0)
[2017-04-12 10:53] LABS: POTASSIUM 4.2 MEQ/L (3.5-5.1)
--- NOTE | 2017-04-12 10:57 | RADRPT ---
EXAM DATE/TIME: 04/12/2017 10:33 [facility] COMPARISON: CHEST SINGLE AP, March 30, 2017, 13:15. INDICATIONS : Short of breath. MEDICAL HISTORY : Emphysema. Hypertension. Chronic obstructive pulmonary disease. Dyspnea. Herniated disc. Osteop orosis. Sleep apena. Liver disease. SURGICAL HISTORY : Hysterectomy. Back surgery. History of tracheostomy. ENCOUNTER: Initial ACUITY: 1 day PAIN SCORE: 0/10 LOCATION: chest FINDINGS: A single view of the chest demonstrates the lungs to be symmetrically aerated without evidence of mas s, infiltrate or effusion. Lungs are hyperexpanded. The cardiomediastinal contours are unremarkable. Osseous structures are intact. CONCLUSION: 1. No acute cardiopulmonary disease. Claudio Fajardo MD on April 12, 2017 at 10:55 Board Certified Radiologist. This report was verified electronically.
[2017-04-12 11:31] VITALS: BP 130/62; PULSE 70; RESP 18; O2SAT 97
[2017-04-12] MEDS ORDERED: PRED20 PO (11:52)
[2017-04-12] MEDS ORDERED: ALBU0.08 NEB (11:52)
[2017-04-12] MEDS ORDERED: IPRA0.02 NEB (11:52)
== END 2017-04-12 12:22 | disposition home or self-care (01) ==
LOC: PHED 10:01
DX: J44.1 Chronic obstructive pulmonary disease with (acute) exacerbation (principal); E87.1 Hypo-osmolality and hyponatremia; I10 Essential (primary) hypertension; M81.0 Age-related osteoporosis without current pathological fracture; Z87.891 Personal history of nicotine dependence; G47.30 Sleep apnea, unspecified; Z96.0 Presence of urogenital implants
CPT/HCPCS: 71010; 80048; 85025; 94640; 94664; 99284

== ENCOUNTER 2017-05-03 16:00 | Emergency (ER) | payer MEDICARE, MEDICAID ==
[~2017-05-03] VITALS: Ht 160 cm; Wt 45.0 kg
[2017-05-03 16:00] VITALS: BP 187/69; PULSE 82; RESP 20; TEMP 98.6; O2SAT 96
[~2017-05-03 16:00] MED LIST changes: +ALBU0.08 NEB; -AZIT250T3 PO; +IPRA0.02 NEB
[2017-05-03 16:18] VITALS: RESP 20; O2SAT 96
[2017-05-03] MEDS: RESP: ALBUTEROL 2.5 MG/IPRATROPIUM 0.5 MG NEB (SCH) INH (16:24)
--- NOTE | 2017-05-03 16:25 | PD ---
HPI Chief Complaint: Respiratory Symptoms Time Seen by Provider: 16:12 Travel History International Travel<30 days: No Contact w/Intl Traveler<30days: No Traveled to known affect area: No History of Present Illness HPI Patient is a 61-year-old female with history of COPD, presents to the emergency room with COPD exacerbation. She reports that she's been having problems with shortness of breath and wheezing for the past month. She is a smoker, reports she is quit smoking a few days ago. Patient reports that this morning, she had anxiety attack and began to feel sob. Patient did try to use neb treatments at home with no relief of symptoms. EMS arrived on scene and administered solumedrol 125mg IV as well as administered 3 albuterol treatments. Patient reports that she took an "anxiety" pill for her anxiety today and reports relief of this. Patient denies any chest pain at this time. Denies any fevers or chills. Patient reports that she is feeling much better after steroids and albuterol treatments. PFSH Past Medical History Arthritis: No Asthma: Yes Anxiety: Yes Cancer: No Cardiovascular Problems: Yes High Cholesterol: No Chemotherapy: No Congestive Heart Failure: No COPD: Yes Coronary Artery Disease: No Diabetes: No Diminished Hearing: Yes ("tinnitus left ear") Endocrine: No Gastrointestinal Disorders: No GERD: No Genitourinary: Yes (pt has lama cath in place ) Hiatal Hernia: No Herniated Disk: Yes Hypertension: Yes Immune Disorder: No Implanted Vascular Access Dvce: No Musculoskeletal: Yes Neurologic: No Psychiatric: No Reproductive: No Respiratory: Yes Integumentary: Yes (TREATED FOR CELLULITIS, R FOOT) Immunizations Current: Yes Radiation Therapy: No Sleep Apnea: Yes Thyroid Disease: No Ulcer: No Influenza Vaccination: No ?: Not : 0 Para: 0 Miscarriage: 0 : 0 Past Surgical History Abdominal Surgery: No Arteriovenous Shunt: No Cardiac Surgery: No Ear Surgery: No Endocrine Surgery: No Eye Surgery: No Genitourinary Surgery: No Gynecologic Surgery: Yes (hysterectomy) Hysterectomy: Yes Insulin Pump: No Joint Replacement: No Neurologic Surgery: No Oral Surgery: Yes (All teeth removed, cannot recall year) Thoracic Surgery: No Other Surgery: Yes (trach in past) Social History Alcohol Use: Yes (3-4 daily) Tobacco Use: Yes (states she recently quit) Substance Use: Yes (ONLY Marijuanna in the past) Allergies-Medications (Allergen,Severity, Reaction): Coded Allergies: aspirin (Unverified Adverse Reaction, Severe, "don't take aspirin i have tinnitus, 05/03/17) Reported Meds & Prescriptions Reported Meds & Active Scripts Active Proair Hfa 8.5 GM Inh (Albuterol Sulfate) 90 Mcg/Act Aer 2 Puff INH Q4-6H PRN 108 mcg/actuation Prednisone 20 Mg Tab 20 Mg PO BID 7 Days Ipratropium Neb (Ipratropium Chambers) 0.5 Mg/2.5 Ml Amp 0.5 Mg NEB Q12HR NEB Albuterol Neb (Albuterol Sulfate) 2.5 Mg/3 Ml Neb 2.5 Mg NEB Q4HR NEB PRN Xanax (Alprazolam) 0.25 Mg Tab 0.25 Mg PO Q8H PRN Reported Robaxin (Methocarbamol) 500 Mg Tab 500 Mg PO DAILY Lisinopril 40 Mg Tab 40 Mg PO DAILY Lortab (Hydrocodone-Acetaminophen) 10-325 Mg Tab 1 Tab PO Q4H PRN Symbicort Inh (Budesonide/Formoterol Fumarate) 160-4.5 Mcg/Act Aero 1 Puff INH Q12HR Clonidine (Clonidine HCl) 0.1 Mg Tab 0.1 Mg PO BID Ventolin Hfa 18 GM Inh (Albuterol Sulfate) 90 Mcg/Act Aer 2 Puff INH Q4HR PRN Review of Systems General / Constitutional: No: Fever Eyes: No: Visual changes HENT: No: Headaches Cardiovascular: No: Chest Pain or Discomfort, Palpitations, Irregular Rhythm Respiratory: Positive: Cough, Shortness of Breath, Wheezing Gastrointestinal: No: Abdominal Pain Genitourinary: No: Dysuria Musculoskeletal: No: Pain Skin: No Rash Neurologic: No: Weakness Psychiatric: No: Depression Endocrine: No: Polydipsia Hematologic/Lymphatic: No: Easy Bruising Physical Exam Narrative GENERAL: NAD, nontoxic SKIN: Focused skin assessment warm/dry. HEAD: Atraumatic. Normocephalic. EYES: Pupils equal and round. No scleral icterus. No injection or drainage. ENT: No nasal bleeding or discharge. Mucous membranes pink and moist. NECK: Trachea midline. No JVD. CARDIOVASCULAR: Regular rate and rhythm. No murmur appreciated. RESPIRATORY: No accessory muscle use. Scattered wheezing on exam. Breath sounds equal bilaterally. GASTROINTESTINAL: Abdomen soft, non-tender, nondistended. Hepatic and splenic margins not palpable. MUSCULOSKELETAL: No obvious deformities. No clubbing. No cyanosis. No edema. NEUROLOGICAL: Awake and alert. No obvious cranial nerve deficits. Motor grossly within normal limits. Normal speech. PSYCHIATRIC: Appropriate mood and affect; insight and judgment normal. Data Data Last Documented VS Vital Signs Date Time Temp Pulse Resp B/P (MAP) Pulse Ox O2 Delivery O2 Flow Rate FiO2 05/03/17 16:52 74 18 181/93 (122) 98 Room Air 05/03/17 16:00 98.6 Orders Orders Ecg Monitoring (05/03/17 16:17) Oximetry (05/03/17 16:17) Chest, Single Ap (05/03/17 16:17) Albuterol-Ipratropium Neb (Duoneb Neb) (05/03/17 16:30) MDM Medical Decision Making Medical Screen Exam Complete: Yes Emergency Medical Condition: Yes Medical Record Reviewed: Yes Interpretation(s) Vital Signs Date Time Temp Pulse Resp B/P (MAP) Pulse Ox O2 Delivery O2 Flow Rate FiO2 05/03/17 16:18 20 96 Room Air 05/03/17 16:00 20 96 Room Air 05/03/17 16:00 98.6 82 20 187/69 (108) 96 Differential Diagnosis Differential includes COPD exacerbation, pneumonia, anxiety reaction Narrative Course Patient is a 61-year-old female who presents to emergency room with complaints of COPD exacerbation. Patient received 125 mg of Solu-Medrol as well as 3 nebulizer treatments prior to coming to the emergency room. Patient reports that she is feeling much better at this time. Xray of chest ordered. Patient does have mild wheezing - will administer another duoneb Vital Signs Date Time Temp Pulse Resp B/P (MAP) Pulse Ox O2 Delivery O2 Flow Rate FiO2 05/03/17 16:52 74 18 181/93 (122) 98 Room Air 05/03/17 16:18 20 96 Room Air 05/03/17 16:00 20 96 Room Air 05/03/17 16:00 98.6 82 20 187/69 (108) 96 Last Impressions Chest X-Ray 05/03/17 1617 Signed Impressions: Service Date/Time: , May 03, 2017 17:14 - CONCLUSION: Normal examination. Priyank Tomlin MD Patient reevaluated, patient feeling much better at this time. Patient reports complete resolution of symptoms. Patient with decreased wheezing, plan to have patient follow up with pcp and she will return to ER as needed Diagnosis Primary Impression: COPD exacerbation Patient Instructions: General Instructions Additional Instructions: Please follow up with your primary care doctor Return to ER as needed Return to ER if symptoms worsen or progress Please take all medications as prescribed Scripts Albuterol 8.5 GM Inh (Proair Hfa 8.5 GM Inh) 90 Mcg/Act Aer 2 PUFF INH Q4-6H Y for SHORTNESS OF BREATH, #1 INHALER 0 Refills 108 mcg/actuation Prov: Ramona Dominguez DO 05/03/17 Prednisone (Prednisone) 20 Mg Tab 20 MG PO BID for 7 Days, #14 TAB 0 Refills Prov: Ramona Dominguez DO 05/03/17 Disposition: 01 DISCHARGE HOME Condition: Stable Ramona Dominguez DO May 03, 2017 16:25
[2017-05-03 16:52] VITALS: BP 181/93; PULSE 74; RESP 18; O2SAT 98
--- NOTE | 2017-05-03 17:21 | RADRPT ---
EXAM DATE/TIME: 05/03/2017 17:14 [facility] COMPARISON: CHEST SINGLE AP, April 12, 2017, 10:33. INDICATIONS : Short of breath for one month. MEDICAL HISTORY : Chronic obstructive pulmonary disease. Hypertension. Asthma SURGICAL HISTORY : None. ENCOUNTER: Initial ACUITY: 1 month PAIN SCORE: 0/10 LOCATION: Bilateral chest FINDINGS: A single view of the chest demonstrates the lungs to be symmetrically aerated without evidence of mas s, infiltrate or effusion. The cardiomediastinal contours are unremarkable. Osseous structures are intact. CONCLUSION: Normal examination. Priyank Tomlin MD on May 03, 2017 at 17:19 Board Certified Radiologist. This report was verified electronically.
[2017-05-03] MEDS ORDERED: ALBUAER3 INH (17:39)
[2017-05-03] MEDS ORDERED: PRED20 PO (17:39)
== END 2017-05-03 17:53 | disposition home or self-care (01) ==
LOC: PHED 16:00
DX: J44.1 Chronic obstructive pulmonary disease with (acute) exacerbation (principal); F41.9 Anxiety disorder, unspecified; I10 Essential (primary) hypertension; F17.210 Nicotine dependence, cigarettes, uncomplicated
CPT/HCPCS: 71010; 94640; 94664; 99284

== ENCOUNTER 2017-05-12 06:32 | Inpatient (IN) | payer MEDICARE, MEDICAID ==
[~2017-05-12] VITALS: Ht 165.1 cm; Wt 37.2 kg
[2017-05-12] VITALS (12 sets, daily range): BP systolic 126–208; BP diastolic 64–94; PULSE 77–98; RESP 17–24; TEMP 97.7–98.3; O2SAT 95–100
[~2017-05-12 06:32] MED LIST changes: +ALBUAER3 INH
--- NOTE | 2017-05-12 06:56 | PD ---
HPI Chief Complaint: Respiratory Symptoms Time Seen by Provider: 06:45 Travel History International Travel<30 days: No Contact w/Intl Traveler<30days: No Traveled to known affect area: No History of Present Illness HPI The patient is a 61-year-old female with a history of COPD who complains of shortness of breath for the last 5 days. She has an albuterol nebulizer at home and used it tonight. She states she got more short of breath tonight and "got scared" and called the ambulance. The ambulance gave her 2 albuterol treatments in route and 125 of Solu-Medrol. The patient states she only has one albuterol left for her nebulizer at home. She is about to run out. Patient has been a heavy smoker for 40-50 years but managed to quit smoking one month ago. She is a Medicare a and B patient of Dr. Perdue. She rarely gets admitted to this hospital. She does not get oxygen at home. Her last chest x- ray was 2 weeks ago. The patient states she cannot take prednisone because she gets "every side effect on the paper". PFSH Past Medical History Arthritis: No Asthma: Yes Anxiety: Yes Cancer: No Cardiovascular Problems: Yes High Cholesterol: No Chemotherapy: No Congestive Heart Failure: No COPD: Yes Coronary Artery Disease: No Diabetes: No Diminished Hearing: Yes ("tinnitus left ear") Endocrine: No Gastrointestinal Disorders: No GERD: No Genitourinary: Yes (pt has lama cath in place ) Hiatal Hernia: No Herniated Disk: Yes Hypertension: Yes Immune Disorder: No Implanted Vascular Access Dvce: No Musculoskeletal: Yes Neurologic: No Psychiatric: No Reproductive: No Respiratory: Yes Integumentary: Yes (TREATED FOR CELLULITIS, R FOOT) Immunizations Current: Yes Radiation Therapy: No Sleep Apnea: Yes Thyroid Disease: No Ulcer: No Tetanus Vaccination: < 5 Years Influenza Vaccination: Yes ?: Not : 0 Para: 0 Miscarriage: 0 : 0 Past Surgical History Abdominal Surgery: No Arteriovenous Shunt: No Cardiac Surgery: No Ear Surgery: No Endocrine Surgery: No Eye Surgery: No Genitourinary Surgery: No Gynecologic Surgery: Yes (hysterectomy) Hysterectomy: Yes Insulin Pump: No Joint Replacement: No Neurologic Surgery: No Oral Surgery: Yes (All teeth removed, cannot recall year) Thoracic Surgery: No Other Surgery: Yes (trach in past) Social History Alcohol Use: Yes (3-4 daily) Tobacco Use: Yes (quit april 12) Substance Use: No Allergies-Medications (Allergen,Severity, Reaction): Coded Allergies: aspirin (Unverified Adverse Reaction, Severe, "don't take aspirin i have tinnitus, 05/12/17) Reported Meds & Prescriptions Reported Meds & Active Scripts Active Proair Hfa 8.5 GM Inh (Albuterol Sulfate) 90 Mcg/Act Aer 2 Puff INH Q4-6H PRN 108 mcg/actuation Prednisone 20 Mg Tab 20 Mg PO BID 7 Days Ipratropium Neb (Ipratropium Bradley) 0.5 Mg/2.5 Ml Amp 0.5 Mg NEB Q12HR NEB Albuterol Neb (Albuterol Sulfate) 2.5 Mg/3 Ml Neb 2.5 Mg NEB Q4HR NEB PRN Xanax (Alprazolam) 0.25 Mg Tab 0.25 Mg PO Q8H PRN Reported Robaxin (Methocarbamol) 500 Mg Tab 500 Mg PO DAILY Lisinopril 40 Mg Tab 40 Mg PO DAILY Lortab (Hydrocodone-Acetaminophen) 10-325 Mg Tab 1 Tab PO Q4H PRN Symbicort Inh (Budesonide/Formoterol Fumarate) 160-4.5 Mcg/Act Aero 1 Puff INH Q12HR Clonidine (Clonidine HCl) 0.1 Mg Tab 0.1 Mg PO BID Ventolin Hfa 18 GM Inh (Albuterol Sulfate) 90 Mcg/Act Aer 2 Puff INH Q4HR PRN Review of Systems Except as stated in HPI: all other systems reviewed are Neg Physical Exam Narrative GENERAL: The patient is alert, oriented 3 in slight respiratory distress. Her vital signs show blood pressure 208/94 with a heart rate of 94 and respirations 24 and oximetry 97% on room air. SKIN: Focused skin assessment warm/dry. HEAD: Atraumatic. Normocephalic. EYES: Pupils equal and round. No scleral icterus. No injection or drainage. ENT: No nasal bleeding or discharge. Mucous membranes pink and moist. NECK: Trachea midline. No JVD. CARDIOVASCULAR: Regular rate and rhythm. No murmur appreciated. RESPIRATORY: No accessory muscle use. Breath sounds are markedly diminished bilaterally but they're only a few wheezes.. Breath sounds equal bilaterally. GASTROINTESTINAL: Abdomen soft, non-tender, nondistended. Hepatic and splenic margins not palpable. MUSCULOSKELETAL: No obvious deformities. No clubbing. No cyanosis. No edema. NEUROLOGICAL: Awake and alert. No obvious cranial nerve deficits. Motor grossly within normal limits. Normal speech. PSYCHIATRIC: Appropriate mood and affect; insight and judgment normal. Data Data Last Documented VS Vital Signs Date Time Temp Pulse Resp B/P (MAP) Pulse Ox O2 Delivery O2 Flow Rate FiO2 05/12/17 07:00 97 Room Air 05/12/17 06:58 98.1 89 20 200/84 (122) Orders Orders Complete Blood Count With Diff (05/12/17 06:57) Basic Metabolic Panel (Bmp) (05/12/17 06:57) Iv Access Insert/Monitor (05/12/17 06:57) Ecg Monitoring (05/12/17 06:57) Oximetry (05/12/17 06:57) Oxygen Administration (05/12/17 06:57) Sodium Chloride 0.9% Flush (Ns Flush) (05/12/17 07:00) Albuterol-Ipratropium Neb (Duoneb Neb) (05/12/17 07:00) [facility] Medical Decision Making Medical Screen Exam Complete: Yes Emergency Medical Condition: Yes Medical Record Reviewed: Yes Differential Diagnosis COPD with acute exacerbation, congestive heart failure, electrolyte disorder, anxiety, Narrative Course Is now 702 and the patient is transferred to Dr. Antonio. Koko Cervantes MD May 12, 2017 06:56
[2017-05-12] MEDS ORDERED: SODIUM CHLORIDE 0.9% FLUSH 10 ML FLUSH IVF PRN (07:00)
[2017-05-12] MEDS: RESP: ALBUTEROL 2.5 MG/IPRATROPIUM 0.5 MG NEB (SCH) INH ×3 (07:17→19:44)
[2017-05-12 07:20] LABS: AUTOMATED NEUTROPHIL # 4.9 TH/MM3 (1.8-7.7); BASOPHIL % 0.3 % (0.0-2.0); EOSINOPHIL % 0.3 % (0.0-4.0); HEMO FLAGS DIFF FINAL; LYMPHOCYTE # 2.5 TH/MM3 (1.0-4.8); MEAN CELL VOLUME 95.3 FL (80.0-100.0); MEAN CORPUSCULAR HEMOGLOBIN 32.2 PG (27.0-34.0); MEAN CORPUSCULAR HGB CONC 33.8 % (32.0-36.0); MONO % 9.8 % (0.0-8.0); NEUT % 58.6 % (16.0-70.0); PLATELET COUNT 346 TH/MM3 (150-450); RED CELL DISTRIBUTION WIDTH 11.9 % (11.6-17.2); WHITE BLOOD COUNT 8.2 TH/MM3 (4.0-11.0)
[2017-05-12 07:28] LABS: POTASSIUM 3.6 MEQ/L (3.5-5.1)
[2017-05-12 07:31] LABS: BICARBONATE 25.5 MEQ/L (21.0-32.0)
[2017-05-12] MEDS ORDERED: AZITHROMYCIN INJ 500 MG in SODIUM CHLOR 0.9% 250 ML INJ 250 ML IV ONE (08:30)
[2017-05-12] MEDS ORDERED: SODIUM CHLORID 0.9% 500 ML INJ 500 ML IV ONE (08:30)
--- NOTE | 2017-05-12 09:19 | RADRPT ---
EXAM DATE/TIME: 05/12/2017 08:54 [facility] COMPARISON: CT SOFT TISSUE NECK W CONTRAST, March 30, 2017, 13:48. INDICATIONS : Wheezing. Short of breath. MEDICAL HISTORY : None. SURGICAL HISTORY : None. ENCOUNTER: Initial ACUITY: 3 days PAIN SCORE: 6/10 LOCATION: Bilateral neck FINDINGS: 2 views of the neck soft tissues demonstrate no prevertebral soft tissue swelling. The epiglottis dem onstrates normal shape. There is no radiopaque foreign body visualized. Extensive carotid artery calc ifications are present bilaterally. The bones demonstrate no acute finding. Visualized upper lung zon es are clear. CONCLUSION: No acute abnormality is identified. Jesus Perez MD on May 12, 2017 at 9:16 Board Certified Radiologist. This report was verified electronically.
--- NOTE | 2017-05-12 09:20 | RADRPT ---
EXAM DATE/TIME: 05/12/2017 08:53 [facility] COMPARISON: CT SOFT TISSUE NECK W CONTRAST, March 30, 2017, 13:48. CHEST SINGLE AP, May 03, 2017, 17:14. INDICATIONS : Short of breath. MEDICAL HISTORY : None. SURGICAL HISTORY : None. ENCOUNTER: Initial ACUITY: 3 days PAIN SCORE: 5/10 LOCATION: Bilateral chest FINDINGS: Portable AP view of the chest demonstrates a normal-sized cardiac silhouette. Lungs are hyperinflated . No effusion, consolidation, or pneumothorax is visualized. The bones and soft tissues demonstrate n o acute abnormality. CONCLUSION: No acute cardiopulmonary abnormality is identified. Background lung changes characteristic of mild em physema. Jesus Perez MD on May 12, 2017 at 9:17 Board Certified Radiologist. This report was verified electronically.
[2017-05-12] MEDS ORDERED: ZITHTAB PO (09:31)
[2017-05-12] MEDS ORDERED: ALBU6.7H INH (09:31)
--- NOTE | 2017-05-12 09:31 | PD ---
Physical Exam Date Seen by Provider: May 12, 2017 Time Seen by Provider: 07:00 Narrative Patient signed out to me by Dr. Cervantes at 7 AM, please see his notes for further details. Patient is coming in with coughing, shortness of breath, history of chronic COPD. She was given nebulizers in the ER but is not able to take steroids secondary to side effects. She was given a chest x-ray and soft tissue neck x-ray which did not show any signs of acute processes although did confirm some signs of mild emphysema. At this point, patient is reevaluated at 9:20 AM, is feeling improved and saturations are improved. She appears in much decreased respiratory distress. She is handling secretions without issues. At this point, I have talked to the patient and she states she feels much better and is agreeable to be released with follow-up to primary care doctor. Return for worsening in symptoms as necessary. The plan has been discussed with her and she states understanding. Laboratory Tests Test 05/12/17 07:10 Mean Platelet Volume 6.9 FL (7.0-11.0) Monocytes (%) (Auto) 9.8 % (0.0-8.0) Blood Urea Nitrogen 4 MG/DL (7-18) Random Glucose 130 MG/DL (74-106) Sodium Level 128 MEQ/L (136-145) Chloride Level 93 MEQ/L (98-107) Last 24 hours Impressions Chest X-Ray 05/12/17 0824 Signed Impressions: Service Date/Time: Friday, May 12, 2017 08:53 - CONCLUSION: No acute cardiopulmonary abnormality is identified. Background lung changes characteristic of mild emphysema. Jesus Perez MD Soft Tissue Neck X-Ray 05/12/17 0000 Signed Impressions: Service Date/Time: Friday, May 12, 2017 08:54 - CONCLUSION: No acute abnormality is identified. Jesus ePrez MD Data Data Last Documented VS Vital Signs Date Time Temp Pulse Resp B/P (MAP) Pulse Ox O2 Delivery O2 Flow Rate FiO2 05/12/17 09:10 92 20 126/76 (93) 99 Room Air 05/12/17 07:18 21 05/12/17 06:58 98.1 Orders Orders Complete Blood Count With Diff (05/12/17 06:57) Basic Metabolic Panel (Bmp) (05/12/17 06:57) Iv Access Insert/Monitor (05/12/17 06:57) Ecg Monitoring (05/12/17 06:57) Oximetry (05/12/17 06:57) Oxygen Administration (05/12/17 06:57) Sodium Chloride 0.9% Flush (Ns Flush) (05/12/17 07:00) Albuterol-Ipratropium Neb (Duoneb Neb) (05/12/17 07:00) Sodium Chlorid 0.9% 500 Ml Inj (Ns 500 M (05/12/17 08:30) Chest, Single Ap (05/12/17 08:24) Blood Culture (05/12/17 08:24) Azithromycin Inj (Zithromax Inj) (05/12/17 08:30) Soft Tissue Neck (05/12/17 ) Labs Laboratory Tests Test 05/12/17 07:10 White Blood Count 8.2 TH/MM3 Red Blood Count 4.30 MIL/MM3 Hemoglobin 13.8 GM/DL Hematocrit 41.0 % Mean Corpuscular Volume 95.3 FL Mean Corpuscular Hemoglobin 32.2 PG Mean Corpuscular Hemoglobin Concent 33.8 % Red Cell Distribution Width 11.9 % Platelet Count 346 TH/MM3 Mean Platelet Volume 6.9 FL Neutrophils (%) (Auto) 58.6 % Lymphocytes (%) (Auto) 31.0 % Monocytes (%) (Auto) 9.8 % Eosinophils (%) (Auto) 0.3 % Basophils (%) (Auto) 0.3 % Neutrophils # (Auto) 4.9 TH/MM3 Lymphocytes # (Auto) 2.5 TH/MM3 Monocytes # (Auto) 0.8 TH/MM3 Eosinophils # (Auto) 0.0 TH/MM3 Basophils # (Auto) 0.0 TH/MM3 CBC Comment DIFF FINAL Differential Comment Blood Urea Nitrogen 4 MG/DL Creatinine 0.50 MG/DL Random Glucose 130 MG/DL Calcium Level 9.3 MG/DL Sodium Level 128 MEQ/L Potassium Level 3.6 MEQ/L Chloride Level 93 MEQ/L Carbon Dioxide Level 25.5 MEQ/L Anion Gap 10 MEQ/L Estimat Glomerular Filtration Rate 126 ML/MIN [facility] Medical Record Reviewed: Yes Supervised Visit with TAMELA: No Diagnosis Primary Impression: Bronchitis Med/Other Pt SpecificInfo: Prescription(s) given Scripts Albuterol 6.7 GM Inh (Proventil Hfa 6.7 GM Inh) 90 Mcg/Act Aer 2 PUFF INH Q4-6H Y for SHORTNESS OF BREATH, #1 INHALER 0 Refills Prov: Deepti Cramer MD 05/12/17 Azithromycin (Zithromax Z-Nick) 250 Mg Dspk 250 MG PO DIRECTED for Infection, #1 DSPK 0 Refills 500 MG (2 tabs) day 1, then 1 tab days 2-5. Prov: Deepti Cramer MD 05/12/17 Disposition: 01 DISCHARGE HOME Condition: Stable Deepti Cramer MD May 12, 2017 09:31
[2017-05-12] MEDS ORDERED: AZITHROMYCIN 250 MG TAB PO SCH (14:45)
[2017-05-12] MEDS ORDERED: RESP: ALBUTEROL 2.5 MG/3 ML NEB (PRN) INH (14:45)
[2017-05-12] MEDS ORDERED: ACETAMINOPHEN/HYDROcodone 325 MG/10 MG TAB PO PRN (14:45)
[2017-05-12] MEDS ORDERED: SODIUM CHLORIDE 0.9% FLUSH 10 ML FLUSH IV FLUSH PRN (14:45)
[2017-05-12] MEDS ORDERED: hydrALAZINE HCL 20 MG/ML VIAL IV PUSH PRN (15:00)
--- NOTE | 2017-05-12 15:02 | HHI.HP ---
[facility] Liang Perdue, DO Admission Diagnosis COPD exacerbation Diagnoses: Chief Complaint: Short of breath Travel History International Travel<30 Days: No Contact w/Intl Traveler <30 Da: No Traveled to Known Affected Are: No History of Present Illness This patient is a 61-year-old female with a known history of COPD. She did come to the hospital with complaints of increased shortness of breath and having to use her home nebulizers more frequently. She was on steroids and antibiotics without improvement. She is quite wheezy on exam with some pursed lip breathing and tachypnea and accessory muscle use. Patient was expected to be discharged in the emergency room but became more short of breath and had worsening respiratory distress. Patient lives home alone, and was therefore recommended for further observation in the hospital. Her blood pressure is quite elevated also Review of Systems Constitutional: COMPLAINS OF: Fatigue, Weight loss, Dizziness, DENIES: Diaphoretic episodes, Fever, Weight gain, Chills, Change in appetite, Night Sweats Endocrine: DENIES: Abnorml menstrual pattern, Heat/cold intolerance, Polydipsia , Polyuria, Polyphagia Eyes: DENIES: Blurred vision, Diplopia, Eye inflammation, Eye pain, Vision loss , Photosensitivity, Double Vision Ears, nose, mouth, throat: DENIES: Tinnitus, Hearing loss, Vertigo, Nasal discharge, Oral lesions, Throat pain, Hoarseness, Ear Pain, Running Nose, Epistaxis, Sinus Pain, Toothache, Odynophagia Respiratory: COMPLAINS OF: Cough, Wheezing, Sputum production, Shortness of breath, DENIES: Apneas, Snoring, Hemoptysis Cardiovascular: COMPLAINS OF: Dyspnea on Exertion, Orthopnea, DENIES: Chest pain, Palpitations, Syncope, PND, Lower Extremity Edema, Claudication Gastrointestinal: DENIES: Abdominal pain, Black stools, Bloody stools, Constipation, Diarrhea, Nausea, Vomiting, Difficulty Swallowing, Anorexia Genitourinary: DENIES: Abnormal vaginal bleeding, Dysmenorrhea, Dyspareunia, Sexual dysfunction, Urinary frequency, Urinary incontinence, Urgency, Hematuria , Dysuria, Nocturia, Vaginal discharge Musculoskeletal: DENIES: Joint pain, Muscle aches, Stiffness, Joint Swelling, Back pain, Neck pain Integumentary: DENIES: Abnormal pigmentation, Pruritus, Rash, Nail changes, Breast masses, Breast skin changes, Nipple discharge Neurologic: DENIES: Abnormal gait, Headache, Localized weakness, Paresthesias, Seizures, Speech Problems, Tremor, Poor Balance Psychiatric: DENIES: Anxiety, Confusion, Mood changes, Depression, Hallucinations, Agitation, Suicidal Ideation, Homicidal Ideation, Delusions Past Family Social History Past Medical History COPD Hypertension bladder outlet obstruction Past Surgical History Lama Reported Medications reviewed in the EMR Allergies: Coded Allergies: aspirin (Unverified Adverse Reaction, Severe, "don't take aspirin i have tinnitus, 05/12/17) Active Ordered Medications reviewed in the EMR Family History "everyone has copd is on O2" Social History Patient stopped smoking 1 month ago lives alone no etoh Physical Exam Vital Signs Vital Signs Date Time Temp Pulse Resp B/P (MAP) Pulse Ox O2 Delivery O2 Flow Rate FiO2 05/12/17 11:28 05/12/17 10:40 84 18 177/80 (112) 98 Room Air 05/12/17 10:20 98 Nasal Cannula 2.00 05/12/17 10:20 115 24 92 05/12/17 09:10 92 20 126/76 (93) 99 Room Air 05/12/17 09:10 20 99 Room Air 05/12/17 07:56 85 20 178/65 (102) 97 Room Air 05/12/17 07:18 95 21 05/12/17 07:00 97 Room Air 05/12/17 06:58 97 Room Air 05/12/17 06:58 98.1 89 20 200/84 (122) 97 Room Air 05/12/17 06:39 97 Room Air 05/12/17 06:36 98.3 98 24 208/94 (132) 97 Physical Exam GENERAL: This is a thin, well-developed patient, with pursed lip breathing SKIN: No rashes, ecchymoses or lesions. Cool and dry. HEAD: Atraumatic. Normocephalic. No temporal or scalp tenderness. EYES: Pupils equal round and reactive. Extraocular motions intact. No scleral icterus. No injection or drainage. ENT: Nose without bleeding, purulent drainage or septal hematoma. Throat without erythema, tonsillar hypertrophy or exudate. Uvula midline. Airway patent. NECK: Trachea midline. No JVD or lymphadenopathy. Supple, nontender, no meningeal signs. CARDIOVASCULAR: Regular rate and rhythm without murmurs, gallops, or rubs. RESPIRATORY: Bilateral scattered wheezes and rhonchi, decreased airflow overall GASTROINTESTINAL: Lama, Abdomen soft, non-tender, nondistended. No hepato- splenomegaly, or palpable masses. No guarding. MUSCULOSKELETAL: Extremities without clubbing, cyanosis, or edema. No joint tenderness, effusion, or edema noted. No calf tenderness. Negative Homans sign bilaterally. NEUROLOGICAL: Awake and alert. Cranial nerves II through XII intact. Motor and sensory grossly within normal limits. Five out of 5 muscle strength in all muscle groups. Normal speech. Laboratory Laboratory Tests Test 05/12/17 07:10 White Blood Count 8.2 Red Blood Count 4.30 Hemoglobin 13.8 Hematocrit 41.0 Mean Corpuscular Volume 95.3 Mean Corpuscular Hemoglobin 32.2 Mean Corpuscular Hemoglobin Concent 33.8 Red Cell Distribution Width 11.9 Platelet Count 346 Mean Platelet Volume 6.9 Neutrophils (%) (Auto) 58.6 Lymphocytes (%) (Auto) 31.0 Monocytes (%) (Auto) 9.8 Eosinophils (%) (Auto) 0.3 Basophils (%) (Auto) 0.3 Neutrophils # (Auto) 4.9 Lymphocytes # (Auto) 2.5 Monocytes # (Auto) 0.8 Eosinophils # (Auto) 0.0 Basophils # (Auto) 0.0 CBC Comment DIFF FINAL Differential Comment Blood Urea Nitrogen 4 Creatinine 0.50 Random Glucose 130 Calcium Level 9.3 Sodium Level 128 Potassium Level 3.6 Chloride Level 93 Carbon Dioxide Level 25.5 Anion Gap 10 Estimat Glomerular Filtration Rate 126 Date/Time Source Procedure Growth Status 05/12/17 08:35 Blood Peripheral Aerobic Blood Culture Pending Received 05/12/17 08:35 Blood Peripheral Anaerobic Blood Culture Pending Received Result Diagram: 05/12/17 0710 05/12/17 0710 Imaging Last Impressions Chest X-Ray 05/12/17 0824 Signed Impressions: Service Date/Time: Friday, May 12, 2017 08:53 - CONCLUSION: No acute cardiopulmonary abnormality is identified. Background lung changes characteristic of mild emphysema. Jesus Perez MD Soft Tissue Neck X-Ray 05/12/17 0000 Signed Impressions: Service Date/Time: Friday, May 12, 2017 08:54 - CONCLUSION: No acute abnormality is identified. MD Carlos Deleon VTE Risk Assessment Carlos VTE Risk Assessment: Mod/High Risk (score >= 2) Carlos Risk Assessment Model Point Value = 1 Point Value = 2 Point Value = 3 Point Value = 5 Age 41-60 Minor surgery BMI > 25 kg/m2 Swollen legs Varicose veins or History of unexplained or recurrent spontaneous Oral contraceptives or hormone replacement Sepsis (< 1 month) Serious lung disease, including pneumonia (< 1 month) Abnormal pulmonary function Acute myocardial infarction Congestive heart failure (< 1 month) History of inflammatory bowel disease Medical patient at bed rest Age 61-74 Arthroscopic surgery Major open surgery (> 45 min) Laparoscopic surgery (> 45 min) Malignancy Confined to bed (> 72 hours) Immobilizing plaster cast Central venous access Age >= 75 History of VTE Family history of VTE Factor V Leiden Prothrombin [id number] Lupus anticoagulant Anticardiolipin antibodies Elevated serum homocysteine Heparin-induced thrombocytopenia Other congenital or acquired thrombophilia Stroke (< 1 month) Elective arthroplasty Hip, pelvis, or leg fracture Acute spinal cord injury (< 1 month) Prophylaxis Regimen Total Risk Factor Score Risk Level Prophylaxis Regimen 0-1 Low Early ambulation 2 Moderate Order ONE of the following: *Sequential Compression Device (SCD) *Heparin 5000 units SQ BID 3-4 Higher Order ONE of the following medications: *Heparin 5000 units SQ TID *Enoxaparin/Lovenox 40 mg SQ daily (WT < 150 kg, CrCl > 30 mL/min) *Enoxaparin/Lovenox 30 mg SQ daily (WT < 150 kg, CrCl > 10-29 mL/min) *Enoxaparin/Lovenox 30 mg SQ BID (WT < 150 kg, CrCl > 30 mL/min) AND/OR *Sequential Compression Device (SCD) 5 or more Highest Order ONE of the following medications: *Heparin 5000 units SQ TID (Preferred with Epidurals) *Enoxaparin/Lovenox 40 mg SQ daily (WT < 150 kg, CrCl > 30 mL/min) *Enoxaparin/Lovenox 30 mg SQ daily (WT < 150 kg, CrCl > 10-29 mL/min) *Enoxaparin/Lovenox 30 mg SQ BID (WT < 150 kg, CrCl > 30 mL/min) AND *Sequential Compression Device (SCD) Assessment and Plan Problem List: (1) COPD exacerbation ICD Code: J44.1 - Chronic obstructive pulmonary disease with (acute) exacerbation Status: Acute Plan: Continue IV steroids, bronchodilators, patient education follow-up ABG check flu (2) HTN (hypertension) ICD Code: I10 - Essential (primary) hypertension Plan: Continue Lisinopril and Clonidine echo 09/2016 shows ef 45-50%, (3) Bladder outlet obstruction ICD Code: N32.0 - Bladder-neck obstruction Status: Acute Plan: keep lama in (4) Hyponatremia ICD Code: E87.1 - Hypo-osmolality and hyponatremia Status: Acute Plan: chronic and at baseline Assessment and Plan heparin sq Code Status DNR Discussed Condition With patient, DELMI Physician Certification 2 Midnight Certification Type: Admission for Inpatient Services Order for Inpatient Services The services are ordered in accordance with Medicare regulations or non- Medicare payer requirements, as applicable. In the case of services not specified as inpatient-only, they are appropriately provided as inpatient services in accordance with the 2-midnight benchmark. Estimated LOS (days): 3 3 days is the estimated time the patient will need to remain in the hospital, assuming treatment plan goals are met and no additional complications. Post-Hospital Plan: Olivia Villaseñor MD May 12, 2017 15:02
[2017-05-12 15:38] LABS: BLOOD GAS BASE EXCESS 1.7 mmol/L (-2-2); BLOOD GAS CARBOXYHEMOGLOBIN 1.3 % (0-4); BLOOD GAS HCO3 26 mmol/L (22-26); BLOOD GAS METHEMOGLOBIN 1.1 % (0-2); BLOOD GAS O2 HGB SATURATION 92 % (90-100); BLOOD GAS OXYGEN CONTENT 16.1 Vol % (12.0-20.0); BLOOD GAS PCO2 38 mmHG (38-42); BLOOD GAS PO2 72 mmHG (61-120); BLOOD GAS TOTAL HGB 12.4 G/DL (12.0-16.0); CRITICAL VALUE NO; DRAW SITE LT RADIAL; FIO2 21 %; OXYGEN DEVICE ROOM AIR; TEMP CORR TO 98.6
[2017-05-12 15:39] LABS: NUMBER OF ARTERIAL PUNCTURES 1; STAT NO; ULNAR PULSE PRESENT
[2017-05-12] MEDS: ALPRAZolam 0.25 MG TAB PO PRN (15:49)
[2017-05-12] MEDS: LISINOPRIL 20 MG TAB PO SCH (15:52)
[2017-05-12] MEDS: methylPREDNISolone SOD SUCC 40 MG/1 ML VIAL IV PUSH SCH ×2 (15:57→20:26)
[2017-05-12] MEDS: HEPARIN SODIUM - SQ 10,000 UNITS/ML VIAL SQ SCH ×2 (16:04→20:26)
[2017-05-12] MEDS ORDERED: hydrALAZINE HCL 20 MG/ML VIAL IV PUSH ONE (17:45)
[2017-05-12] MEDS: cloNIDine HCL 0.1 MG TAB PO SCH (20:25)
[2017-05-12] MEDS: SODIUM CHLORIDE 0.9% FLUSH 10 ML FLUSH IV FLUSH SCH (20:26)
[2017-05-13] VITALS (8 sets, daily range): BP systolic 102–152; BP diastolic 56–78; PULSE 63–81; RESP 18–22; TEMP 96.9–98.7; O2SAT 94–100
[2017-05-13] MEDS: HEPARIN SODIUM - SQ 10,000 UNITS/ML VIAL SQ SCH ×3 (06:00→21:39)
[2017-05-13] MEDS: RESP: ALBUTEROL 2.5 MG/IPRATROPIUM 0.5 MG NEB (SCH) INH ×3 (07:29→21:01)
[2017-05-13 08:30] LABS: BICARBONATE 28.3 MEQ/L (21.0-32.0)
[2017-05-13] MEDS: SODIUM CHLORIDE 0.9% FLUSH 10 ML FLUSH IV FLUSH SCH ×2 (09:00→21:43)
[2017-05-13] MEDS ORDERED: AZITHROMYCIN INJ 500 MG in SODIUM CHLOR 0.9% 250 ML INJ 250 ML IV SCH (09:00)
--- NOTE | 2017-05-13 09:47 | HHI.PR ---
Subjective Remarks Patient seen in follow-up for COPD Exacerbation. No events on telemetry. Rest or status is improving slowly. Objective Vitals Vital Signs Date Time Temp Pulse Resp B/P (MAP) Pulse Ox O2 Delivery O2 Flow Rate FiO2 05/13/17 07:30 99 Nasal Cannula 2.00 05/13/17 04:00 97.1 70 18 152/78 (102) 100 05/13/17 00:00 97.2 76 18 102/64 (77) 100 05/12/17 20:00 97.7 83 17 164/68 (100) 100 05/12/17 19:44 99 Nasal Cannula 2.00 05/12/17 17:23 172/64 (100) 05/12/17 16:00 98.1 77 20 170/69 (102) 97 05/12/17 15:56 99 Nasal Cannula 2.00 05/12/17 13:00 98.0 78 20 168/71 (103) 98 05/12/17 11:28 05/12/17 10:40 84 18 177/80 (112) 98 Room Air 05/12/17 10:20 98 Nasal Cannula 2.00 05/12/17 10:20 115 24 92 I/O 05/12/17 05/12/17 05/12/17 05/13/17 05/13/17 05/13/17 07:00 15:00 23:00 07:00 15:00 23:00 Intake Total 750 ml 480 ml 240 ml Output Total 500 ml Balance 750 ml 480 ml -260 ml Intake Oral 480 ml 240 ml IV Total 750 ml Output Urine Total 500 ml Result Diagram: 05/12/17 0710 05/13/17 0750 Objective Remarks GENERAL: This is a well-nourished, well-developed patient, in no apparent distress. CARDIOVASCULAR: Regular rate and rhythm without murmurs, gallops, or rubs. RESPIRATORY: Decreased breath sounds bilaterally with some upper airway forced breathing and not true stridor GASTROINTESTINAL: Abdomen soft, non-tender, nondistended. Normal active bowel sounds MUSCULOSKELETAL: Extremities without clubbing, cyanosis, or edema. NEURO: Alert & Oriented x4 to person, place, time, situation. Moves all ext x4 A/P Problem List: (1) COPD exacerbation ICD Code: J44.1 - Chronic obstructive pulmonary disease with (acute) exacerbation Status: Acute Plan: Continue by mouth steroids, bronchodilators, patient education ABG on room air review Negative flu (2) HTN (hypertension) ICD Code: I10 - Essential (primary) hypertension Plan: Continue Lisinopril and Clonidine echo 09/2016 shows ef 45-50%, (3) Bladder outlet obstruction ICD Code: N32.0 - Bladder-neck obstruction Status: Acute Plan: keep lama in (4) Hyponatremia ICD Code: E87.1 - Hypo-osmolality and hyponatremia Status: Acute Plan: chronic and at baseline (5) Anxiety ICD Code: F41.9 - Anxiety disorder, unspecified Status: Acute Plan: Continue Xanax Discharge Planning likely discharge in Olivia Bailon MD May 13, 2017 09:47
[2017-05-13] MEDS: methylPREDNISolone SOD SUCC 40 MG/1 ML VIAL IV PUSH SCH (09:48)
[2017-05-13] MEDS: cloNIDine HCL 0.1 MG TAB PO SCH ×2 (09:49→21:38)
[2017-05-13] MEDS: LISINOPRIL 20 MG TAB PO SCH (09:49)
[2017-05-13] MEDS: METHOCARBAMOL 500 MG TAB PO SCH (09:49)
[2017-05-13] MEDS: AZITHROMYCIN 250 MG TAB PO SCH (09:50)
[2017-05-13] MEDS: ALPRAZolam 0.25 MG TAB PO PRN ×2 (09:50→21:41)
[2017-05-13] MEDS ORDERED: INFLUENZA VIRUS VACCINE (QUADRIVALENT) 0.5 ML SYR IM ONE (10:00)
[2017-05-13] MEDS: ACETAMINOPHEN/HYDROcodone 325 MG/10 MG TAB PO SCH ×2 (12:01→20:43)
[2017-05-13] MEDS: predniSONE 20 MG TAB PO SCH (20:43)
[2017-05-14] VITALS: BP 114/60; PULSE 68; RESP 20; TEMP 98.5; O2SAT 100
[2017-05-14] MEDS: HEPARIN SODIUM - SQ 10,000 UNITS/ML VIAL SQ SCH (06:10)
[2017-05-14] MEDS: RESP: ALBUTEROL 2.5 MG/IPRATROPIUM 0.5 MG NEB (SCH) INH ×2 (07:12→11:06)
[2017-05-14 07:13] VITALS: O2SAT 100
[2017-05-14 08:00] VITALS: BP 149/63; PULSE 60; RESP 20; TEMP 96.7; O2SAT 100
[2017-05-14] MEDS: SODIUM CHLORIDE 0.9% FLUSH 10 ML FLUSH IV FLUSH SCH (09:19)
[2017-05-14] MEDS: cloNIDine HCL 0.1 MG TAB PO SCH (09:19)
[2017-05-14] MEDS: predniSONE 20 MG TAB PO SCH (09:20)
[2017-05-14] MEDS: ACETAMINOPHEN/HYDROcodone 325 MG/10 MG TAB PO SCH (09:20)
[2017-05-14] MEDS: LISINOPRIL 20 MG TAB PO SCH (09:20)
[2017-05-14] MEDS: AZITHROMYCIN 250 MG TAB PO SCH (09:20)
[2017-05-14] MEDS: METHOCARBAMOL 500 MG TAB PO SCH (09:20)
--- NOTE | 2017-05-14 09:22 | HHI.FF ---
Face to Face Verification Diagnosis: (1) COPD exacerbation Physical Therapy Order: Evaluate and Treat, Improve ambulation, Strength and gait training Home Health Nursing Order: Medical education Signs/symptoms of disease process Medication education-adverse effect I have seen patient Ariana Cabrera on 05/14/17. My clinical findings support the need for the requested home health care services because: Patient has SOB I certify that my clinical findings support that this patient is homebound because: Hx COPD- exertion dyspnea/weakness Unsteady gait/balance Olivia Mckeon MD May 14, 2017 09:22
[2017-05-14] MEDS ORDERED: ALBU0.08 NEB (09:41)
--- NOTE | 2017-05-14 09:42 | HHI.DCPOC ---
Discharge Care Plan Diagnosis: (1) Anxiety (2) COPD exacerbation Goals to Promote Your Health * To prevent worsening of your condition and complications * To maintain your health at the optimal level Directions to Meet Your Goals Take your medications as prescribed Follow your dietary instruction Follow activity as directed Keep your appointments as scheduled Take your immunizations and boosters as scheduled If your symptoms worsen call your PCP, if no PCP go to Urgent Care Center or Emergency Room Smoking is Dangerous to Your Health. Avoid second hand smoke Call the 24-hour hour crisis hotline for domestic abuse at Olivia Mckeon MD May 14, 2017 09:42
--- NOTE | 2017-05-14 10:09 | HHI.DS ---
Discharge Summary Admission Date May 12, 2017 at 13:05 Discharge Date: May 14, 2017 Admitting Diagnosis COPD exacerbation (1) COPD exacerbation ICD Code: J44.1 - Chronic obstructive pulmonary disease with (acute) exacerbation Status: Acute (2) HTN (hypertension) ICD Code: I10 - Essential (primary) hypertension (3) Bladder outlet obstruction ICD Code: N32.0 - Bladder-neck obstruction Status: Acute (4) Hyponatremia ICD Code: E87.1 - Hypo-osmolality and hyponatremia Status: Acute (5) Anxiety ICD Code: F41.9 - Anxiety disorder, unspecified Status: Acute Procedures None Brief History - From Admission This patient is a 61-year-old female with a known history of COPD. She did come to the hospital with complaints of increased shortness of breath and having to use her home nebulizers more frequently. She was on steroids and antibiotics without improvement. She is quite wheezy on exam with some pursed lip breathing and tachypnea and accessory muscle use. Patient was expected to be discharged in the emergency room but became more short of breath and had worsening respiratory distress. Patient lives home alone, and was therefore recommended for further observation in the hospital. Her blood pressure is quite elevated also CBC/BMP: 05/12/17 0710 05/13/17 0750 Significant Findings Laboratory Tests Test 05/12/17 07:10 05/12/17 15:30 05/13/17 07:50 Mean Platelet Volume 6.9 FL (7.0-11.0) Monocytes (%) (Auto) 9.8 % (0.0-8.0) Blood Urea Nitrogen 4 MG/DL (7-18) Random Glucose 130 MG/DL (74-106) 111 MG/DL (74-106) Sodium Level 128 MEQ/L (136-145) 130 MEQ/L (136-145) Chloride Level 93 MEQ/L (98-107) 96 MEQ/L (98-107) Arterial Blood pH 7.44 (7.380-7.420) Imaging Last Impressions Chest X-Ray 05/12/17 0824 Signed Impressions: Service Date/Time: Friday, May 12, 2017 08:53 - CONCLUSION: No acute cardiopulmonary abnormality is identified. Background lung changes characteristic of mild emphysema. Jesus Perez MD Soft Tissue Neck X-Ray 05/12/17 0000 Signed Impressions: Service Date/Time: Friday, May 12, 2017 08:54 - CONCLUSION: No acute abnormality is identified. Jesus Perez MD PE at Discharge GENERAL: This is a well-nourished, well-developed patient, in no apparent distress. CARDIOVASCULAR: Regular rate and rhythm without murmurs, gallops, or rubs. RESPIRATORY: Decreased breath sounds bilaterally with some upper airway forced breathing and not true stridor GASTROINTESTINAL: Abdomen soft, non-tender, nondistended. Normal active bowel sounds MUSCULOSKELETAL: Extremities without clubbing, cyanosis, or edema. NEURO: Alert & Oriented x4 to person, place, time, situation. Moves all ext x4 Pt update on day of discharge Patient seen today. Oxygenation remains stable. Still with upper airway straining. Hospital Course This patient is a 61-year-old female with anxiety and COPD. She did have some dyspnea on exertion and shortness of breath. She did not appear to have significant CO2 exacerbation but more appeared to be anxious. She has no evidence hyperventilation. The patient was counseled on Her medication as she has been using her inhalers constantly and causing her heart rate to go up at home and causing more trouble breathing. She also was instructed on signs and symptoms of COPD exacerbation. Patient was discharged home Pt Condition on Discharge: Good Discharge Disposition: Disch w/ Home Health Serv Discharge Time: <= 30 minutes Discharge Instructions DIET: Follow Instructions for: Heart Healthy Diet Activities you can perform: Regular-No Restrictions Follow up Referrals: PCP Follow-up - 1 Week Continued Medications: Albuterol 18 GM Inh (Ventolin Hfa 18 GM Inh) 90 Mcg/Act Aer 2 PUFF INH Q4HR PRN for SHORTNESS OF BREATH, #1 INHALER 0 Refills Albuterol Neb (Albuterol Neb) 2.5 Mg/3 Ml Neb 2.5 MG NEB Q4HR NEB PRN for SHORTNESS OF BREATH, #60 NEBULE 0 Refills (This prescription has been renewed) Alprazolam (Xanax) 0.25 Mg Tab 0.25 MG PO Q8H PRN for ANXIETY, #30 TAB Budesonide-Formoterol Inh (Symbicort Inh) 160-4.5 Mcg/Act Aero 1 PUFF INH Q12HR, #1 INHALER 0 Refills Clonidine (Clonidine) 0.1 Mg Tab 0.1 MG PO BID for Blood Pressure Management, #60 TAB 0 Refills Hydrocodone-Acetaminophen (Lortab) 10-325 Mg Tab 1 TAB PO Q4H PRN for PAIN, TAB 0 Refills Ipratropium Neb (Ipratropium Neb) 0.5 Mg/2.5 Ml Amp 0.5 MG NEB Q12HR NEB for Breathing Treatment, #60 NEBULE 0 Refills Lisinopril (Lisinopril) 40 Mg Tab 40 MG PO DAILY for Blood Pressure Management, #30 TAB 0 Refills Methocarbamol (Robaxin) 500 Mg Tab 500 MG PO DAILY for Muscle Spasm, TAB 0 Refills Prednisone (Prednisone) 20 Mg Tab 20 MG PO BID for 7 Days, #14 TAB 0 Refills Discontinued Medications: Albuterol 6.7 GM Inh (Proventil Hfa 6.7 GM Inh) 90 Mcg/Act Aer 2 PUFF INH Q4-6H PRN for SHORTNESS OF BREATH, #1 INHALER 0 Refills Albuterol 8.5 GM Inh (Proair Hfa 8.5 GM Inh) 90 Mcg/Act Aer 2 PUFF INH Q4-6H PRN for SHORTNESS OF BREATH, #1 INHALER 0 Refills 108 mcg/actuation Azithromycin (Zithromax Z-Nick) 250 Mg Dspk 250 MG PO DIRECTED for Infection, #1 DSPK 0 Refills 500 MG (2 tabs) day 1, then 1 tab days 2-5. Olivia Mckeon MD May 14, 2017 10:09
[2017-05-14 12:00] VITALS: BP 158/74; PULSE 63; RESP 20; TEMP 95.9; O2SAT 100
== END 2017-05-14 12:45 | disposition home or self-care (01) | DRG 191 ==
LOC: PHED 06:32 → PHSDC 10:51 → PH5A 13:05
PROVIDERS: ADMIT Hospitalist; ATTEND Hospitalist
DX: J44.1 Chronic obstructive pulmonary disease with (acute) exacerbation (principal); E87.1 Hypo-osmolality and hyponatremia; I10 Essential (primary) hypertension; N32.0 Bladder-neck obstruction; G47.30 Sleep apnea, unspecified; H91.90 Unspecified hearing loss, unspecified ear; F41.9 Anxiety disorder, unspecified; H93.12 Tinnitus, left ear; Z87.891 Personal history of nicotine dependence; Z66 Do not resuscitate; Z79.899 Other long term (current) drug therapy; M51.26 Other intervertebral disc displacement, lumbar region; Z23 Encounter for immunization
CPT/HCPCS: 36600; 70360; 71010; 80048; 82805; 85025; 87040; 87804; 90471; 90686; 94620; 94640; 94664; 96365; G0008; J0360; J0456; J1644; J2920; J7040; J7050; J7512; J7613; Q2038

== ENCOUNTER 2017-05-16 15:29 | Emergency (ER) | payer MEDICARE, MEDICAID ==
[~2017-05-16] VITALS: Ht 160 cm; Wt 45.5 kg
[~2017-05-16 15:29] MED LIST changes: -ALBUAER3 INH
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
[2017-05-16 15:44] VITALS: BP 211/94; PULSE 89; RESP 22; TEMP 98.7; O2SAT 98
[2017-05-16] MEDS ORDERED: SODIUM CHLORIDE 0.9% FLUSH 10 ML FLUSH IVF PRN (16:00)
[2017-05-16] MEDS: RESP: ALBUTEROL 2.5 MG/IPRATROPIUM 0.5 MG NEB (SCH) INH (16:11)
[2017-05-16 16:22] LABS: AUTOMATED NEUTROPHIL # 6.7 TH/MM3 (1.8-7.7); BASOPHIL # 0.4 TH/MM3 (0-0.2); BASOPHIL % 4.9 % (0.0-2.0); LYMPH % 13.6 % (9.0-44.0); LYMPHOCYTE # 1.2 TH/MM3 (1.0-4.8); MEAN CELL VOLUME 96.2 FL (80.0-100.0); MEAN CORPUSCULAR HEMOGLOBIN 32.4 PG (27.0-34.0); MEAN CORPUSCULAR HGB CONC 33.6 % (32.0-36.0); MONO % 3.3 % (0.0-8.0); NEUT % 78.2 % (16.0-70.0); PLATELET COUNT 283 TH/MM3 (150-450); RED BLOOD COUNT 3.75 MIL/MM3 (4.00-5.30); WHITE BLOOD COUNT 8.6 TH/MM3 (4.0-11.0)
[2017-05-16 16:25] LABS: HEMO FLAGS AUTO DIFF
[2017-05-16 16:28] LABS: CHLORIDE 92 MEQ/L (98-107); POTASSIUM 4.4 MEQ/L (3.5-5.1); SODIUM (NA) 128 MEQ/L (136-145)
[2017-05-16 16:31] LABS: BLOOD UREA NITROGEN 6 MG/DL (7-18)
[2017-05-16 16:32] LABS: INTERNATIONAL NORMALIZED RATIO 0.9 RATIO
[2017-05-16] MEDS ORDERED: IOHEXOL 350 MG/ML 10 ML VIAL (for RAD DIAG) IVCONTRAST ONE (16:32)
[2017-05-16 16:33] LABS: ANION GAP 9 MEQ/L (5-15); BICARBONATE 26.9 MEQ/L (21.0-32.0)
[2017-05-16 16:34] LABS: GLOMERULAR FILTRATION RATE 82 ML/MIN (>89)
[2017-05-16 16:44] LABS: BANDS 1 % (0-6); NEUTROPHIL # MANUAL DIFF 7.1 TH/MM3 (1.8-7.7); PLATELET ESTIMATE SMEAR NORMAL (NORMAL); PLATELET MORPHOLOGY NORMAL (NORMAL); POLYS (SEG NEUTROPHILS) 81 % (16-70); SCAN/DIFF FINAL DIFF MANUAL; WBC DIFF SAMPLE 100
--- NOTE | 2017-05-16 16:54 | RADRPT ---
EXAM DATE/TIME: 05/16/2017 16:28 [facility] COMPARISON: CT SOFT TISSUE NECK W CONTRAST, March 30, 2017, 13:48. INDICATIONS : Short of breath. IV CONTRAST: 55 cc Omnipaque 350 (iohexol) IV RADIATION DOSE: 10.03 CTDIvol (mGy) MEDICAL HISTORY : Hypertension. Chronic obstructive pulmonary disease. Emphysema. SURGICAL HISTORY : None. ENCOUNTER: Initial ACUITY: 1 day PAIN SCALE: 0/10 LOCATION: chest TECHNIQUE: Volumetric scanning of the chest was performed. Using automated exposure control and adjustment of t he mA and/or kV according to patient size, radiation dose was kept as low as reasonably achievable to obtain optimal diagnostic quality images. DICOM format image data is available electronically for review and comparison. Follow-up recommendations for detected pulmonary nodules are based at a minimum on nodule size and pa tient risk factors according to Fleischner Society Guidelines. FINDINGS: LUNGS: The exam demonstrates an small emphysematous blebs throughout both lungs. The 5 mm nodule in the medi al aspect of the right upper lobe is no longer identified. No new lesions are present. There are COPD changes. PLEURA: There is no pleural thickening or pleural effusion. MEDIASTINUM: The heart is normal in size. There is atherosclerotic plaquing and coronary arteries. No pericardial effusion is evident. No significant hilar or mediastinal adenopathy is identified. AXILLAE: Within normal limits. No lymphadenopathy. SKELETAL: Within normal limits for patient age. MISCELLANEOUS: The visualized upper abdominal organs demonstrate no acute abnormality. CONCLUSION: 1. COPD changes. The lungs are otherwise clear. Ventura López MD on May 16, 2017 at 16:48 Board Certified Radiologist. This report was verified electronically.
[2017-05-16 17:08] VITALS: O2SAT 98
[2017-05-16 18:07] VITALS: BP 211/96; PULSE 78; RESP 22; O2SAT 98
[2017-05-16] MEDS ORDERED: cloNIDine HCL 0.1 MG TAB PO ONE (18:15)
[2017-05-16 18:49] VITALS: BP 188/90
--- NOTE | 2017-05-17 07:55 | EKG ---
Date Performed: 05/16/2017 Time Performed: 16:04:34 PTAGE: 61 years EKG: Sinus rhythm WITH SHORT NH INTERVAL POSSIBLE RIGHT ATRIAL ENLARGEMENT POSSIBLE LEFT ATRIAL ENLARGEMENT SEPTAL CHERYL CARDIAL INFARCTION ABNORMAL ECG Since PREVIOUS TRACING , no significant change noted PREVIOUS TRACIN11/09/2016 10.44 DOCTOR: Nury Bauman Interpretating Date/Time 05/17/2017 07:54:22
== END 2017-05-16 18:52 | disposition home or self-care (01) ==
LOC: PHED 15:29
DX: J44.1 Chronic obstructive pulmonary disease with (acute) exacerbation (principal); I10 Essential (primary) hypertension; G47.30 Sleep apnea, unspecified; H93.12 Tinnitus, left ear; Z87.891 Personal history of nicotine dependence
CPT/HCPCS: 71260; 80048; 83880; 84484; 85007; 85027; 85610; 93005; 94664; 99285; Q9967

== ENCOUNTER 2017-09-12 16:44 | Emergency (ER) | payer MEDICARE, MEDICAID ==
[~2017-09-12] VITALS: Ht 160 cm; Wt 55.0 kg
[2017-09-12 16:55] VITALS: BP 149/69; PULSE 62; RESP 20; TEMP 98; O2SAT 97
[2017-09-12] MEDS ORDERED: HYDR-3583 PO (17:15)
[2017-09-12] MEDS ORDERED: CORE25TA PO (17:16)
[2017-09-12] MEDS ORDERED: CIPR250T2 PO (17:16)
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
[2017-09-12] MEDS ORDERED: ACETAMINOPHEN/HYDROcodone 325 MG/10 MG TAB PO ONE (17:30)
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
[2017-09-12] MEDS ORDERED: ROBA500T PO (19:19)
== END 2017-09-12 19:35 | disposition home or self-care (01) ==
LOC: PHEFT 16:44
DX: G89.29 Other chronic pain (principal); S80.812A Abrasion, left lower leg, initial encounter; S80.811A Abrasion, right lower leg, initial encounter; J44.9 Chronic obstructive pulmonary disease, unspecified; I10 Essential (primary) hypertension; V03.00XA Pedestrian on foot injured in collision with car, pick-up truck or van in nontraffic accident, initial encounter; Y93.9 Activity, unspecified; Y92.008 Other place in unspecified non-institutional (private) residence as the place of occurrence of the external cause; Z88.8 Allergy status to other drugs, medicaments and biological substances
CPT/HCPCS: 72131; 99284